=== PATIENT | female | born 1950 | race Caucasian/White ===

== ENCOUNTER 2023-07-15 18:13 | Emergency (ER) | payer MEDICARE ==
[2023-07-15 18:32] VITALS: RESP 18
[2023-07-15] MEDS ORDERED: SODIUM CHLORIDE 0.9% 1,000 ML IV STA (18:49)
--- NOTE | 2023-07-15 18:55 | ED ---
General Adult HPI - General Source: patient, EMS, RN notes reviewed Mode of arrival: EMS Limitations: no limitations <Michael Bergeron - Last Filed: 07/15/23 19:25> <Tye De La Vega - Last Filed: 07/15/23 22:50> - General Chief complaint: Weakness Stated complaint: Weakness, dizziness Time Seen by Provider: 07/15/23 18:40 - History of Present Illness Initial comments: Patient is a pleasant 72-year-old female presenting to the emergency Department with lightheadedness. Onset of symptoms was 2 days ago. Patient feels when she stands up she becomes very lightheaded and is worried she could pass out. Patient has not passed out. No chest pain. Patient has noticed some exertional dyspnea as well. Patient was recently discharged from [facility]. Patient was there to have a port removed. During this procedure they did find some blood clot however they did testing and found no clots in her lungs. Patient was on heparin for 3 days and the decision was made not to further anticoagulate. (Michael Bergeron) - Related Data Home Medications Medication Instructions Recorded Confirmed ALPRAZolam [Xanax] 0.25 mg PO TID PRN 07/15/23 07/15/23 HYDROcodone/APAP 7.5-325MG [[place] 1 tab PO Q6H 07/15/23 07/15/23 7.5-325] Propranolol [Inderal] 20 mg PO BID 07/15/23 07/15/23 Previous Rx's Medication Instructions Recorded Apixaban [Eliquis Starter Pack 5 - 10 mg PO DIRECTED 30 Days 07/15/23 (for VTE)] #1 each Allergies Allergy/AdvReac Type Severity Reaction Status Date / Time Penicillins AdvReac Rash/Hives Verified 07/15/23 20:18 Review of Systems ROS Other: All systems not noted in ROS Statement are negative. Constitutional: Denies: fever Eyes: Denies: eye pain ENT: Denies: ear pain Respiratory: Reports: as per HPI. Denies: cough Cardiovascular: Denies: chest pain Endocrine: Denies: fatigue Gastrointestinal: Denies: abdominal pain Genitourinary: Denies: dysuria Musculoskeletal: Denies: back pain Skin: Denies: rash <Michael Bergeron - Last Filed: 07/15/23 19:25> ROS Other: All systems not noted in ROS Statement are negative. <Tye De La Vega - Last Filed: 07/15/23 22:50> ROS Statement: Those systems with pertinent positive or pertinent negative responses have been documented in the HPI. Past Medical History Past Medical History: Cancer Additional Past Medical History / Comment(s): colon cancer, hx bladder cancer, prolapse mitral valve History of Any Multi-Drug Resistant Organisms: None Reported Past Surgical History: Hysterectomy Additional Past Surgical History / Comment(s): tubal , ostomy, colon resection Past Psychological History: Anxiety Smoking Status: Former smoker Past Alcohol Use History: Rare Past Drug Use History: None Reported <Michael Bergeron - Last Filed: 07/15/23 19:25> General Exam Limitations: no limitations General appearance: alert, in no apparent distress Head exam: Present: normocephalic Eye exam: Present: normal appearance Neck exam: Present: normal inspection Respiratory exam: Present: normal lung sounds bilaterally Cardiovascular Exam: Present: regular rate, normal rhythm GI/Abdominal exam: Present: soft. Absent: tenderness Extremities exam: Present: other (Mild swelling right antecubital fossa and just proximal) Neurological exam: Present: alert, oriented X3, CN II-XII intact. Absent: motor sensory deficit Psychiatric exam: Present: normal affect, normal mood Skin exam: Present: normal color <Michael Bergeron - Last Filed: 07/15/23 19:25> Course Vital Signs 07/15/23 07/15/23 07/15/23 18:16 19:20 20:00 Temperature 99.3 F Pulse Rate 70 65 72 Pulse Rate [ Pulse Oximetery ] Respiratory 18 18 Rate Blood Pressure 124/113 100/65 97/61 Blood Pressure [Left Arm Sitting] Blood Pressure [Left Arm Standing] Blood Pressure [Left Arm Supine] O2 Sat by Pulse 97 97 95 Oximetry 07/15/23 07/15/23 07/15/23 20:30 21:16 22:35 Temperature 99.1 F Pulse Rate 70 62 Pulse Rate [ 68 Pulse Oximetery ] Respiratory 18 Rate Blood Pressure 95/65 116/83 Blood Pressure 101/62 [Left Arm Sitting] Blood Pressure 101/64 [Left Arm Standing] Blood Pressure 107/70 [Left Arm Supine] O2 Sat by Pulse 97 98 Oximetry EKG Findings - EKG Results: EKG: interpreted by ERMAnuradha (QT 460. QTC 479. pvc present.), sinus rhythm, normal axis, normal QRS, normal ST/T <Michael Bergeron - Last Filed: 07/15/23 19:25> Medical Decision Making - Lab Data Result diagrams: 07/15/23 19:18 07/15/23 19:18 <Tye De La Vega - Last Filed: 07/15/23 22:50> - Medical Decision Making Patient was signed out to me pending results of imaging. Briefly, patient has a history of colon cancer recently had a port removed. Has known blood clots but was not discharged home from [facility] on blood thinners as he believed it would pass on its own, presenting with some lightheadedness and weakness. Sensory over concern for possible pulmonary embolism. Patient is also complaining of right upper arm pain. Patient states she feels lightheaded sometimes when sta nding. It is intermittent. Denies any source of bleeding. No longer has a port. Has no other acute complaints at this time. Was not discharged home on home blood thinners. Patient's laboratory studies are remarkable for mild anemia of 7.8. It is microcytic likely chronic. No obvious source of bleeding. Remainder the labs within normal limits. Patient's ultrasound is interpreted by myself reveals a right brachial DVT, as well as a mural thrombus possibly the internal jugular vein which per patient is known that she had clots elsewhere. Patient's CT PE as interpreted by myself reveals no obvious pulmonary embolism. Patient has stenosis of the SVC. I discussed results with the patient. She will go home at this time. She will however be placed on Eliquis outpatient and instructed to follow-up with vascular surgery as well as her PCP. She was in agreement this plan. Strict re turn precautions were discussed. I will provide the patient with a prescription for eliquis. I instructed the patient to follow up with their PCP in the next 1-3 days. I explained that the patient should return to the emergency department if they experience any worsening symptoms. Strict return precautions were discussed with the patient. The patient expressed understanding of these instructions. I answered all questions that the patient had. The patient was discharged home in good condition with their prescriptions and follow up information. Diagnosis/symptom? @ -Right upper extremity DVT Acute, or Chronic, or Acute on Chronic? @ -Acute on chronic Uncomplicated (without systemic symptoms) or Complicated (systemic symptoms)? @ -Complicated Side effects of treatment? @ -none Exacerbation, Progression, or Severe Exacerbation] @ -no Poses a threat to life or bodily function? @ -Unlikely (Tye De La Vega) - Lab Data Lab Results 07/15/23 07/15/23 07/15/23 Range/Units 19:18 19:18 19:18 WBC 10.0 (3.8-10.6) k/uL RBC 3.10 L (3.80-5.40) m/uL Hgb 7.8 L (11.4-16.0) gm/dL Hct 24.6 L (34.0-46.0) % MCV 79.4 L (80.0-100.0) fL MCH 25.2 (25.0-35.0) pg MCHC 31.7 (31.0-37.0) g/dL RDW 18.9 H (11.5-15.5) % Plt Count 383 (150-450) k/uL MPV 7.7 Neutrophils % 77 % Lymphocytes % 11 % Monocytes % 8 % Eosinophils % 2 % Basophils % 0 % Neutrophils # 7.7 (1.3-7.7) k/uL Lymphocytes # 1.1 (1.0-4.8) k/uL Monocytes # 0.8 (0-1.0) k/uL Eosinophils # 0.2 (0-0.7) k/uL Basophils # 0.0 (0-0.2) k/uL Hypochromasia Moderate Anisocytosis Slight Microcytosis Slight PT 9.5 (9.0-12.0) sec INR 0.9 (<1.2) APTT 22.3 (22.0-30.0) sec Sodium 135 L (137-145) mmol/L Potassium 4.5 (3.5-5.1) mmol/L Chloride 103 (98-107) mmol/L Carbon Dioxide 26 (22-30) mmol/L Anion Gap 6 mmol/L BUN 15 (7-17) mg/dL Creatinine 0.89 (0.52-1.04) mg/dL Est GFR (CKD-EPI)AfAm 76 (>60 ml/min/1.73 sqM) Est GFR (CKD-EPI)NonAf 66 (>60 ml/min/1.73 sqM) Glucose 93 (74-99) mg/dL Plasma Lactic Acid Merrill (0.7-2.0) mmol/L Calcium 8.7 (8.4-10.2) mg/dL Magnesium 2.1 (1.6-2.3) mg/dL Total Bilirubin 0.4 (0.2-1.3) mg/dL AST 30 (14-36) U/L ALT 17 (4-34) U/L Alkaline Phosphatase 99 (38-126) U/L Troponin I (0.000-0.034) ng/mL NT-Pro-B Natriuret Pep 535 pg/mL Total Protein 6.6 (6.3-8.2) g/dL Albumin 3.6 (3.5-5.0) g/dL 07/15/23 07/15/23 Range/Units 19:18 19:18 WBC (3.8-10.6) k/uL RBC (3.80-5.40) m/uL Hgb (11.4-16.0) gm/dL Hct (34.0-46.0) % MCV (80.0-100.0) fL MCH (25.0-35.0) pg MCHC (31.0-37.0) g/dL RDW (11.5-15.5) % Plt Count (150-450) k/uL MPV Neutrophils % % Lymphocytes % % Monocytes % % Eosinophils % % Basophils % % Neutrophils # (1.3-7.7) k/uL Lymphocytes # (1.0-4.8) k/uL Monocytes # (0-1.0) k/uL Eosinophils # (0-0.7) k/uL Basophils # (0-0.2) k/uL Hypochromasia Anisocytosis Microcytosis PT (9.0-12.0) sec INR (<1.2) APTT (22.0-30.0) sec Sodium (137-145) mmol/L Potassium (3.5-5.1) mmol/L Chloride (98-107) mmol/L Carbon Dioxide (22-30) mmol/L Anion Gap mmol/L BUN (7-17) mg/dL Creatinine (0.52-1.04) mg/dL Est GFR (CKD-EPI)AfAm (>60 ml/min/1.73 sqM) Est GFR (CKD-EPI)NonAf (>60 ml/min/1.73 sqM) Glucose (74-99) mg/dL Plasma Lactic Acid Merrill 1.3 (0.7-2.0) mmol/L Calcium (8.4-10.2) mg/dL Magnesium (1.6-2.3) mg/dL Total Bilirubin (0.2-1.3) mg/dL AST (14-36) U/L ALT (4-34) U/L Alkaline Phosphatase (38-126) U/L Troponin I <0.012 (0.000-0.034) ng/mL NT-Pro-B Natriuret Pep pg/mL Total Protein (6.3-8.2) g/dL Albumin (3.5-5.0) g/dL Disposition <Michael Bergeron - Last Filed: 07/15/23 19:25> Is patient prescribed a controlled substance at d/c from ED?: No Time of Disposition: 22:09 <Tye De La Vega - Last Filed: 07/15/23 22:50> Clinical Impression: Deep venous thrombosis of arm Disposition: HOME SELF-CARE Condition: Fair Instructions (If sedation given, give patient instructions): Deep Vein Thrombosis (ED) Additional Instructions: follow up with your pcp and vascular surgery for the blood clots. take eliquis until follow up as directed. Prescriptions: Apixaban [Eliquis Starter Pack (for VTE)] 5 - 10 mg PO DIRECTED 30 Days #1 each Referrals: None,Stated [Primary Care Provider] - 1-2 days Dev Partida, [Doctor of Osteopathic Medicine] - 1-2 days
[2023-07-15 19:44] LABS: Anisocytosis Slight; Basophils % (A) 0 %; Eosinophils # (A) 0.2 k/uL (0-0.7); Eosinophils % (A) 2 %; HCT 24.6 % (34.0-46.0); HGB 7.8 gm/dL (11.4-16.0); Hypochromasia Moderate; Lymphocytes # (A) 1.1 k/uL (1.0-4.8); Lymphocytes % (A) 11 %; MCH 25.2 pg (25.0-35.0); MCHC 31.7 g/dL (31.0-37.0); MCV 79.4 fL (80.0-100.0); Mean Platelet Volume 7.7; Microcytosis Slight; Monocytes # (A) 0.8 k/uL (0-1.0); Monocytes % (A) 8 %; Neutrophils # (A) 7.7 k/uL (1.3-7.7); Neutrophils % (A) 77 %; Platelet Count 383 k/uL (150-450); RDW 18.9 % (11.5-15.5)
[2023-07-15 19:55] LABS: ALT 17 U/L (4-34); AST 30 U/L (14-36); African American GFR (CKD) 76 (>60 ml/min/1.73 sqM); Albumin 3.6 g/dL (3.5-5.0); Alkaline Phosphatase 99 U/L (38-126); Anion Gap 6 mmol/L; Blood Urea Nitrogen 15 mg/dL (7-17); Calcium 8.7 mg/dL (8.4-10.2); Carbon Dioxide 26 mmol/L (22-30); Chloride 103 mmol/L (98-107); Glucose 93 mg/dL (74-99); Non-African American GFR(CKD) 66 (>60 ml/min/1.73 sqM); Potassium 4.5 mmol/L (3.5-5.1); Sodium 135 mmol/L (137-145); Total Bilirubin 0.4 mg/dL (0.2-1.3); Total Protein 6.6 g/dL (6.3-8.2)
[2023-07-15 20:01] LABS: INR 0.9 (<1.2); Partial Thromboplastin Time 22.3 sec (22.0-30.0); Prothrombin Time 9.5 sec (9.0-12.0)
[2023-07-15 20:03] LABS: NT-Pro-B-Type Natriuretic Pept 535 pg/mL
[2023-07-15 20:11] LABS: Magnesium 2.1 mg/dL (1.6-2.3)
--- NOTE | 2023-07-15 21:29 | CT ---
EXAMINATION TYPE: CT angio chest CT DLP: 213.7 mGycm, Automated exposure control for dose reduction was used. DATE OF EXAM: 07/15/2023 8:38 PM COMPARISON: None CLINICAL INDICATION:Female, 72 years old with history of Exertional dyspnea; SOB, chest pain TECHNIQUE/CONTRAST: CTA scan of the thorax is performed with IV Contrast, patient injected with 100 mL of Isovue 370, MIP images are created and reviewed these are created on a separate workstation.. FINDINGS: Pulmonary Artery: There is no evidence for a filling defect within the pulmonary vasculature to sugge st acute pulmonary embolism. The pulmonary artery is of normal size. Lungs/Pleura: No evidence of focal consolidation, pleural effusion or pneumothorax. Airway: Large airways are patent. Heart: Heart is within normal limits for size. 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 Mediastinum: No gross evidence of adenopathy. Musculoskeletal: No acute osseous abnormalities Soft Tissues: Unremarkable. Lower neck: No significant findings. Upper Abdomen: No significant findings. IMPRESSION: 1. No evidence of pulmonary embolism. 2. 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
--- NOTE | 2023-07-15 21:46 | US ---
EXAMINATION TYPE: US venous doppler duplex UE RT DATE OF EXAM: 07/15/2023 COMPARISON: NONE CLINICAL INDICATION: Female, 72 years old with history of pain; pain and lumps in right arm above elb ow. Pt had IV last week in right arm. Pt states she had a port in her right subclavian area and when it was taken out there was blood clots found around it. SIDE PERFORMED: Right Right Arm: There are echoes seen in one of the lower brachial veins with no compressibility and littl e flow. IJV is difficult to compress due to rouleaux flow. Left Arm: Echoes seen in left IJV IMPRESSION: 1. Deep vein thrombosis within the brachial veins within the right arm 2. Left internal jugular vein echoes suggestive of mural thrombus. Attempted to contact [facility], No answer, on 07/15/2023 9:[address] Homer Nash.
[2023-07-15] MEDS ORDERED: HYDROcodone/APAP 7.5-325MG 1 EACH TAB PO ONE (22:11)
[2023-07-15] MEDS ORDERED: APIXABAN 5 MG TAB PO STA (22:11)
[2023-07-15 22:37] VITALS: BP 116/83; PULSE 62; TEMP 99.1
== END 2023-07-15 22:53 | disposition home or self-care (01) ==
LOC: EC 18:13
DX: I82.621 Acute embolism and thrombosis of deep veins of right upper extremity (principal); F41.9 Anxiety disorder, unspecified; Z87.891 Personal history of nicotine dependence; Z79.899 Other long term (current) drug therapy; Z88.0 Allergy status to penicillin
CPT/HCPCS: 36415; 93005; 83880; 80053; 83605; 83735; 84484; 85025; 85610; 85730; 93971; 71275; 99285; 96360; 96361 ×2; Q9967

== ENCOUNTER → 2023-08-22 | Outpatient (CLI) | payer MEDICARE ==
[2023-08-22 13:29] LABS: African American GFR (CKD) >90 (>60 ml/min/1.73 sqM); Blood Urea Nitrogen 14 mg/dL (7-17); Non-African American GFR(CKD) 87 (>60 ml/min/1.73 sqM)
--- NOTE | 2023-08-22 14:05 | CT ---
EXAMINATION TYPE: CT chest angio for PE DATE OF EXAM: 08/22/2023 COMPARISON: 07/15/2023 HISTORY: SOB, hx of colon ca CT DLP: 138.5 mGycm CONTRAST: CT chest with contrast and 3D reconstruction with MIP imaging is performed with IV Contrast, patient injected with 80cc mL of Isovue 370. Contrast-enhanced CT of the chest was performed through the course of the pulmonary arteries with rock g and mediastinal window settings submitted. 3D reconstruction with MIP imaging was also performed. PULMONARY ARTERIES: The pulmonary arteries and their major tributaries are patent. I do not see rose dence for sizable filling defect to suggest pulmonary embolic process. LUNGS: The lungs are clear and free of infiltrate. No evidence for atelectasis. No pulmonary nodule or mass is detected. No pleural effusion. MEDIASTINUM: Thoracic aorta is of normal caliber. There is evidence of cardiomegaly. Again noted is suggestion of occlusion or high-grade stenosis of the superior vena cava with collateral venous flow along the azygos system and anterior chest wall. No evidence for mediastinal mass. No mediastinal ly mph nodes greater than 1cm. HILAR STRUCTURES: No evidence for mass. No hilar lymph nodes greater than 1 cm. UPPER ABDOMEN: No significant abnormality is seen. IMPRESSION: 1. No evidence for Pulmonary embolism at this time.
== END | disposition home or self-care (01) ==
LOC: RADCTMAIN 12:17
PROVIDERS: ATTEND Internal Medicine Hematology & Oncology
DX: R06.02 Shortness of breath (principal); Z85.038 Personal history of other malignant neoplasm of large intestine
CPT/HCPCS: 82565; 84520; 71275; 36415; Q9967

== ENCOUNTER → 2024-01-17 | Outpatient (CLI) | payer MEDICARE, OTHER ==
[2024-01-17 10:31] LABS: African American GFR (CKD) >90 (>60 ml/min/1.73 sqM); Blood Urea Nitrogen 8 mg/dL (7-17); Non-African American GFR(CKD) 80 (>60 ml/min/1.73 sqM)
--- NOTE | 2024-01-17 12:21 | CT ---
EXAMINATION TYPE: CT ChestAbdPelvis w con DATE OF EXAM: 01/17/2024 COMPARISON: Chest 08/22/2023 and abdomen pelvis 08/30/2023 HISTORY: 73-year-old female C18.7, f/u colon ca TECHNIQUE: Contiguous axial scanning of the chest, abdomen, pelvis performed with IV Contrast, patien t injected with 100 mL of Isovue 300. Delayed images through the kidneys were obtained. Coronal/sagit josiane reconstructions performed. CT DLP: 457.4 mGycm Automated exposure control for dose reduction was used. FINDINGS: CHEST: Heart is normal size without pericardial effusion. Prominent refluxing contrast into the hepatic vein s. Mildly ectatic ascending aorta 3.6 cm. Both configuration to the aortic arch. No thoracic lymphadenopathy by CT size criteria. Mild biapical pleural-parenchymal scarring scarring. There is some minimal 4 mm nodularity right mid lung. Some of these densities have a tree-in-bud appe arance, similar to prior exam. No new or enlarging nodule is clearly identified. No consolidation or pleural effusion. ABDOMEN: unchanged 8 mm cyst mid hepatic dome. No focal liver lesion or biliary ductal dilatation. Portal mel ous system is patent. Gallbladder, adrenal glands, kidneys and bilateral extra renal pelves, spleen, and mildly atrophic pa ncreas show no gross normality. Staple line relating to prior small bowel surgery anterior mid abdomen. Small bowel loops here remain patulous measuring up to 4.0 cm. Other small bowel loops in the lower a bdomen measure up to 4.5 cm in caliber and are fluid-filled. There is a diverting right lower quadrant ileostomy. A parastomal hernia contains nonobstructed small bowel loops and measures up to 6.2 cm wide, unchanged. The colon shows residual scattered mild stool. No residual moderate stool in the cecum and residual l arge stool in the distal sigmoid and rectum. Staple line from prior resection and reanastomosis of th e distal sigmoid. There is complex crowded soft tissue in the left lower quadrant and upper pelvis. Unable to clearly d elineate small bowel loops here. There is anterior left lower quadrant abdominal wall mass measuring 4.9 x 4.6 cm versus 6.3 x 6.0 cm, previously. There is contiguous mass involving the posterior left d ome of the bladder measuring 4.2 x 4.1 cm versus 3.7 x 2.9 cm, previously. Suspect continuous extensi on to involve the wall of adjacent small bowel loops. Oral contrast has made its way to the right low er quadrant ostomy. Right-sided body wall collateral vessels and secondary arterial venous shunting resulting in arterial enhancement of the right iliac vein and IVC. Pelvis: Bladder partially distended. Mild pelvic ascites. Bones: Large sacral perineural cyst measuring 3.3 cm on the left. No osseous destructive process. IMPRESSION: 1. KNOWN ANTERIOR LEFT LOWER QUADRANT INTRA-ABDOMINAL MASS INVADING INTO THE ANTERIOR ABDOMINAL WALL MUSCULATURE. APPROXIMATELY 4.9 X 4.6 CM CURRENTLY VERSUS 6.3 X 6.0 CM, PREVIOUSLY, SLIGHTLY SMALLER N OW. 2. CONTIGUOUS SOFT TISSUE EXTENSION REDEMONSTRATED TO INVOLVE THE LEFT BLADDER DOME MEASURING 4.2 X 4 .1 CM (VERSUS 3.7 X 2.9 CM, PREVIOUSLY), SLIGHTLY LARGER NOW. 3. CONTIGUOUS INVASION OF ADJACENT SMALL BOWEL LOOPS. GIVEN THE PERSISTENTLY DILATED SMALL BOWEL LOOP S MEASURING UP TO 4.5 CM BUT WITH CONTRAST MAKING ITS WAY TO THE RIGHT LOWER QUADRANT INVERTING ILEOS JOSSELINE, SUSPECT RESIDUAL PARTIAL SMALL BOWEL OBSTRUCTION. 4. Residual moderate to large stool within the cecum and also the distal sigmoid and rectum. 5. Redemonstrated parastomal hernia measuring 6.2 cm wide containing nonobstructed small bowel loops.
== END | disposition home or self-care (01) ==
LOC: RADCTMAIN 09:23
PROVIDERS: ATTEND Internal Medicine Hematology & Oncology
DX: K43.5 Parastomal hernia without obstruction or gangrene (principal); R19.00 Intra-abdominal and pelvic swelling, mass and lump, unspecified site; C18.7 Malignant neoplasm of sigmoid colon; N32.89 Other specified disorders of bladder
CPT/HCPCS: 82565; 84520; 71260; 74177; 36415; Q9967

== ENCOUNTER 2024-02-25 13:42 | Inpatient (IN) | payer MEDICARE, OTHER ==
[2024-02-25] MEDS ORDERED: ONDANSETRON 8 MG in SODIUM CHLORIDE 0.9% 50 ML IVPB ONE (14:03)
[2024-02-25] MEDS: SODIUM CHLORIDE 0.9% 500 ML IV STA (14:26)
[2024-02-25] MEDS: SODIUM CHLORIDE 0.9% 1,000 ML IV STA (14:27)
[2024-02-25] MEDS: MORPHINE SULFATE 4 MG/ML SYRINGE IV STA (14:28)
[2024-02-25] MEDS: ONDANSETRON 4 MG/2 ML VIAL IVP STA (14:28)
[2024-02-25] MEDS: HYDROmorphone 1 MG/ML 1 ML SYRINGE IVP PRN ×2 (14:59→18:22)
--- NOTE | 2024-02-25 15:09 | ED ---
General Adult HPI - General Chief complaint: Recheck/Abnormal Lab/Rx Stated complaint: ABD pain Time Seen by Provider: 02/25/24 13:46 Source: patient, EMS Mode of arrival: EMS Limitations: no limitations - History of Present Illness Initial comments: This 73-year-old female presents with complaint of abdominal pain as well as some nausea and vomiting. She states that the abdominal pain is diffuse in nature. It is fairly severe. It is oftentimes 10 out of 10. It is dull and achy like. She states that it started proxy 1 week ago but has been worse for the last 3 to 4 days. She complains of multiple episodes of nausea and vomiting. It is somewhat worse when she tries to eat. She does have a long history of cancer problems she apparently had colon cancer and has had multiple surgeries as well as ostomy. She apparently initially started treatment and was diagnosed 4 years ago. She was diagnosed with stage IV colon cancer. She has had cancer into her bladder as well but thought that this was cleared up after surgeries. She did apparently just have a CT scan a couple weeks ago. She is on a oral chemotherapy agent currently. She follows up with Dr. Waters from our oncology department. She was seen at [facility] and transferred to our facility for further treatment after discussion with our oncologist. She states that her home pain medications do not seem to help. She denies any frequency, urgency or dysuria. She currently is on Eliquis for blood clots. She apparently did have some hematuria. She denies any fevers or chills. No other complaints or modifying factors. She also has been seen out of [facility] for her cancer problems. - Related Data Home Medications Medication Instructions Recorded Confirmed ALPRAZolam [Xanax] 0.25 mg PO DAILY PRN 07/15/23 02/11/24 HYDROcodone/APAP 7.5-325MG [[place] 1 tab PO Q6H PRN 07/15/23 02/11/24 7.5-325] Apixaban [Eliquis] 5 mg PO BID 08/30/23 02/11/24 Capecitabine (Xeloda) 500mg 1,500 mg PO DIRECTED 08/30/23 02/11/24 Hydrocortisone Cream 1 applic TOPICAL BID PRN 08/30/23 02/11/24 [Hydrocortisone 2.5% Cream] Sennosides [Senokot] 17.2 mg PO BID 08/30/23 02/11/24 Allergies Allergy/AdvReac Type Severity Reaction Status Date / Time Penicillins Allergy Rash/Hives Verified 02/25/24 13:57 Review of Systems ROS Statement: Those systems with pertinent positive or pertinent negative responses have been documented in the HPI. ROS Other: All systems not noted in ROS Statement are negative. Past Medical History Past Medical History: Cancer Additional Past Medical History / Comment(s): colon cancer, hx bladder cancer, prolapse mitral valve, chemo 08/27/2023 History of Any Multi-Drug Resistant Organisms: None Reported Past Surgical History: Hysterectomy Additional Past Surgical History / Comment(s): tubal , ostomy, colon resection Past Psychological History: Anxiety Smoking Status: Former smoker Past Alcohol Use History: None Reported Past Drug Use History: None Reported General Exam - General Exam Comments Initial Comments: GENERAL: The patient is well nourished and well hydrated. VITAL SIGNS: Heart rate, blood pressure, respiratory rate reviewed as recorded in nurse's notes. EYES: Pupils are round and reactive. Extraocular movements are intact. No conjunctival / lid redness or swelling. ENT: No external evidence of injury, swelling, or ecchymosis. Airway is patent. Throat is clear. NECK: Nontender. No swelling or evidence of injury. No subcutaneous emphysema. Trachea is midline. No thyroid mass. HEART: Regular rate and rhythm. Good peripheral pulses. LUNGS/CHEST: Breath sounds clear and equal bilaterally. No rales, rhonchi, or wheezes. No ecchymosis, subcutaneous emphysema, or tenderness. ABDOMEN: Tenderness noted diffusely throughout the abdomen. There is an ostomy present in the mid abdominal region. No palpable masses or organomegaly. No peritoneal signs. No abdominal wall swelling or ecchymosis. EXTREMITIES: No extremity tenderness. Normal muscle tone and function. No thoracolumbar tenderness. NEUROLOGIC: Sensation is grossly intact. Cranial nerve exam reveals face is symmetrical, tongue is midline, speech is clear. SKIN: No abrasions or ecchymosis is noted. No induration or masses noted. PSYCHIATRIC: Alert and oriented. Appropriate behavior and judgment. Limitations: no limitations Course Vital Signs 02/25/24 13:54 Temperature 98 F Pulse Rate 90 Respiratory 18 Rate Blood Pressure 132/78 O2 Sat by Pulse 98 Oximetry Medical Decision Making - Medical Decision Making The patient was seen and examined. All testing was just completed at previous hospital and this is reviewed. Patient had multiple laboratories and this does show hemoglobin of 12.7, white blood cell count of 10.18, platelets of 356. The sodium is slightly low at 134. Potassium is 4.7, chloride is 98, creatinine is 1, glucose is slightly elevated at 180. Alk phos is slightly elevated at 213. Lactic acid is 1.5. Urinalysis does show hematuria as well as elevation white blood cells and 2+ bacteria consistent with likely urinary tract infection. She also had a CT scan of the abdomen and pelvis which does show multiple abnormalities including a large lobular poorly defined neoplasm involving the left anterior lower pelvis and abdominal wall with involvement of the adjacent small intestinal loops and mild small bowel hypodynamic in the left abdomen and pelvis. This is decreased in size as compared to previous study. There also is an abnormal urinary bladder with progressive lobular neoplasm of the posterior superior left aspect of the urinary bladder with extravesicular extension into the deep pelvis with tethering of the adjacent small intestinal loops. There is also evidence of right-sided hydronephrosis due to distal ureteric compression or involvement by retroperitoneal lymph nodes. There is also progression in the retroperitoneal lymph node metastatic disease with large necrotic appearing pericaval periaortic masses. The most pronounced within the left periaortic psoas region with invasion into the psoas muscle and paraspinal soft tissues. There are also some pancreatic atrophy. Please see report for definitive details. IV is established and patient is hydrated. She also receives morphine 4 mg intravenously. This does not help for the pain and she states that her pain is worse. She received Dilaudid 1 mg intravenously with improved relief. Records were reviewed in detail from the sending hospital as summarized above. It is felt as though she would require admission to the hospital with oncology consultation. It is felt as though she does have extensive colon cancer and metastatic disease. She has intractable pain as well as intractable nausea and vomiting. Patient is agreeable with admission. Case is discussed with internal medicine and they are agreeable with admission as well. Was pt. sent in by a medical professional or institution (, PA, REEFER ENGINEER, urgent care, hospital, or [place] health care facility...) When possible be specific @ -Patient was sent from [facility] emergency department. Did you speak to anyone other than the patient for history (EMS, parent, family, police, friend...)? What history was obtained from this source @ -The ER physician from [facility] emergency department discussed case with my partner. Did you review nursing and triage notes (agree or disagree)? Why? @ -[I reviewed and agree with nursing and triage notes] Were old charts reviewed (outside hosp., previous admission, EMS record, old EKG, old radiological studies, urgent care reports/EKG's, [place] health care facility records)? Report findings @ -Old records from sending hospital are reviewed in detail with summarization above. Differential Diagnosis (chest pain, altered mental status, abdominal pain women, abdominal pain men, vaginal bleeding, weakness, fever, dyspnea, syncope, headache, dizziness, GI bleed, back pain, seizure, CVA, palpatations, mental health, musculoskeletal)? @ -Intractable abdominal pain, nausea vomiting, dehydration, stage IV metastatic colon cancer, bladder cancer, hematuria. EKG interpreted by me (3pts min.). @ -Not done X-rays interpreted by me (1pt min.). @ -[None done] CT interpretation @ -CT is interpreted by radiologist from sending facility. U/S interpreted by me (1pt. min.). @ -[None done] What testing was considered but not performed or refused? (CT, X-rays, U/S, labs)? Why? @ -[None] What meds were considered but not given or refused? Why? @ -[None] Did you discuss the management of the patient with other professionals (professionals i.e. , PA, REEFER ENGINEER, lab, RT, psych nurse, social work therapist, neonatal pediatric nurse, teacher, international first officer, case therapist)? Give summary @ -This is discussed with internal medicine who is agreeable with admission. Was smoking cessation discussed for >3mins.? @ -[No] Was critical care preformed (if so, how long)? @ -[No] Were there social determinants of health that impacted care today? How? (Homelessness, low income, unemployed, alcoholism, drug addiction, transportation, low edu. Level, literacy, decrease access to med. care, senior care, rehab)? @ -[No] Was there de-escalation of care discussed even if they declined (Discuss DNR or withdrawal of care, Hospice)? DNR status @ -[No] What co-morbidities impacted this encounter? (DM, HTN, Smoking, COPD, CAD, Cancer, CVA, ARF, Chemo, Hep., AIDS, mental health diagnosis, sleep apnea, morbid obesity)? @ -Stage IV colon cancer, bladder cancer. Was patient admitted / discharged? Hospital course, mention meds given and rou te, prescriptions, significant lab abnormalities, going to OR and other pertinent info. @ -Patient is admitted to the hospital for further treatment. Please see above. Undiagnosed new problem with uncertain prognosis? @ -[No] Drug Therapy requiring intensive monitoring for toxicity (Heparin, Nitro, Insulin, Cardizem)? @ -[No] Were any procedures done? @ -[No] Diagnosis/symptom? @ -Intractable abdominal pain, nausea and vomiting, dehydration, stage IV colon cancer with metastases, bladder cancer, hematuria. Acute, or Chronic, or Acute on Chronic? @ -Acute on chronic. Uncomplicated (without systemic symptoms) or Complicated (systemic symptoms)? @ -[default] Side effects of treatment? @ -[No] Exacerbation, Progression, or Severe Exacerbation? @ -Yes Poses a threat to life or bodily function? How? (Chest pain, [place], [place], pneumonia, PE, COPD, DKA, ARF, appy, cholecystitis, CVA, Diverticulitis, Homicidal, Suicidal, threat to staff... and all critical care pts) @ -Stage IV colon cancer does pose a threat to life. Disposition Clinical Impression: History of colon cancer, stage IV, Intractable abdominal pain, Nausea and vomiting, Bladder cancer, Hematuria, Urinary tract infection, Dehydration Disposition: ADMITTED IP TO THIS HOSP Condition: Fair Is patient prescribed a controlled substance at d/c from ED?: No Time of Disposition: 15:09 Decision Date: 02/25/24 Decision Time: 15:09
[2024-02-25] MEDS ORDERED: NALOXONE 0.4 MG/ML 1 ML VIAL IV PRN (15:10)
[2024-02-25] MEDS ORDERED: PROCHLORPERAZINE SUPPOSITORY 25 MG SUPP RECTAL PRN (15:10)
[2024-02-25] MEDS ORDERED: GABAPENTIN 100 MG CAP PO PRN (16:58)
[2024-02-25] MEDS: TOBRA-DEXAMET 0.3-0.1% OPHTH OINT 3.5 GM TUBE BOTH EYES SCH (21:19)
[2024-02-25] MEDS: APIXABAN 5 MG TAB PO SCH (21:19)
[2024-02-25] MEDS: SENNOSIDES 8.6 MG TAB PO SCH (21:19)
--- NOTE | 2024-02-26 00:30 | P.HPIM ---
History of Present Illness H&P Date: 02/25/24 Chief Complaint: Abdominal pain Patient is a 73-year-old female with past medical history of colon cancer status post and ostomy currently on chemotherapy every 2 weeks and Xeloda, history of bladder cancer, mitral valve prolapse, history of DVT, anxiety and prior history of smoking was initially presented to [facility] due to complaints of nausea, vomiting and abdominal pain and able to tolerate oral diet. Patient has been having symptoms for the past 1 week. Pain is 10 out of 10. Denies any hematemesis. Patient does have history of stage IV colon cancer and is on follow-up with Dr. Salguero as an outpatient. Patient states that she had a CT of the abdomen pelvis done couple weeks ago. Patient was transferred to [facility] after discussion with her oncologist. Patient also follows with heart team at [facility]. Denies any fever or chills. No chest pain or shortness of breath. No leg swelling. No cough or sputum production. Laboratory data from her hospital reviewed. Patient is also having blood in the urine. Review of Systems Constitutional: Patient denies any fever or chills . Patient does have generalized weakness. Loss of appetite.. Abdomen: Patient complains of nausea vomiting and abdominal pain. No diarrhea. Complains of gas in the ostomy bag Cardiovascular: Patient denies any chest pain or short of breath no palpitations. Respiratory: patient denied any cough is from production. No shortness of breath Neurologic: Patient denied any numbness or tingling headache. Musculoskeletal: Patient denies any complaints of joint swelling or deformity. Skin: Negative Psychiatric: Negative Endocrine: No heat or cold intolerance. No recent weight gain. Genitourinary: No dysuria. Positive for intermittent hematuria. All other 14 point ROS negative except the above Past Medical History Past Medical History: Cancer Additional Past Medical History / Comment(s): colon cancer, hx bladder cancer, prolapse mitral valve, chemo 08/27/2023 History of Any Multi-Drug Resistant Organisms: None Reported Past Surgical History: Hysterectomy Additional Past Surgical History / Comment(s): tubal , ostomy, colon resection Past Psychological History: Anxiety Smoking Status: Former smoker Past Alcohol Use History: None Reported Past Drug Use History: None Reported Medications and Allergies Home Medications Medication Instructions Recorded Confirmed Type ALPRAZolam [Xanax] 0.125 - 0.25 mg PO DAILY PRN 07/15/23 02/25/24 History HYDROcodone/APAP 7.5-325MG [[place] 1 tab PO Q6H PRN 07/15/23 02/25/24 History 7.5-325] Apixaban [Eliquis] 5 mg PO BID 08/30/23 02/25/24 History Sennosides [Senokot] 17.2 mg PO BID 08/30/23 02/25/24 History Acetaminophen Tab [Tylenol Tab] 1,000 mg PO Q6HR PRN 02/25/24 02/25/24 History Gabapentin [Neurontin] 100 mg PO TID PRN 02/25/24 02/25/24 History Prochlorperazine Maleate 10 mg PO TID PRN 02/25/24 02/25/24 History Tobra-Dexamet 0.3-0.1% Eye Oin 1 applic BOTH EYES BID 02/25/24 02/25/24 History [Tobradex Ophth Oint] Allergies Allergy/AdvReac Type Severity Reaction Status Date / Time bee venom protein (honey bee) Allergy Swelling Verified 02/25/24 15:02 Penicillins Allergy Rash/Hives Verified 02/25/24 15:02 Physical Exam Vitals: Vital Signs Temp Pulse Pulse Resp BP BP Pulse Ox 02/25/24 16:38 98 F 70 16 145/88 97 02/25/24 16:16 77 16 125/86 97 02/25/24 13:54 98 F 90 18 132/78 98 Intake and Output 02/25/24 02/25/24 02/25/24 06:59 14:59 22:59 Other: Weight 54.431 kg PHYSICAL EXAMINATION: Patient is lying in the bed, mild acute distress due to pain, awake alert and oriented.. HEENT: Normocephalic. Neck is supple. Pupils reactive. Nostrils clear. Oral cavity is moist. Neck reveals no JVD, carotid bruits, or thyromegaly. CHEST EXAMINATION: Trachea is central. Symmetrical expansion. Lung ríos clear to auscultation and percussion. CARDIAC: Normal S1, S2 with no gallops. No murmurs ABDOMEN: Soft. Bowel sounds present. Ostomy bag in place. Parastomal hernia. No abdominal bruits. Extremities: reveal no edema. No clubbing or cyanosis Neurologically awake, alert, oriented x3 with well-coordinated movements. No focal deficits noted Skin: No rash or skin lesions. Psychiatric: Coperative. Nonsuicidal, anxious. Musculoskeletal: No joint swelling or deformity. Normal range of motion. Thrombosis Risk Factor Assmnt - DVT/VTE Prophylaxis DVT/VTE Prophylaxis: Pharmacologic Prophylaxis ordered Assessment and Plan Assessment: Abdominal pain associate with nausea and vomiting clear to malignancy related pain. Status post colon cancer status post surgical surgery and colostomy currently on chemotherapy every 2 weeks. Also on Xeloda Hematuria. Intermittent symptoms. Urology consult for evaluation. History of bladder cancer History of mitral valve prolapse Anxiety Prior history of smoking GI prophylaxis PPI. DVT prophylaxis patient is already on full anticoagulation Plan: Patient will be continued on IV hydration with normal saline. Symptomatic management for nausea and vomiting and advance oral diet as tolerated. Continued pain management. Oncology consult for evaluation. Follow-up CBC and BMP tomorrow. Continue with home medications. Prognosis is guarded. Time with Patient: Greater than 30
[2024-02-26] MEDS: SODIUM CHLORIDE 0.9% 1,000 ML IV SCH (03:34)
[2024-02-26] MEDS: PANTOPRAZOLE 40 MG/10 ML VIAL IV SCH (09:07)
[2024-02-26 11:19] LABS: Basophils # (A) 0.07 X 10*3/uL (0.00-0.10); Eosinophils # (A) 0.07 X 10*3/uL (0.04-0.35); HCT 37.7 % (37.2-46.3); HGB 11.9 g/dL (12.0-15.0); Lymphocytes # (A) 1.27 X 10*3/uL (0.90-5.00); Lymphocytes % (A) 17.8 %; MCH 28.1 pg (27.0-32.0); MCHC 31.6 g/dL (32.0-37.0); MCV 89.1 FL (80.0-97.0); Mean Platelet Volume 9.7 FL (9.5-12.2); Monocytes # (A) 0.91 X 10*3/uL (0.20-1.00); Monocytes % (A) 12.8 %; NRBC Per 100 WBC 0 X 10*3/uL (0.00-0.01); Neutrophils # (A) 4.73 X 10*3/uL (1.80-7.70); Neutrophils % (A) 66.4 %; Platelet Count 356 X 10*3/uL (140-440); RBC 4.23 X 10*6/uL (4.10-5.20); RDW 15.2 % (11.5-14.5); WBC 7.12 X 10*3/uL (4.50-10.00)
[2024-02-26 11:52] LABS: ALT 14 U/L (8-44); AST 20 U/L (13-35); Albumin 3.6 g/dL (3.8-4.9); Albumin/Globulin Ratio 1.38 Ratio (1.60-3.17); Alkaline Phosphatase 161 U/L (41-126); BUN/Creat Ratio 6.78 Ratio (12.00-20.00); Blood Urea Nitrogen 6.1 mg/dL (9.0-27.0); Calcium 9.2 mg/dL (8.7-10.3); Carbon Dioxide 22.5 mmol/L (21.6-31.8); Chloride 104 mmol/L (96-109); Globulin 2.6 g/dL (1.6-3.3); Glucose 96 mg/dL (70-110); Potassium 4.6 mmol/L (3.5-5.5); Sodium 139 mmol/L (135-145); Total Bilirubin 0.3 mg/dL (0.3-1.2); Total Protein 6.2 g/dL (6.2-8.2)
[2024-02-26 13:07] VITALS: BMI 19.3
[2024-02-26] MEDS: IOPAMIDOL CONTRAST (ORAL USE) VIAL PO PRN (14:46)
--- NOTE | 2024-02-26 16:56 | CT ---
EXAMINATION TYPE: CT abdomen pelvis w con CT DLP: 915 mGycm, Automated exposure control for dose reduction was used. DATE OF EXAM: 02/26/2024 4:18 PM COMPARISON: CT abdomen pelvis most recent from 01/17/2024. CLINICAL INDICATION:Female, 73 years old with history of new abd pain, Hx of colon adenocarcinoma; Ne w onset lower abdominal pain, history of colon and bladder ca. TECHNIQUE: Axial CT abdomen pelvis w con;Sagittal and coronal reformats were created on a separate w orkstation. Contrast used:100 mL of Isovue 300 with IV Contrast, (none if empty) Oral contrast used: with Oral Contrast (none if empty) FINDINGS: LOWER CHEST: Unremarkable Multiple collateral vessels with high density contrast extending on the anterior chest wall concernin g for venous occlusions in the upper extremities was injected in. This is confirmed on prior imaging at 01/17/2024 CT. . ABDOMEN LIVER: Hepatic lobe density area in the right hepatic lobe possibly representing cyst near the diaphr agm. GALLBLADDER AND BILE DUCTS: Vicarious excretion of contrast within the liver. PANCREAS: Unremarkable. SPLEEN: Unremarkable. ADRENAL GLANDS: Unremarkable. KIDNEYS AND URETERS: No evidence of hydronephrosis or renal calculus. The ureters are unremarkable. PELVIS BLADDER: Bladder wall mass measuring 42 x 35 mm is redemonstrated previously 42 x 41 mm. Findings may be secondary to measuring T technique. REPRODUCTIVE: Unremarkable. ABDOMEN & PELVIS STOMACH AND BOWEL: No evidence of bowel obstruction. Large amount of stool throughout the colon. PERITONEUM/RETROPERITONEUM: No evidence of pneumoperitoneum or free fluid. VASCULATURE: No evidence of aortic aneurysm. MUSCULOSKELETAL: No acute osseous abnormalities LYMPH NODES: Multiple enlarged lymph nodes are seen throughout the retroperitoneum the largest in the left retroperitoneum near inferior air renal sinus on the left measures at least 46 x 33 x 57 mm pre viously measuring up to 37 mm in maximal dimension. SOFT TISSUE/ABDOMINAL WALL: Redemonstration of right parastomal hernia containing loops of bowel. The re is no bowel wall thickening of these loops measuring up to 6 mm. IMPRESSION: 1. 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 Findings new from 01/17/2024. Surgical consultation recommended. 2. Multiple collateral vessels with high density contrast extending on the anterior chest wall viv rning for venous occlusions in the upper extremities was injected in. This is confirmed on prior imag ing at 01/17/2024. 3. Bladder wall mass with evidence of progression of metastatic throughout the retroperitoneum with multiple enlarging lymph nodes. Findings communicated to Ritu Loomis and associates on 02/26/2024 4:[address] Homer Nash.
[2024-02-26 18:02] LABS: Amorphous Sediment,Urine Rare /hpf; Appearance,Urine Cloudy (Clear); Bacteria,Urine Few /hpf; Bilirubin,Urine Negative (Negative); Blood,Urine Large (Negative); Color,Urine Yellow; Glucose,Urine (UA) Negative (Negative); Ketones,Urine Negative (Negative); Leukocyte Esterase,Urine Moderate (Negative); Mucus,Urine Rare /hpf; Nitrite,Urine Negative (Negative); PH, Urine 5.5 (5.0-8.0); Protein,Urine 2+ (Negative); RBC,Urine >182 /hpf (0-5); Specific Gravity,Urine 1.012 (1.001-1.035); Urobilinogen,Urine <2.0 mg/dL (<2.0); WBC,Urine 37 /hpf (0-5)
--- NOTE | 2024-02-26 18:10 | P.CONS ---
History of Present Illness - Reason for Consult Consult date: 02/26/24 colon adeno, on treatment Requesting physician: Homer Nugent - Chief Complaint Intractable abd pain - History of Present Illness Ms. Guerrero is a female patient of Dr. 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 She presented with cramps and diarrhea. CT showed sigmoid mass, also bladder mass. In November 2019 she had a small bowel obstruction, requiring partial colon resection and creation of colostomy. She was started on adjuvant chemotherapy but decided to discontinue because of poor tolerance. For the bladder mass she underwent TURBT on 01/13/2020 which showed invasive high-grade papillary urothelial carcinoma, invading lamina propria. She was treated with intravesical treatment, she reports she was told her bladder cancer was "cured". Patient was not seen until October 2022, seeking medical attention for abdominal pain. Recurrent bowel obstruction. 12/28/2022 biopsy of the left lower quadrant abdominal mass, positive for metastatic colon adenocarcinoma. Exploratory surgery December 2022 with lysis of adhesions and small bowel bypass. PET scan 04/01/2023 showed left anterior pelvic mass, numerous necrotic FDG avid masses in the pelvis, retroperitoneal, periaortic and left inguinal nodes. After surgical recovery there was a plan to start treatment but there were transportation as well as social issues. She was seen at [facility], PET scan 06/21/2023 revealed the previously mentioned sites. She also had extensive subclavian thrombus and IJ thrombus, old port was removed. Tumor was HERMAN wild-type, EUGENE and HER2 negative. She met with Dr Jay and felt to use PANDA regimen (with xeloda instead on 5FU to avoid port placement s/p subclavian and IJ thrombus) and vectibix. She established care closer to home with Dr. Condon 07/2023. 08/13/2023 she started vectibix IV Q 2 weeks and xeloda 7 days on 7 off. She required dose reduction of xeloda 2/2 moderate/severe PPE. She was hospitalized in Aug 2023 for abd pain, concern for perforation. She was evaluated, symptoms resolved spontaneously, she was t reated for UTI. She continued on treatment and on 01/17/2024 CT showed stable disease. Admitted with c/o N,V x 4 days, diarrhea x 1 day, bandlike abd pain, epigastric area to lower pelvis. Denied fevers, hematemesis, SOB, chest pain, dysuria, hematochezia or melena. Ostomy is functioning, lots of gas. Review of Systems 10 point ROS is neg except as stated in HPI Past Medical History Past Medical History: Cancer Additional Past Medical History / Comment(s): colon cancer, hx bladder cancer, prolapse mitral valve, chemo 08/27/2023 History of Any Multi-Drug Resistant Organisms: None Reported Past Surgical History: Hysterectomy Additional Past Surgical History / Comment(s): tubal , ostomy, colon resection Past Anesthesia/Blood Transfusion Reactions: No Reported Reaction Past Psychological History: Anxiety Smoking Status: Former smoker Past Alcohol Use History: None Reported Past Drug Use History: None Reported Medications and Allergies Home Medications Medication Instructions Recorded Confirmed Type ALPRAZolam [Xanax] 0.125 - 0.25 mg PO DAILY PRN 07/15/23 02/25/24 History HYDROcodone/APAP 7.5-325MG [[place] 1 tab PO Q6H PRN 07/15/23 02/25/24 History 7.5-325] Apixaban [Eliquis] 5 mg PO BID 08/30/23 02/25/24 History Sennosides [Senokot] 17.2 mg PO BID 08/30/23 02/25/24 History Acetaminophen Tab [Tylenol Tab] 1,000 mg PO Q6HR PRN 02/25/24 02/25/24 History Gabapentin [Neurontin] 100 mg PO TID PRN 02/25/24 02/25/24 History Prochlorperazine Maleate 10 mg PO TID PRN 02/25/24 02/25/24 History Tobra-Dexamet 0.3-0.1% Eye Oin 1 applic BOTH EYES BID 02/25/24 02/25/24 History [Tobradex Ophth Oint] Allergies Allergy/AdvReac Type Severity Reaction Status Date / Time bee venom protein (honey bee) Allergy Swelling Verified 02/25/24 15:02 Penicillins Allergy Rash/Hives Verified 02/25/24 15:02 Physical Exam Vitals: Vital Signs Temp Pulse Pulse Resp BP BP Pulse Ox 02/26/24 07:11 98 F 66 16 102/66 98 02/26/24 02:00 98.5 F 80 16 126/80 96 02/25/24 20:00 82 16 02/25/24 19:14 98.9 F 82 16 128/83 93 L 02/25/24 16:38 98 F 70 16 145/88 97 02/25/24 16:16 77 16 125/86 97 02/25/24 13:54 98 F 90 18 132/78 98 Intake and Output 02/25/24 02/26/24 02/26/24 22:59 06:59 14:59 Other: Voiding Method Toilet # Voids 3 Weight 54.431 kg - Constitutional General appearance: average body habitus, cooperative, no acute distress - EENT Eyes: anicteric sclerae, EOMI ENT: hearing grossly normal - Respiratory Respiratory: bilateral: CTA - Cardiovascular Heart sounds: normal: S1, S2 leg Peripheral Edema: bilateral: None - Gastrointestinal rt abd ostomy, lots of gas, stool is semisolid, no visible blood or dark stool General gastrointestinal: hyperactive bowel sounds, soft - Integumentary Integumentary: normal - Neurologic Neurologic: CNII-XII intact - Musculoskeletal Musculoskeletal: strength equal bilaterally - Psychiatric Psychiatric: A&O x's 3, appropriate affect, intact judgment & insight Results CBC & Chem 7: 02/26/24 06:19 02/26/24 06:19 CT scan - abdomen: report reviewed CT scan - pelvis: report reviewed Assessment and Plan (1) Intractable abdominal pain Current Visit: Yes Status: Acute Code(s): R10.9 - UNSPECIFIED ABDOMINAL PAIN SNOMED Code(s): 76332136 (2) History of colon cancer, stage IV Current Visit: Yes Status: Acute Code(s): Z85.038 - PERSONAL HISTORY OF MALIGNANT NEOPLASM OF LARGE INTESTINE SNOMED Code(s): 479931340 Plan: History of stage IV colon cancer. Presenting with intractable abdominal pain -Patient has been on treatment with oral Xeloda, dose reduction, 1 week on 1 we ek off since July 2023 along with IV Vectibix every 2 weeks. Scan in early January showed stable disease -Vectibix was recently held (last cycle was 3 weeks ago) due to eye infection. Patient states she is currently on her week of Xeloda. This will be held. -Patient reports being on Keflex for the eye infection. Not sure if this is causing some of her GI distress. CT of the abdomen and pelvis ordered. Received a [employer] alert from reading radiologist. Concerns for peristomal herniation and ischemic bowel. Patient is still passing stool as well as gas. Surgery has been consulted. -NPO Doctor attests: I performed a history and physical examination of this patient, developed impression and plan of care. Discussed with dictator. I agree with dictators note, documented as a scribe.
--- NOTE | 2024-02-27 05:25 | P.PN ---
Subjective Progress Note Date: 02/26/24 Patient is a 73-year-old female with past medical history of colon cancer status post and ostomy currently on chemotherapy every 2 weeks and Xeloda, history of bladder cancer, mitral valve prolapse, history of DVT, anxiety and prior history of smoking was initially presented to [facility] due to complaints of nausea, vomiting and abdominal pain and able to tolerate oral diet. Patient has been having symptoms for the past 1 week. Pain is 10 out of 10. Denies any hematemesis. Patient does have history of stage IV colon cancer and is on follow-up with Dr. Salguero as an outpatient. Patient states that she had a CT of the abdomen pelvis done couple weeks ago. Patient was transferred to [facility] after discussion with her oncologist. Patient also follows with heart team at [facility]. Denies any fever or chills. No chest pain or shortness of breath. No leg swelling. No cough or sputum production. Laboratory data from her hospital reviewed. Patient is also having blood in the urine. 02/26/2024 Patient is seen and evaluated in follow-up with oncology consulted. Patient reports to having improvements somewhat in the nausea and vomiting although continues to have some abdominal discomfort. Patient has ostomy on the right and gas with liquid stool noted. Patient has significant hernia noted below the ostomy patient reports this has been ongoing for quite some time and being evaluated. Patient is afebrile with no reports of chest pain or shortness of breath. Patient continues on antibiotics for an eye infection. Patient currently receiving treatment with Dr. Condon in the outpatient setting. Patient was given clear liquids and instructed patient to hold on eating for now until after CT scan results. Pelvis ordered for further evaluation oncology. review of systems: Constitutional: No reports of fatigue, fever, or chills Cardiovascular: No reports of chest pain or palpitations Respiratory: No reports of shortness of breath or cough GI: No reports of nausea, vomiting, or diarrhea, reports abdominal pain : No reports of dysuria or retention Neurovascular: No reports of weakness or numbness All medications have been reviewed PHYSICAL EXAMINATION: Patient is lying in the bed, sleeping although easily arousable, alert and oriented.. Thin built, elderly appearing HEENT: Normocephalic. Neck is supple. Pupils reactive. Nostrils clear. Oral cavity is moist. Neck reveals no JVD, carotid bruits, or thyromegaly. CHEST EXAMINATION: Trachea is central. Symmetrical expansion. Lung ríos clear to auscultation and percussion. CARDIAC: Normal S1, S2 with no gallops. No murmurs ABDOMEN: Soft. Bowel sounds present. Ostomy bag in place with gas and liquid stool noted. Significant parastomal hernia. No abdominal bruits. Extremities: reveal no edema. No clubbing or cyanosis Neurologically awake, alert, oriented x3 with well-coordinated movements. No focal deficits noted Skin: No rash or skin lesions. Psychiatric: Cooperative. Non-suicidal, anxious. Musculoskeletal: No joint swelling or deformity. Normal range of motion. Assessment: Abdominal pain associated with nausea and vomiting, possibly secondary to malignancy related pain. Status post colon cancer status post surgical surgery and colostomy currently on chemotherapy every 2 weeks. Also on Xeloda Hematuria. Intermittent symptoms. Concerns for possible urinary tract infection on admission History of bladder cancer History of mitral valve prolapse Anxiety Prior history of smoking GI prophylaxis PPI. DVT prophylaxis patient is already on full anticoagulation Full code Plan: Patient will be continued on IV hydration with normal saline. Continue symptomatic management for nausea and vomiting, patient currently on clear liquids and recommend n.p.o. the abdomen pelvis ordered and pending Continue pain management Patient reported having some pain and burning with urination, will add urine culture Oncology following and has ordered CT abdomen pelvis which is pending. Home medications reviewed and resumed as appropriate Follow-up on repeat labs in the a.m. Due to multiple complex medical issues, prognosis is guarded The impression and plan of care has been dictated by Rebekah Lynn, Nurse Practitioner as directed. Dr. Yuriy MD I have performed a history and examination and MDM of this patient, discussed the same with the dictator, and agree with the dictator's assessment and plan as written ,documented as a scribe. Based on total visit time, I have performed more than 50% of the visit. Objective - Vital Signs Vital signs: Vital Signs Temp 98 F 02/26/24 07:11 Pulse 66 02/26/24 07:11 Resp 16 02/26/24 07:11 BP 102/66 02/26/24 07:11 Pulse Ox 98 02/26/24 07:11 FiO2 Intake & Output 02/25/24 02/26/24 02/26/24 18:59 06:59 18:59 Weight 54.431 kg Other: Voiding Method Toilet # Voids 3 - Labs CBC & Chem 7: 02/26/24 06:19 02/26/24 06:19
[2024-02-27 11:26] LABS: Basophils # (A) 0.06 X 10*3/uL (0.00-0.10); Eosinophils # (A) 0.16 X 10*3/uL (0.04-0.35); Eosinophils % (A) 2.6 %; HCT 36.1 % (37.2-46.3); HGB 11.6 g/dL (12.0-15.0); Lymphocytes # (A) 0.88 X 10*3/uL (0.90-5.00); Lymphocytes % (A) 14.5 %; MCH 28.3 pg (27.0-32.0); MCHC 32.1 g/dL (32.0-37.0); Mean Platelet Volume 9.4 FL (9.5-12.2); Monocytes % (A) 11.6 %; NRBC Per 100 WBC 0 X 10*3/uL (0.00-0.01); Neutrophils # (A) 4.17 X 10*3/uL (1.80-7.70); Neutrophils % (A) 68.8 %; Platelet Count 377 X 10*3/uL (140-440); RDW 14.9 % (11.5-14.5); WBC 6.06 X 10*3/uL (4.50-10.00)
[2024-02-27 11:53] LABS: BUN/Creat Ratio 5.11 Ratio (12.00-20.00); Blood Urea Nitrogen 4.6 mg/dL (9.0-27.0); Calcium 8.5 mg/dL (8.7-10.3); Carbon Dioxide 21.5 mmol/L (21.6-31.8); Chloride 104 mmol/L (96-109); Glucose 86 mg/dL (70-110); Potassium 4.5 mmol/L (3.5-5.5); Sodium 139 mmol/L (135-145)
--- NOTE | 2024-02-27 15:31 | P.PN ---
Subjective Progress Note Date: 02/27/24 Principal diagnosis: Abdominal pain. Colon adenocarcinoma In follow-up today patient is still having abdominal pain, it is relatively unchanged, not progressive at this time. She still has flatus and stool in the ostomy, denies any blood. No documented fevers. Objective - Vital Signs Vital signs: Vital Signs Temp 98.2 F 02/27/24 12:39 Pulse 91 02/27/24 12:39 Resp 16 02/27/24 12:39 BP 109/72 02/27/24 12:39 Pulse Ox 96 02/27/24 12:39 FiO2 Intake & Output 02/26/24 02/27/24 02/27/24 18:59 06:59 18:59 Intake Total 650 590 Balance 650 590 Weight 54.431 kg Intake: Intake, IV Titration 650 Amount Sodium Chloride 0.9% 1, 600 000 ml @ 50 mls/hr IV . Q20H [facility] Rx#:[id number] cefTRIAXone 1 gm In 50 Sodium Chloride 0.9% 50 ml @ 100 mls/hr IVPB DAILY [facility] Rx#:[id number] Oral 590 Other: Voiding Method Toilet Toilet # Voids 3 2 # Bowel Movements 4 - Labs CBC & Chem 7: 02/27/24 07:10 02/27/24 07:10 Labs: Abnormal Lab Results - Last 24 Hours (Table) 02/26/24 02/27/24 02/27/24 Range/Units 12:48 07:10 07:10 Hgb 11.6 L (12.0-15.0) g/dL Hct 36.1 L (37.2-46.3) % RDW 14.9 H (11.5-14.5) % MPV 9.4 L (9.5-12.2) FL Immature Gran # 0.09 H (0.00-0.04) X 10*3/uL Lymphocytes # 0.88 L (0.90-5.00) X 10*3/uL Carbon Dioxide 21.5 L (21.6-31.8) mmol/L Anion Gap 13.50 H (4.00-12.00) mmol/L BUN 4.6 L (9.0-27.0) mg/dL BUN/Creatinine Ratio 5.11 L (12.00-20.00) Ratio Calcium 8.5 L (8.7-10.3) mg/dL Urine Appearance Cloudy H (Clear) Urine Protein 2+ H (Negative) Urine Blood Large H (Negative) Ur Leukocyte Esterase Moderate H (Negative) Urine RBC >182 H (0-5) /hpf Urine WBC 37 H (0-5) /hpf Amorphous Sediment Rare H (None) /hpf Urine Bacteria Few H (None) /hpf Urine Mucus Rare H (None) /hpf Assessment and Plan (1) Intractable abdominal pain Current Visit: Yes Status: Acute Code(s): R10.9 - UNSPECIFIED ABDOMINAL PAIN SNOMED Code(s): 37320120 (2) History of colon cancer, stage IV Current Visit: Yes Status: Acute Code(s): Z85.038 - PERSONAL HISTORY OF MALIGNANT NEOPLASM OF LARGE INTESTINE SNOMED Code(s): 328440425 Plan: History of stage IV colon cancer. Presenting with intractable abdominal pain -Patient has been on treatment with oral Xeloda, dose reduction, 1 week on 1 week off since July 2023 along with IV Vectibix every 2 weeks. Scan in early January showed stable disease. Xeloda has been held -Vectibix was recently held (last cycle was 3 weeks ago) due to eye infection. This will continue to be on hold -CT of the abdomen and pelvis reports concerns for peristomal herniation and ischemic bowel. Reviewed results with the patient. Surgery has been consulted, pending evaluation and recommendations -Maintain NPO -Patient reporting fair pain control on current analgesic regimen Doctor attests: I performed a history and physical examination of this patient, developed impression and plan of care. Discussed with dictator. I agree with dictators note, documented as a scribe.
--- NOTE | 2024-02-27 16:09 | P.GSCN ---
History of Present Illness Consult date: 02/27/24 History of present illness: CHIEF COMPLAINT: Abdominal pain HISTORY OF PRESENT ILLNESS: This is a 73-year-old female who presented with complaints of abdominal pain with nausea and vomiting x 1 week. She reports that the pain is located at the right lower quadrant where she has the parastomal hernia. Her ostomy is functioning. She reports that the abdominal pain became very severe a couple of days ago. So severe that she is having difficulty walking. She reports pain after eating. Her last chemotherapy was about 2 weeks ago. She does have a known history of colon cancer s/p colon resection with ileostomy in December 2022 at [facility]. Patient de veloped parastomal hernia right after surgery. Patient reports that her parastomal hernia has increased in size. She is still having output through her ostomy. Patient is also on Eliquis for blood clots at her prior port site. The last dose of Eliquis was this morning. Patient had a CT scan abdomen and pelvis that reported a right lower quadrant parastomal hernia containing small bowel with wall thickening concerning for some degree of ischemia. Surgical service consulted in regards to parastomal hernia and concerns of bowel ischemia. Patient does report her pain has improved since admission. She is afebrile. White count is normal. Vitals are stable. And lactic acid level 0.9. Patient also has known bladder cancer. PAST MEDICAL HISTORY: See list. PAST SURGICAL HISTORY: See list. MEDICATIONS: See list. ALLERGIES: See list. SOCIAL HISTORY: No illicit drug use. REVIEW OF SYSTEMS: CONSTITUTIONAL: Denies fever or chills. HEENT: Denies blurred vision, vision changes, or eye pain. Denies hemoptysis ENDOCRINE: Denies heat or cold intolerance. CARDIOVASCULAR: Denies chest pain or pressure. RESPIRATORY: No shortness of breath. GASTROINTESTINAL: Please refer to HPI otherwise unremarkable NEURO: Denies history of seizures. PSYCH: No depression or suicidal ideation HEMATOLOGIC: Denies bleeding disorders. LYMPHATIC: The patient denies any lumps and bumps around the neck. GENITOURINARY: Denies any blood in urine or increased urinary frequency. MUSCULOSKELETAL: Denies myalgias. Denies joint swelling. Denies decreased range of motion beyond patients baseline. SKIN: Denies pruitis. Denies rash. PHYSICAL EXAM: VITAL SIGNS: Reviewed GENERAL: Well-developed in no acute distress. HEENT: No sclera icterus. Extraocular movements grossly intact. Moist buccal mucosa. Head is atraumatic, normocephalic. Hears conversational speech. No nasal drainage. NECK: Supple without lymphadenopathy. CHEST: Non-labored respirations and equal bilateral excursions. CARDIOVASCULAR: Palpable 2+ radial pulses. ABDOMEN: Soft. Nondistended. Evidence of a large parastomal hernia located in the right lower quadrant. Mild tenderness with palpation. Stoma beefy red. Ostomy bag with stool present. MUSCULOSKELETAL: No clubbing or cyanosis. NEUROLOGIC: No focal or lateralizing signs. Cranial nerves II through XII grossly intact. PSYCH: Appropriate affect. Alert and oriented to person, place and time. SKIN: Well perfused. Good skin turgor. LABORATORY DATA: WBC 6.06 Hgb 11.6 platelets 377 Sodium is 139 potassium is 4.5 creatinine 0.9 Lactic acid 0.9 Urinalysis positive for UTI IMAGING: CT scan abdomen pelvis right lower quadrant parastomal hernia containing small bowel with wall thickening concerning of some degree of ischemia. Multiple collateral vessels with density contrast extending into anterior chest wall concerning for venous occlusions in the upper extremities. Bladder wall mass with evidence of progression of metastatic throughout the retroperitoneum with multiple enlarging lymph nodes. ASSESSMENT: 1. Right lower quadrant parastomal hernia. No evidence clinically of ischemia. Patient's white count is normal, lactic acid within normal range. She is not tachycardic or hypotensive 2. History of colon cancer PLAN: -Patient scheduled for diagnostic laparoscopy with reduction of parastomal hernia tomorrow with Dr. Gallego -N.p.o. after midnight -Hold [facility] Physician Sales Associate Key Holder note has been reviewed by physician. Signing provider agrees with the documented findings, assessment, and plan of care. Past Medical History Past Medical History: Cancer Additional Past Medical History / Comment(s): colon cancer, hx bladder cancer, prolapse mitral valve, chemo 08/27/2023 History of Any Multi-Drug Resistant Organisms: None Reported Past Surgical History: Hysterectomy Additional Past Surgical History / Comment(s): tubal , ostomy, colon resection Past Anesthesia/Blood Transfusion Reactions: No Reported Reaction Past Psychological History: Anxiety Smoking Status: Former smoker Past Alcohol Use History: None Reported Past Drug Use History: None Reported Medications and Allergies Home Medications Medication Instructions Recorded Confirmed Type ALPRAZolam [Xanax] 0.125 - 0.25 mg PO DAILY PRN 07/15/23 02/25/24 History HYDROcodone/APAP 7.5-325MG [[place] 1 tab PO Q6H PRN 07/15/23 02/25/24 History 7.5-325] Apixaban [Eliquis] 5 mg PO BID 08/30/23 02/25/24 History Sennosides [Senokot] 17.2 mg PO BID 08/30/23 02/25/24 History Acetaminophen Tab [Tylenol Tab] 1,000 mg PO Q6HR PRN 02/25/24 02/25/24 History Gabapentin [Neurontin] 100 mg PO TID PRN 02/25/24 02/25/24 History Prochlorperazine Maleate 10 mg PO TID PRN 02/25/24 02/25/24 History Tobra-Dexamet 0.3-0.1% Eye Oin 1 applic BOTH EYES BID 02/25/24 02/25/24 History [Tobradex Ophth Oint] Allergies Allergy/AdvReac Type Severity Reaction Status Date / Time bee venom protein (honey bee) Allergy Swelling Verified 02/25/24 15:02 Penicillins Allergy Rash/Hives Verified 02/25/24 15:02 Surgical - Exam Vital Signs Temp Pulse Resp BP Pulse Ox 98 F 90 18 132/78 98 02/25/24 13:54 02/25/24 13:54 02/25/24 13:54 02/25/24 13:54 02/25/24 13:54 Results - Labs 02/27/24 07:10 02/27/24 07:10 Abnormal Lab Results - Last 24 Hours (Table) 02/26/24 02/26/24 02/26/24 Range/Units 06:19 06:19 12:48 Hgb 11.9 L (12.0-15.0) g/dL MCHC 31.6 L (32.0-37.0) g/dL RDW 15.2 H (11.5-14.5) % Immature Gran # 0.07 H (0.00-0.04) X 10*3/uL Anion Gap 12.50 H (4.00-12.00) mmol/L BUN 6.1 L (9.0-27.0) mg/dL BUN/Creatinine Ratio 6.78 L (12.00-20.00) Ratio Alkaline Phosphatase 161 H (41-126) U/L Albumin 3.6 L (3.8-4.9) g/dL Albumin/Globulin Ratio 1.38 L (1.60-3.17) Ratio Urine Appearance Cloudy H (Clear) Urine Protein 2+ H (Negative) Urine Blood Large H (Negative) Ur Leukocyte Esterase Moderate H (Negative) Urine RBC >182 H (0-5) /hpf Urine WBC 37 H (0-5) /hpf Amorphous Sediment Rare H (None) /hpf Urine Bacteria Few H (None) /hpf Urine Mucus Rare H (None) /hpf Diabetes panel 02/26/24 Range/Units 06:19 Sodium 139 (135-145) mmol/L Potassium 4.6 (3.5-5.5) mmol/L Chloride 104 (96-109) mmol/L Carbon Dioxide 22.5 (21.6-31.8) mmol/L BUN 6.1 L (9.0-27.0) mg/dL Creatinine 0.9 (0.6-1.5) mg/dL Glucose 96 (70-110) mg/dL Calcium 9.2 (8.7-10.3) mg/dL AST 20 (13-35) U/L ALT 14 (8-44) U/L Alkaline Phosphatase 161 H (41-126) U/L Total Protein 6.2 (6.2-8.2) g/dL Albumin 3.6 L (3.8-4.9) g/dL Calcium panel 02/26/24 Range/Units 06:19 Calcium 9.2 (8.7-10.3) mg/dL Albumin 3.6 L (3.8-4.9) g/dL Pituitary panel 02/26/24 Range/Units 06:19 Sodium 139 (135-145) mmol/L Potassium 4.6 (3.5-5.5) mmol/L Chloride 104 (96-109) mmol/L Carbon Dioxide 22.5 (21.6-31.8) mmol/L BUN 6.1 L (9.0-27.0) mg/dL Creatinine 0.9 (0.6-1.5) mg/dL Glucose 96 (70-110) mg/dL Calcium 9.2 (8.7-10.3) mg/dL Adrenal panel 02/26/24 Range/Units 06:19 Sodium 139 (135-145) mmol/L Potassium 4.6 (3.5-5.5) mmol/L Chloride 104 (96-109) mmol/L Carbon Dioxide 22.5 (21.6-31.8) mmol/L BUN 6.1 L (9.0-27.0) mg/dL Creatinine 0.9 (0.6-1.5) mg/dL Glucose 96 (70-110) mg/dL Calcium 9.2 (8.7-10.3) mg/dL Total Bilirubin 0.3 (0.3-1.2) mg/dL AST 20 (13-35) U/L ALT 14 (8-44) U/L Alkaline Phosphatase 161 H (41-126) U/L Total Protein 6.2 (6.2-8.2) g/dL Albumin 3.6 L (3.8-4.9) g/dL
--- NOTE | 2024-02-28 05:46 | P.PN ---
Subjective Progress Note Date: 02/27/24 Patient is a 73-year-old female with past medical history of colon cancer status post and ostomy currently on chemotherapy every 2 weeks and Xeloda, history of bladder cancer, mitral valve prolapse, history of DVT, anxiety and prior history of smoking was initially presented to [facility] due to complaints of nausea, vomiting and abdominal pain and able to tolerate oral diet. Patient has been having symptoms for the past 1 week. Pain is 10 out of 10. Denies any hematemesis. Patient does have history of stage IV colon cancer and is on follow-up with Dr. Salguero as an outpatient. Patient states that she had a CT of the abdomen pelvis done couple weeks ago. Patient was transferred to after discussion with her oncologist. Patient also follows with heart team at [facility]. Denies any fever or chills. No chest pain or shortness of breath. No leg swelling. No cough or sputum production. Laboratory data from her hospital reviewed. Patient is also having blood in the urine. 02/26/2024 Patient is seen and evaluated in follow-up with oncology consulted. Patient reports to having improvements somewhat in the nausea and vomiting although continues to have some abdominal discomfort. Patient has ostomy on the right and gas with liquid stool noted. Patient has significant hernia noted below the ostomy patient reports this has been ongoing for quite some time and being evaluated. Patient is afebrile with no reports of chest pain or shortness of breath. Patient continues on antibiotics for an eye infection. Patient currently receiving treatment with Dr. Condon in the outpatient setting. Patient was given clear liquids and instructed patient to hold on eating for now until after CT scan results. Pelvis ordered for further evaluation oncology. 02/27/2024 Patient seen and evaluated in follow-up today status post CT which reveals parastomal herniation with concerns of possible ischemic bowel. General surgery has been consulted and pending. Oncology is following patient is currently NPO. Patient reports to feeling hungry is having continued stool output and gas in the ostomy. Abdominal pain persists although manageable. Patient denies any further nausea and vomiting. Patient remains afebrile and labs reviewed within normal limits. Patient has been up and walking to the bathroom with no difficulties. Patient reports is urinating discomfort with urination. Preliminary urine culture showing gram-negative bacilli and awaiting finalized cultures. Will continue ceftriaxone for now. review of systems: Constitutional: No reports of fatigue, fever, or chills Cardiovascular: No reports of chest pain or palpitations Respiratory: No reports of shortness of breath or cough GI: No reports of nausea, vomiting, or diarrhea, reports abdominal pain : No reports of dysuria or retention Neurovascular: No reports of weakness or numbness All medications have been reviewed PHYSICAL EXAMINATION: Patient is currently getting up into the shower, alert and oriented.. Thin built, elderly appearing HEENT: Normocephalic. Neck is supple. Pupils reactive. Nostrils clear. Oral cavity is moist. Neck reveals no JVD, carotid bruits, or thyromegaly. CHEST EXAMINATION: Trachea is central. Symmetrical expansion. Lung ríos clear to auscultation and percussion. CARDIAC: Normal S1, S2 with no gallops. No murmurs ABDOMEN: Soft. Bowel sounds present. Ostomy bag in place with gas and liquid stool noted. Significant parastomal hernia. No abdominal bruits. Extremities: reveal no edema. No clubbing or cyanosis Neurologically awake, alert, oriented x3 with well-coordinated movements. No focal deficits noted Skin: No rash or skin lesions. Psychiatric: Cooperative. Non-suicidal, less anxious. Musculoskeletal: No joint swelling or deformity. Normal range of motion. Assessment: Abdominal pain associated with nausea and vomiting, possibly secondary to malignancy related pain Parastomal herniation and possible area of ischemic bowel noted on CT, general surgery consulted Status post colon cancer status post surgical surgery and colostomy currently on chemotherapy every 2 weeks. Also on Xeloda Hematuria. Intermittent symptoms. Concerns for possible urinary tract infection on admission. Preliminary culture showing gram-negative bacilli patient is reporting burning and pain with urination. History of bladder cancer History of mitral valve prolapse Anxiety Prior history of smoking GI prophylaxis PPI. DVT prophylaxis patient is already on full anticoagulation Full code Plan: Patient will be continued on IV hydration with normal saline. Continue symptomatic management for nausea and vomiting, patient currently n.p.o. awaiting general surgery evaluation. CT abdomen showing parastomal he rniation with concerns for ischemic bowel Continue pain management Patient reported having some pain and burning with urination, urine culture preliminary showing gram-negative bacilli and will await finalized cultures. Continue ceftriaxone for now Oncology following and treatment will be currently on hold and awaiting surgical evaluation and recommendations Home medications reviewed and resumed as appropriate Follow-up on repeat labs in the a.m. Due to multiple complex medical issues, prognosis is guarded The impression and plan of care has been dictated by Rebekah Lynn, Nurse Practitioner as directed. Dr. Yuriy MD I have performed a history and examination and MDM of this patient, discussed the same with the dictator, and agree with the dictator's assessment and plan as written ,documented as a scribe. Based on total visit time, I have performed more than 50% of the visit. Objective - Vital Signs Vital signs: Vital Signs Temp 98.4 F 02/28/24 02:00 Pulse 86 02/28/24 02:00 Resp 16 02/28/24 02:00 BP 115/75 02/28/24 02:00 Pulse Ox 97 02/28/24 02:00 FiO2 Intake & Output 02/27/24 02/27/24 02/28/24 06:59 18:59 06:59 Intake Total 590 Balance 590 Intake: Oral 590 Other: Voiding Method Toilet Toilet Toilet # Voids 2 2 - Labs CBC & Chem 7: 02/27/24 07:10 02/27/24 07:10 Labs: Abnormal Lab Results - Last 24 Hours (Table) 02/27/24 02/27/24 Range/Units 07:10 07:10 Hgb 11.6 L (12.0-15.0) g/dL Hct 36.1 L (37.2-46.3) % RDW 14.9 H (11.5-14.5) % MPV 9.4 L (9.5-12.2) FL Immature Gran # 0.09 H (0.00-0.04) X 10*3/uL Lymphocytes # 0.88 L (0.90-5.00) X 10*3/uL Carbon Dioxide 21.5 L (21.6-31.8) mmol/L Anion Gap 13.50 H (4.00-12.00) mmol/L BUN 4.6 L (9.0-27.0) mg/dL BUN/Creatinine Ratio 5.11 L (12.00-20.00) Ratio Calcium 8.5 L (8.7-10.3) mg/dL Microbiology - Last 24 Hours (Table) 02/26/24 12:48 Urine Culture - Final Urine,Voided
[2024-02-28] MEDS ORDERED: HYDROmorphone 0.5 MG/0.5 ML SYRINGE IVP PRN (13:51)
[2024-02-28] MEDS ORDERED: MIDAZOLAM 2 MG/2 ML VIAL IV PRN (13:51)
[2024-02-28] MEDS: LACTATED RINGERS 1,000 ML IV SCH (14:20)
[2024-02-28] MEDS: DEXAMETHASONE SOD PHOSPHATE 4 MG/ML 1 ML VIAL IVP ONE (14:22)
[2024-02-28] MEDS: ONDANSETRON 4 MG/2 ML VIAL IVP ONE (14:22)
[2024-02-28] MEDS: fentaNYL (PF) 50 MCG/ML 2 ML AMP IVP ONE (16:22)
[2024-02-28] MEDS: MIDAZOLAM 2 MG/2 ML VIAL IVP ONE (16:22)
--- NOTE | 2024-02-28 16:42 | P.ANPRN ---
Procedure Note - Anesthesia - Nerve Block Performed Bilateral Erector Spinae Single Time Out Performed: Yes Date of Procedure: 02/28/24 Procedure Start Time: 16: Procedure Stop Time: 16:29 Location of Patient: PreOp Indication: Acute Post-Operative Pain, Requested by Surgeon Sedation Type: Sedate with meaningful contact maintained Preparation: Sterile Prep Position: Sitting Needle Types: Pajunk Needle Gauge: 21 Ultrasound used to visualize needle placement: Yes Ultrasound used to observe medication spread: Yes Injectate: 0.5% Ropivacaine (see comment for volume) (15 ml + 15 ml NS + 4 mg Dexamethasone per side) Blood Aspirated: No Pain Paresthesia on Injection Noted: No Resistance on Injection: Normal Image Stored and Saved: Yes Events: Uneventful and Well Tolerated
[2024-02-28 17:12] LABS: Glucose,Whole Blood 64 mg/dL (70-110)
[2024-02-28] MEDS: DEXTROSE 50% SYRINGE 50 ML IVP ONE (17:16)
[2024-02-28] MEDS ORDERED: SUCCINYLCHOLINE CHLORIDE 200 MG/10 ML VIAL IV ONE (17:17)
[2024-02-28] MEDS ORDERED: LIDOCAINE 1% INJ 10MG/ML (20 ML MDV) ONE (17:17)
[2024-02-28] MEDS ORDERED: DEXAMETHASONE SOD PHOSPHATE 4 MG/ML 1 ML VIAL ONE (17:17)
[2024-02-28] MEDS ORDERED: fentaNYL (PF) 50 MCG/ML 2 ML AMP ONE (17:17)
[2024-02-28] MEDS ORDERED: PHENYLEPHRINE-0.9% NACL SYG 1,000 MCG/10 ML SYRINGE ONE (17:17)
[2024-02-28] MEDS ORDERED: PROPOFOL 10 MG/ML 20 ML VIAL IV ONE (17:17)
[2024-02-28] MEDS ORDERED: SODIUM CHLORIDE 0.9% (PF) 10 ML VIAL ONE (17:17)
[2024-02-28] MEDS ORDERED: KETOROLAC 15 MG/ML 1 ML VIAL ONE (17:17)
[2024-02-28] MEDS ORDERED: ROPIVACAINE 5 MG/ML 30 ML VIAL ONE (17:17)
[2024-02-28] MEDS: LIDOCAINE 1%-EPI 1:100,000 20 ML VIAL SQ ONE (17:39)
[2024-02-28] MEDS: SODIUM CHLORIDE 0.9% 100 ML with ceFAZolin 2,000 MG IV ONE (17:39)
--- NOTE | 2024-02-28 18:18 | P.OP ---
Date of Procedure: 02/28/24 Description of Procedure: SURGEON: COLUMBA BARKSDALE MD PREOPERATIVE DIAGNOSES: 1. Abnormal abdominal CT scan for small bowel ischemia 2. 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 Colon cancer 4. Chemotherapy status, current 5. Mitral valve prolapse 6. Generalized abdominal pain 7. Intractable nausea and vomiting 8. Chronic anticoagulation 9. Generalized anxiety disorder 10. Neuropathy 11. Ileostomy status POSTOPERATIVE DIAGNOSES: 1. Parastomal hernia with incarceration 2. Intra-abdominal peritoneal adhesions 3. Colon cancer 4. Chemotherapy status, current 5. Mitral valve prolapse 6. Generalized abdominal pain 7. Intractable nausea and vomiting 8. Chronic anticoagulation 9. Generalized anxiety disorder 10. Neuropathy 11. Ileostomy status 12. Right indirect inguinal hernia without obstruction OPERATION: 1. Diagnostic laparoscopy 2. Reduction of parastomal hernia ESTIMATED BLOOD LOSS: 1 mL. SPECIMENS REMOVED: None. COMPLICATIONS: None. OPERATIVE FINDINGS: 1. Right inguinal hernia, indirect without obstruction. 2. Reduced parastomal hernia involving loop ileostomy without obstruction. 3. Small bowel without ischemia. 4. Intra-abdominal peritoneal adhesions INDICATIONS: The patient is a 73-year-old female with colon cancer undergoing chemotherapy who presented to the hospital with generalized abdominal pain, parastomal hernia and abnormal CT scan for intestinal ischemia. Attempted reduction of parastomal hernia at bedside was unsuccessful. Diagnostic laparoscopy with reduction of parastomal hernia was described. Aggressive surgical intervention was avoided as patient wanted to complete her chemotherapy course. Patient was still on her blood thinner. Surgical options including diagnostic laparoscopy and reduction of parastomal hernia was described. Benefits and risks of the procedure including but not limited to bleeding, infection, injury to the small bowel was described. Informed consent was obtained. DESCRIPTION OF PROCEDURE: Patient was brought to the operating room, placed in supine position. After general induction, at bedside, the parastomal hernia was reduced. Due to risk of intestinal ischemia per recent imaging, proceeding with diagnostic laparoscopy was approached. The abdomen had been prepped and draped in standard sterile fashion. A timeout protocol was performed. Preoperative antibiotics including DVT prophylaxis was confirmed. A left upper quadrant transverse incision was made for a 0 degree 5 mm laparoscopic trocar entry. The abdomen was insufflated to 15 mm care pressure she tolerated well. Diagnostic laparoscopy demonstrated no injury to bowel viscera or mesentery. Careful inspection of the stoma demonstrated a loop ileostomy. All small bowel was reduced. No evidence of bowel ischemia was identified. Intra-abdominal adhesions were found. An indirect left inguinal hernia without obstruction 1.5 cm was identified. Small bowel was within normal caliber. This concluded diagnostic laparoscopy. All instruments and pneumoperitoneum was evacuated from the abdomen. The incision was closed using 4-0 Monocryl subcuticular fashion. The patient had tolerated the procedure well. Intraoperative images including findings were discussed and reviewed with the patient after she had completely woken up. Strict avoidance of lifting over 4 pounds were described including overexertion which would put her at risk for recurrence of her parastomal hernia and increase her need for emergency laparotomy. Patient demonstrated understanding of risks. Start of low fiber diet was initiated.
--- NOTE | 2024-02-29 09:42 | P.PN ---
Subjective Progress Note Date: 02/28/24 Patient is a 73-year-old female with past medical history of colon cancer status post and ostomy currently on chemotherapy every 2 weeks and Xeloda, history of bladder cancer, mitral valve prolapse, history of DVT, anxiety and prior history of smoking was initially presented to [facility] due to complaints of nausea, vomiting and abdominal pain and able to tolerate oral diet. Patient has been having symptoms for the past 1 week. Pain is 10 out of 10. Denies any hematemesis. Patient does have history of stage IV colon cancer and is on follow-up with Dr. Salguero as an outpatient. Patient states that she had a CT of the abdomen pelvis done couple weeks ago. Patient was transferred to [facility] after discussion with her oncologist. Patient also follows with heart team at [facility]. Denies any fever or chills. No chest pain or shortness of breath. No leg swelling. No cough or sputum production. Laboratory data from her hospital reviewed. Patient is also having blood in the urine. 02/26/2024 Patient is seen and evaluated in follow-up with oncology consulted. Patient reports to having improvements somewhat in the nausea and vomiting although continues to have some abdominal discomfort. Patient has ostomy on the right and gas with liquid stool noted. Patient has significant hernia noted below the ostomy patient reports this has been ongoing for quite some time and being evaluated. Patient is afebrile with no reports of chest pain or shortness of breath. Patient continues on antibiotics for an eye infection. Patient currently receiving treatment with Dr. Condon in the outpatient setting. Patient was given clear liquids and instructed patient to hold on eating for now until after CT scan results. Pelvis ordered for further evaluation oncology. 02/27/2024 Patient seen and evaluated in follow-up today status post CT which reveals parastomal herniation with concerns of possible ischemic bowel. General surgery has been consulted and pending. Oncology is following patient is currently NPO. Patient reports to feeling hungry is having continued stool output and gas in the ostomy. Abdominal pain persists although manageable. Patient denies any further nausea and vomiting. Patient remains afebrile and labs reviewed within normal limits. Patient has been up and walking to the bathroom with no difficulties. Patient reports is urinating discomfort with urination. Preliminary urine culture showing gram-negative bacilli and awaiting finalized cultures. Will continue ceftriaxone for now. 02/28/2024 Patient is seen in follow-up today currently remains n.p.o. and awaiting to undergo laparoscopic evaluation surgical with Dr. Faye today. Will evaluate for ischemia as noted as a possibility on CT. Patient continues with diffuse abdominal pain although reports to feeling hungry and looking forward to eating. Patient continues to have output in the ostomy as well as gas. Patient is afebrile with no reports of chest pain or shortness of breath. Patient is continued on antibiotics and urine culture finally showing no growth. Will continue ceftriaxone for now and transition to short course of Ceftin on discharge as patient was symptomatic. Oncology following as well and patient will continue outpatient follow-up. review of systems: Constitutional: No reports of fatigue, fever, or chills Cardiovascular: No reports of chest pain or palpitations Respiratory: No reports of shortness of breath or cough GI: No reports of nausea, vomiting, or diarrhea, reports abdominal pain with some improvement. : No reports of dysuria or retention Neurovascular: No reports of weakness or numbness All medications have been reviewed PHYSICAL EXAMINATION: Patient is currently getting up into the shower, alert and oriented.. Thin built, elderly appearing HEENT: Normocephalic. Neck is supple. Pupils reactive. Nostrils clear. Oral cavity is moist. Neck reveals no JVD, carotid bruits, or thyromegaly. CHEST EXAMINATION: Trachea is central. Symmetrical expansion. Lung ríos clear to auscultation and percussion. CARDIAC: Normal S1, S2 with no gallops. No murmurs ABDOMEN: Soft. Bowel sounds present. Ostomy bag in place with gas and liquid stool noted. Significant parastomal hernia. No abdominal bruits. Extremities: reveal no edema. No clubbing or cyanosis Neurologically awake, alert, oriented x3 with well-coordinated movements. No focal deficits noted Skin: No rash or skin lesions. Psychiatric: Cooperative. Non-suicidal, less anxious. Musculoskeletal: No joint swelling or deformity. Normal range of motion. Assessment: Abdominal pain associated with nausea and vomiting, possibly secondary to malignancy related pain Parastomal herniation and possible area of ischemic bowel noted on CT, general surgery following and awaiting to undergo laparoscopic intervention today. 11/06/2024 Status post colon cancer status post surgical surgery and colostomy currently on chemotherapy every 2 weeks. Also on Xeloda Hematuria. Intermittent symptoms of pain and burning with frequency in urination . Concerns for possible urinary tract infection on admission. Finalized cultures are negative History of bladder cancer History of mitral valve prolapse Anxiety Prior history of smoking GI prophylaxis PPI. DVT prophylaxis patient is already on full anticoagulation Full code Plan: Patient will be continued on IV hydration with normal saline. Continue symptomatic management for nausea and vomiting, patient currently n.p.o. awaiting general surgery evaluation. CT abdomen showing parastomal herniation with concerns for ischemic bowel. General surgery following and patient scheduled to undergo laparoscopic intervention today 02/28/2024. Diet to be resumed per surgery recommendations Continue pain management Patient reported having some pain and burning with urination, urine culture finalized as negative. Continue ceftriaxone for now as patient was symptomatic Oncology following and treatment will be currently on hold and awaiting surgical evaluation and recommendations Home medications reviewed and resumed as appropriate Due to multiple complex medical issues, prognosis is guarded Possible discharge planning in the next 24 hours once cleared by surgery and if pain is better managed. Continue short 3-day course of Ceftin on discharge The impression and plan of care has been dictated by Rebekah Lynn, Nurse Practitioner as directed. Dr. Yuriy MD I have performed a history and examination and MDM of this patient, discussed the same with the dictator, and agree with the dictator's assessment and plan as written ,documented as a scribe. Based on total visit time, I have performed more than 50% of the visit. Objective - Vital Signs Vital signs: Vital Signs Temp 98.6 F 02/29/24 07:26 Pulse 90 02/29/24 07:26 Resp 18 02/29/24 07:26 BP 121/81 02/29/24 07:26 Pulse Ox 96 02/29/24 07:26 FiO2 Intake & Output 02/28/24 02/29/24 02/29/24 18:59 06:59 18:59 Intake Total 650 500 Output Total 5 Balance 645 500 Weight 54.431 kg Intake: IV 650 Intake, IV Titration 500 Amount Sodium Chloride 0.9% 1, 500 000 ml @ 50 mls/hr IV . Q20H [facility] Rx#:[id number] Output: Estimated Blood Loss 5 Other: Voiding Method Toilet # Voids 3 1 - Labs CBC & Chem 7: 02/27/24 07:10 02/27/24 07:10 Labs: Abnormal Lab Results - Last 24 Hours (Table) 02/28/24 Range/Units 17:09 POC Glucose (mg/dL) 64 L (70-110) mg/dL
--- NOTE | 2024-02-29 18:11 | P.PN ---
Subjective Patient seen and evaluated at bedside. Patient doing well, no complaints. Objective - Vital Signs Vital signs: Vital Signs Temp 98.4 F 02/29/24 11:46 Pulse 83 02/29/24 11:46 Resp 18 02/29/24 11:46 BP 113/75 02/29/24 11:46 Pulse Ox 99 02/29/24 11:46 FiO2 Intake & Output 02/28/24 02/29/24 02/29/24 18:59 06:59 18:59 Intake Total 650 500 600 Output Total 5 Balance 645 500 600 Weight 54.431 kg Intake: IV 650 Intake, IV Titration 500 600 Amount Sodium Chloride 0.9% 1, 500 600 000 ml @ 50 mls/hr IV . Q20H [facility] Rx#:[id number] Output: Estimated Blood Loss 5 Other: Voiding Method Toilet Toilet # Voids 3 1 - Exam gen: nad cv: rrr pul: non labored breathing abd: soft, non distended, no guarding or rebound tenderness - Labs CBC & Chem 7: 02/27/24 07:10 02/27/24 07:10 Assessment and Plan Assessment: 73 yo female s/p reduction of parastomal hernia -tolerating diet -appropriate output -discharge planning Time with Patient: Greater than 30
[2024-02-29] MEDS: ONDANSETRON 4 MG/2 ML VIAL IVP PRN (19:41)
[2024-02-29] MEDS: METOCLOPRAMIDE 5 MG/ML 2 ML VIAL IVP PRN (21:45)
[2024-03-01 07:56] LABS: African American GFR (CKD) 75 (>60 ml/min/1.73 sqM); Anion Gap 11 mmol/L; Blood Urea Nitrogen 13 mg/dL (7-17); Calcium 8.5 mg/dL (8.4-10.2); Carbon Dioxide 18 mmol/L (22-30); Chloride 109 mmol/L (98-107); Glucose 85 mg/dL (74-99); Magnesium 1.7 mg/dL (1.6-2.3); Non-African American GFR(CKD) 65 (>60 ml/min/1.73 sqM); Potassium 4.2 mmol/L (3.5-5.1); Sodium 138 mmol/L (137-145)
[2024-03-01 10:59] LABS: Basophils % (A) 0 %; Eosinophils % (A) 0 %; HCT 40.4 % (34.0-46.0); HGB 12.6 gm/dL (11.4-16.0); Hypochromasia Slight; Lymphocytes # (A) 0.9 k/uL (1.0-4.8); Lymphocytes % (A) 7 %; MCH 28.1 pg (25.0-35.0); MCHC 31.2 g/dL (31.0-37.0); MCV 89.8 fL (80.0-100.0); Mean Platelet Volume 8.3; Monocytes # (A) 0.9 k/uL (0-1.0); Monocytes % (A) 7 %; Neutrophils # (A) 10.5 k/uL (1.3-7.7); Neutrophils % (A) 85 %; Platelet Count 559 k/uL (150-450); RDW 14.5 % (11.5-15.5); WBC 12.4 k/uL (3.8-10.6)
--- NOTE | 2024-03-01 14:26 | P.PN ---
Subjective Progress Note Date: 03/01/24 Herina recurred after overeating and getting nauseated. "The pain is back." ABDOMEN: Recurrent parastomal hernia PLAN: 1. Sedation with reduction of hernia tomorrow for relief of immediate pain. 2. Possible robotic parastomal hernia repair during this admission 3. Scopolamine patch for nausea 4. Scheduled zofran for nausea 5. Bedside reduction of hernia attempted again, but could not tolerate attempt due to pain. 6. Liquid diet instead Objective - Vital Signs Vital signs: Vital Signs Temp 97.8 F 03/01/24 12:53 Pulse 95 03/01/24 12:53 Resp 18 03/01/24 12:53 BP 132/87 03/01/24 12:53 Pulse Ox 96 03/01/24 12:53 FiO2 Intake & Output 02/29/24 03/01/24 03/01/24 18:59 06:59 18:59 Intake Total 600 Balance 600 Intake: Intake, IV Titration 600 Amount Sodium Chloride 0.9% 1, 600 000 ml @ 50 mls/hr IV . Q20H COUNTS INCLUDE 234 BEDS AT [facility] Rx#:[id number] Other: Voiding Method Toilet Toilet Toilet # Voids 1 - Labs CBC & Chem 7: 03/01/24 10:06 03/01/24 05:47 Labs: Abnormal Lab Results - Last 24 Hours (Table) 03/01/24 03/01/24 Range/Units 05:47 10:06 WBC 12.4 H (3.8-10.6) k/uL Plt Count 559 H (150-450) k/uL Neutrophils # 10.5 H (1.3-7.7) k/uL Lymphocytes # 0.9 L (1.0-4.8) k/uL Chloride 109 H (98-107) mmol/L Carbon Dioxide 18 L (22-30) mmol/L
[2024-03-01] MEDS: SCOPOLAMINE 1 MG/72 HR PATCH TRANSDERM SCH (15:21)
[2024-03-01] MEDS: ONDANSETRON 4 MG/2 ML VIAL IVP SCH (17:27)
[2024-03-01 20:30] VITALS: RESP 16
[2024-03-02] MEDS: MAGNESIUM SULFATE-D5W PMX 1 GM in DEXTROSE/WATER 1 100ML.BAG IVPB ONE (03:35)
[2024-03-02 08:44] LABS: Basophils # (A) 0.06 X 10*3/uL (0.00-0.10); Basophils % (A) 0.6 %; Eosinophils # (A) 0.03 X 10*3/uL (0.04-0.35); Eosinophils % (A) 0.3 %; HCT 37.5 % (37.2-46.3); HGB 12.1 g/dL (12.0-15.0); Lymphocytes # (A) 0.88 X 10*3/uL (0.90-5.00); Lymphocytes % (A) 9.4 %; MCH 28.7 pg (27.0-32.0); MCHC 32.3 g/dL (32.0-37.0); MCV 89.1 FL (80.0-97.0); Mean Platelet Volume 9.6 FL (9.5-12.2); Monocytes # (A) 0.84 X 10*3/uL (0.20-1.00); NRBC Per 100 WBC 0 X 10*3/uL (0.00-0.01); Neutrophils # (A) 7.37 X 10*3/uL (1.80-7.70); Platelet Count 435 X 10*3/uL (140-440); RBC 4.21 X 10*6/uL (4.10-5.20); RDW 14.9 % (11.5-14.5); WBC 9.34 X 10*3/uL (4.50-10.00)
[2024-03-02 08:54] LABS: ALT 7 U/L (8-44); AST 15 U/L (13-35); Albumin 3.3 g/dL (3.8-4.9); Alkaline Phosphatase 108 U/L (41-126); BUN/Creat Ratio 9.29 Ratio (12.00-20.00); Blood Urea Nitrogen 6.5 mg/dL (9.0-27.0); Calcium 8.4 mg/dL (8.7-10.3); Chloride 102 mmol/L (96-109); Globulin 2.2 g/dL (1.6-3.3); Glucose 96 mg/dL (70-110); Potassium 4.3 mmol/L (3.5-5.5); Sodium 137 mmol/L (135-145); Total Bilirubin <0.2 mg/dL (0.3-1.2); Total Protein 5.5 g/dL (6.2-8.2)
--- NOTE | 2024-03-02 09:20 | P.PN ---
Subjective Progress Note Date: 02/29/24 Patient is a 73-year-old female with past medical history of colon cancer status post and ostomy currently on chemotherapy every 2 weeks and Xeloda, history of bladder cancer, mitral valve prolapse, history of DVT, anxiety and prior history of smoking was initially presented to [facility] due to complaints of nausea, vomiting and abdominal pain and able to tolerate oral diet. Patient has been having symptoms for the past 1 week. Pain is 10 out of 10. Denies any hematemesis. Patient does have history of stage IV colon cancer and is on follow-up with Dr. Salguero as an outpatient. Patient states that she had a CT of the abdomen pelvis done couple weeks ago. Patient was transferred to [facility] after discussion with her oncologist. Patient also follows with heart team at [facility]. Denies any fever or chills. No chest pain or shortness of breath. No leg swelling. No cough or sputum production. Laboratory data from her hospital reviewed. Patient is also having blood in the urine. 02/26/2024 Patient is seen and evaluated in follow-up with oncology consulted. Patient reports to having improvements somewhat in the nausea and vomiting although c ontinues to have some abdominal discomfort. Patient has ostomy on the right and gas with liquid stool noted. Patient has significant hernia noted below the ostomy patient reports this has been ongoing for quite some time and being evaluated. Patient is afebrile with no reports of chest pain or shortness of breath. Patient continues on antibiotics for an eye infection. Patient currently receiving treatment with Dr. Condon in the outpatient setting. Patient was given clear liquids and instructed patient to hold on eating for now until after CT scan results. Pelvis ordered for further evaluation oncology. 02/27/2024 Patient seen and evaluated in follow-up today status post CT which reveals parastomal herniation with concerns of possible ischemic bowel. General surgery has been consulted and pending. Oncology is following patient is currently NPO. Patient reports to feeling hungry is having continued stool output and gas in the ostomy. Abdominal pain persists although manageable. Patient denies any further nausea and vomiting. Patient remains afebrile and labs reviewed within normal limits. Patient has been up and walking to the bathroom with no difficulties. Patient reports is urinating discomfort with urination. Preliminary urine culture showing gram-negative bacilli and awaiting finalized cultures. Will continue ceftriaxone for now. 02/28/2024 Patient is seen in follow-up today currently remains n.p.o. and awaiting to undergo laparoscopic evaluation surgical with Dr. Faye today. Will evaluate for ischemia as noted as a possibility on CT. Patient continues with diffuse abdominal pain although reports to feeling hungry and looking forward to eating. Patient continues to have output in the ostomy as well as gas. Patient is afebrile with no reports of chest pain or shortness of breath. Patient is continued on antibiotics and urine culture finally showing no growth. Will continue ceftriaxone for now and transition to short course of Ceftin on discharge as patient was symptomatic. Oncology following as well and patient will continue outpatient follow-up. 02/29/2024 Patient is currently lying in the bed. Awake alert and oriented x 3. States that her pain is much improved now. Did receive 2 doses of IV Dilaudid this morning. Patient is s/p diagnostic laparoscopy and reduction of parastomal hernia. Patient has been afebrile. No nausea or vomiting. Does have output from ostomy bag. Laboratory data reviewed. Patient is being continued on IV hydration and antibiotics in the form of ceftriaxone. Urine culture showed no growth. review of systems: Constitutional: No reports of fatigue, fever, or chills Cardiovascular: No reports of chest pain or palpitations Respiratory: No reports of shortness of breath or cough GI: No reports of nausea, vomiting, or diarrhea, reports abdominal pain with some improvement. : No reports of dysuria or retention Neurovascular: No reports of weakness or numbness All medications have been reviewed PHYSICAL EXAMINATION: Patient is currently getting up into the shower, alert and oriented.. Thin built, elderly appearing HEENT: Normocephalic. Neck is supple. Pupils reactive. Nostrils clear. Oral cavity is moist. Neck reveals no JVD, carotid bruits, or thyromegaly. CHEST EXAMINATION: Trachea is central. Symmetrical expansion. Lung ríos clear to auscultation and percussion. CARDIAC: Normal S1, S2 with no gallops. No murmurs ABDOMEN: Soft. Bowel sounds present. Ostomy bag in place with gas and liquid stool noted. Significant parastomal hernia. No abdominal bruits. Extremities: reveal no edema. No clubbing or cyanosis Neurologically awake, alert, oriented x3 with well-coordinated movements. No focal deficits noted Skin: No rash or skin lesions. Psychiatric: Cooperative. Non-suicidal, less anxious. Musculoskeletal: No joint swelling or deformity. Normal range of motion. Assessment: Abdominal pain associated with nausea and vomiting, possibly secondary to malign devyn related pain Parastomal herniation and possible area of ischemic bowel noted on CT, patient is s/p laparoscopic reduction on 02/28/2024 Colon Cancer status post surgical surgery and colostomy currently on chemotherapy every 2 weeks. Also on Xeloda Hematuria. Intermittent symptoms of pain and burning with frequency in urination . Concerns for possible urinary tract infection on admission. Finalized cultures are negative History of bladder cancer History of mitral valve prolapse Anxiety Prior history of smoking GI prophylaxis PPI. DVT prophylaxis patient is already on full anticoagulation Full code Plan: Patient will be continued on IV hydration with normal saline. Continue symptomatic management for nausea and vomiting CT abdomen showing parastomal herniation with concerns for ischemic bowel. G status post laparoscopic by general surgery on 02/28/2024. Patient was started back on oral diet. Continue pain management Patient reported having some pain and burning with urination, urine culture finalized as negative. Continue ceftriaxone for now as patient was symptomatic Oncology following and treatment will be currently on hold and awaiting surgical evaluation and recommendations Home medications reviewed and resumed as appropriate Due to multiple complex medical issues, prognosis is guarded Objective - Vital Signs Vital signs: Vital Signs Temp 98.4 F 02/29/24 11:46 Pulse 83 02/29/24 11:46 Resp 18 02/29/24 11:46 BP 113/75 02/29/24 11:46 Pulse Ox 99 02/29/24 11:46 FiO2 Intake & Output 02/28/24 02/29/24 02/29/24 18:59 06:59 18:59 Intake Total 650 500 Output Total 5 Balance 645 500 Weight 54.431 kg Intake: IV 650 Intake, IV Titration 500 Amount Sodium Chloride 0.9% 1, 500 000 ml @ 50 mls/hr IV . Q20H [facility] Rx#:[id number] Output: Estimated Blood Loss 5 Other: Voiding Method Toilet Toilet # Voids 3 1 - Labs CBC & Chem 7: 03/02/24 05:56 03/02/24 05:56 Labs: Abnormal Lab Results - Last 24 Hours (Table) 02/28/24 Range/Units 17:09 POC Glucose (mg/dL) 64 L (70-110) mg/dL
--- NOTE | 2024-03-02 09:23 | P.PN ---
Subjective Progress Note Date: 03/01/24 Patient is a 73-year-old female with past medical history of colon cancer status post and ostomy currently on chemotherapy every 2 weeks and Xeloda, history of bladder cancer, mitral valve prolapse, history of DVT, anxiety and prior history of smoking was initially presented to [facility] due to complaints of nausea, vomiting and abdominal pain and able to tolerate oral diet. Patient has been having symptoms for the past 1 week. Pain is 10 out of 10. Denies any hematemesis. Patient does have history of stage IV colon cancer and is on follow-up with Dr. Salguero as an outpatient. Patient states that she had a CT of the abdomen pelvis done couple weeks ago. Patient was transferred to [facility] after discussion with her oncologist. Patient also follows with heart team at [facility]. Denies any fever or chills. No chest pain or shortness of breath. No leg swelling. No cough or sputum production. Laboratory data from her hospital reviewed. Patient is also having blood in the urine. 02/26/2024 Patient is seen and evaluated in follow-up with oncology consulted. Patient reports to having improvements somewhat in the nausea and vomiting although c ontinues to have some abdominal discomfort. Patient has ostomy on the right and gas with liquid stool noted. Patient has significant hernia noted below the ostomy patient reports this has been ongoing for quite some time and being evaluated. Patient is afebrile with no reports of chest pain or shortness of breath. Patient continues on antibiotics for an eye infection. Patient currently receiving treatment with Dr. Condon in the outpatient setting. Patient was given clear liquids and instructed patient to hold on eating for now until after CT scan results. Pelvis ordered for further evaluation oncology. 02/27/2024 Patient seen and evaluated in follow-up today status post CT which reveals parastomal herniation with concerns of possible ischemic bowel. General surgery has been consulted and pending. Oncology is following patient is currently NPO. Patient reports to feeling hungry is having continued stool output and gas in the ostomy. Abdominal pain persists although manageable. Patient denies any further nausea and vomiting. Patient remains afebrile and labs reviewed within normal limits. Patient has been up and walking to the bathroom with no difficulties. Patient reports is urinating discomfort with urination. Preliminary urine culture showing gram-negative bacilli and awaiting finalized cultures. Will continue ceftriaxone for now. 02/28/2024 Patient is seen in follow-up today currently remains n.p.o. and awaiting to undergo laparoscopic evaluation surgical with Dr. Faye today. Will evaluate for ischemia as noted as a possibility on CT. Patient continues with diffuse abdominal pain although reports to feeling hungry and looking forward to eating. Patient continues to have output in the ostomy as well as gas. Patient is afebrile with no reports of chest pain or shortness of breath. Patient is continued on antibiotics and urine culture finally showing no growth. Will continue ceftriaxone for now and transition to short course of Ceftin on discharge as patient was symptomatic. Oncology following as well and patient will continue outpatient follow-up. 02/29/2024 Patient is currently lying in the bed. Awake alert and oriented x 3. States that her pain is much improved now. Did receive 2 doses of IV Dilaudid this morning. Patient is s/p diagnostic laparoscopy and reduction of parastomal hernia. Patient has been afebrile. No nausea or vomiting. Does have output from ostomy bag. Laboratory data reviewed. Patient is being continued on IV hydration and antibiotics in the form of ceftriaxone. Urine culture showed no growth. 03/01/2024 Patient has been having nausea and vomiting since last night again and patient abdominal pain also worsened overnight. No output in the ostomy bag. Was seen by general surgery and again planning for laparoscopic repair/reduction under anesthesia. Patient is afebrile. Blood pressure is controlled. Currently on room air. Laboratory data showed WBC 12.4 hemoglobin 12.6 and platelets 559 Sodium 138 potassium 4.2 chloride 109 bicarb is 18 BUN 13 and creatinine 0.8 and magnesium 1.7. review of systems: Constitutional: No reports of fatigue, fever, or chills Cardiovascular: No reports of chest pain or palpitations Respiratory: No reports of shortness of breath or cough GI: No reports of nausea, vomiting, or diarrhea, reports abdominal pain with some improvement. : No reports of dysuria or retention Neurovascular: No reports of weakness or numbness All medications have been reviewed PHYSICAL EXAMINATION: Patient is currently getting up into the shower, alert and oriented.. Thin built, elderly appearing HEENT: Normocephalic. Neck is supple. Pupils reactive. Nostrils clear. Oral cavity is moist. Neck reveals no JVD, carotid bruits, or thyromegaly. CHEST EXAMINATION: Trachea is central. Symmetrical expansion. Lung ríos clear to auscultation and percussion. CARDIAC: Normal S1, S2 with no gallops. No murmurs ABDOMEN: Soft. Bowel sounds present. Ostomy bag in place with gas and liquid stool noted. Significant parastomal hernia. No abdominal bruits. Extremities: reveal no edema. No clubbing or cyanosis Neurologically awake, alert, oriented x3 with well-coordinated movements. No focal deficits noted Skin: No rash or skin lesions. Psychiatric: Cooperative. Non-suicidal, less anxious. Musculoskeletal: No joint swelling or deformity. Normal range of motion. Assessment: Abdominal pain associated with nausea and vomiting, possibly secondary to malignancy related pain Parastomal herniation and possible area of ischemic bowel noted on CT, patient is s/p laparoscopic reduction on 02/28/2024 Colon Cancer status post surgical surgery and colostomy currently on chemotherapy every 2 weeks. Also on Xeloda Hematuria. Intermittent symptoms of pain and burning with frequency in urination . Concerns for possible urinary tract infection on admission. Fi nalized cultures are negative History of bladder cancer History of mitral valve prolapse Anxiety Prior history of smoking GI prophylaxis PPI. DVT prophylaxis patient is already on full anticoagulation Full code Plan: Patient will be continued on IV hydration with normal saline. Continue symptomatic management for nausea and vomiting. Patient was kept NPO. CT abdomen showing parastomal herniation with concerns for ischemic bowel. Patient is status post laparoscopic by general surgery on 02/28/2024. Patient was oral diet. Started back having abdominal pain again General surgery is planning reduction of parastomal hernia likely tomorrow. Continue pain management Patient reported having some pain and burning with urination, urine culture finalized as negative. Continue ceftriaxone for now as patient was symptomatic Oncology following and treatment will be currently on hold and awaiting surgical evaluation and recommendations Home medications reviewed and resumed as appropriate Due to multiple complex medical issues, prognosis is guarded Objective - Vital Signs Vital signs: Vital Signs Temp 98.6 F 03/01/24 20:00 Pulse 84 03/01/24 20:00 Resp 16 03/01/24 20:00 BP 142/97 03/01/24 20:00 Pulse Ox 93 L 03/01/24 20:00 FiO2 Intake & Output 03/01/24 03/01/24 03/02/24 06:59 18:59 06:59 Intake Total 50 Balance 50 Intake: Intake, IV Titration 50 Amount cefTRIAXone 1 gm In 50 Sodium Chloride 0.9% 50 ml @ 100 mls/hr IVPB DAILY [facility] Rx#:[id number] Other: Voiding Method Toilet Toilet # Voids 1 - Labs CBC & Chem 7: 03/02/24 05:56 03/02/24 05:56 Labs: Abnormal Lab Results - Last 24 Hours (Table) 03/01/24 03/01/24 Range/Units 05:47 10:06 WBC 12.4 H (3.8-10.6) k/uL Plt Count 559 H (150-450) k/uL Neutrophils # 10.5 H (1.3-7.7) k/uL Lymphocytes # 0.9 L (1.0-4.8) k/uL Chloride 109 H (98-107) mmol/L Carbon Dioxide 18 L (22-30) mmol/L
[2024-03-02] MEDS: LACTATED RINGERS 1,000 ML IV ONE (17:55)
[2024-03-02] MEDS ORDERED: PROPOFOL 10 MG/ML 20 ML VIAL IV ONE (17:55)
--- NOTE | 2024-03-02 19:33 | P.PCN ---
Date of Procedure: 03/02/24 Description of Procedure: SURGEON: COLUMBA BARKSDALE MD PREOPERATIVE DIAGNOSES: 1. Recurrent parastomal hernia with obstruction 2. Ileostomy status 3. Colon cancer 4. Chemotherapy status, current 5. Mitral valve prolapse 6. Generalized abdominal pain 7. Intractable nausea and vomiting 8. Chronic anticoagulation 9. Generalized anxiety disorder 10. Neuropathy POSTOPERATIVE DIAGNOSES: 1. Recurrent parastomal hernia with obstruction 2. Ileostomy status 3. Colon cancer 4. Chemotherapy status, current 5. Mitral valve prolapse 6. Generalized abdominal pain 7. Intractable nausea and vomiting 8. Chronic anticoagulation 9. Generalized anxiety disorder 10. Neuropathy OPERATION: 1. Exam under anesthesia with reduction of recurrent incarcerated parastomal hernia ANESTHESIA: MAC ESTIMATED BLOOD LOSS: 0 mL. SPECIMENS REMOVED: None. COMPLICATIONS: None. INDICATIONS: The patient is a 73-year-old female with recent diagnosed laparoscopy reduction of parastomal hernia who developed nausea with following retching and then developed recurrent parastomal hernia after recent reduction. Exam under anesthesia with reduction of parastomal hernia described. DESCRIPTION OF PROCEDURE: Patient was brought into the endoscopy suite. After IV sedation, the abdomen was examined with parastomal hernia. The hernia was reduced without complications. Immediate stool enterostomy was identified. Patient tolerated the procedure well.
[2024-03-02] MEDS: ACETAMINOPHEN TAB 325 MG TAB PO PRN (22:34)
[2024-03-03] MEDS: ALPRAZolam 0.25 MG TAB PO PRN (02:36)
--- NOTE | 2024-03-03 06:13 | P.PN ---
Subjective Progress Note Date: 03/02/24 Patient is a 73-year-old female with past medical history of colon cancer status post and ostomy currently on chemotherapy every 2 weeks and Xeloda, history of bladder cancer, mitral valve prolapse, history of DVT, anxiety and prior history of smoking was initially presented to [facility] due to complaints of nausea, vomiting and abdominal pain and able to tolerate oral diet. Patient has been having symptoms for the past 1 week. Pain is 10 out of 10. Denies any hematemesis. Patient does have history of stage IV colon cancer and is on follow-up with Dr. Salguero as an outpatient. Patient states that she had a CT of the abdomen pelvis done couple weeks ago. Patient was transferred to [facility] after discussion with her oncologist. Patient also follows with heart team at [facility]. Denies any fever or chills. No chest pain or shortness of breath. No leg swelling. No cough or sputum production. Laboratory data from her hospital reviewed. Patient is also having blood in the urine. 02/26/2024 Patient is seen and evaluated in follow-up with oncology consulted. Patient reports to having improvements somewhat in the nausea and vomiting although continues to have some abdominal discomfort. Patient has ostomy on the right and gas with liquid stool noted. Patient has significant hernia noted below the ostomy patient reports this has been ongoing for quite some time and being evaluated. Patient is afebrile with no reports of chest pain or shortness of breath. Patient continues on antibiotics for an eye infection. Patient currently receiving treatment with Dr. Condon in the outpatient setting. Patient was given clear liquids and instructed patient to hold on eating for now until after CT scan results. Pelvis ordered for further evaluation oncology. 02/27/2024 Patient seen and evaluated in follow-up today status post CT which reveals parastomal herniation with concerns of possible ischemic bowel. General surgery has been consulted and pending. Oncology is following patient is currently NPO. Patient reports to feeling hungry is having continued stool output and gas in the ostomy. Abdominal pain persists although manageable. Patient denies any further nausea and vomiting. Patient remains afebrile and labs reviewed within normal limits. Patient has been up and walking to the bathroom with no difficulties. Patient reports is urinating discomfort with urination. Preliminary urine culture showing gram-negative bacilli and awaiting finalized cultures. Will continue ceftriaxone for now. 02/28/2024 Patient is seen in follow-up today currently remains n.p.o. and awaiting to undergo laparoscopic evaluation surgical with Dr. Faye today. Will evaluate for ischemia as noted as a possibility on CT. Patient continues with diffuse abdominal pain although reports to feeling hungry and looking forward to eating. Patient continues to have output in the ostomy as well as gas. Patient is afebrile with no reports of chest pain or shortness of breath. Patient is continued on antibiotics and urine culture finally showing no growth. Will continue ceftriaxone for now and transition to short course of Ceftin on discharge as patient was symptomatic. Oncology following as well and patient will continue outpatient follow-up. 02/29/2024 Patient is currently lying in the bed. Awake alert and oriented x 3. States that her pain is much improved now. Did receive 2 doses of IV Dilaudid this morning. Patient is s/p diagnostic laparoscopy and reduction of parastomal hernia. Patient has been afebrile. No nausea or vomiting. Does have output from ostomy bag. Laboratory data reviewed. Patient is being continued on IV hydration and antibiotics in the form of ceftriaxone. Urine culture showed no growth. 03/01/2024 Patient has been having nausea and vomiting since last night again and patient abdominal pain also worsened overnight. No output in the ostomy bag. Was seen by general surgery and again planning for laparoscopic repair/reduction under anesthesia. Patient is afebrile. Blood pressure is controlled. Currently on room air. Laboratory data showed WBC 12.4 hemoglobin 12.6 and platelets 559 Sodium 138 potassium 4.2 chloride 109 bicarb is 18 BUN 13 and creatinine 0.8 and magnesium 1.7. 03/02/2024 Patient is seen in follow-up currently n.p.o. as patient is scheduled to undergo surgical reevaluation for reduction of hernia with possible surgical clipping or intervention. Will await official report. Patient is n.p.o. and will be resumed once cleared by general surgery. Patient is afebrile with no reported chest pain or shortness of breath. Patient continues to report some abdominal discomfort and is noted with gas and stool in the ostomy. Encouraged to increase activity as tolerated. Oncology following as well and will need clearance from surgery and recovery for when to resume active treatment. review of systems: Constitutional: No reports of fatigue, fever, or chills Cardiovascular: No reports of chest pain or palpitations Respiratory: No reports of shortness of breath or cough GI: No reports of nausea, vomiting, or diarrhea, reports abdominal pain : No reports of dysuria or retention Neurovascular: No reports of weakness or numbness All medications have been reviewed PHYSICAL EXAMINATION: Patient is currently sitting up in bed, alert and oriented.. Thin built, elderly appearing HEENT: Normocephalic. Neck is supple. Pupils reactive. Nostrils clear. Oral cavity is moist. Neck reveals no JVD, carotid bruits, or thyromegaly. CHEST EXAMINATION: Trachea is central. Symmetrical expansion. Lung ríos clear to auscultation and percussion. CARDIAC: Normal S1, S2 with no gallops. No murmurs ABDOMEN: Soft. Bowel sounds present. Ostomy bag in place with gas and liquid stool noted. Significant parastomal hernia. No abdominal bruits. Extremities: reveal no edema. No clubbing or cyanosis Neurologically awake, alert, oriented x3 with well-coordinated movements. No focal deficits noted Skin: No rash or skin lesions. Psychiatric: Cooperative. Non-suicidal, less anxious. Musculoskeletal: No joint swelling or deformity. Normal range of motion. Assessment: Abdominal pain associated with nausea and vomiting, possibly secondary to malignancy related pain Parastomal herniation and possible area of ischemic bowel noted on CT, general surgery following and underwent laparoscopic evaluation with reduction of hernia although has prolapsed again and will be undergoing repeat evaluation laparoscopically, will await report Status post colon cancer status post surgical surgery and colostomy currently on chemotherapy every 2 weeks. Also on Xeloda Hematuria. Intermittent symptoms of pain and burning with frequency in urination . Concerns for possible urinary tract infection on admission. Finalized cultures are negative History of bladder cancer History of mitral valve prolapse Anxiety Prior history of smoking GI prophylaxis PPI. DVT prophylaxis patient is already on full anticoagulation Full code Plan: Patient will be continued on gentle IV hydration with normal saline. Patient is currently n.p.o. awaiting to undergo repeat reduction of the parastomal hernia with Dr. Gallego today 03/02/2024. Continue symptomatic management for nausea and vomiting, patient currently n.p.o. awaiting general surgery evaluation. Continue pain management Patient reported having some pain and burning with urination, urine culture finalized as negative. Continue ceftriaxone for now as patient was symptomatic Oncology following and treatment will be currently on hold and awaiting surgical evaluation and recommendations. Likely after recovery patient will follow-up in the outpatient setting with oncology to resume treatment Home medications reviewed and resumed as appropriate Due to multiple complex medical issues, prognosis is guarded Possible discharge planning in the next 24 hours once cleared by surgery and if pain is better managed. Continue short 3-day course of Ceftin on discharge The impression and plan of care has been dictated by Rebekah Lynn, Nurse Practitioner as directed. Dr. Ovidio MD I have performed a history and examination and MDM of this patient, discussed the same with the dictator, and agree with the dictator's assessment and plan as written ,documented as a scribe. Based on total visit time, I have performed more than 50% of the visit. Objective - Vital Signs Vital signs: Vital Signs Temp 98.5 F 03/02/24 12:11 Pulse 68 03/02/24 12:11 Resp 16 03/02/24 12:11 BP 106/65 03/02/24 12:11 Pulse Ox 93 L 03/02/24 12:11 FiO2 Intake & Output 03/01/24 03/02/24 03/02/24 18:59 06:59 18:59 Intake Total 50 750 Output Total 100 Balance 50 650 Weight 54.431 kg Intake: Intake, IV Titration 50 750 Amount Magnesium Sulfate-D5w Pmx 100 1 gm In Dextrose/Water 1 100ml.bag @ 100 mls/hr IVPB ONCE ONE Rx#: [id number] Sodium Chloride 0.9% 1, 600 000 ml @ 50 mls/hr IV . Q20H [facility] Rx#:[id number] cefTRIAXone 1 gm In 50 50 Sodium Chloride 0.9% 50 ml @ 100 mls/hr IVPB DAILY [facility] Rx#:[id number] Output: Stool 100 Other: Voiding Method Toilet Toilet # Voids 3 - Labs CBC & Chem 7: 03/02/24 05:56 03/02/24 05:56 Labs: Abnormal Lab Results - Last 24 Hours (Table) 03/02/24 03/02/24 Range/Units 05:56 05:56 RDW 14.9 H (11.5-14.5) % Immature Gran # 0.16 H (0.00-0.04) X 10*3/uL Lymphocytes # 0.88 L (0.90-5.00) X 10*3/uL Eosinophils # 0.03 L (0.04-0.35) X 10*3/uL BUN 6.5 L (9.0-27.0) mg/dL BUN/Creatinine Ratio 9.29 L (12.00-20.00) Ratio Calcium 8.4 L (8.7-10.3) mg/dL Total Bilirubin <0.2 L (0.3-1.2) mg/dL ALT 7 L (8-44) U/L Total Protein 5.5 L (6.2-8.2) g/dL Albumin 3.3 L (3.8-4.9) g/dL Albumin/Globulin Ratio 1.50 L (1.60-3.17) Ratio
[2024-03-03] MEDS: HYDROcodone/APAP 5-325MG 1 EACH TAB PO PRN (09:47)
--- NOTE | 2024-03-03 10:46 | P.PN ---
Subjective Progress Note Date: 03/03/24 CHIEF COMPLAINT: Recurrent incarcerated parastomal hernia HISTORY OF PRESENT ILLNESS: Patient is status post reduction of recurrent incarcerated parastomal hernia under anesthesia x 2. Patient reports her hernia continues to be reduced. She reports improvement in her abdominal pain. Ostomy is functioning. She is tolerating diet. Denies any nausea or vomiting. Afebrile. PHYSICAL EXAM: VITAL SIGNS: Reviewed. GENERAL: Well-developed in no acute distress. HEENT: No sclera icterus. Extraocular movements grossly intact. Moist buccal mucosa. Head is atraumatic, normocephalic. ABDOMEN: Soft. Nondistended. Nontender. Ostomy functioning. Parastomal hernia reduced NEUROLOGIC: Alert and oriented. Cranial nerves II through XII grossly intact. ASSESSMENT: 1. Recurrent parastomal hernia with obstruction 2. Ileostomy status 3. Colon cancer 4. Chemotherapy status, current 5. Mitral valve prolapse 6. Generalized abdominal pain 7. Intractable nausea and vomiting 8. Chronic anticoagulation 9. Generalized anxiety disorder 10. Neuropathy PLAN: -Patient can be discharged from surgical standpoint -Recommend follow-up outpatient for further discussion regarding repair of parastomal hernia Physician Secy note has been reviewed by physician. Signing provider agrees with the documented findings, assessment, and plan of care. Objective - Vital Signs Vital signs: Vital Signs Temp 98.8 F 03/03/24 02:00 Pulse 91 03/03/24 02:00 Resp 16 03/03/24 02:00 BP 100/68 03/03/24 02:00 Pulse Ox 98 03/03/24 02:00 FiO2 Intake & Output 03/02/24 03/03/24 03/03/24 18:59 06:59 18:59 Intake Total 100 600 Output Total 300 Balance -200 600 Weight 54.431 kg Intake: IV 100 Intake, IV Titration 600 Amount Sodium Chloride 0.9% 1, 600 000 ml @ 50 mls/hr IV . Q20H [facility] Rx#:[id number] Output: Stool 300 Other: Voiding Method Toilet # Voids 3 - Labs CBC & Chem 7: 03/02/24 05:56 03/02/24 05:56
[2024-03-03 12:33] LABS: BUN/Creat Ratio 8.25 Ratio (12.00-20.00); Blood Urea Nitrogen 6.6 mg/dL (9.0-27.0); Calcium 8.2 mg/dL (8.7-10.3); Carbon Dioxide 24.6 mmol/L (21.6-31.8); Chloride 104 mmol/L (96-109); Glucose 97 mg/dL (70-110); Magnesium 2.2 mg/dL (1.5-2.4); Potassium 4.1 mmol/L (3.5-5.5); Sodium 141 mmol/L (135-145)
[2024-03-03 12:41] LABS: Basophils # (A) 0.05 X 10*3/uL (0.00-0.10); Basophils % (A) 0.6 %; Eosinophils % (A) 1.2 %; HCT 33.9 % (37.2-46.3); HGB 10.9 g/dL (12.0-15.0); Lymphocytes # (A) 1.15 X 10*3/uL (0.90-5.00); Lymphocytes % (A) 13.4 %; MCHC 32.2 g/dL (32.0-37.0); MCV 90.2 FL (80.0-97.0); Mean Platelet Volume 9.4 FL (9.5-12.2); Monocytes # (A) 0.88 X 10*3/uL (0.20-1.00); Monocytes % (A) 10.2 %; NRBC Per 100 WBC 0 X 10*3/uL (0.00-0.01); Neutrophils # (A) 6.31 X 10*3/uL (1.80-7.70); Neutrophils % (A) 73.4 %; Platelet Count 372 X 10*3/uL (140-440); RBC 3.76 X 10*6/uL (4.10-5.20); RDW 14.9 % (11.5-14.5); WBC 8.59 X 10*3/uL (4.50-10.00)
[2024-03-03 13:12] VITALS: BP 120/80; PULSE 83; TEMP 98.5
--- NOTE | 2024-03-03 17:05 | P.PN ---
Subjective Progress Note Date: 03/03/24 Principal diagnosis: Abdominal pain. Colon adenocarcinoma In follow-up today patient reports improvement in abdominal pain, she is passing stool, denies any bloody or black stool. She feels good, is eating low fiber diet, ambulating independently. Objective - Vital Signs Vital signs: Vital Signs Temp 97.6 F 03/03/24 07:30 Pulse 68 03/03/24 07:30 Resp 16 03/03/24 07:30 BP 101/71 03/03/24 07:30 Pulse Ox 97 03/03/24 07:30 FiO2 Intake & Output 03/02/24 03/03/24 03/03/24 18:59 06:59 18:59 Intake Total 100 600 Output Total 300 Balance -200 600 Weight 54.431 kg Intake: IV 100 Intake, IV Titration 600 Amount Sodium Chloride 0.9% 1, 600 000 ml @ 50 mls/hr IV . Q20H [facility] Rx#:[id number] Output: Stool 300 Other: Voiding Method Toilet # Voids 3 - Constitutional General appearance: Present: average body habitus, cooperative, no acute dist ress - EENT Eyes: Present: anicteric sclerae, EOMI ENT: Present: hearing grossly normal - Respiratory Details: even and unlabored respirations - Peripheral edema leg Peripheral Edema: bilateral: None - Gastrointestinal Gastrointestinal Comment(s): large herniation lateral to stoma. Lap incisions, no drainage or bleeding noted - Neurologic Neurologic: Present: CNII-XII intact - Musculoskeletal Musculoskeletal: Present: strength equal bilaterally - Psychiatric Psychiatric: Present: A&O x's 3, appropriate affect, intact judgment & insight - Labs CBC & Chem 7: 03/03/24 07:26 03/03/24 07:26 Assessment and Plan (1) Intractable abdominal pain Status: Acute Code(s): R10.9 - UNSPECIFIED ABDOMINAL PAIN SNOMED Code(s): 08362708 (2) History of colon cancer, stage IV Status: Acute Code(s): Z85.038 - PERSONAL HISTORY OF MALIGNANT NEOPLASM OF LARGE INTESTINE SNOMED Code(s): 238526426 Plan: History of stage IV colon cancer. Presenting with intractable abdominal pain -Patient has been on treatment with oral Xeloda, dose reduced, 1 week on 1 week off since July 2023 along with IV Vectibix every 2 weeks. Tolerating well. Scan in early January showed stable disease. -Xeloda has been held since admit -Vectibix was recently held (last cycle was 3 weeks ago) due to eye infection. This will continue to be on hold -CT AP reported concerns for peristomal herniation and ischemic bowel. -Pt has surgery for incarcerated hernia and doing much better post op. -Pt is to continue to hold treatment post op. Getting f/u with Dr. Condon in 2-3 weeks to reassess Pt verbalized understanding and agrees with plan
[2024-03-03] MEDS ORDERED: APIXABAN 5 MG TAB PO SCH (21:00)
--- NOTE | 2024-03-06 05:07 | P.DS ---
Providers Date of admission: 02/25/24 15:21 Expected date of discharge: 03/03/24 Attending physician: Carlyn Yan Consults: 02/25/24 15:10 Consult Physician Routine Consulting Provider: Vladimir Mcelroy Consult Reason/Comments: Age for colon cancer Do you want consulting provider notified?: Yes 02/26/24 16:55 Consult Physician Routine Consulting Provider: Hyacinth Gallego Consult Reason/Comments: Parastomal hernia with ischemic bowel Do you want consulting provider notified?: Yes Primary care physician: Reece Condon Hospital Course: Final diagnosis Abdominal pain associated with nausea and vomiting, likely secondary to parastomal hernia status post laparoscopic reduction of hernia on 03/02/2024 Status post colon cancer status post surgical surgery and colostomy currently on chemotherapy every 2 weeks. Also on Xeloda Hematuria. Intermittent symptoms of pain and burning with frequency in urination . Concerns for acute urinary tract infection on admission. Finalized cultures are negative History of bladder cancer History of mitral valve prolapse Anxiety Prior history of smoking GI prophylaxis DVT prophylaxis patient is already on full anticoagulation Full code Discharge disposition Patient is being discharged in a stable condition with guarded prognosis to home. Patient will follow-up with Dr. Condon in the outpatient setting upon discharge. Patient is to continue with close outpatient follow-up with her surgeon in the outpatient setting as well as oncology as scheduled. Resources provided on discharge to establish with a primary care provider. Total time taken is greater than 35 minutes. Hospital course This is a 73-year-old female who was recently admitted with abdominal pain with nausea and vomiting being closely monitored. Patient has significant parastomal hernia with ostomy and has been following with oncology undergoing chemotherapy. Patient having worsening abdominal pain and distention being evaluated by general surgery initially underwent laparoscopic intervention with reduction of the hernia and felt better. Later that evening, patient experienced increased abdominal pain and made n.p.o. with general surgery reevaluating as hernia had come out again. Patient is status post reduction of hernia with sutures placed. Patient needs outpatient follow-up with general surgeon and she reports has been at [facility]. Patient follows with oncology for continued chemotherapy and has been instructed to follow-up outpatient once recovering. Patient has been cleared by consultations for discharge home. Please refer to other consultation notes for further HPI. Currently no reports of chest pain, shortness of breath, or palpitations. Patient is afebrile. No reports of nausea or vomiting and patient is tolerating diet. Patient will be discharged home today. Guarded prognosis and high risk for readmissions given patient's significant comorbidities. Physical exam: Gen: This is a 73-year-old female who is awake, alert and oriented x 3, well- developed, well-nourished, elderly appearing HEENT: Head is atraumatic, normocephalic. Pupils equal, round. Sclerae is anicteric. NECK: Supple. No JVD. No lymphadenopathy. No thyromegaly. LUNGS: Clear to auscultation. No wheezes or rhonchi. No intercostal retractions. HEART: Regular rate and rhythm. No murmur. ABDOMEN: Soft. Bowel sounds are present. No masses. No tenderness. Ostomy noted with stool and gas EXTREMITIES: No pedal edema. No calf tenderness. NEUROLOGICAL: Patient is awake, alert and oriented x3. Cranial nerves 2 through 12 are grossly intact. Please refer to medication reconciliation sheet for a list of medications. The impression and plan of care has been dictated by Rebekah Lynn, Nurse Practitioner as directed. Dr. Ovidio MD I have performed a history and examination and MDM of this patient, discussed the same with the dictator, and agree with the dictator's assessment and plan as written ,documented as a scribe. Based on total visit time, I have performed more than 50% of the visit. Patient Condition at Discharge: Fair Plan - Discharge Summary Discharge Rx Participant: No New Discharge Prescriptions: New Cefuroxime [Ceftin] 500 mg PO BID 3 Days #12 tab Continue Apixaban [Eliquis] 5 mg PO BID Acetaminophen Tab [Tylenol] 1,000 mg PO Q6HR PRN PRN Reason: Pain Gabapentin [Neurontin] 100 mg PO TID PRN PRN Reason: Pain Tobra-Dexamet 0.3-0.1% Eye Oin [Tobradex Ophth Oint] 1 applic BOTH EYES BID HYDROcodone/APAP 7.5-325MG [Rowan 7.5-325] 1 tab PO Q6H PRN PRN Reason: Pain ALPRAZolam [Xanax] 0.125 - 0.25 mg PO DAILY PRN PRN Reason: Anxiety Sennosides [Senokot] 17.2 mg PO BID Prochlorperazine Maleate 10 mg PO TID PRN PRN Reason: Nausea Discharge Medication List ALPRAZolam [Xanax] 0.125 - 0.25 mg PO DAILY PRN 07/15/23 [History] HYDROcodone/APAP 7.5-325MG [Rowan 7.5-325] 1 tab PO Q6H PRN 07/15/23 [History] Apixaban [Eliquis] 5 mg PO BID 08/30/23 [History] Sennosides [Senokot] 17.2 mg PO BID 08/30/23 [History] Acetaminophen Tab [Tylenol] 1,000 mg PO Q6HR PRN 02/25/24 [History] Gabapentin [Neurontin] 100 mg PO TID PRN 02/25/24 [History] Prochlorperazine Maleate 10 mg PO TID PRN 02/25/24 [History] Tobra-Dexamet 0.3-0.1% Eye Oin [Tobradex Ophth Oint] 1 applic BOTH EYES BID 02/25/24 [History] Cefuroxime [Ceftin] 500 mg PO BID 3 Days #12 tab 03/03/24 [Rx] Follow up Appointment(s)/Referral(s): Hyacinth Gallego MD [STAFF PHYSICIAN] - 1 Week (The office will call with a follow up appointment. ) Merary Banda MD [STAFF PHYSICIAN] - 1 Week (Please call the office to schedule a follow up appointment. ) Reece Condon MD [Primary Care Provider] - 04/01/24 3:15 pm (This appt is being moved up, office will contact pt with new appt date and time) Dominga Hu MD [STAFF PHYSICIAN] - 1 Week Patient Instructions/Handouts: Ventral Hernia (IP) Activity/Diet/Wound Care/Special Instructions: No lifting over 4 pounds occluding moderate exertional activities May shower. No bathtub soaks for 2 weeks, March 13, 2024 Wear abdominal binder daily HOLD XELODA UNTIL SEEN BY ONCOLOGY IN THE OFFICE Discharge Disposition: HOME SELF-CARE
== END 2024-03-03 14:03 | disposition home or self-care (01) | DRG 357 ==
LOC: EC 13:42 → 5NMEDONC 15:21
PROVIDERS: ADMIT Internal Medicine; ATTEND Internal Medicine
PROC: 0DJD0ZZ Inspection of Lower Intestinal Tract, Open Approach (ICD-10-PCS; principal; 2024-02-28 09:05)
DX: K43.3 Parastomal hernia with obstruction, without gangrene (principal); C77.2 Secondary and unspecified malignant neoplasm of intra-abdominal lymph nodes; N39.0 Urinary tract infection, site not specified; N13.6 Pyonephrosis; K55.8 Other vascular disorders of intestine; G89.3 Neoplasm related pain (acute) (chronic); Z85.038 Personal history of other malignant neoplasm of large intestine; Z93.3 Colostomy status; K40.90 Unilateral inguinal hernia, without obstruction or gangrene, not specified as recurrent; R31.9 Hematuria, unspecified; R35.0 Frequency of micturition; Z88.0 Allergy status to penicillin; Z91.030 Bee allergy status; E86.0 Dehydration; K66.0 Peritoneal adhesions (postprocedural) (postinfection); G62.9 Polyneuropathy, unspecified; Z79.01 Long term (current) use of anticoagulants; I34.1 Nonrheumatic mitral (valve) prolapse; F41.1 Generalized anxiety disorder; Z79.899 Other long term (current) drug therapy; Z85.51 Personal history of malignant neoplasm of bladder; Z90.49 Acquired absence of other specified parts of digestive tract; Z86.718 Personal history of other venous thrombosis and embolism; Z90.710 Acquired absence of both cervix and uterus; Z93.2 Ileostomy status; K86.89 Other specified diseases of pancreas
CPT/HCPCS: 74177; 80048; 80053; 81001; 83605; 83735; 85025; 87086; 96361; 96374; 96375; 99285

== ENCOUNTER 2024-03-19 10:26 | Observation (INO) | payer MEDICARE, OTHER ==
--- NOTE | 2024-03-19 11:38 | ED ---
General Adult HPI - General Chief complaint: Abdominal Pain Stated complaint: ABD pain Time Seen by Provider: 03/19/24 10:30 Source: patient, EMS, RN notes reviewed, old records reviewed Mode of arrival: EMS - History of Present Illness Initial comments: This is a 73-year-old female who presents to the emergency department from [facility]. Patient had in the past had a colectomy and then had a colostomy placed. Patient has had a hernia since then and Dr. Gallego has repaired the hernia but patient states today there was more pain around the ostomy and there was a larger bulge of the hernia and so she went to the hospital. She was told she had a small bowel obstruction and needed to be transferred however the CAT scan report says there is no small bowel obstruc tion. Patient states she still is passing some stool there is a just significantly less stool and significantly more bulging and pain. - Related Data Home Medications Medication Instructions Recorded Confirmed ALPRAZolam [Xanax] 0.125 - 0.25 mg PO DAILY PRN 07/15/23 03/19/24 HYDROcodone/APAP 7.5-325MG [[place] 1 tab PO Q6H PRN 07/15/23 03/19/24 7.5-325] Apixaban [Eliquis] 5 mg PO BID 08/30/23 03/19/24 Sennosides [Senokot] 17.2 mg PO BID 08/30/23 03/19/24 Acetaminophen Tab [Tylenol] 1,000 mg PO Q6HR PRN 02/25/24 03/19/24 Gabapentin [Neurontin] 100 mg PO TID PRN 02/25/24 03/19/24 Prochlorperazine Maleate 10 mg PO TID PRN 02/25/24 03/19/24 Tobra-Dexamet 0.3-0.1% Eye Oin 1 applic BOTH EYES BID 02/25/24 03/19/24 [Tobradex Ophth Oint] Allergies Allergy/AdvReac Type Severity Reaction Status Date / Time bee venom protein (honey bee) Allergy Swelling Verified 03/19/24 11:26 Penicillins Allergy Rash/Hives Verified 03/19/24 11:26 poison mookie extract Allergy Rash/Hives Verified 03/19/24 11:26 Review of Systems ROS Statement: Those systems with pertinent positive or pertinent negative responses have been documented in the HPI. ROS Other: All systems not noted in ROS Statement are negative. Past Medical History Past Medical History: Cancer Additional Past Medical History / Comment(s): colon cancer, hx bladder cancer, prolapse mitral valve, chemo 08/27/2023 History of Any Multi-Drug Resistant Organisms: None Reported Past Surgical History: Hysterectomy Additional Past Surgical History / Comment(s): tubal , ostomy, colon resection Past Anesthesia/Blood Transfusion Reactions: No Reported Reaction Past Psychological History: Anxiety Smoking Status: Former smoker Past Alcohol Use History: None Reported Past Drug Use History: None Reported General Exam - General Exam Comments Initial Comments: GENERAL: Patient is well-developed and well-nourished. Patient is nontoxic and well- hydrated and is in mild distress. ENT: Neck is soft and supple. No significant lymphadenopathy is noted. Oropharynx is clear. Moist mucous membranes. Neck has full range of motion without eliciting any pain. EYES: The sclera were anicteric and conjunctiva were pink and moist. Extraocular movements were intact and pupils were equal round and reactive to light. Eyelids were unremarkable. PULMONARY: Unlabored respirations. Good breath sounds bilaterally. No audible rales rhonchi or wheezing was noted. CARDIOVASCULAR: There is a regular rate and rhythm without any murmurs gallops or rubs. ABDOMEN: Patient has an ostomy and there is a hernia on the right aspect of it that is very tender to palpation. Patient is passing some stool. SKIN: Skin is clear with no lesions or rashes and otherwise unremarkable. NEUROLOGIC: Patient is alert and oriented x3. Cranial nerves II through XII are grossly intact. Motor and sensory are also intact. Normal speech, volume and content. Symmetrical smile. MUSCULOSKELETAL: Normal extremities with adequate strength and full range of motion. LYMPHATICS: No significant lymphadenopathy is noted PSYCHIATRIC: Normal psychiatric evaluation. Course Vital Signs 03/19/24 10:27 Temperature 99.2 F Pulse Rate 71 Respiratory 16 Rate Blood Pressure 111/85 O2 Sat by Pulse 98 Oximetry Medical Decision Making - Medical Decision Making Was pt. sent in by a medical professional or institution (, PA, GR[employer] F[employer], urgent care, hospital, or care home...) When possible be specific @ -[facility] emergency department sent the patient to us Did you speak to anyone other than the patient for history (EMS, parent, family, police, friend...)? What history was obtained from this source @ -I spoke with the ER doc at [facility] Did you review nursing and triage notes (agree or disagree)? Why? @ -I reviewed and agree with nursing and triage notes Were old charts reviewed (outside hosp., previous admission, EMS record, old EKG, old radiological studies, urgent care reports/EKG's, care home records)? Report findings @ -I reviewed all the charts lab work from [facility]. I also reviewed the CAT scan from [facility] that indicated there was a hernia around the ostomy. Differential Diagnosis (chest pain, altered mental status, abdominal pain women, abdominal pain men, vaginal bleeding, weakness, fever, dyspnea, syncope, headache, dizziness, GI bleed, back pain, seizure, CVA, palpatations, mental health, musculoskeletal)? @ -Differential Abdominal Pain Women: Appendicitis, Cholecystitis, diverticulosis, ischemic bowel, pancreatitis, hepatitis, UTI, gastroenteritis, AAA, incarcerated hernia, bowel obstruction, constipation, inflammatory bowel, hepatitis, peptic ulcer disease, splenic infarction, perforated viscus, vulvitis, ovarian torsion, PID, kidney stone, placenta abruption, intra stomal hernia this is not meant to be an all-inclusive list EKG interpreted by me (3pts min.). @ -As above X-rays interpreted by me (1pt min.). @ -None done CT interpreted by me (1pt min.). @ -None done U/S interpreted by me (1pt. min.). @ -None done What testing was considered but not performed or refused? (CT, X-rays, U/S, labs)? Why? @ -None What meds were considered but not given or refused? Why? @ -None Did you discuss the management of the patient with other professionals (professionals i.e. , PA, [employer], lab, RT, psych nurse, social work supervisor, orthotist, teacher, pharmaceutical officer, manager of case)? Give summary @ -I spoke with Dr. Gallego and she agreed to admit the patient Was smoking cessation discussed for >3mins.? @ -No Was critical care preformed (if so, how long)? @ -No Were there social determinants of health that impacted care today? How? (Homelessness, low income, unemployed, alcoholism, drug addiction, transportation, low edu. Level, literacy, decrease access to med. care, long term, rehab)? @ -No Was there de-escalation of care discussed even if they declined (Discuss DNR or withdrawal of care, Hospice)? DNR status @ -No What co-morbidities impacted this encounter? (DM, HTN, Smoking, COPD, CAD, Cancer, CVA, ARF, Chemo, Hep., AIDS, mental health diagnosis, sleep apnea, morbid obesity)? @ -None Was patient admitted / discharged? Hospital course, mention meds given and route, prescriptions, significant lab abnormalities, going to OR and other pertinent info. @ -Patient continued to have some pain around the ostomy where the hernias. Patient is not having any vomiting at this time. I reviewed all lab work and CAT scans that were sent. I spoke with Dr. Gallego she wanted the patient admitted I admitted the patient. Undiagnosed new problem with uncertain prognosis? @ -No Drug Therapy requiring intensive monitoring for toxicity (Heparin, Nitro, Insulin, Cardizem)? @ -No Were any procedures done? @ -No Diagnosis/symptom? @ -Intra stomal hernia Acute, or Chronic, or Acute on Chronic? @ -Acute Uncomplicated (without systemic symptoms) or Complicated (systemic symptoms)? @ -Complicated Side effects of treatment? @ -No Exacerbation, Progression, or Severe Exacerbation? @ -No Poses a threat to life or bodily function? How? (Chest pain, USA, SC, pneumonia, PE, COPD, DKA, ARF, appy, cholecystitis, CVA, Diverticulitis, Homicidal, Suicidal, threat to staff... and all critical care pts) @ -No Disposition Clinical Impression: Herniated colostomy Disposition: ADMITTED IP TO THIS [facility] Referrals: Reece Condon MD [Primary Care Provider] - 1-2 days Time of Disposition: 11:38
[2024-03-19] MEDS: SODIUM CHLORIDE 0.9% 1,000 ML IV ONE (11:50)
--- NOTE | 2024-03-19 14:38 | P.GSHP ---
History of Present Illness H&P Date: 03/19/24 CHIEF COMPLAINT: abdominal pain HISTORY OF PRESENT ILLNESS: This is a 73-year-old female with a known history of colon cancer status post colon resection with colostomy in December 2022 at [facility]. Since surgery she had developed a parastomal hernia. Patient was hospitalized in mid February she had a diagnostic laparoscopy with reduction of parastomal hernia on 02/28/2024 and then on 03/02/2024 patient had reduction of recurrent incarcerated parastomal hernia under anesthesia. Patient reports she had been having abdominal pain since that hospitalization. However, over the last 3 days she had increasing abdominal pain at the area of her parastomal hernia. She reports that the bulge gets hard especially after eating and then softens as she is passing more stool. She was concerned that there may be more going on and initially went to the ER in [place] and was transferred to [facility] for further evaluation. Patient reports her ostomy has been functioning. Output has been slightly decreased. But she is passing air through her ostomy as well as stool. She reports her oral intake is decreased. She has nausea but no vomiting. She was due for chemotherapy last week but did not go because of the abdominal pain. CT scan per ER note reporting no small bowel obstruction. Last dose of Eliquis was 03/18/24. PAST MEDICAL HISTORY: see list. PAST SURGICAL HISTORY: See list. MEDICATIONS: See list. ALLERGIES: See list. SOCIAL HISTORY: No illicit drug use. REVIEW OF SYSTEMS: CONSTITUTIONAL: Denies fever or chills. HEENT: Denies blurred vision, vision changes, or eye pain. Denies hemoptysis ENDOCRINE: Denies heat or cold intolerance. CARDIOVASCULAR: Denies chest pain or pressure. RESPIRATORY: No shortness of breath. GASTROINTESTINAL: Denies abdominal pain. Denies nausea or vomiting. NEURO: Denies history of seizures. PSYCH: No depression or suicidal ideation HEMATOLOGIC: Denies bleeding disorders. LYMPHATIC: The patient denies any lumps and bumps around the neck. GENITOURINARY: Denies any blood in urine or increased urinary frequency. MUSCULOSKELETAL: Denies myalgias. Denies joint swelling. Denies decreased range of motion beyond patients baseline. SKIN: Denies pruitis. Denies rash. PHYSICAL EXAM: VITAL SIGNS: Reviewed GENERAL: Well-developed in no acute distress. HEENT: No sclera icterus. Extraocular movements grossly intact. Moist buccal mucosa. Head is atraumatic, normocephalic. Hears conversational speech. No nasal drai nage. NECK: Supple without lymphadenopathy. CHEST: Non-labored respirations and equal bilateral excursions. CARDIOVASCULAR: Palpable 2+ radial pulses. ABDOMEN: Soft. Nondistended. Right lower quadrant parastomal hernia. Mild tenderness to palpation around the parastomal hernia. area is soft around the hernia. Mild tenderness palpation left lower abdomen. Ostomy with stool and air present MUSCULOSKELETAL: No clubbing or cyanosis. NEUROLOGIC: No focal or lateralizing signs. Cranial nerves II through XII grossly intact. PSYCH: Appropriate affect. Alert and oriented to person, place and time. SKIN: Well perfused. Good skin turgor. LABORATORY DATA: IMAGING: ASSESSMENT: 1. Abdominal pain 2. Recurrent parastomal hernia had required reduction x 2 on previous hospitalization in February 18. History of colon cancer with colectomy and ileostomy in 2022. Patient currently on chemotherapy. PLAN: -Start clear liquids -Hold Eliquis for now -Continue IV fluids -Continue supportive care -Further recommendations forthcoming per surgeon Physician Licensing Registration Examiner note has been reviewed by physician. Signing provider agrees with the documented findings, assessment, and plan of care. Past Medical History Past Medical History: Cancer Additional Past Medical History / Comment(s): colon cancer, hx bladder cancer, prolapse mitral valve, chemo 08/27/2023 History of Any Multi-Drug Resistant Organisms: None Reported Past Surgical History: Hysterectomy Additional Past Surgical History / Comment(s): tubal , ostomy, colon resection Past Anesthesia/Blood Transfusion Reactions: No Reported Reaction Past Psychological History: Anxiety Smoking Status: Former smoker Past Alcohol Use History: None Reported Past Drug Use History: None Reported Medications and Allergies Home Medications Medication Instructions Recorded Confirmed Type ALPRAZolam [Xanax] 0.125 - 0.25 mg PO DAILY PRN 07/15/23 03/19/24 History HYDROcodone/APAP 7.5-325MG [[place] 1 tab PO Q6H PRN 07/15/23 03/19/24 History 7.5-325] Apixaban [Eliquis] 5 mg PO BID 08/30/23 03/19/24 History Sennosides [Senokot] 17.2 mg PO BID 08/30/23 03/19/24 History Acetaminophen Tab [Tylenol] 1,000 mg PO Q6HR PRN 02/25/24 03/19/24 History Gabapentin [Neurontin] 100 mg PO TID PRN 02/25/24 03/19/24 History Prochlorperazine Maleate 10 mg PO TID PRN 02/25/24 03/19/24 History Tobra-Dexamet 0.3-0.1% Eye Oin 1 applic BOTH EYES BID 02/25/24 03/19/24 History [Tobradex Ophth Oint] Allergies Allergy/AdvReac Type Severity Reaction Status Date / Time bee venom protein (honey bee) Allergy Swelling Verified 03/19/24 11:26 Penicillins Allergy Rash/Hives Verified 03/19/24 11:26 poison mookie extract Allergy Rash/Hives Verified 03/19/24 11:26 Surgical - Exam Vital Signs Temp Pulse Resp BP Pulse Ox 99.2 F 71 16 111/85 98 03/19/24 10:27 03/19/24 10:27 03/19/24 10:27 03/19/24 10:27 03/19/24 10:27
[2024-03-19] MEDS: HYDROmorphone 1 MG/ML 1 ML SYRINGE IVP PRN (14:52)
[2024-03-19] MEDS: ONDANSETRON 4 MG/2 ML VIAL IVP PRN (14:53)
[2024-03-19 20:27] VITALS: RESP 16
[2024-03-20 08:41] LABS: HCT 33.2 % (37.2-46.3); HGB 10.7 g/dL (12.0-15.0); MCH 27.7 pg (27.0-32.0); MCHC 32.2 g/dL (32.0-37.0); Mean Platelet Volume 9.9 FL (9.5-12.2); NRBC Per 100 WBC 0 X 10*3/uL (0.00-0.01); Platelet Count 287 X 10*3/uL (140-440); RBC 3.86 X 10*6/uL (4.10-5.20); RDW 14.9 % (11.5-14.5); WBC 10.82 X 10*3/uL (4.50-10.00)
[2024-03-20 08:42] LABS: BUN/Creat Ratio 9.86 Ratio (12.00-20.00); Blood Urea Nitrogen 6.9 mg/dL (9.0-27.0); Calcium 8.3 mg/dL (8.7-10.3); Carbon Dioxide 22.6 mmol/L (21.6-31.8); Chloride 101 mmol/L (96-109); Glucose 115 mg/dL (70-110); Sodium 134 mmol/L (135-145)
[2024-03-20 09:11] LABS: Basophils # (A) 0.04 X 10*3/uL (0.00-0.10); Basophils % (A) 0.4 %; Eosinophils # (A) 0.02 X 10*3/uL (0.04-0.35); Eosinophils % (A) 0.2 %; Lymphocytes # (A) 0.84 X 10*3/uL (0.90-5.00); Lymphocytes % (A) 7.8 %; Monocytes # (A) 1.51 X 10*3/uL (0.20-1.00); Neutrophils # (A) 8.34 X 10*3/uL (1.80-7.70); RBC Morphology Normal (Normal)
[2024-03-20 13:17] VITALS: BMI 18.6
[2024-03-20 14:01] VITALS: BP 118/85; PULSE 94; TEMP 98.4
--- NOTE | 2024-03-20 14:35 | XR ---
EXAMINATION TYPE: XR abdomen 2V DATE OF EXAM: 03/20/2024 COMPARISON: 08/31/2023 HISTORY: Abdominal pain TECHNIQUE: One view abdominal series FINDINGS: The osseous structures are intact. The bowel gas pattern is nonspecific. Dilated bowel loops are see n with air-fluid levels. A measuring up to 4.4 cm. Surgical changes seen in the abdomen. Retained tre ris within the colon correlate for constipation. Lung bases are clear. IMPRESSION: 1. Dilated bowel loops with air-fluid levels correlate for bowel obstruction versus ileus.
--- NOTE | 2024-03-20 16:48 | P.DS ---
Providers Date of admission: 03/19/24 11:42 Expected date of discharge: 03/20/24 Attending physician: Hyacinth Gallego Consults: 03/20/24 11:48 Consult Physician Routine Consulting Provider: Bubba Cheng Consult Reason/Comments: colon cancer, chemo Do you want consulting provider notified?: Yes [facility] Course: Discharge diagnosis 1. Chronic Abdominal pain 2. Recurrent parastomal hernia had required reduction x 2 on previous hospitalization in February 3. History of colon cancer with colectomy and ileostomy in 2022. Patient currently on chemotherapy. 4. Ileus Hospital course This is a 73-year-old female with known history of colon cancer status post colon resection with colostomy in December 2022 at [facility]. Since surgery she had developed a parastomal hernia. Patient was hospitalized in mid February she had a diagnostic laparoscopy with reduction of parastomal hernia on 02/28/2024 and then on 03/02/2024 patient had reduction of recurrent incarcerated parastomal hernia under anesthesia. CT scan per ER note reported no small bowel obstruction. Abdominal x-ray from today had reported dilated bowel loops with air-fluid levels correlate for bowel obstruction versus ileus. Patient is having stool through her ostomy. Her pain is better. She is tolerating liquid diet. Patient has been up and ambulating. She is tolerating diet. Her ostomy is functioning. No surgical intervention planned. Patient educated to follow- up with oncology and a colorectal surgeon outpatient. Patient is stable for discharge. Physician Housing Property Manager note has been reviewed by physician. Signing provider agrees with the documented findings, assessment, and plan of care. Patient Condition at Discharge: Stable Plan - Discharge Summary Discharge Rx Participant: Yes New Discharge Prescriptions: Continue Apixaban [Eliquis] 5 mg PO BID Acetaminophen Tab [Tylenol] 1,000 mg PO Q6HR PRN PRN Reason: Pain Gabapentin [Neurontin] 100 mg PO TID PRN PRN Reason: Pain Tobra-Dexamet 0.3-0.1% Eye Oin [Tobradex Ophth Oint] 1 applic BOTH EYES BID HYDROcodone/APAP 7.5-325MG [[place] 7.5-325] 1 tab PO Q6H PRN PRN Reason: Pain ALPRAZolam [Xanax] 0.125 - 0.25 mg PO DAILY PRN PRN Reason: Anxiety Sennosides [Senokot] 17.2 mg PO BID Prochlorperazine Maleate 10 mg PO TID PRN PRN Reason: Nausea Discharge Medication List ALPRAZolam [Xanax] 0.125 - 0.25 mg PO DAILY PRN 07/15/23 [History] HYDROcodone/APAP 7.5-325MG [[place] 7.5-325] 1 tab PO Q6H PRN 07/15/23 [History] Apixaban [Eliquis] 5 mg PO BID 08/30/23 [History] Sennosides [Senokot] 17.2 mg PO BID 08/30/23 [History] Acetaminophen Tab [Tylenol] 1,000 mg PO Q6HR PRN 02/25/24 [History] Gabapentin [Neurontin] 100 mg PO TID PRN 02/25/24 [History] Prochlorperazine Maleate 10 mg PO TID PRN 02/25/24 [History] Tobra-Dexamet 0.3-0.1% Eye Oin [Tobradex Ophth Oint] 1 applic BOTH EYES BID 02/25/24 [History] Follow up Appointment(s)/Referral(s): Reece Condon MD [Primary Care Provider] - 04/01/24 3:15 pm Activity/Diet/Wound Care/Special Instructions: Recommend to follow-up with colorectal surgeon outpatient Advance diet as tolerated at home over the next few days Discharge/Stand Alone Forms: Who Do I Call?, Community Resources, Personal Watch Repair Technician Discharge Disposition: HOME SELF-CARE
== END 2024-03-20 18:35 | disposition home or self-care (01) ==
LOC: EC 10:26 → 4SSUR 11:42 → 5NMEDONC 14:27
PROVIDERS: ADMIT Surgery Plastic and Reconstructive Surgery; ATTEND Surgery Plastic and Reconstructive Surgery
DX: K43.5 Parastomal hernia without obstruction or gangrene (principal); K56.7 Ileus, unspecified; G89.29 Other chronic pain; Z85.038 Personal history of other malignant neoplasm of large intestine; Z90.49 Acquired absence of other specified parts of digestive tract; Z79.01 Long term (current) use of anticoagulants; Z93.3 Colostomy status; Z90.710 Acquired absence of both cervix and uterus; Z79.899 Other long term (current) drug therapy; Z93.2 Ileostomy status; Z85.51 Personal history of malignant neoplasm of bladder
CPT/HCPCS: 96361 ×2; 96375; 96365; 96366 ×2; 99285; 80048; 82378; 85025; 74019; G0378 ×3; J2405; J1170 ×2

== ENCOUNTER → 2024-07-01 | Outpatient (CLI) | payer MEDICARE, OTHER | END | disposition home or self-care (01) | LOC: LABPRL 15:37 | PROVIDERS: ATTEND Internal Medicine Hematology & Oncology | DX: C18.7 Malignant neoplasm of sigmoid colon (principal); I82.729 Chronic embolism and thrombosis of deep veins of unspecified upper extremity | CPT/HCPCS: 87086 ==

== ENCOUNTER 2024-07-21 13:59 | Emergency (ER) | payer MEDICARE, OTHER ==
--- NOTE | 2024-07-21 14:51 | ED ---
General Adult HPI - General Source: patient, RN notes reviewed Mode of arrival: wheelchair Limitations: no limitations <Ray Severino - Last Filed: 07/21/24 14:50> <Jonh Chávez - Last Filed: 07/21/24 21:22> - General Chief complaint: Recheck/Abnormal Lab/Rx Stated complaint: Hydration needed Time Seen by Provider: 07/21/24 14:18 - History of Present Illness Initial comments: Quick note 73-year-old female presents emergency department complaint left-sided pain. Patient states she has known colon cancer states that she missed chemo today. Patient states she had CT outpatient and was sent here for hydration as she usually gets hydration also. Patient states pain is worse than usual on the left side. Patient denies any fevers or chills. (Ray Severino) Dictation was produced using [employer] dictation software. please excuse any grammatical, word or spelling errors. Chief Complaint: 73-year-old female with request for IV hydration History of Present Illness: Patient 73-year-old female she has history of colon cancer. Patient states for the last 2 or 3 days she has been having abdominal pain. This morning she went to go see her oncologist who ordered a CT of her abdomen. Patient usually gets chemotherapy and IV fluids today however she missed her infusion appointment due to CT imaging. Patient denies any fever. Was concerned that perhaps or some progression with her colon cancer. The ROS documented in this emergency department record has been reviewed and c onfirmed by me. Those systems with pertinent positive or negative responses have been documented in the HPI. All other systems are other negative and/or noncontributory. (John Chávez) - Related Data Home Medications Medication Instructions Recorded Confirmed ALPRAZolam [Xanax] 0.25 mg PO HS 07/15/23 07/21/24 HYDROcodone/APAP 7.5-325MG [[place] 1 tab PO BID@1300,199907/15/23 07/21/24 7.5-325] Apixaban [Eliquis] 5 mg PO BID 08/30/23 07/21/24 Sennosides [Senokot] 17.2 mg PO HS 08/30/23 07/21/24 Gabapentin [Neurontin] 100 mg PO BID 02/25/24 07/21/24 Prochlorperazine Maleate 10 mg PO Q6H PRN 02/25/24 07/21/24 Capecitabine [Xeloda] 300 mg PO DIRECTED 07/21/24 07/21/24 Allergies Allergy/AdvReac Type Severity Reaction Status Date / Time bee venom protein (honey bee) Allergy Swelling Verified 07/21/24 18:32 Penicillins Allergy Rash/Hives Verified 07/21/24 18:32 poison mookie extract Allergy Rash/Hives Verified 07/21/24 18:32 Review of Systems ROS Other: All systems not noted in ROS Statement are negative. <Ray Severino - Last Filed: 07/21/24 14:50> ROS Other: All systems not noted in ROS Statement are negative. <John Chávez - Last Filed: 07/21/24 21:22> ROS Statement: Those systems with pertinent positive or pertinent negative responses have been documented in the HPI. Past Medical History Past Medical History: Cancer Additional Past Medical History / Comment(s): colon cancer, hx bladder cancer, prolapse mitral valve, chemo 08/27/2023 History of Any Multi-Drug Resistant Organisms: None Reported Past Surgical History: Bowel Resection, Hysterectomy Additional Past Surgical History / Comment(s): tubal , Bowel resection with colstomy 2019 and revision of ostomy Dec 2022. Laparoscopy and decompression of hernia February 2024. Past Anesthesia/Blood Transfusion Reactions: No Reported Reaction Past Psychological History: Anxiety Smoking Status: Former smoker Past Alcohol Use History: Rare Past Drug Use History: Marijuana - Past Family History Mother History Unknown: Yes Father Family Medical History: Chest Pain / Angina Additional Family Medical History / Comment(s): Colon cancer <Ray Severino - Last Filed: 07/21/24 14:50> General Exam Limitations: no limitations <Ray Severino - Last Filed: 07/21/24 14:50> <John Chávez - Last Filed: 07/21/24 21:22> - General Exam Comments Initial Comments: Visual Physical Exam Vital signs reviewed General: Well-appearing, nontoxic, no acute distress. Head: Normocephalic, atraumatic Eyes: PERRLA, EOMI ENT: Airway patent Chest: Nonlabored breathing Skin: No visual rash, normal skin tone Neuro: Alert and oriented 3 Musculoskeletal: No gross abnormalities (Ray Severino) PHYSICAL EXAM: General Impression: Alert and oriented x3, not in acute distress HEENT: Normocephalic atraumatic, extra-ocular movements intact, pupils equal and reactive to light bilaterally, mucous membranes moist. Cardiovascular: Heart regular rate and rhythm Chest: Able to complete full sentences, no retractions, no tachypnea Abdomen: abdomen soft, n mild palpatory tenderness, stoma in the right lower quadrant, non-distended, no organomegaly Musculoskeletal: Pulses present and equal in all extremities, no peripheral edema Motor: no focal deficits noted Neurological: CN II-XII grossly intact, no focal motor or sensory deficits noted Skin: Intact with no visualized rashes Psych: Normal affect and mood (John Chávez) Course Vital Signs 07/21/24 07/21/24 07/21/24 14:34 17:44 19:00 Temperature 98.6 F 99.5 F 99.0 F Pulse Rate 63 101 H 104 H Respiratory 20 17 17 Rate Blood Pressure 108/70 112/79 110/72 O2 Sat by Pulse 96 100 98 Oximetry Medical Decision Making <Ray Severino - Last Filed: 07/21/24 14:50> - Lab Data Result diagrams: 07/21/24 16:32 07/21/24 16:32 <John Chávez - Last Filed: 07/21/24 21:22> - Medical Decision Making I completed the quick note portion of this chart signed Ray Severino PA-C (Ray Severino) Was pt. sent in by a medical professional or institution ([facility], SUPERINTENDENT [employer], urgent care, hospital, or senior living...) When possible be specific @ -No Did you speak to anyone other than the patient for history (EMS, parent, family, police, friend...)? What history was obtained from this source @ -No Did you review nursing and triage notes (agree or disagree)? Why? @ -I reviewed and agree with nursing and triage notes Were old charts reviewed (outside hosp., previous admission, EMS record, old EKG, old radiological studies, urgent care reports/EKG's, senior living records)? Report findings @ -CT from earlier today showed stable CT abdomen pelvis findings Differential Diagnosis (chest pain, altered mental status, abdominal pain women, abdominal pain men, vaginal bleeding, musculoskeletal, weakness, fever, dyspnea, syncope, headache, dizziness, GI bleed, back pain, seizure, CVA, palpatations, mental health)? @ -Differential Abdominal Pain Women: Appendicitis, Cholecystitis, diverticulosis, ischemic bowel, pancreatitis, hepatitis, UTI, gastroenteritis, AAA, incarcerated hernia, bowel obstruction, constipation, inflammatory bowel, hepatitis, peptic ulcer disease, splenic infarction, perforated viscus, vulvitis, ovarian torsion, PID, kidney stone, placenta abruption, this is not meant to be an all-inclusive list EKG interpreted by me (3pts min.). @ -None done X-rays interpreted by me (1pt min.). @ -None done CT interpreted by me (1pt min.). @ -None done U/S interpreted by me (1pt. min.). @ -None done What testing was considered but not performed or refused? (CT, X-rays, U/S, labs)? Why? @ -None What meds were considered but not given or refused? Why? @ -None Was smoking cessation discussed for >3mins.? @ -No Were there social determinants of health that impacted care today? How? (Homelessness, low income, unemployed, alcoholism, drug addiction, transportation, low edu. Level, literacy, decrease access to med. care, [facility], rehab)? @ -No Was there de-escalation of care discussed even if they declined (Discuss DNR or withdrawal of care, Hospice)? DNR status @ -No What co-morbidities impacted this encounter? (DM, HTN, Smoking, COPD, CAD, Cancer, CVA, ARF, Chemo, Hep., AIDS, mental health diagnosis, sleep apnea, morbid obesity)? @ -None Was patient admitted / discharged? Hospital course, mention meds given and route, prescriptions, significant lab abnormalities, going to OR and other pertinent info. @ -73-year-old female with acute on chronic abdominal pain secondary to colon cancer presents to the ER for IV fluids pain medications. Vital signs stable. Patient is well-appearing. Mild tenderness with palpation to the abdomen. CT imaging from earlier today was reviewed. According radiology read patient has s table findings. Patient given IV fluids along with IV analgesics. Urinalysis shows some red blood cells and white blood cells. She is not having any urinary symptoms. Pending culture. Patient reevaluated at bedside 9:22 PM found to be stable condition. Patient be discharged advised follow-up with primary care doctor. Did you discuss the management of the patient with other professionals (professionals i.e. , PA, SUPERINTENDENT [employer], lab, RT, psych nurse, manager social work, aircraft lay out worker, teacher, railroad police officer, nurse case manager)? Give summary @ -No Was critical care preformed (if so, how long)? @ -No Undiagnosed new problem with uncertain prognosis? @ -No Drug Therapy requiring intensive monitoring for toxicity (Heparin, Nitro, Insulin, Cardizem)? @ -No Were any procedures done? @ -No Diagnosis/symptom? Acute, or Chronic, or Acute on Chronic? Uncomplicated (without systemic symptoms) or Complicated (systemic symptoms)? @ -Acute on chronic uncomplicated abdominal pain Side effects of treatment? @ -No Exacerbation, Progression, or Severe Exacerbation? @ -No Poses a threat to life or bodily function? How? (Chest pain, [place], [place], pneumonia, PE, COPD, DKA, ARF, appy, cholecystitis, CVA, Diverticulitis, Homicidal, Suicidal, threat to staff... and all critical care pts) @ -No (John Chávez) - Lab Data Lab Results 07/21/24 07/21/24 07/21/24 Range/Units 16:32 16:32 20:00 WBC 10.8 H (3.8-10.6) k/uL RBC 4.30 (3.80-5.40) m/uL Hgb 12.0 (11.4-16.0) gm/dL Hct 37.3 (34.0-46.0) % MCV 86.7 (80.0-100.0) fL MCH 27.8 (25.0-35.0) pg MCHC 32.1 (31.0-37.0) g/dL RDW 18.0 H (11.5-15.5) % Plt Count 403 (150-450) k/uL MPV 7.9 Neutrophils % 81 % Lymphocytes % 8 % Monocytes % 9 % Eosinophils % 1 % Basophils % 0 % Neutrophils # 8.8 H (1.3-7.7) k/uL Lymphocytes # 0.9 L (1.0-4.8) k/uL Monocytes # 0.9 (0-1.0) k/uL Eosinophils # 0.1 (0-0.7) k/uL Basophils # 0.0 (0-0.2) k/uL Manual Slide Review Performed Hypochromasia Moderate Anisocytosis Slight Sodium 129 L (137-145) mmol/L Potassium 4.2 (3.5-5.1) mmol/L Chloride 97 L (98-107) mmol/L Carbon Dioxide 20 L (22-30) mmol/L Anion Gap 12 mmol/L BUN 8 (7-17) mg/dL Creatinine 0.66 (0.52-1.04) mg/dL Est GFR (CKD-EPI)AfAm >90 (>60 ml/min/1.73 sqM) Est GFR (CKD-EPI)NonAf 89 (>60 ml/min/1.73 sqM) Glucose 99 (74-99) mg/dL Calcium 8.7 (8.4-10.2) mg/dL Magnesium 1.9 (1.6-2.3) mg/dL Total Bilirubin 0.6 (0.2-1.3) mg/dL AST 22 (14-36) U/L ALT 12 (4-34) U/L Alkaline Phosphatase 149 H (38-126) U/L Total Protein 6.4 (6.3-8.2) g/dL Albumin 3.6 (3.5-5.0) g/dL Urine Color Light Yellow Urine Appearance Clear (Clear) Urine pH 6.0 (5.0-8.0) Ur Specific [place] >1.050 H (1.001-1.035) Urine Protein 2+ H (Negative) Urine Glucose (UA) Negative (Negative) Urine Ketones Negative (Negative) Urine Blood Moderate H (Negative) Urine Nitrite Negative (Negative) Urine Bilirubin Negative (Negative) Urine Urobilinogen <2.0 (<2.0) mg/dL Ur Leukocyte Esterase Negative (Negative) Urine RBC 105 H (0-5) /hpf Urine WBC 23 H (0-5) /hpf Ur Squamous Epith Cells <1 (0-4) /hpf Calcium Oxalate Crystal Rare H (None) /hpf Urine Mucus Rare H (None) /hpf Disposition <Ray Severino - Last Filed: 07/21/24 14:50> Is patient prescribed a controlled substance at d/c from ED?: No Time of Disposition: 21:22 <John Chávez - Last Filed: 07/21/24 21:22> Clinical Impression: Abdominal pain Disposition: HOME SELF-CARE Condition: Fair Instructions (If sedation given, give patient instructions): Abdominal Pain (ED) Referrals: Reece Condon MD [Primary Care Provider] - 1-2 days
[2024-07-21 17:05] LABS: ALT 12 U/L (4-34); AST 22 U/L (14-36); African American GFR (CKD) >90 (>60 ml/min/1.73 sqM); Albumin 3.6 g/dL (3.5-5.0); Alkaline Phosphatase 149 U/L (38-126); Anion Gap 12 mmol/L; Blood Urea Nitrogen 8 mg/dL (7-17); Calcium 8.7 mg/dL (8.4-10.2); Carbon Dioxide 20 mmol/L (22-30); Chloride 97 mmol/L (98-107); Glucose 99 mg/dL (74-99); Magnesium 1.9 mg/dL (1.6-2.3); Non-African American GFR(CKD) 89 (>60 ml/min/1.73 sqM); Potassium 4.2 mmol/L (3.5-5.1); Sodium 129 mmol/L (137-145); Total Bilirubin 0.6 mg/dL (0.2-1.3); Total Protein 6.4 g/dL (6.3-8.2)
[2024-07-21 17:11] LABS: Anisocytosis Slight; Basophils % (A) 0 %; Eosinophils # (A) 0.1 k/uL (0-0.7); Eosinophils % (A) 1 %; HCT 37.3 % (34.0-46.0); Hypochromasia Moderate; Lymphocytes # (A) 0.9 k/uL (1.0-4.8); Lymphocytes % (A) 8 %; MCH 27.8 pg (25.0-35.0); MCHC 32.1 g/dL (31.0-37.0); MCV 86.7 fL (80.0-100.0); Mean Platelet Volume 7.9; Monocytes # (A) 0.9 k/uL (0-1.0); Monocytes % (A) 9 %; Neutrophils # (A) 8.8 k/uL (1.3-7.7); Neutrophils % (A) 81 %; WBC 10.8 k/uL (3.8-10.6)
[2024-07-21] MEDS: SODIUM CHLORIDE 0.9% 1,000 ML IV ONE (17:31)
[2024-07-21] MEDS: MORPHINE SULFATE 4 MG/ML SYRINGE IVP STA (17:32)
[2024-07-21] MEDS: SODIUM CHLORIDE 0.9% 500 ML 500 ML IV ONE (17:40)
[2024-07-21 17:46] VITALS: RESP 17
[2024-07-21 18:08] LABS: Platelet Count 403 k/uL (150-450)
[2024-07-21 19:31] VITALS: BP 110/72; PULSE 104; TEMP 99
[2024-07-21 20:53] LABS: Appearance,Urine Clear (Clear); Bilirubin,Urine Negative (Negative); Blood,Urine Moderate (Negative); Calcium Oxalate Crystals,Urine Rare /hpf; Color,Urine Light Yellow; Glucose,Urine (UA) Negative (Negative); Ketones,Urine Negative (Negative); Leukocyte Esterase,Urine Negative (Negative); Mucus,Urine Rare /hpf; Nitrite,Urine Negative (Negative); Protein,Urine 2+ (Negative); RBC,Urine 105 /hpf (0-5); Squamous Epithelial Cell,Urine <1 /hpf (0-4); Urobilinogen,Urine <2.0 mg/dL (<2.0); WBC,Urine 23 /hpf (0-5)
[2024-07-21 20:54] LABS: Specific Gravity,Urine >1.050 (1.001-1.035)
[2024-07-21] MEDS: MORPHINE SULFATE 4 MG/ML SYRINGE IV STA (22:00)
== END 2024-07-21 22:01 | disposition home or self-care (01) ==
LOC: EC 13:59
DX: E86.0 Dehydration
CPT/HCPCS: 36415; 80053; 81001; 83735; 85025; 96361; 96374; 99284

== ENCOUNTER → 2024-07-21 | Outpatient (CLI) | payer MEDICARE, OTHER ==
[2024-07-21 13:14] LABS: African American GFR (CKD) >90 (>60 ml/min/1.73 sqM); Blood Urea Nitrogen 9 mg/dL (7-17); Non-African American GFR(CKD) 80 (>60 ml/min/1.73 sqM)
--- NOTE | 2024-07-21 14:46 | CT ---
EXAMINATION TYPE: CT ChestAbdPelvis w con DATE OF EXAM: 07/21/2024 COMPARISON: 02/26/2020 01/17/2024 HISTORY: 73-year-old female C1 7.8, Abdominal pain, hx bladder and colon ca TECHNIQUE: Contiguous axial scanning of the chest, abdomen, and pelvis performed with IV Contrast, pa tient injected with 100 mL of Isovue 300. Delayed images through the kidneys were obtained. Coronal/s agittal reconstructions performed. CT DLP: 946 mGycm Automated exposure control for dose reduction was used. FINDINGS: Chest: The heart is normal size. A trace anterior pericardial effusion measuring 6 mm thick is new. Ectatic ascending aorta 3.6 cm. Conventional arch vessel branching anatomy. No thoracic lymphadenopathy by CT size criteria. There appears to be a prominent collateral vessel coursing along the wall of the thoracic esophagus. Some nodular subpleural atelectasis noted along the posterior lungs. Moderate emphysematous changes. Biapical pleural parenchymal scarring. No consolidation or pleural effusion. ABDOMEN: Prominent anterior abdominal wall collateral vessels particularly on the right redemonstrated with ba ck filling from the right inferior epigastric artery. No dilated small bowel, free fluid, or free air. Redemonstrated right lower quadrant diverting ileostomy. Parastomal hernia continues to measure 8.1 c m wide with nonobstructed ileum and colon. The degree of abnormal wall thickening within the parastom al hernia and inflammation has resolved. There is largely progressive retroperitoneal adenopathy measuring up to 4.3 cm left periaortic region versus 3.8 cm previously. Mid mesenteric adenopathy measuring up to 1.4 cm that now versus 1.1 cm, p reviously. Abnormal anterior left lower quadrant and left pelvic soft tissue measures up to 7.1 cm wide superior ly probably with invasion of the colonic serosa axial image 103 and invasion of the abdominal wall mu sculature, axial image 101 and 102. Relatively similar to prior. Pelvis: This mass continues inferiorly to the left lateral bladder wall estimated to measure 4.5 x 4.2 cm rel atively similar here as well. Bladder partially distended. No abnormal fluid collection in the pelvis. Possible new 1.2 cm right pe rirectal lymph node. 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 No osseous destructive process seen. IMPRESSION: 1. RIGHT LOWER QUADRANT DIVERTING REDEMONSTRATED WITH PARASTOMAL HERNIA MEASURING 8.1 CM WIDE CONTAIN ING NONOBSTRUCTED ILEUM AND COLON. THE PREVIOUS INFLAMMATION SEEN HERE HAS RESOLVED. 2. PROGRESSIVE RETROPERITONEAL ADENOPATHY CURRENTLY MEASURING UP TO 4.3 CM VERSUS 3.8 CM. Mid mesente yolis adenopathy also increased now 1.4 cm versus 1.1 cm, previously. 3. Infiltrative left lower quadrant and left pelvic mass is fairly similar measuring up to 7.1 cm wid e superiorly and 4.2 cm wide inferiorly. Possible new 1.2 cm right perirectal lymph node.
== END | disposition home or self-care (01) ==
LOC: RADCTMAIN 12:16
PROVIDERS: ATTEND Internal Medicine Hematology & Oncology
DX: C18.7 Malignant neoplasm of sigmoid colon
CPT/HCPCS: 36415; 71260; 74177; 82565; 84520

== ENCOUNTER 2024-08-29 12:09 | Inpatient (IN) | payer MEDICARE, OTHER ==
--- NOTE | 2024-08-29 13:02 | ED ---
General Adult HPI - General Chief complaint: Weakness Stated complaint: Dehydration Time Seen by Provider: 08/29/24 12:17 Source: patient, family, RN notes reviewed Mode of arrival: ambulatory Limitations: no limitations - History of Present Illness Initial comments: Patient is a 73-year-old female present to the emergency department with concerns with dehydration. Patient is on chemotherapy for colon cancer. Patient feels weak all over, only able to walk 5 or 10 feet. Patient is having frequent loose watery bowel movements through her ostomy. Decreased appetite and decreased oral intake. - Related Data Home Medications Medication Instructions Recorded Confirmed ALPRAZolam [Xanax] 0.25 mg PO HS 07/15/23 08/24/24 HYDROcodone/APAP 7.5-325MG [[place] 1 tab PO BID@1300,2000 07/15/23 08/24/24 7.5-325] Apixaban [Eliquis] 5 mg PO BID 08/30/23 08/24/24 Sennosides [Senokot] 17.2 mg PO HS 08/30/23 08/24/24 Gabapentin [Neurontin] 100 mg PO BID 02/25/24 08/24/24 Prochlorperazine Maleate 10 mg PO Q6H PRN 02/25/24 08/24/24 Allergies Allergy/AdvReac Type Severity Reaction Status Date / Time bee venom protein (honey bee) Allergy Swelling Verified 08/24/24 12:10 Penicillins Allergy Rash/Hives Verified 08/24/24 12:10 poison mookie extract Allergy Rash/Hives Verified 08/24/24 12:10 Review of Systems ROS Statement: Those systems with pertinent positive or pertinent negative responses have been documented in the HPI. ROS Other: All systems not noted in ROS Statement are negative. Constitutional: Denies: fever Eyes: Denies: eye pain ENT: Denies: ear pain Respiratory: Denies: dyspnea Cardiovascular: Denies: chest pain Endocrine: Denies: fatigue Gastrointestinal: Denies: abdominal pain Past Medical History Past Medical History: Cancer Additional Past Medical History / Comment(s): colon cancer, hx bladder cancer, prolapse mitral valve, chemo 08/27/2023 History of Any Multi-Drug Resistant Organisms: None Reported Past Surgical History: Bowel Resection, Hysterectomy Additional Past Surgical History / Comment(s): tubal , Bowel resection with colstomy 2019 and revision of ostomy Dec 2022. Laparoscopy and decompression of hernia February 2024. Past Anesthesia/Blood Transfusion Reactions: No Reported Reaction Past Psychological History: Anxiety Smoking Status: Former smoker - Past Family History Mother History Unknown: Yes Father Family Medical History: Chest Pain / Angina Additional Family Medical History / Comment(s): Colon cancer General Exam Limitations: no limitations General appearance: alert, in no apparent distress Head exam: Present: normocephalic Eye exam: Present: normal appearance ENT exam: Present: mucous membranes dry Neck exam: Present: normal inspection Respiratory exam: Present: normal lung sounds bilaterally Cardiovascular Exam: Present: regular rate, normal rhythm GI/Abdominal exam: Present: soft. Absent: tenderness Extremities exam: Present: normal inspection Neurological exam: Present: alert Psychiatric exam: Present: normal affect, normal mood Skin exam: Present: normal color Course Vital Signs 08/29/24 08/29/24 08/29/24 12:17 14:00 15:00 Temperature 97.8 F Pulse Rate 104 H 100 98 Respiratory 20 18 16 Rate Blood Pressure 110/76 108/75 115/85 O2 Sat by Pulse 99 97 97 Oximetry EKG Findings - EKG Results: EKG: interpreted by ERMD (Frequent PVCs. Lateral T wave inversion. Inferior T wave inversion), sinus rhythm, normal axis EKG shows: tachycardia Medical Decision Making - Medical Decision Making Was pt. sent in by a medical professional or institution ([facility], FIELD REIMBURSEMENT MANAGER, urgent ca re, hospital, or group home...) When possible be specific @ -No Did you speak to anyone other than the patient for history (EMS, parent, family, police, friend...)? What history was obtained from this source @ -Patient does have a friend present who helps provide history including patient's past medical history Did you review nursing and triage notes (agree or disagree)? Why? @ -I reviewed and agree with nursing and triage notes Were old charts reviewed (outside hosp., previous admission, EMS record, old EKG, old radiological studies, urgent care reports/EKG's, group home records)? Report findings @ -Previous renal function results reviewed Differential Diagnosis (chest pain, altered mental status, abdominal pain women, abdominal pain men, vaginal bleeding, weakness, fever, dyspnea, syncope, headache, dizziness, GI bleed, back pain, seizure, CVA, palpatations, mental health, musculoskeletal)? @ -Differential Weakness: Hypoglycemia, shock, sepsis, hyponatremia, anemia, infection, [place], ETOH, adverse medicine reaction, overdose, stroke, this is not meant to be an all-inclusive list. EKG interpreted by me (3pts min.). @ -As above X-rays interpreted by me (1pt min.). @ -None done CT interpreted by me (1pt min.). @ -None done U/S interpreted by me (1pt. min.). @ -None done What testing was considered but not performed or refused? (CT, X-rays, U/S, labs)? Why? @ -None What meds were considered but not given or refused? Why? @ -None Did you discuss the management of the patient with other professionals (professionals i.e. , PA, FIELD REIMBURSEMENT MANAGER, lab, RT, psych nurse, geriatric social worker, director physical therapy, teacher, chief scientific officer, caseworker)? Give summary @ -Case was discussed with Dr. Feliz who will admit covering hospital call Was smoking cessation discussed for >3mins.? @ -No Was critical care preformed (if so, how long)? @ -33 minutes critical care time Were there social determinants of health that impacted care today? How? (Homelessness, low income, unemployed, alcoholism, drug addiction, transportation, low edu. Level, literacy, decrease access to med. care, skilled nursing, rehab)? @ -No Was there de-escalation of care discussed even if they declined (Discuss DNR or withdrawal of care, Hospice)? DNR status @ -No What co-morbidities impacted this encounter? (DM, HTN, Smoking, COPD, CAD, Cancer, CVA, ARF, Chemo, Hep., AIDS, mental health diagnosis, sleep apnea, morbid obesity)? @ -Patient does have history of underlying colon cancer and chemotherapy Was patient admitted / discharged? Hospital course, mention meds given and route, prescriptions, significant lab abnormalities, going to OR and other pertinent info. @ -Patient presents with concern for dehydration which does reveal acute kidney injury. Patient will also is having UTI and will be covered with antibiotics. There is concern for potential sepsis diagnosed at 1537. Blood culture, lactic acid, and IV antibiotics have all been ordered. Patient will be admitted. [place] orders written. Consult placed. Undiagnosed new problem with uncertain prognosis? @ -No Drug Therapy requiring intensive monitoring for toxicity (Heparin, Nitro, Insulin, Cardizem)? @ -No Were any procedures done? @ -No Diagnosis/symptom? @ -Acute kidney injury, UTI, sepsis Acute, or Chronic, or Acute on Chronic? @ -Acute, acute, acute Uncomplicated (without systemic symptoms) or Complicated (systemic symptoms)? @ -Complicated with UTI and sepsis Side effects of treatment? @ -No Exacerbation, Progression, or Severe Exacerbation? @ -No Poses a threat to life or bodily function? How? (Chest pain, [place], [place], pneumonia, PE, COPD, DKA, ARF, appy, cholecystitis, CVA, Diverticulitis, Homicidal, Suicidal, threat to staff... and all critical care pts) @ -Threat to renal function - Lab Data Result diagrams: 08/29/24 12:38 08/29/24 12:38 Lab Results 08/29/24 08/29/24 08/29/24 Range/Units 12:38 12:38 14:30 WBC 6.7 (3.8-10.6) k/uL RBC 4.98 (3.80-5.40) m/uL Hgb 13.4 (11.4-16.0) gm/dL Hct 40.9 (34.0-46.0) % MCV 82.1 D (80.0-100.0) fL MCH 26.9 (25.0-35.0) pg MCHC 32.8 (31.0-37.0) g/dL RDW 21.8 H (11.5-15.5) % Plt Count 302 (150-450) k/uL MPV 7.0 Neutrophils % 76 % Lymphocytes % 14 % Monocytes % 7 % Eosinophils % 0 % Basophils % 1 % Neutrophils # 5.1 (1.3-7.7) k/uL Lymphocytes # 0.9 L (1.0-4.8) k/uL Monocytes # 0.5 (0-1.0) k/uL Eosinophils # 0.0 (0-0.7) k/uL Basophils # 0.0 (0-0.2) k/uL Anisocytosis Moderate Microcytosis Slight Sodium 132 L (137-145) mmol/L Potassium 3.8 (3.5-5.1) mmol/L Chloride 88 L (98-107) mmol/L Carbon Dioxide 23 (22-30) mmol/L Anion Gap 21 mmol/L BUN 53 H (7-17) mg/dL Creatinine 2.64 H (0.52-1.04) mg/dL Est GFR (CKD-EPI)AfAm 20 (>60 ml/min/1.73 sqM) Est GFR (CKD-EPI)NonAf 17 (>60 ml/min/1.73 sqM) Glucose 125 H (74-99) mg/dL Calcium 9.7 (8.4-10.2) mg/dL Total Bilirubin 1.0 (0.2-1.3) mg/dL AST 33 (14-36) U/L ALT 18 (4-34) U/L Alkaline Phosphatase 120 (38-126) U/L Total Protein 8.8 H (6.3-8.2) g/dL Albumin 5.4 H (3.5-5.0) g/dL Amylase 78 (30-110) U/L Lipase 242 (23-300) U/L Urine Color Yellow Urine Appearance Cloudy H (Clear) Urine pH 6.0 (5.0-8.0) Ur Specific [place] 1.020 (1.001-1.035) Urine Protein 2+ H (Negative) Urine Glucose (UA) Negative (Negative) Urine Ketones Negative (Negative) Urine Blood Large H (Negative) Urine Nitrite Negative (Negative) Urine Bilirubin Negative (Negative) Urine Urobilinogen <2.0 (<2.0) mg/dL Ur Leukocyte Esterase Moderate H (Negative) Urine RBC >182 H (0-5) /hpf Urine WBC 124 H (0-5) /hpf Ur Squamous Epith Cells <1 (0-4) /hpf Urine Bacteria Rare H (None) /hpf Hyaline Casts 108 H (0-2) /lpf Urine Mucus Rare H (None) /hpf Critical Care Time Critical Care Time: Yes Disposition Clinical Impression: Dehydration, Acute kidney failure, UTI (urinary tract infection), Sepsis Disposition: ADMITTED IP TO THIS [facility] Condition: Serious Is patient prescribed a controlled substance at d/c from ED?: No Referrals: Reece Condon MD [Primary Care Provider] - 1-2 days Time of Disposition: 15:38
[2024-08-29] MEDS: DICYCLOMINE 10 MG/ML 2 ML AMP IM STA (13:08)
[2024-08-29] MEDS: FAMOTIDINE 20 MG/2 ML VIAL IV STA (13:08)
[2024-08-29] MEDS: SODIUM CHLORIDE 0.9% 1,000 ML IV STA ×2 (13:08)
[2024-08-29] MEDS: ONDANSETRON 4 MG/2 ML VIAL IVP STA (13:08)
[2024-08-29 13:32] LABS: Anisocytosis Moderate; Basophils % (A) 1 %; Eosinophils % (A) 0 %; HCT 40.9 % (34.0-46.0); HGB 13.4 gm/dL (11.4-16.0); Lymphocytes # (A) 0.9 k/uL (1.0-4.8); Lymphocytes % (A) 14 %; MCH 26.9 pg (25.0-35.0); MCHC 32.8 g/dL (31.0-37.0); Microcytosis Slight; Monocytes # (A) 0.5 k/uL (0-1.0); Monocytes % (A) 7 %; Neutrophils # (A) 5.1 k/uL (1.3-7.7); Neutrophils % (A) 76 %; Platelet Count 302 k/uL (150-450); RBC 4.98 m/uL (3.80-5.40); RDW 21.8 % (11.5-15.5); WBC 6.7 k/uL (3.8-10.6)
[2024-08-29 13:42] LABS: MCV 82.1 fL (80.0-100.0)
[2024-08-29 13:46] LABS: ALT 18 U/L (4-34); AST 33 U/L (14-36); African American GFR (CKD) 20 (>60 ml/min/1.73 sqM); Albumin 5.4 g/dL (3.5-5.0); Alkaline Phosphatase 120 U/L (38-126); Amylase 78 U/L (30-110); Anion Gap 21 mmol/L; Blood Urea Nitrogen 53 mg/dL (7-17); Calcium 9.7 mg/dL (8.4-10.2); Carbon Dioxide 23 mmol/L (22-30); Chloride 88 mmol/L (98-107); Glucose 125 mg/dL (74-99); Lipase 242 U/L (23-300); Non-African American GFR(CKD) 17 (>60 ml/min/1.73 sqM); Potassium 3.8 mmol/L (3.5-5.1); Sodium 132 mmol/L (137-145); Total Protein 8.8 g/dL (6.3-8.2)
[2024-08-29 15:09] LABS: Appearance,Urine Cloudy (Clear); Bacteria,Urine Rare /hpf; Bilirubin,Urine Negative (Negative); Blood,Urine Large (Negative); Color,Urine Yellow; Glucose,Urine (UA) Negative (Negative); Hyaline Casts,Urine 108 /lpf (0-2); Ketones,Urine Negative (Negative); Leukocyte Esterase,Urine Moderate (Negative); Mucus,Urine Rare /hpf; Nitrite,Urine Negative (Negative); Protein,Urine 2+ (Negative); RBC,Urine >182 /hpf (0-5); Squamous Epithelial Cell,Urine <1 /hpf (0-4); Urobilinogen,Urine <2.0 mg/dL (<2.0); WBC,Urine 124 /hpf (0-5)
[2024-08-29] MEDS ORDERED: ACETAMINOPHEN TAB 325 MG TAB PO PRN (15:39)
[2024-08-29] MEDS ORDERED: NALOXONE 0.4 MG/ML 1 ML VIAL IV PRN (15:39)
[2024-08-29] MEDS ORDERED: MORPHINE SULFATE 4 MG/ML SYRINGE IV PRN (15:39)
[2024-08-29] MEDS: ONDANSETRON 4 MG/2 ML VIAL IVP PRN (16:05)
[2024-08-29] MEDS: SODIUM CHLORIDE 0.9% 1,000 ML IV SCH (17:17)
--- NOTE | 2024-08-29 18:24 | P.HPIM ---
History of Present Illness This is a pleasant 73 years old female with past medical history of colon cancer that she follows up with Dr. Condon, she is getting chemotherapy last dose was about 3 weeks prior to admission. Presents with signs symptoms of dehydration and dizziness/presyncope. Patient states that she is having frequent bowel movement that she is keep filling up her colostomy bag with liquid stool over the last 2 weeks. No abdominal pain, no nausea vomiting, however patient has no appetite and poor oral intake for about 4 weeks now She is complaining from mild exertional dyspnea and palpitation after some dizziness However patient has no urinary symptoms like dysuria or urgency although she has abnormal urine analysis. She has no headache. No weakness or tingling She denies smoking alcohol or illicit drugs She is hemodynamically stable and afebrile She has unremarkable CBC, liver enzymes However creatinine bumped up to 0.64 with baseline 0.8-0.9 EKG showing sinus tachycardia at [address]-T changes Patient also started on ceftriaxone in the emergency room Review of Systems Review of systems CONSTITUTIONAL: No fever, no malaise, no fatigue. HEENT: No recent visual problems or hearing problems. Denied any sore throat. CARDIOVASCULAR: No orthopnea, PND, no palpitations, no syncope. PULMONARY: No shortness of breath, no cough, no hemoptysis. -GASTROINTESTINAL: As above NEUROLOGICAL: No headaches, no weakness, no numbness. HEMATOLOGICAL: Denies any bleeding or petechiae. GENITOURINARY: Denies any burning micturition, frequency, or urgency. MUSCULOSKELETAL/RHEUMATOLOGICAL: Denies any joint pain, swelling, or any muscle pain. ENDOCRINE: Denies any polyuria or polydipsia. Past Medical History Past Medical History: Cancer Additional Past Medical History / Comment(s): colon cancer, hx bladder cancer, prolapse mitral valve, chemo 08/27/2023 History of Any Multi-Drug Resistant Organisms: None Reported Past Surgical History: Bowel Resection, Hysterectomy Additional Past Surgical History / Comment(s): tubal , Bowel resection with colstomy 2019 and revision of ostomy Dec 2022. Laparoscopy and decompression of hernia February 2024. Past Anesthesia/Blood Transfusion Reactions: No Reported Reaction Past Psychological History: Anxiety Smoking Status: Former smoker Past Alcohol Use History: Rare Past Drug Use History: Marijuana Additional Drug Use History / Comment(s): occasional marijuana - Past Family History Mother History Unknown: Yes Father Family Medical History: Chest Pain / Angina Additional Family Medical History / Comment(s): Colon cancer Medications and Allergies Home Medications Medication Instructions Recorded Confirmed Type ALPRAZolam [Xanax] 0.25 mg PO HS PRN 07/15/23 08/29/24 History HYDROcodone/APAP 7.5-325MG [[place] 1 tab PO Q6H 07/15/23 08/29/24 History 7.5-325] Apixaban [Eliquis] 5 mg PO BID 08/30/23 08/29/24 History Gabapentin [Neurontin] 100 mg PO BID PRN 02/25/24 08/29/24 History Prochlorperazine Maleate 10 mg PO Q6H PRN 02/25/24 08/29/24 History Fluorouracil Infusion 1 dose IV Q14D 08/29/24 08/29/24 History Leucovorin Infusion 1 dose IV Q14D 08/29/24 08/29/24 History Oxaliplatin [Eloxatin] 1 dose IV Q14D 08/29/24 08/29/24 History Allergies Allergy/AdvReac Type Severity Reaction Status Date / Time bee venom protein (honey bee) Allergy Swelling Verified 08/24/24 12:10 Penicillins Allergy Rash/Hives Verified 08/24/24 12:10 poison mookie extract Allergy Rash/Hives Verified 08/24/24 12:10 Physical Exam Vitals: Vital Signs Temp Pulse Pulse Resp BP BP Pulse Ox 08/29/24 17:05 97.6 F 76 15 108/80 95 08/29/24 16:25 99 16 118/78 97 08/29/24 15:00 98 16 115/85 97 08/29/24 14:00 100 18 108/75 97 08/29/24 12:17 97.8 F 104 H 20 110/76 99 Intake and Output 08/29/24 08/29/24 08/29/24 06:59 14:59 22:59 Intake Total 1080 Balance 1080 Intake: Oral 1080 Other: Weight 49.895 kg 49.895 kg GENERAL: The patient is alert and oriented x3, not in any acute distress. Well developed, well nourished. HEENT: Pupils are round and equally reacting to light. EOMI. No scleral icterus. No conjunctival pallor. Normocephalic, atraumatic. No pharyngeal erythema. No thyromegaly. CARDIOVASCULAR: S1 and S2 present. No murmurs, rubs, or gallops. PULMONARY: Chest is clear to auscultation, no wheezing , no crackles. -ABDOMEN: Soft, nontender, nondistended, normoactive bowel sounds. No palpable organomegaly. Colostomy bag in place with Lik light yellow stool soiling noticed MUSCULOSKELETAL: No joint swelling or deformity. EXTREMITIES: No cyanosis, clubbing, or pedal edema. NEUROLOGICAL: Gross neurological examination did not reveal any focal deficits. SKIN: No rashes. no petechiae. Results CBC & Chem 7: 08/29/24 12:38 08/29/24 12:38 Labs: Abnormal Lab Results - Last 24 Hours (Table) 08/29/24 08/29/24 08/29/24 Range/Units 12:38 12:38 14:30 RDW 21.8 H (11.5-15.5) % Lymphocytes # 0.9 L (1.0-4.8) k/uL Sodium 132 L (137-145) mmol/L Chloride 88 L (98-107) mmol/L BUN 53 H (7-17) mg/dL Creatinine 2.64 H (0.52-1.04) mg/dL Glucose 125 H (74-99) mg/dL Total Protein 8.8 H (6.3-8.2) g/dL Albumin 5.4 H (3.5-5.0) g/dL Urine Appearance Cloudy H (Clear) Urine Protein 2+ H (Negative) Urine Blood Large H (Negative) Ur Leukocyte Esterase Moderate H (Negative) Urine RBC >182 H (0-5) /hpf Urine WBC 124 H (0-5) /hpf Urine Bacteria Rare H (None) /hpf Hyaline Casts 108 H (0-2) /lpf Urine Mucus Rare H (None) /hpf Thrombosis Risk Factor Assmnt - Choose All That Apply Any of the Below Risk Factors Present?: No Assessment and Plan Assessment: Acute gastroenteritis, could be reactive secondary to chemotherapy Poor oral intake could be secondary to above, her colon cancer and chemotherapy Dehydration secondary to above Acute kidney injury with hypovolemia Colon cancer on chemotherapy, status post colostomy Plan: Continue with IV hydration Encourage oral intake Symptomatic treatment and pain management although patient currently not in pain Hematology/oncology consult Check for C. difficile. Check procalcitonin Urine analysis and bladder scan There is no GI service in this facility this week/weekend Labs and medication were reviewed.. Continue same treatment. Continue with symptomatic treatment. Resume home medication. Monitor labs and vitals. DVT and GI prophylaxis. Further recommendations as per clinical course of the patient DVT prophylaxis: Subcutaneous heparin GI Prophylaxis: Pepcid PT/OT: Pending Prognosis is guarded
[2024-08-29 21:17] LABS: Appearance,Urine Cloudy (Clear); Bacteria,Urine Rare /hpf; Bilirubin,Urine Negative (Negative); Blood,Urine Large (Negative); Color,Urine Colorless; Glucose,Urine (UA) Negative (Negative); Hyaline Casts,Urine 118 /lpf (0-2); Ketones,Urine Negative (Negative); Leukocyte Esterase,Urine Large (Negative); Mucus,Urine Rare /hpf; Nitrite,Urine Negative (Negative); Protein,Urine 1+ (Negative); RBC,Urine 65 /hpf (0-5); Specific Gravity,Urine 1.017 (1.001-1.035); Squamous Epithelial Cell,Urine 1 /hpf (0-4); Urobilinogen,Urine <2.0 mg/dL (<2.0); WBC,Urine 89 /hpf (0-5)
[2024-08-30] MEDS: traMADol 50 MG TAB PO PRN (02:03)
[2024-08-30] MEDS: FAMOTIDINE 20 MG TAB PO SCH (09:14)
[2024-08-30 09:51] LABS: HCT 29.3 % (37.2-46.3); HGB 9.7 g/dL (12.0-15.0); MCHC 33.1 g/dL (32.0-37.0); MCV 81.6 FL (80.0-97.0); Mean Platelet Volume 10.2 FL (9.5-12.2); NRBC Per 100 WBC 0 X 10*3/uL (0.00-0.01); Platelet Count 226 X 10*3/uL (140-440); RBC 3.59 X 10*6/uL (4.10-5.20); RDW 22.3 % (11.5-14.5); WBC 5.98 X 10*3/uL (4.50-10.00)
[2024-08-30 10:23] LABS: BUN/Creat Ratio 25.64 Ratio (12.00-20.00); Blood Urea Nitrogen 35.9 mg/dL (9.0-27.0); Carbon Dioxide 19.5 mmol/L (21.6-31.8); Chloride 100 mmol/L (96-109); Glucose 98 mg/dL (70-110); Sodium 134 mmol/L (135-145)
[2024-08-30 10:24] LABS: ALT 13 U/L (8-44); AST 24 U/L (13-35); Albumin 3.8 g/dL (3.8-4.9); Alkaline Phosphatase 118 U/L (41-126); Calcium 8.2 mg/dL (8.7-10.3); Total Bilirubin <0.2 mg/dL (0.3-1.2); Total Protein 5.8 g/dL (6.2-8.2)
[2024-08-30 10:31] LABS: Anisocytosis (M) 2+; Basophils # (A) 0.06 X 10*3/uL (0.00-0.10); Elliptocytes 2+; Eosinophils # (A) 0.03 X 10*3/uL (0.04-0.35); Eosinophils % (A) 0.5 %; Lymphocytes # (A) 1.07 X 10*3/uL (0.90-5.00); Lymphocytes % (A) 17.9 %; Microcytosis (M) 2+; Monocytes # (A) 0.89 X 10*3/uL (0.20-1.00); Monocytes % (A) 14.9 %; Neutrophils % (A) 65.2 %
[2024-08-30] MEDS ORDERED: Potassium Replacement Protocol 1 EACH MISC MISCELLANE PRN (10:45)
[2024-08-30] MEDS: SODIUM CHLORIDE 0.9% 1,000 ML IV SCH (11:04)
[2024-08-30] MEDS: POTASSIUM CHLORIDE ER 20 MEQ TAB.ER PO SCH (11:05)
[2024-08-30] MEDS ORDERED: LOPERAMIDE 2 MG CAP PO PRN (14:01)
--- NOTE | 2024-08-30 15:04 | P.CONS ---
History of Present Illness - Reason for Consult Consult date: 08/30/24 hx colon cancer Requesting physician: Michael Bergeron - Chief Complaint diarrhea, decreased oral intake - History of Present Illness Ms. Howe is a female patient of Dr. 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 She presented with cramps and diarrhea. CT showed sigmoid mass, also bladder mass. In November 2019 she had a small bowel obstruction, requiring partial colon resection and creation of colostomy. She was started on adjuvant chemotherapy but decided to discontinue because of poor tolerance. For the bladder mass she underwent TURBT on 01/13/2020 which showed invasive high-grade papillary urothelial carcinoma, invading lamina propria. Fortunato briggs was treated with intravesical treatment, she reports she was told her bladder cancer was "cured". Patient was not seen until October 2022, seeking medical attention for abdominal pain. Recurrent bowel obstruction. 12/28/2022 biopsy of the left lower quadrant abdominal mass, positive for metastatic colon adenocarcinoma. Exploratory surgery December 2022 with lysis of adhesions and small bowel bypass. PET scan 04/01/2023 showed left anterior pelvic mass, numerous necrotic FDG avid masses in the pelvis, retroperitoneal, periaortic and left inguinal nodes. After surgical recovery there was a plan to start treatment but there were transportation as well as social issues. She was seen at [facility], PET scan 06/21/2023 revealed the previously mentioned sites. She also had extensive subclavian thrombus and IJ thrombus, old port was removed. Tumor was HERMAN wild-type, EUGENE and HER2 negative. She met with Dr Jay and felt to use PANDA regimen (with xeloda instead on 5FU to avoid port placement s/p subclavian and IJ thrombus) and vectibix. She established care closer to home with Dr. Condon 07/2023. 08/13/2023 she started vectibix IV Q 2 weeks and xeloda 7 days on 7 off. She required dose reduction of xeloda 2/2 moderate/severe PPE. She continued on this treatment to recently, but CT CAP on 07/21/24 showed disease progression and regimen was changed to 5 FU and oxal iplatin, lasting receiving treatment on 08/19/24. Admitted with c/o diarrhea, nausea and decreased oral intake. She reports over the last 4 days she had a significant increase in ostomy output. Pt states she was taking zofran with some improvement in nausea but did not take any imodium because was nervous she would constipated. Also reporting gneralized weakness and dizziness. Denies abd pain, fever and chills. Labs on admit showed WBC 6.7, hemoglobin 13.4, platelets 302,000. GABRIEL noted with creatinine 2.64, GFR 17, BUN 53. Patient was given fluid hydration and creatinine improved today to 1.4 and GFR 40. LFTs, bilirubin, amylase and lipase WNL. Patient is being treated for UTI. C. difficile testing negative. Stool cultures and blood culture pending. Pt afebrile. At today's visit patient is reporting significant improvement in symptoms. Review of Systems 10 point ROS is negative except as stated in the HPI Past Medical History Past Medical History: Cancer Additional Past Medical History / Comment(s): colon cancer, hx bladder cancer, prolapse mitral valve, chemo 08/27/2023 History of Any Multi-Drug Resistant Organisms: None Reported Past Surgical History: Bowel Resection, Hysterectomy Additional Past Surgical History / Comment(s): tubal , Bowel resection with colstomy 2019 and revision of ostomy Dec 2022. Laparoscopy and decompression of hernia February 2024. Past Anesthesia/Blood Transfusion Reactions: No Reported Reaction Past Psychological History: Anxiety Smoking Status: Former smoker Past Alcohol Use History: Rare Past Drug Use History: Marijuana Additional Drug Use History / Comment(s): occasional marijuana - Past Family History Mother History Unknown: Yes Father Family Medical History: Chest Pain / Angina Additional Family Medical History / Comment(s): Colon cancer Medications and Allergies Home Medications Medication Instructions Recorded Confirmed Type ALPRAZolam [Xanax] 0.25 mg PO HS PRN 07/15/23 08/29/24 History HYDROcodone/APAP 7.5-325MG [[place] 1 tab PO Q6H 07/15/23 08/29/24 History 7.5-325] Apixaban [Eliquis] 5 mg PO BID 08/30/23 08/29/24 History Gabapentin [Neurontin] 100 mg PO BID PRN 02/25/24 08/29/24 History Prochlorperazine Maleate 10 mg PO Q6H PRN 02/25/24 08/29/24 History Fluorouracil Infusion 1 dose IV Q14D 08/29/24 08/29/24 History Leucovorin Infusion 1 dose IV Q14D 08/29/24 08/29/24 History Oxaliplatin [Eloxatin] 1 dose IV Q14D 08/29/24 08/29/24 History Allergies Allergy/AdvReac Type Severity Reaction Status Date / Time bee venom protein (honey bee) Allergy Swelling Verified 08/24/24 12:10 Penicillins Allergy Rash/Hives Verified 08/24/24 12:10 poison mookie extract Allergy Rash/Hives Verified 08/24/24 12:10 Physical Exam Vitals: Vital Signs Temp Pulse Pulse Resp BP BP BP 08/30/24 07:30 97.8 F 63 17 99/62 08/30/24 02:00 98.7 F 64 16 95/64 08/29/24 20:00 98.5 F 77 16 102/74 08/29/24 17:05 97.6 F 76 15 108/80 08/29/24 16:25 99 16 118/78 08/29/24 15:00 98 16 115/85 08/29/24 14:00 100 18 108/75 08/29/24 12:17 97.8 F 104 H 20 110/76 Pulse Ox 08/30/24 07:30 97 08/30/24 02:00 98 08/29/24 20:00 99 08/29/24 17:05 95 08/29/24 16:25 97 08/29/24 15:00 97 08/29/24 14:00 97 08/29/24 12:17 99 Intake and Output 08/29/24 08/30/24 08/30/24 22:59 06:59 14:59 Intake Total 1080 590 Output Total 28 Balance 1080 562 Intake: Oral 1080 590 Output: Post Void Residual 28 Other: # Voids 3 1 Weight 49.895 kg - Constitutional General appearance: no acute distress - EENT Eyes: anicteric sclerae, EOMI ENT: hearing grossly normal - Respiratory breathing is even and unlabored - Cardiovascular skin warm and dry - Gastrointestinal General gastrointestinal: soft, no tenderness - Integumentary Integumentary: no cyanotic, no jaundiced - Musculoskeletal Musculoskeletal: strength equal bilaterally - Psychiatric Psychiatric: A&O x's 3 Results CBC & Chem 7: 08/30/24 06:16 08/30/24 06:12 Labs: Abnormal Lab Results - Last 24 Hours (Table) 08/29/24 08/29/24 08/29/24 Range/Units 12:38 12:38 14:30 RBC (4.10-5.20) X 10*6/uL Hgb (12.0-15.0) g/dL Hct (37.2-46.3) % RDW 21.8 H (11.5-15.5) % Lymphocytes # 0.9 L (1.0-4.8) k/uL Eosinophils # (0.04-0.35) X 10*3/uL Anisocytosis (manual) Microcytosis (manual) Elliptocytes Sodium 132 L (137-145) mmol/L Potassium (3.5-5.5) mmol/L Chloride 88 L (98-107) mmol/L Carbon Dioxide (21.6-31.8) mmol/L Anion Gap (4.00-12.00) mmol/L BUN 53 H (7-17) mg/dL Creatinine 2.64 H (0.52-1.04) mg/dL Est GFR (CKD-EPI) (>=60) BUN/Creatinine Ratio (12.00-20.00) Ratio Glucose 125 H (74-99) mg/dL Calcium (8.7-10.3) mg/dL Total Bilirubin (0.3-1.2) mg/dL Total Protein 8.8 H (6.3-8.2) g/dL Albumin 5.4 H (3.5-5.0) g/dL Urine Appearance Cloudy H (Clear) Urine Protein 2+ H (Negative) Urine Blood Large H (Negative) Ur Leukocyte Esterase Moderate H (Negative) Urine RBC >182 H (0-5) /hpf Urine WBC 124 H (0-5) /hpf Urine Bacteria Rare H (None) /hpf Hyaline Casts 108 H (0-2) /lpf Urine Mucus Rare H (None) /hpf 08/29/24 08/30/24 08/30/24 Range/Units 20:20 06:12 06:16 RBC 3.59 L (4.10-5.20) X 10*6/uL Hgb 9.7 L (12.0-15.0) g/dL Hct 29.3 L (37.2-46.3) % RDW 22.3 H (11.5-15.5) % Lymphocytes # (1.0-4.8) k/uL Eosinophils # 0.03 L (0.04-0.35) X 10*3/uL Anisocytosis (manual) 2+ A Microcytosis (manual) 2+ A Elliptocytes 2+ A Sodium 134 L (137-145) mmol/L Potassium 3.0 L (3.5-5.5) mmol/L Chloride (98-107) mmol/L Carbon Dioxide 19.5 L (21.6-31.8) mmol/L Anion Gap 14.50 H (4.00-12.00) mmol/L BUN 35.9 H (7-17) mg/dL Creatinine (0.52-1.04) mg/dL Est GFR (CKD-EPI) 40 L (>=60) BUN/Creatinine Ratio 25.64 H (12.00-20.00) Ratio Glucose (74-99) mg/dL Calcium 8.2 L (8.7-10.3) mg/dL Total Bilirubin <0.2 L (0.3-1.2) mg/dL Total Protein 5.8 L (6.3-8.2) g/dL Albumin (3.5-5.0) g/dL Urine Appearance Cloudy H (Clear) Urine Protein 1+ H (Negative) Urine Blood Large H (Negative) Ur Leukocyte Esterase Large H (Negative) Urine RBC 65 H (0-5) /hpf Urine WBC 89 H (0-5) /hpf Urine Bacteria Rare H (None) /hpf Hyaline Casts 118 H (0-2) /lpf Urine Mucus Rare H (None) /hpf Assessment and Plan (1) Acute kidney failure Current Visit: Yes Status: Acute Priority: High Code(s): N17.9 - ACUTE KIDNEY FAILURE, UNSPECIFIED SNOMED Code(s): 82876276 (2) Dehydration Current Visit: Yes Status: Acute Priority: High Code(s): E86.0 - DEHYDRATION SNOMED Code(s): 91916009 (3) UTI (urinary tract infection) Current Visit: Yes Status: Acute Priority: High Code(s): N39.0 - URINARY TRACT INFECTION, SITE NOT SPECIFIED SNOMED Code(s): 24895505 (4) History of colon cancer, stage IV Current Visit: Yes Status: Acute Priority: Medium Code(s): Z85.038 - PERSONAL HISTORY OF MALIGNANT NEOPLASM OF LARGE INTESTINE SNOMED Code(s): 869682921 Plan: UTI, GABRIEL: Presented with with c/o diarrhea, nausea and decreased oral intake. She reports over the last 4 days she had a significant increase in ostomy output. Pt states she was taking zofran with some improvement in nausea but did not take any imodium because was nervous she would constipated. -Labs on admit showed WBC 6.7, hemoglobin 13.4, platelets 302,000. GABRIEL noted with creatinine 2.64, GFR 17, BUN 53. Patient was given fluid hydration and creatinine improved today to 1.4 and GFR 40. LFTs, bilirubin, amylase and lipase WNL. -UA positive for UTI. Rocephin started. C. difficile testing negative. Stool cultures and blood culture pending. -PRN antidiarrheals ordered. Discussed use of antidiarrheals and antinausea medications in detail with patient Colon cancer: -History and plan as dictated in the HPI -On treatment with 5 FU and oxaliplatin, last receiving treatment on 08/19/24 -Treatment currently on hold until adequately recovered. -Clinic f/u scheduled with Dr. Condon on 09/02
[2024-08-30] MEDS: ALPRAZolam 0.25 MG TAB PO PRN (17:47)
--- NOTE | 2024-08-30 17:48 | P.PN ---
Subjective This is a pleasant 73 years old female with past medical history of colon cancer that she follows up with Dr. Condon, she is getting chemotherapy last dose was about 3 weeks prior to admission. Presents with signs symptoms of dehydration and dizziness/presyncope. Patient states that she is having frequent bowel movement that she is keep filling up her colostomy bag with liquid stool over the last 2 weeks. No abdominal pain, no nausea vomiting, however patient has no appetite and poor oral intake for about 4 weeks now She is complaining from mild exertional dyspnea and palpitation after some dizziness However patient has no urinary symptoms like dysuria or urgency although she has abnormal urine analysis. She has no headache. No weakness or tingling She denies smoking alcohol or illicit drugs She is hemodynamically stable and afebrile She has unremarkable CBC, liver enzymes However creatinine bumped up to 0.64 with baseline 0.8-0.9 EKG showing sinus tachycardia at [address]-T changes Patient also started on ceftriaxone in the emergency room 08/30 Patient feels better today She ate better Appetite better No abdominal pain C. difficile negative Will lower the IV fluid to 75 mL/h Creatinine improved down to 1.4 Hemoglobin 9.7 with evidence of hemodilution, check labs in the morning Replace low potassium and magnesium Objective - Vital Signs Vital signs: Vital Signs Temp 97.8 F 08/30/24 07:30 Pulse 63 08/30/24 07:30 Resp 17 08/30/24 07:30 BP 99/62 08/30/24 07:30 Pulse Ox 97 08/30/24 07:30 FiO2 Intake & Output 08/29/24 08/30/24 08/30/24 18:59 06:59 18:59 Intake Total 1080 590 Output Total 28 Balance 1080 562 Weight 49.895 kg Intake: Oral 1080 590 Output: Post Void Residual 28 Other: # Voids 3 1 - Exam Boot is GENERAL: The patient is alert and oriented x3, not in any acute distress. Well developed, well nourished. HEENT: Pupils are round and equally reacting to light. EOMI. No scleral icterus. No conjunctival pallor. Normocephalic, atraumatic. No pharyngeal erythema. No thyromegaly. CARDIOVASCULAR: S1 and S2 present. No murmurs, rubs, or gallops. PULMONARY: Chest is clear to auscultation, no wheezing , no crackles. ABDOMEN: Soft, nontender, nondistended, normoactive bowel sounds. No palpable or ganomegaly. MUSCULOSKELETAL: No joint swelling or deformity. EXTREMITIES: No cyanosis, clubbing, or pedal edema. NEUROLOGICAL: Gross neurological examination did not reveal any focal deficits. SKIN: No rashes. no petechiae. For text - Labs CBC & Chem 7: 08/30/24 06:16 08/30/24 06:12 Labs: Abnormal Lab Results - Last 24 Hours (Table) 08/29/24 08/29/24 08/29/24 Range/Units 12:38 12:38 14:30 RDW 21.8 H (11.5-15.5) % Lymphocytes # 0.9 L (1.0-4.8) k/uL Sodium 132 L (137-145) mmol/L Chloride 88 L (98-107) mmol/L BUN 53 H (7-17) mg/dL Creatinine 2.64 H (0.52-1.04) mg/dL Glucose 125 H (74-99) mg/dL Total Protein 8.8 H (6.3-8.2) g/dL Albumin 5.4 H (3.5-5.0) g/dL Urine Appearance Cloudy H (Clear) Urine Protein 2+ H (Negative) Urine Blood Large H (Negative) Ur Leukocyte Esterase Moderate H (Negative) Urine RBC >182 H (0-5) /hpf Urine WBC 124 H (0-5) /hpf Urine Bacteria Rare H (None) /hpf Hyaline Casts 108 H (0-2) /lpf Urine Mucus Rare H (None) /hpf 08/29/24 Range/Units 20:20 RDW (11.5-15.5) % Lymphocytes # (1.0-4.8) k/uL Sodium (137-145) mmol/L Chloride (98-107) mmol/L BUN (7-17) mg/dL Creatinine (0.52-1.04) mg/dL Glucose (74-99) mg/dL Total Protein (6.3-8.2) g/dL Albumin (3.5-5.0) g/dL Urine Appearance Cloudy H (Clear) Urine Protein 1+ H (Negative) Urine Blood Large H (Negative) Ur Leukocyte Esterase Large H (Negative) Urine RBC 65 H (0-5) /hpf Urine WBC 89 H (0-5) /hpf Urine Bacteria Rare H (None) /hpf Hyaline Casts 118 H (0-2) /lpf Urine Mucus Rare H (None) /hpf Assessment and Plan Assessment: Acute gastroenteritis, could be reactive secondary to chemotherapy Poor oral intake could be secondary to above, her colon cancer and chemotherapy Dehydration secondary to above Acute kidney injury with hypovolemia Colon cancer on chemotherapy, status post colostomy Plan: Continue with IV hydration Encourage oral intake Symptomatic treatment and pain management although patient currently not in pain Hematology/oncology consult Check for C. difficile. Is negative Urine analysis and bladder scan There is no GI service in this facility this week/weekend Labs and medication were reviewed.. Continue same treatment. Continue with symptomatic treatment. Resume home medication. Monitor labs and vitals. DVT and GI prophylaxis. Further recommendations as per clinical course of the patient DVT prophylaxis: Subcutaneous heparin GI Prophylaxis: Pepcid PT/OT: Pending Prognosis is guarded
[2024-08-30] MEDS: ONDANSETRON 4 MG/2 ML VIAL IVP PRN (18:27)
[2024-08-30] MEDS: HYDROcodone/APAP 7.5-325MG 1 EACH TAB PO SCH (21:56)
[2024-08-30] MEDS: APIXABAN 5 MG TAB PO SCH (21:56)
[2024-08-31] MEDS: POTASSIUM CHLORIDE ER 20 MEQ TAB.ER PO SCH (02:11)
[2024-08-31 08:34] LABS: Basophils # (A) 0.05 X 10*3/uL (0.00-0.10); Basophils % (A) 1.1 %; Eosinophils # (A) 0.08 X 10*3/uL (0.04-0.35); Eosinophils % (A) 1.7 %; HCT 27.5 % (37.2-46.3); HGB 8.9 g/dL (12.0-15.0); Lymphocytes # (A) 1.18 X 10*3/uL (0.90-5.00); Lymphocytes % (A) 24.8 %; MCH 27.6 pg (27.0-32.0); MCHC 32.4 g/dL (32.0-37.0); MCV 85.1 FL (80.0-97.0); Mean Platelet Volume 10.8 FL (9.5-12.2); Monocytes # (A) 0.65 X 10*3/uL (0.20-1.00); Monocytes % (A) 13.7 %; NRBC Per 100 WBC 0 X 10*3/uL (0.00-0.01); Neutrophils # (A) 2.76 X 10*3/uL (1.80-7.70); Neutrophils % (A) 58.1 %; Platelet Count 187 X 10*3/uL (140-440); RBC 3.23 X 10*6/uL (4.10-5.20); RDW 22.2 % (11.5-14.5); WBC 4.75 X 10*3/uL (4.50-10.00)
[2024-08-31 08:46] LABS: Blood Urea Nitrogen 22.8 mg/dL (9.0-27.0); Carbon Dioxide 23.1 mmol/L (21.6-31.8); Chloride 103 mmol/L (96-109); Glucose 101 mg/dL (70-110); Magnesium 1.9 mg/dL (1.5-2.4); Potassium 3.8 mmol/L (3.5-5.5); Sodium 135 mmol/L (135-145)
[2024-08-31 13:31] VITALS: BMI 17.7
--- NOTE | 2024-08-31 20:58 | P.PN ---
Subjective This is a pleasant 73 years old female with past medical history of colon cancer that she follows up with Dr. Condon, she is getting chemotherapy last dose was about 3 weeks prior to admission. Presents with signs symptoms of dehydration and dizziness/presyncope. Patient states that she is having frequent bowel movement that she is keep filling up her colostomy bag with liquid stool over the last 2 weeks. No abdominal pain, no nausea vomiting, however patient has no appetite and poor oral intake for about 4 weeks now She is complaining from mild exertional dyspnea and palpitation after some dizziness However patient has no urinary symptoms like dysuria or urgency although she has abnormal urine analysis. She has no headache. No weakness or tingling She denies smoking alcohol or illicit drugs She is hemodynamically stable and afebrile She has unremarkable CBC, liver enzymes However creatinine bumped up to 0.64 with baseline 0.8-0.9 EKG showing sinus tachycardia at [address]-T changes Patient also started on ceftriaxone in the emergency room 08/30 Patient feels better today She ate better Appetite better No abdominal pain C. difficile negative Will lower the IV fluid to 75 mL/h Creatinine improved down to 1.4 Hemoglobin 9.7 with evidence of hemodilution, check labs in the morning Replace low potassium and magnesium 08/31/2024 Patient continues to improve She tolerates diet Vitals are stable Creatinine 1.2 Will discontinue IV fluid this evening Tachycardia improved Check labs in the morning Possible discharge in 24 to 48 hours if she keeps improving Objective - Vital Signs Vital signs: Vital Signs Temp 97.6 F 08/31/24 07:20 Pulse 57 L 08/31/24 07:20 Resp 16 08/31/24 07:20 BP 100/66 08/31/24 07:20 Pulse Ox 97 08/31/24 07:20 FiO2 Intake & Output 08/30/24 08/31/24 08/31/24 18:59 06:59 18:59 Intake Total 540 540 Balance 540 540 Intake: Oral 540 540 Other: # Voids 1 - Exam Boot is GENERAL: The patient is alert and oriented x3, not in any acute distress. Well developed, well nourished. HEENT: Pupils are round and equally reacting to light. EOMI. No scleral icterus. No conjunctival pallor. Normocephalic, atraumatic. No pharyngeal erythema. No thyromegaly. CARDIOVASCULAR: S1 and S2 present. No murmurs, rubs, or gallops. PULMONARY: Chest is clear to auscultation, no wheezing , no crackles. ABDOMEN: Soft, nontender, nondistended, normoactive bowel sounds. No palpable organomegaly. MUSCULOSKELETAL: No joint swelling or deformity. EXTREMITIES: No cyanosis, clubbing, or pedal edema. NEUROLOGICAL: Gross neurological examination did not reveal any focal deficits. SKIN: No rashes. no petechiae. For text - Labs CBC & Chem 7: 08/31/24 04:24 08/31/24 05:45 Labs: Abnormal Lab Results - Last 24 Hours (Table) 08/29/24 08/31/24 08/31/24 Range/Units 20:20 04:24 04:24 RBC 3.23 L (4.10-5.20) X 10*6/uL Hgb 8.9 L (12.0-15.0) g/dL Hct 27.5 L (37.2-46.3) % RDW 22.2 H (11.5-14.5) % Est GFR (CKD-EPI) 48 L (>=60) Calcium 8.0 L (8.7-10.3) mg/dL Stool Lactoferrin Positive A (Negative) Microbiology - Last 24 Hours (Table) 08/29/24 20:20 Stool Culture - Preliminary Stool 08/29/24 15:35 Blood Culture - Preliminary Blood Assessment and Plan Assessment: Acute gastroenteritis, could be reactive secondary to chemotherapy Poor oral intake could be secondary to above, her colon cancer and chemotherapy Dehydration secondary to above Acute kidney injury with hypovolemia Colon cancer on chemotherapy, status post colostomy Plan: IV hydration discontinued Encourage oral intake Symptomatic treatment and pain management although patient currently not in pain Hematology/oncology consult Check for C. difficile. Is negative Urine analysis and bladder scan were unremarkable There is no GI service in this facility this week/weekend Labs and medication were reviewed.. Continue same treatment. Continue with symptomatic treatment. Resume home medication. Monitor labs and vitals. DVT and GI prophylaxis. Further recommendations as per clinical course of the patient DVT prophylaxis: Subcutaneous heparin GI Prophylaxis: Pepcid prognosis guarded Improving possible discharge in 24 to 48 hours
--- NOTE | 2024-08-31 21:02 | P.PN ---
Subjective Progress Note Date: 08/31/24 Principal diagnosis: Intractable diarrhea with resultant dehydration and GABRIEL. Hx metastatic colon adenocarcinoma In f/u today pt has concerns for constipation, is having trouble managing her ostomy appliance because of large hernia. She is tolerating some oral intake, no N, V, fevers. Objective - Vital Signs Vital signs: Vital Signs Temp 97.9 F 08/31/24 12:25 Pulse 66 08/31/24 12:25 Resp 16 08/31/24 12:25 BP 96/63 08/31/24 12:25 Pulse Ox 97 08/31/24 12:25 FiO2 Intake & Output 08/31/24 08/31/24 09/01/24 06:59 18:59 06:59 Intake Total 540 Balance 540 Weight 49.895 kg Intake: Oral 540 Other: # Voids 2 - Constitutional General appearance: Present: average body habitus, cooperative, no acute distress - EENT Eyes: Present: anicteric sclerae, EOMI ENT: Present: hearing grossly normal - Respiratory Details: resp even and unlabored - Cardiovascular Details: skin warm and dry to touch - Peripheral edema leg Peripheral Edema: bilateral: None - Gastrointestinal General gastrointestinal: Present: ventral hernia (5-6 inches in diameter, lateral to ostomy) - Integumentary Integumentary: Present: normal - Neurologic Neurologic: Present: CNII-XII intact - Musculoskeletal Musculoskeletal: Present: strength equal bilaterally - Psychiatric Psychiatric: Present: A&O x's 3, appropriate affect, intact judgment & insight - Labs CBC & Chem 7: 08/31/24 04:24 08/31/24 05:45 Labs: Abnormal Lab Results - Last 24 Hours (Table) 08/31/24 08/31/24 Range/Units 04:24 04:24 RBC 3.23 L (4.10-5.20) X 10*6/uL Hgb 8.9 L (12.0-15.0) g/dL Hct 27.5 L (37.2-46.3) % RDW 22.2 H (11.5-14.5) % Est GFR (CKD-EPI) 48 L (>=60) Calcium 8.0 L (8.7-10.3) mg/dL Microbiology - Last 24 Hours (Table) 08/29/24 20:20 Stool Culture - Preliminary Stool 08/29/24 15:35 Blood Culture - Preliminary Blood Assessment and Plan (1) Diarrhea Current Visit: Yes Status: Acute Priority: High Code(s): R19.7 - DIARRHEA, UNSPECIFIED SNOMED Code(s): 30808387 (2) Acute kidney failure Current Visit: Yes Status: Acute Priority: High Code(s): N17.9 - ACUTE KIDNEY FAILURE, UNSPECIFIED SNOMED Code(s): 70900399 (3) Dehydration Current Visit: Yes Status: Acute Priority: High Code(s): E86.0 - DEHYDRATION SNOMED Code(s): 40470149 (4) History of colon cancer, stage IV Current Visit: Yes Status: Acute Priority: Medium Code(s): Z85.038 - PERSONAL HISTORY OF MALIGNANT NEOPLASM OF LARGE INTESTINE SNOMED Code(s): 150740575 Plan: Diarrhea -Pt reports fear of constipation and vomiting stool if she gets constipated so, that is her reasoning for not taking antidiarrheals. Recommended taking 1/2 a dose at a time to see if she can get diarrhea slowed down because, if she does not, she is going to be just as ill from dehydration. Pt also states that she will not eat for 24 hours when she has to change her ostomy appliance as she does not want stool to cause her a problem during the change. She also has a large hernia that is impairing her ability to change the ostomy collection device. Had a long discussion with Ostomy Nurse about what education pt needs so pt can better manage her ostomy care and expectations. -C. difficile testing negative. Stool cultures and blood cultures pending. -PRN antidiarrheals ordered. Discussed use of antidiarrheals and antinausea medications in detail with patient Dehydration, GABRIEL -2/2 to above -Renal function improving since admit Colon cancer -On treatment with 5 FU and oxaliplatin, last receiving treatment on 08/19/24 -Treatment currently on hold until adequately recovered from her current condition. -Clinic f/u scheduled with Dr. Condon on 09/02
[2024-09-01] MEDS: HYDROcodone/APAP 7.5-325MG 1 EACH TAB PO SCH (05:34)
[2024-09-01 09:28] LABS: Blood Urea Nitrogen 14.8 mg/dL (9.0-27.0); Calcium 7.8 mg/dL (8.7-10.3); Carbon Dioxide 18.2 mmol/L (21.6-31.8); Chloride 108 mmol/L (96-109); Glucose 106 mg/dL (70-110); Magnesium 1.7 mg/dL (1.5-2.4); Sodium 136 mmol/L (135-145)
[2024-09-01 09:34] LABS: Basophils # (A) 0.06 X 10*3/uL (0.00-0.10); Basophils % (A) 1.1 %; Eosinophils # (A) 0.19 X 10*3/uL (0.04-0.35); Eosinophils % (A) 3.5 %; HCT 28.3 % (37.2-46.3); HGB 8.8 g/dL (12.0-15.0); Lymphocytes # (A) 1.02 X 10*3/uL (0.90-5.00); Lymphocytes % (A) 18.7 %; MCH 26.7 pg (27.0-32.0); MCHC 31.1 g/dL (32.0-37.0); MCV 85.8 FL (80.0-97.0); Mean Platelet Volume 10.7 FL (9.5-12.2); Monocytes # (A) 0.68 X 10*3/uL (0.20-1.00); Monocytes % (A) 12.5 %; NRBC Per 100 WBC 0 X 10*3/uL (0.00-0.01); Neutrophils # (A) 3.44 X 10*3/uL (1.80-7.70); Neutrophils % (A) 63.1 %; Platelet Count 187 X 10*3/uL (140-440); RDW 22.5 % (11.5-14.5); WBC 5.45 X 10*3/uL (4.50-10.00)
[2024-09-01 14:05] VITALS: BP 113/76; PULSE 98; RESP 14; TEMP 98
--- NOTE | 2024-09-01 20:44 | P.DS ---
Providers Date of admission: 08/29/24 15:39 Attending physician: Adeel Maldonado MD Consults: 08/29/24 15:39 Consult Physician Routine Consulting Provider: Reece Condon Consult Reason/Comments: Oncological care Do you want consulting provider notified?: Yes 09/01/24 11:22 Consult Physician Routine Consulting Provider: Eliza Spain Consult Reason/Comments: positive stool culture Do you want consulting provider notified?: Yes Primary care physician: Reece Condon Hospital Course: Diagnoses: Acute gastroenteritis, could be reactive secondary to chemotherapy. Less likely viral infection. Completely resolved upon discharge Poor oral intake could be secondary to above, her colon cancer and chemotherapy. Patient regain her appetite upon discharge Dehydration secondary to above. Resolved Acute kidney injury with hypovolemia. Resolved Colon cancer on chemotherapy, status post colostomy Hospital course: This is a pleasant 73 years old female with past medical history of colon cancer that she follows up with Dr. Condon, she is getting chemotherapy last dose was about 3 weeks prior to admission. Presents with signs symptoms of dehydration and dizziness/presyncope. Patient states that she is having frequent bowel movement that she is keep filling up her colostomy bag with liquid stool over the last 2 weeks. No abdominal pain, no nausea vomiting, however patient has no appetite and poor oral intake for about 4 weeks now Patient was admitted to the hospital she was treated with IV fluids and symptomatic treatment. Also patient evaluated by hematology/oncology team. Patient showed interval improvement. Her GI symptoms improved, no abdominal pain upon discharge, she told me her appetite back to normal. Her colostomy bag is in place with low diarrhea as stool become more formed, yellow-brown in color. No evidence of bleeding. Stool cultures growing Cara, thought is colonization as patient is asymptomatic. Patient discussed with ID team who cleared her for discharge with no need for antibiotic Patient was treated with a short course of ceftriaxone, with rapid resolution I do not think patient needs antibiotics upon discharge as there is more benefits. Patient had no fever, no leukocytosis throughout her hospital stay and her symptoms improved back to normal with symptomatic treatment mainly. Procalcitonin also was checked and was normal at 0.184 which goes against bacterial infection as well Patient was adamant to be discharged today as she has pets at home that were not fed for 2 days. She denies any other new symptom Patient was cleared for discharge by hematology/oncology team Problems and management plan were discussed with the patient and he verbalized understanding and acceptance Patient was found stable and can be discharged home in guarded prognosis however he needs follow-up as an outpatient. Patient was instructed to follow up with PCP within one week and patient agrees Patient was instructed to call her health insurance provider to find a nearby PCP and to call make appointment in 1 week and she agrees Her oncologist is Dr. Condon and she has appointment with him tomorrow as she confirms to me she intends to follow-up. Physical exam Gen: patient is a AAOx3, no distress CVS: S1-S2, RRR, no murmur Lungs: B/L CTA, no wheezing -Abdomen: soft, no distention, no tenderness, positive bowel sounds. Lower abdomen colostomy bag in place with yellow stool Extremity: no leg edema or induration Time spent more than 35 minutes Patient Condition at Discharge: Serious Plan - Discharge Summary Discharge Rx Participant: Yes New Discharge Prescriptions: New Famotidine [Pepcid] 20 mg PO DAILY 7 Days #7 tab Ondansetron [Zofran] 4 mg PO Q12HR PRN 5 Days #10 tab PRN Reason: Nausea And Vomiting Continue Apixaban [Eliquis] 5 mg PO BID Gabapentin [Neurontin] 100 mg PO BID PRN PRN Reason: Pain Leucovorin Infusion 1 dose IV Q14D HYDROcodone/APAP 7.5-325MG [[place] 7.5-325] 1 tab PO Q6H ALPRAZolam [Xanax] 0.25 mg PO HS PRN PRN Reason: Anxiety Prochlorperazine Maleate 10 mg PO Q6H PRN PRN Reason: Nausea Oxaliplatin [Eloxatin] 1 dose IV Q14D Fluorouracil Infusion 1 dose IV Q14D Discharge Medication List ALPRAZolam [Xanax] 0.25 mg PO HS PRN 07/15/23 [History] HYDROcodone/APAP 7.5-325MG [[place] 7.5-325] 1 tab PO Q6H 07/15/23 [History] Apixaban [Eliquis] 5 mg PO BID 08/30/23 [History] Gabapentin [Neurontin] 100 mg PO BID PRN 02/25/24 [History] Prochlorperazine Maleate 10 mg PO Q6H PRN 02/25/24 [History] Fluorouracil Infusion 1 dose IV Q14D 08/29/24 [History] Leucovorin Infusion 1 dose IV Q14D 08/29/24 [History] Oxaliplatin [Eloxatin] 1 dose IV Q14D 08/29/24 [History] Famotidine [Pepcid] 20 mg PO DAILY 7 Days #7 tab 09/01/24 [Rx] Ondansetron [Zofran] 4 mg PO Q12HR PRN 5 Days #10 tab 09/01/24 [Rx] Follow up Appointment(s)/Referral(s): [facility], [NON-STAFF] - As Needed Care,[facility] [NON-STAFF] - As Needed Reece Condon MD [Primary Care Provider] - 09/02/24 2:00 pm Patient Instructions/Handouts: Famotidine (By mouth), Ondansetron (By mouth), Dehydration (DC), Acute Kidney Injury (DC) Activity/Diet/Wound Care/Special Instructions: Ostomy: Patient routinely uses [employer] 2 piece appliance; does not have reference numbers. Being sent home with [employer] 2 piece appliances, flange #[id number] and bag #[id number], non-sting skin prep pads, and stoma powder. Suggested use of an ostomy support belt: Timmy Ostomy SupportBelt ([employer]) or similar Discharge/Stand Alone Forms: Who Do I Call?, [facility] Resources Discharge Disposition: HOME SELF-CARE
== END 2024-09-01 17:10 | disposition home or self-care (01) | DRG 394 ==
LOC: EC 12:09 → 4SSUR 15:39 → 5NMEDONC 15:48
PROVIDERS: ADMIT Internal Medicine; ATTEND Internal Medicine
DX: K52.1 Toxic gastroenteritis and colitis (principal); C77.8 Secondary and unspecified malignant neoplasm of lymph nodes of multiple regions; N39.0 Urinary tract infection, site not specified; N17.9 Acute kidney failure, unspecified; Z93.3 Colostomy status; T45.1X5A Adverse effect of antineoplastic and immunosuppressive drugs, initial encounter; E86.0 Dehydration; E86.1 Hypovolemia; K59.00 Constipation, unspecified; F41.9 Anxiety disorder, unspecified; Z79.01 Long term (current) use of anticoagulants; Z17.32 Human epidermal growth factor receptor 2 negative status; R00.0 Tachycardia, unspecified; Z79.899 Other long term (current) drug therapy; Z80.0 Family history of malignant neoplasm of digestive organs; Z85.038 Personal history of other malignant neoplasm of large intestine; Z85.51 Personal history of malignant neoplasm of bladder; Z87.891 Personal history of nicotine dependence; Z90.710 Acquired absence of both cervix and uterus; Z87.19 Personal history of other diseases of the digestive system; Z91.030 Bee allergy status; Z88.0 Allergy status to penicillin; Z98.51 Tubal ligation status
CPT/HCPCS: 36415; 80048; 80053; 81001; 82150; 83605; 83630; 83690; 83735; 84132; 84145; 85025; 87040; 87045; 87046; 87324; 93005; 96361; 96365; 96372; 96375; 96376; 99291

== ENCOUNTER → 2024-11-03 | Outpatient (CLI) | payer MEDICARE ==
[2024-11-03 13:32] LABS: African American GFR (CKD) 76 (>60 ml/min/1.73 sqM); Blood Urea Nitrogen 12 mg/dL (7-17); Non-African American GFR(CKD) 66 (>60 ml/min/1.73 sqM)
--- NOTE | 2024-11-03 16:44 | CT ---
EXAMINATION TYPE: CT ChestAbdPelvis w con CT DLP: 558 mGycm, Automated exposure control for dose reduction was used. DATE OF EXAM: 11/03/2024 3:03 PM COMPARISON: CT chest abdomen and pelvis 07/21/2024, 01/17/2024, CT abdomen and pelvis 02/26/2024, CTA ches t 08/22/2023, 07/15/2023 CLINICAL INDICATION:Female, 74 years old with history of C18.7 COLON CANCER; PHH, Colon Ca Technique: Multiple axial images of the chest, abdomen, and pelvis were obtained following the intrav enous administration of 100 mL Isovue-300. Oral contrast was administered. Two-dimensional coronal an d sagittal reconstructions were obtained. Findings: CHEST: LUNGS/ PLEURA: No pleural effusion, pneumothorax, or focal consolidation. No suspicious pulmonary nod ule or mass. Mild centrilobular emphysematous changes. Minimal biapical pleural-parenchymal scarring. AIRWAY: Patent and unremarkable.. HEART: Size within normal limits.No pericardial effusion. MEDIASTINUM: No evidence of adenopathy. VASCULATURE: No aortic aneurysm. MUSCULOSKELETAL: No acute osseous abnormalities. SOFT TISSUES/LYMPH NODES: Unremarkable. LOWER NECK: No significant findings. Other: Prominent collateral vessels coursing along the wall of the thoracic esophagus again. ABDOMEN: ABDOMEN LIVER: Right hepatic dome 1.1 cm cyst redemonstrated. GALLBLADDER AND BILE DUCTS: Unremarkable. PANCREAS: Unremarkable. SPLEEN: Unremarkable. ADRENAL GLANDS: Unremarkable. KIDNEYS AND URETERS: No evidence of hydronephrosis or renal calculus. The kidneys enhance symmetrical ly. Prominent bilateral extrarenal pelvises. PELVIS BLADDER: Left anterior pelvis soft tissue mass is redemonstrated somewhat similar size measuring 4.4 x 3.5 cm with invasion into the posterior left urinary bladder wall again (series 4, image 113). REPRODUCTIVE: Unremarkable. ABDOMEN & PELVIS STOMACH AND BOWEL: Moderate amount of stool is present within the rectum. Postsurgical changes at the rectosigmoid region with anastomosis. Increase in abnormal soft tissue metastatic disease involving the left lower abdomen measuring 7.3 x 5.0 cm (series 4, image 107). Previously measured 7.1 x 4.4 cm . There is invasion into the adjacent small bowel and abdominal wall with abutment of the left real estate sales agent al iliac artery. With upstream dilatation measuring up to 5.3 cm with contrast passage through this r egion. 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 This again measur es up to 7.4 cm with [place]. Enteric contrast reaches the right lower quadrant ostomy. PERITONEUM: No evidence of pneumoperitoneum or free fluid. VASCULATURE: No evidence of aortic aneurysm. Dilated appearance of the IVC. MUSCULOSKELETAL: No acute osseous abnormalities. Incidental sacral Tarlov cysts. LYMPH NODES: Enlarged retroperitoneal periaortic lymph nodes are redemonstrated with some becoming la rger in size and others decreased in size from prior examination. Example includes including a left p eriaortic lymph node measuring 3.9 cm (series 4, image 82), previously measured up to 4.3 cm. Enlargi ng right common iliac chain lymph node measuring 2.9 cm, previously measured up to 1.6 cm. Enlarging lymph node measuring 2.6 cm at the aortic bifurcation, previously 2.0 cm (series 4, image 95). SOFT TISSUE/ABDOMINAL WALL: The anterior abdominal collateral vessels particularly in the right redem onstrated with back filling from the right inferior epigastric artery. IMPRESSION: 1. Overall slight progression of disease within the abdomen and pelvis. Majority of retroperitoneal a denopathy has mildly increased in size. Infiltrative left lower quadrant and left pelvic masses are m ildly increased in size and demonstrate invasion into the surrounding small bowel, abdominal wall, an d urinary bladder. There is resultant upstream dilatation of the small bowel. Enteric contrast does p ass this region and extends into the diverting ostomy. 2. 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 3. No definitive metastasis within the chest. [facility], , 11/03/2024 4:42 PM
== END | disposition home or self-care (01) ==
LOC: RADCTMAIN 12:22
PROVIDERS: ATTEND Internal Medicine Hematology & Oncology
DX: C18.7 Malignant neoplasm of sigmoid colon (principal); I82.729 Chronic embolism and thrombosis of deep veins of unspecified upper extremity; R59.0 Localized enlarged lymph nodes; R19.00 Intra-abdominal and pelvic swelling, mass and lump, unspecified site; K43.5 Parastomal hernia without obstruction or gangrene
CPT/HCPCS: 82565; 84520; 71260; 74177; 36415; Q9967

== ENCOUNTER 2025-04-26 22:45 | Inpatient (IN) | payer MEDICARE, OTHER ==
[2025-04-26 23:40] LABS: Basophils # (A) 0.08 10*3/uL (0.00-0.10); Basophils % (A) 0.6 %; Eosinophils # (A) 0.04 10*3/uL (0.04-0.35); Eosinophils % (A) 0.3 %; HGB 8.4 g/dL (12.0-15.0); Lymphocytes # (A) 1.05 10*3/uL (0.90-5.00); MCH 26.3 pg (27.0-32.0); MCHC 31.1 g/dL (32.0-37.0); MCV 84.4 fL (80.0-97.0); Mean Platelet Volume 8.8 fL (9.5-12.2); Monocytes # (A) 1.02 10*3/uL (0.20-1.00); Monocytes % (A) 7.8 %; Neutrophils % (A) 81.5 %; Platelet Count 455 10*3/uL (140-440); RDW 19.4 % (11.5-14.5); WBC 13.12 10*3/uL (4.50-10.00)
--- NOTE | 2025-04-26 23:42 | ED ---
General Adult HPI - General Chief complaint: Abdominal Pain Stated complaint: Pain, Dehydrated Time Seen by Provider: 04/26/25 22:54 Source: patient Mode of arrival: wheelchair Limitations: no limitations - History of Present Illness Initial comments: Patient is a pleasant 74-year-old female past medical history of bladder and colon cancer, prior DVT on Eliquis, presenting today for generalized weakness. Patient states that she has been being treated for UTI for about 1 week now with ciprofloxacin. She is taking her antibiotics as prescribed. States that her symptoms were getting better until today when the burning and urethral discomfort started to worsen again. Also notes lower abdominal pain that is chronic but worse than usual. States that throughout the day today she has felt like she has had difficulty waking up and felt very sleepy. Denies fevers or chills, nausea, vomiting, diarrhea, melena, hematochezia, cough, chest pain, shortness of breath. Has noticed worsening lower extremity of the bilateral lower extremities over the last 2 weeks. Also notes right-sided low back pain that has been ongoing for about 1 week without any recent trauma or falls. Denies hematuria or vaginal discharge. Additionally patient is concerned she is dehydrated and that might be the cause of her dizziness. Patient denies headaches, numbness, focal weakness, slurred speech. - Related Data Home Medications Medication Instructions Recorded Confirmed HYDROcodone/APAP 7.5-325MG [[place] 1 tab PO Q4H PRN 07/15/23 04/29/25 7.5-325] Apixaban [Eliquis] 5 mg PO BID 08/30/23 04/29/25 Prochlorperazine Maleate 10 mg PO Q6H PRN 02/25/24 04/29/25 ALPRAZolam [Xanax] 0.5 mg PO DAILY PRN 04/27/25 04/29/25 Sennosides [Senokot] 17.2 mg PO HS 04/27/25 04/29/25 dexAMETHasone [Decadron] 4 mg PO DAILY 04/27/25 04/29/25 Previous Rx's Medication Instructions Recorded Famotidine [Pepcid] 20 mg PO DAILY tab 04/29/25 Phenazopyridine [Pyridium] 100 mg PO Q8H #18 tab 04/29/25 Allergies Allergy/AdvReac Type Severity Reaction Status Date / Time bee venom protein (honey bee) Allergy Swelling Verified 04/29/25 20:41 Penicillins Allergy Rash/Hives Verified 04/29/25 20:41 poison mookie extract Allergy Rash/Hives Verified 04/29/25 20:41 Review of Systems ROS Statement: Those systems with pertinent positive or pertinent negative responses have been documented in the HPI. ROS Other: All systems not noted in ROS Statement are negative. Past Medical History Past Medical History: Cancer Additional Past Medical History / Comment(s): colon cancer, hx bladder cancer, prolapse mitral valve, chemo 08/27/2023 History of Any Multi-Drug Resistant Organisms: None Reported Past Surgical History: Bowel Resection, Hysterectomy Additional Past Surgical History / Comment(s): tubal , Bowel resection with colstomy 2019 and revision of ostomy Dec 2022. Laparoscopy and decompression of hernia February 2024. Past Anesthesia/Blood Transfusion Reactions: No Reported Reaction Past Psychological History: Anxiety Smoking Status: Former smoker - Past Family History Mother History Unknown: Yes Father Family Medical History: Chest Pain / Angina Additional Family Medical History / Comment(s): Colon cancer General Exam - General Exam Comments Initial Comments: PE: CONSTITUTIONAL: No apparent distress, chronically ill appearing, nontoxic SKIN: Warm, dry, no jaundice, hives or petechiae. very faint erythema lateral left ankle without wounds EYES: Pupils are equally round, extraocular movements intact without nystagmus, clear conjunctiva, non-icteric sclera HENT: Normocephalic, atraumatic, dry mucus membranes, oropharynx clear without exudates NECK: , Full range of motion, normal appearance PULMONARY: Clear to auscultation without wheezes, rhonchi, or rales, normal exc ursion, no accessory muscle use and no stridor CARDIOVASCULAR: Regular rate, rhythm, normal S1 and S2. No appreciated murmurs, rubs or gallops. Strong radial pulses with intact distal perfusion. 1+ right lower extremity getting edema, 2-3+ left lower extremity pitting edema up to knee GASTROINTESTINAL: Soft, active bowel sounds throughout, tenderness to palpation and guarding of the left lower quadrant without palpable mass, ostomy in place, nontender nonreducible right sided hernia to the right of ostomy, soft, nonerythematous, non-distended, No hepatosplenomegaly GENITOURINARY: MUSCULOSKELETAL: Extremities have no gross deformity NEUROLOGIC:_a/o x 3, GCS 15, normal mentation and speech. Moves all extremities x 4 without motor or sensory deficit PSYCHIATRIC:_normal mood and affect, thought process is clear and linear Limitations: no limitations Course Vital Signs 04/26/25 04/27/25 04/27/25 22:49 00:03 01:02 Temperature 98.3 F Pulse Rate 89 96 79 Respiratory 18 17 17 Rate Blood Pressure 132/83 124/77 O2 Sat by Pulse 99 100 100 Oximetry 04/27/25 04/27/25 04/27/25 02:50 06:00 08:35 Temperature 98.1 F 98.3 F Pulse Rate 84 85 90 Respiratory 17 17 18 Rate Blood Pressure 137/86 132/96 109/75 O2 Sat by Pulse 93 L 97 100 Oximetry 04/27/25 04/27/25 14:23 16:13 Temperature Pulse Rate 85 91 Respiratory 16 18 Rate Blood Pressure 118/79 127/89 O2 Sat by Pulse 97 97 Oximetry Medical Decision Making - Medical Decision Making Was pt. sent in by a medical professional or institution (, PA, PULP SCREEN OPERATOR, urgent care, hospital, or fci...) When possible be specific @ -No Did you speak to anyone other than the patient for history (EMS, parent, family, police, friend...)? What history was obtained from this source @ -No Did you review nursing and triage notes (agree or disagree)? Why? @ -I reviewed nursing and triage notes Were old charts reviewed (outside hosp., previous admission, EMS record, old EKG, old radiological studies, urgent care reports/EKG's, fci records)? Report findings @ -Medical records reviewed Reviewed patient's most recent imaging which was a CT chest abdomen pelvis on 11/03/2024, was significant for "overall slight progression of disease within the abdomen and pelvis with majority of retroperitoneal adenopathy mildly increased in size, infiltrated left lower quadrant and left pelvic masses mildly increased in size and demonstrate invasion into surrounding small bowel, abdominal wall and urinary bladder resultant upstream dilation of small bowel, enteric contrast does not pass that region and extends in the diverting ostomy Differential Diagnosis (chest pain, altered mental status, abdominal pain women, abdominal pain men, vaginal bleeding, weakness, fever, dyspnea, syncope, headache, dizziness, GI bleed, back pain, seizure, CVA, palpatations, mental health, musculoskeletal)? @Differential Abdominal Pain Women: Appendicitis, Cholecystitis, diverticulosis, ischemic bowel, pancreatitis, hepatitis, UTI, gastroenteritis, AAA, incarcerated hernia, bowel obstruction, constipation, inflammatory bowel, hepatitis, peptic ulcer disease, splenic infarction, perforated viscus, vulvitis, ovarian torsion, PID, kidney stone, placenta abruption, this is not meant to be an all-inclusive list EKG interpreted by me (3pts min.). @ -As above X-rays interpreted by me (1pt min.). @ -None done CT interpreted by me (1pt min.). @Personally reviewed CT abdomen pelvis I see no evidence of obstruction or perforation, agree with radiologist interpretation U/S interpreted by me (1pt. min.). Personally reviewed ultrasound, noted left masslike region in the left groin, positive for DVT agree with radiologist interpretation What testing was considered but not performed or refused? (CT, X-rays, U/S, labs)? Why? @ -None What meds were considered but not given or refused? Why? @ -None Did you discuss the management of the patient with other professionals (professionals i.e. , PA, PULP SCREEN OPERATOR, lab, RT, psych nurse, social worker delinquency prevention, lpn per diem, teacher, hazard mitigation officer, rn case management)? Give summary @ -No Was smoking cessation discussed for >3mins.? @ -No Was critical care preformed (if so, how long)? @Yes 35 minutes Were there social determinants of health that impacted care today? How? (Homelessness, low income, unemployed, alcoholism, drug addiction, transportation, low edu. Level, literacy, decrease access to med. care, retirement, rehab)? @ -No Was there de-escalation of care discussed even if they declined (Discuss DNR or withdrawal of care, Hospice)? @ -No What co-morbidities impacted this encounter? (DM, HTN, Smoking, COPD, CAD, Cancer, CVA, ARF, Chemo, Hep., AIDS, mental health diagnosis, sleep apnea, morbid obesity)? @Bladder, colon cancer Was patient admitted / discharged? Hospital course, mention meds given and route, prescriptions, significant lab abnormalities, going to OR and other pertinent info. @ -Admission- this is a pleasant 74-year-old female presenting today for generalized weakness, persistent UTI symptoms despite outpatient treatment, and feeling dehydrated. Vital signs are stable on arrival. On my assessment p atient is resting comfortably no acute distress. Exam is significant for left lower quadrant tenderness to palpation, bilateral lower extremity edema worse on left than the right, mild erythema of the lateral left lower extremity, not well-circumscribed without visible wounds. exam was performed with KALPANA De La Cruz at bedside, showed no external erythema or discharge. Plan for CT abdomen/pelvis without contrast, urinalysis, IV fluids, comprehensive labs and pain control. Anticipate admission. Cefepime was ordered to cover for UTI and cellulitis. Labs are significant for mild leukocytosis white blood cell count of 13.12, patient's heart rate on arrival was in the 80s however at 5:03 AM was noted to be 96. Given leukocytosis and heart rate above 90 patient does meet SIRS criteria now, blood culture was added, of note patient has already received cefepime. Ultrasound of the lower extremities showed a complex hypoechoic mass in the left inguinal region measuring 6.3 x 6.2 x 6 5 cm as well as findings concerning for an acute DVT involving the left external iliac vein and common femoral vein. Of note patient states overall she has been taking her Eliquis as prescribed. She states she may have missed a dose "here there" due to all the medication she is on but overall has been compliant. Started pt on IV heparin due to failed eliquis. CT of the abdomen pelvis shows overall worsening/increasing masses throughout the abdomen, left lower quadrant of the abdomen, gas in the bladder, correlate for cystitis, bilateral hydroureteronephrosis new since prior, notably on the left side, ureter extends to the area of the left lobular pelvic mass which is "causing ureteral obstruction" additionally new ill-defined liver lesions, largest in the right hepatic lobe likely metastases. Updated patient to findings of DVT and worsening progression of disease. Patient verbalized understanding. Discussed with her admission due to failed outpatient therapy of UTI and failed Eliquis. Patient agreeable plan of care. Notably, patient also appears to have a mild GABRIEL with creatinine 1.35, previously on 11/03/2024 was 0.88, GFR 39, previously was 66 in October 2024. Patient has received 1 L IV fluids. I suspect post obstructive cause for GABRIEL given hydronephrosis noted on CT. Case discussed with MATTIE Lugo, kindly accepted patient for admission. Undiagnosed new problem with uncertain prognosis? @ -No Drug Therapy requiring intensive monitoring for toxicity (Heparin, Nitro, Insulin, Cardizem)? Heparin Were any procedures done? @ -No Diagnosis/symptom? @Sepsis, metastatic cancer, urinary tract infection, DVT Acute, or Chronic, or Acute on Chronic? Acute Uncomplicated (without systemic symptoms) or Complicated (systemic symptoms)? Complicated Side effects of treatment? @ -No Exacerbation, Progression, or Severe Exacerbation? @ -No Poses a threat to life or bodily function? How? (Chest pain, [place], [place], pneumonia, PE, COPD, DKA, ARF, appy, cholecystitis, CVA, Diverticulitis, Homicidal, Suicidal, threat to staff... and all critical care pts) @Yes, if UTI left untreated could lead to septic shock and , if DVT left untreated could lead to PE, cardiac arrest and - Lab Data Result diagrams: 04/29/25 06:07 04/29/25 06:07 Lab Results 04/26/25 04/26/25 04/26/25 Range/Units 23:34 23:34 23:34 WBC 13.12 H (4.50-10.00) 10*3/uL RBC 3.20 L (4.10-5.20) 10*6/uL Hgb 8.4 L (12.0-15.0) g/dL Hct 27.0 L (37.2-46.3) % MCV 84.4 (80.0-97.0) fL MCH 26.3 L (27.0-32.0) pg MCHC 31.1 L (32.0-37.0) g/dL Plt Count 455 H (140-440) 10*3/uL MPV 8.8 L (9.5-12.2) fL Immature Gran % (Auto) 1.8 % Neutrophils % 81.5 % Lymphocytes % 8.0 % Monocytes % 7.8 % Eosinophils % 0.3 % Basophils % 0.6 % Immature Gran # 0.23 H (0.00-0.04) 10*3/uL Neutrophils # 10.70 H (1.80-7.70) 10*3/uL Lymphocytes # 1.05 (0.90-5.00) 10*3/uL Monocytes # 1.02 H (0.20-1.00) 10*3/uL Eosinophils # 0.04 (0.04-0.35) 10*3/uL Basophils # 0.08 (0.00-0.10) 10*3/uL PT 10.7 (10.0-12.5) sec INR 1.0 (<1.2) APTT 21.8 L (22.0-30.0) sec Sodium 135 L (137-145) mmol/L Potassium 3.5 (3.5-5.1) mmol/L Chloride 103 (98-107) mmol/L Carbon Dioxide 22 (22-30) mmol/L Anion Gap 10 mmol/L BUN 15 (7-17) mg/dL Creatinine 1.35 H (0.52-1.04) mg/dL Est GFR (CKD-EPI)AfAm 45 (>60 ml/min/1.73 sqM) Est GFR (CKD-EPI)NonAf 39 (>60 ml/min/1.73 sqM) Glucose 106 H (74-99) mg/dL Lactic Ac Sepsis Rflx Plasma Lactic Acid Merrill (0.7-2.0) mmol/L Calcium 8.4 (8.4-10.2) mg/dL Total Bilirubin 0.2 (0.2-1.3) mg/dL AST 19 (14-36) U/L ALT 9 (4-34) U/L Alkaline Phosphatase 78 (38-126) U/L Total Protein 5.5 L (6.3-8.2) g/dL Albumin 3.1 L (3.5-5.0) g/dL Amylase 42 (30-110) U/L Lipase 124 (23-300) U/L Urine Color Urine Appearance (Clear) Urine pH (5.0-8.0) Ur Specific Randolph (1.001-1.035) Urine Protein (Negative) Urine Glucose (UA) (Negative) Urine Ketones (Negative) Urine Blood (Negative) Urine Nitrite (Negative) Urine Bilirubin (Negative) Urine Urobilinogen (<2.0) mg/dL Ur Leukocyte Esterase (Negative) Urine RBC (0-5) /hpf Urine WBC (0-5) /hpf Urine WBC Clumps (None) /hpf Ur Squamous Epith Cells (0-4) /hpf Urine Bacteria (None) /hpf Urine Mucus (None) /hpf 04/26/25 04/26/25 04/27/25 Range/Units 23:34 23:41 01:11 WBC (4.50-10.00) 10*3/uL RBC (4.10-5.20) 10*6/uL Hgb (12.0-15.0) g/dL Hct (37.2-46.3) % MCV (80.0-97.0) fL MCH (27.0-32.0) pg MCHC (32.0-37.0) g/dL Plt Count (140-440) 10*3/uL MPV (9.5-12.2) fL Immature Gran % (Auto) % Neutrophils % % Lymphocytes % % Monocytes % % Eosinophils % % Basophils % % Immature Gran # (0.00-0.04) 10*3/uL Neutrophils # (1.80-7.70) 10*3/uL Lymphocytes # (0.90-5.00) 10*3/uL Monocytes # (0.20-1.00) 10*3/uL Eosinophils # (0.04-0.35) 10*3/uL Basophils # (0.00-0.10) 10*3/uL PT (10.0-12.5) sec INR (<1.2) APTT (22.0-30.0) sec Sodium (137-145) mmol/L Potassium (3.5-5.1) mmol/L Chloride (98-107) mmol/L Carbon Dioxide (22-30) mmol/L Anion Gap mmol/L BUN (7-17) mg/dL Creatinine (0.52-1.04) mg/dL Est GFR (CKD-EPI)AfAm (>60 ml/min/1.73 sqM) Est GFR (CKD-EPI)NonAf (>60 ml/min/1.73 sqM) Glucose (74-99) mg/dL Lactic Ac Sepsis Rflx Y Plasma Lactic Acid Merrill 2.5 H* (0.7-2.0) mmol/L Calcium (8.4-10.2) mg/dL Total Bilirubin (0.2-1.3) mg/dL AST (14-36) U/L ALT (4-34) U/L Alkaline Phosphatase (38-126) U/L Total Protein (6.3-8.2) g/dL Albumin (3.5-5.0) g/dL Amylase (30-110) U/L Lipase (23-300) U/L Urine Color Colorless Urine Appearance Cloudy H (Clear) Urine pH 6.0 (5.0-8.0) Ur Specific Randolph 1.011 (1.001-1.035) Urine Protein 1+ H (Negative) Urine Glucose (UA) Negative (Negative) Urine Ketones Negative (Negative) Urine Blood Large H (Negative) Urine Nitrite Negative (Negative) Urine Bilirubin Negative (Negative) Urine Urobilinogen <2.0 (<2.0) mg/dL Ur Leukocyte Esterase Large H (Negative) Urine RBC 74 H (0-5) /hpf Urine WBC >182 H (0-5) /hpf Urine WBC Clumps Few H (None) /hpf Ur Squamous Epith Cells 1 (0-4) /hpf Urine Bacteria Occasional H (None) /hpf Urine Mucus Rare H (None) /hpf Disposition Clinical Impression: Sepsis secondary to UTI, Left groin mass, Metastatic cancer, Acute DVT (deep venous thrombosis), GABRIEL (acute kidney injury) Disposition: ADMITTED IP TO THIS HOSP Condition: Stable
[2025-04-26 23:46] LABS: ALT 9 U/L (4-34); AST 19 U/L (14-36); African American GFR (CKD) 45 (>60 ml/min/1.73 sqM); Albumin 3.1 g/dL (3.5-5.0); Alkaline Phosphatase 78 U/L (38-126); Amylase 42 U/L (30-110); Anion Gap 10 mmol/L; Blood Urea Nitrogen 15 mg/dL (7-17); Calcium 8.4 mg/dL (8.4-10.2); Carbon Dioxide 22 mmol/L (22-30); Chloride 103 mmol/L (98-107); Glucose 106 mg/dL (74-99); Lipase 124 U/L (23-300); Non-African American GFR(CKD) 39 (>60 ml/min/1.73 sqM); Potassium 3.5 mmol/L (3.5-5.1); Sodium 135 mmol/L (137-145); Total Bilirubin 0.2 mg/dL (0.2-1.3); Total Protein 5.5 g/dL (6.3-8.2)
[2025-04-26 23:55] LABS: Prothrombin Time 10.7 sec (10.0-12.5)
[2025-04-26] MEDS: SODIUM CHLORIDE 0.9% 1,000 ML IV ONE (23:57)
[2025-04-26] MEDS: HYDROmorphone 1 MG/ML 1 ML SYRINGE IVP STA (23:59)
[2025-04-27] MEDS: CEFEPIME 1 GM in SODIUM CHLORIDE 0.9% 50 ML IVPB STA (00:01)
[2025-04-27 00:07] LABS: Partial Thromboplastin Time 21.8 sec (22.0-30.0)
[2025-04-27 00:27] LABS: Appearance,Urine Cloudy (Clear); Bacteria,Urine Occasional /hpf; Bilirubin,Urine Negative (Negative); Blood,Urine Large (Negative); Color,Urine Colorless; Glucose,Urine (UA) Negative (Negative); Ketones,Urine Negative (Negative); Leukocyte Esterase,Urine Large (Negative); Mucus,Urine Rare /hpf; Nitrite,Urine Negative (Negative); Protein,Urine 1+ (Negative); RBC,Urine 74 /hpf (0-5); Specific Gravity,Urine 1.011 (1.001-1.035); Squamous Epithelial Cell,Urine 1 /hpf (0-4); Urobilinogen,Urine <2.0 mg/dL (<2.0); WBC,Urine >182 /hpf (0-5)
--- NOTE | 2025-04-27 01:56 | CT ---
EXAM: CT Abdomen and Pelvis Without Intravenous Contrast CLINICAL HISTORY: ITS.REASON CT Reason: low ab pain, right back pain, hx CA, UTI TECHNIQUE: Axial computed tomography images of the abdomen and pelvis without intravenous contrast. CTDI is 5 mGy and DLP is 274.9 mGy-cm. This CT exam was performed using one or more of the following dose reduction techniques: automated exposure control, adjustment of the mA and/or kV according to patient size, and/or use of iterative reconstruction technique. COMPARISON: CT Abdomen Pelvis dated 07/21/2024 FINDINGS: Lung bases: Unremarkable. No mass. No consolidation. ABDOMEN: Liver: New ill-defined liver lesions. Largest in the right hepatic lobe 1.7 cm. Gallbladder and bile ducts: Gallbladder not well visualized. No ductal dilation. Pancreas: Unremarkable. No ductal dilation. Spleen: Unremarkable. No splenomegaly. Adrenals: Unremarkable. No mass. Kidneys and ureters: Bilateral hydroureteronephrosis new since the prior. Notably on the left side. Ureter extends to the area of the lobular left pelvic mass which likely causes ureteral obstruction. Distal right ureter difficult to follow. Nonobstructing right renal calculus. Stomach and bowel: As on the prior, right lower quadrant diverting ileostomy, and large parastomal hernia containing multiple small bowel and colonic loops. Large amount of stool within the rectum as on the prior just distal to sutures. Ill-defined 10 cm lobular heterogeneous mass in the left lower quadrant/left pelvis somewhat similar to the prior. Increased in size especially along the left anterolateral abdominal wall, and measures approximately 10 cm. The mass involves adjacent bowel loops and bladder with tethered appearance, similar to the prior. Tethered loops appear dilated, similar to the prior. Difficult to follow bowel loops. PELVIS: Appendix: No findings to suggest acute appendicitis. Bladder: Gas within the partially distended urinary bladder. See above. Reproductive: Unremarkable as visualized. ABDOMEN and PELVIS: Intraperitoneal space: Unremarkable. No free air. No significant fluid collection. Bones/joints: Sacral Tarlov cyst, stable. No acute fracture. No dislocation. Soft tissues: See above. Vasculature: Small cluster of calcifications in the right lower pelvis. May relate to vascular structures rather than the right ureter. Limited evaluation. No abdominal aortic aneurysm. Lymph nodes: Ill-defined retroperitoneal adenopathy /metastatic disease. The large necrotic appearing left periaortic node decreased since the prior. Mesenteric adenopathy similar/mildly increased. IMPRESSION: 1. As on the prior, right lower quadrant diverting ileostomy, and large parastomal hernia containing multiple small bowel and colonic loops. 2. Ill-defined 10 cm lobular heterogeneous mass in the left lower quadrant/left pelvis somewhat similar to the prior. Increased in size especially along the left anterolateral abdominal wall, and measures approximately 10 cm. The mass involves adjacent bowel loops and bladder with tethered appearance, similar to the prior. Tethered loops appear dilated, similar to the prior. Difficult to follow bowel loops. 3. Gas within the partially distended urinary bladder. Correlate for cystitis. 4. Bilateral hydroureteronephrosis new since the prior. Notably on the left side. Ureter extends to the area of the lobular left pelvic mass which likely causes ureteral obstruction. Distal right ureter difficult to follow. 5. New ill-defined liver lesions. Largest in the right hepatic lobe 1.7 cm. Likely metastases. 6. Ill-defined retroperitoneal adenopathy /metastatic disease. The large necrotic appearing left periaortic node decreased since the prior. 7. Mesenteric adenopathy similar/mildly increased.
--- NOTE | 2025-04-27 02:33 | US ---
EXAM: US Duplex Bilateral Lower Extremities Veins CLINICAL HISTORY: ITS.REASON US Reason: LE edema, worse L>right, hx dvt TECHNIQUE: Real-time duplex ultrasound scan of the bilateral lower extremity veins integrating B-mode two-dimensional vascular structure, Doppler spectral analysis, color flow Doppler imaging and compression. COMPARISON: No relevant prior studies available. FINDINGS: Right deep veins: No DVT in the visualized right external iliac, common femoral, femoral, proximal deep femoral or popliteal veins. The veins demonstrate normal color flow, are normally compressible, with normal phasic flow and/or augmentation response. Right superficial veins: No thrombus in the visualized right great saphenous vein. Left deep veins: Incomplete compressibility and diminished/absent spectral waveforms in the visualized external iliac and common femoral veins concerning for acute DVT. No DVT visualized in the femoral vein, visualized proximal deep femoral vein, popliteal vein, or imaged calf veins. Left superficial veins: Superficial thrombophlebitis left great saphenous vein. Soft tissues: Left lower extremity soft tissue edema. Complex hypoechoic mass in the left inguinal region measuring 6.3 x 6.2 x 5.2 cm. IMPRESSION: 1. Findings concerning for acute DVT involving the left external iliac vein and common femoral vein. 2. Complex mass in the left groin measuring 6.3 cm. <MYCVCSECTION> Communications: 04/27/25 02:36 Verify Receipt Verified receipt with Dr. Sampson on 04/27 02:36 (-04:00)
[2025-04-27] MEDS: HYDROmorphone 1 MG/ML 1 ML SYRINGE IVP STA (02:46)
[2025-04-27] MEDS: HEPARIN SODIUM 1,000 UN/ML (10ML VL) IV ONE (02:47)
[2025-04-27] MEDS: HEPARIN SOD,PORK IN 0.45% NACL 25,000 UNIT in 0.45% NACL 1 250ML.BAG IV SCH (02:48)
[2025-04-27] MEDS: SODIUM CHLORIDE 0.9% 500 ML 500 ML IV ONE (02:49)
[2025-04-27] MEDS ORDERED: CALCIUM CARBONATE 500 MG CHEWABLE PO PRN (03:11)
[2025-04-27] MEDS ORDERED: MAG HYDROX/AL HYDROX/SIMETH 30 ML CUP PO PRN (03:11)
[2025-04-27] MEDS ORDERED: NALOXONE 0.4 MG/ML 1 ML VIAL IV PRN (03:11)
[2025-04-27] MEDS ORDERED: ACETAMINOPHEN TAB 325 MG TAB PO PRN (03:11)
[2025-04-27] MEDS: HYDROmorphone 1 MG/ML 1 ML SYRINGE IVP PRN (05:50)
--- NOTE | 2025-04-27 08:07 | P.GSCN ---
History of Present Illness Consult date: 04/27/25 History of present illness: 74 yo female with a history of metastatic colon and bladder cancer presents with weakness. SHe was found to have inflammed urine and left hydronphrosis that appears chronic. there are no stones. She is afebrile She is admitted for further evaluation and treatment. There is no history of hydronephrosis. There is no history of stones. He does have a history of superficial bladder cancer treated with resection and intravesical chemotherapy in [place] in the past. CT scan is reviewed and noted as above. Review of Systems All systems: negative - Constitutional Denies fever, Denies weight loss - EENT Eyes: denies blurred vision Ears, nose, mouth and throat: Denies dysphagia - Cardiovascular Denies chest pain, Denies shortness of breath - Respiratory Denies cough, Denies 7 - Gastrointestinal Reports as per HPI - Genitourinary Genitourinary: Denies dysuria, Denies hematuria - Integumentary Denies rash, Denies unusual bruising - Neurological Denies headaches, Denies syncope - Hematologic/Lymphatic Denies easy bleeding, Denies easy bruising Past Medical History Past Medical History: Cancer Additional Past Medical History / Comment(s): colon cancer, hx bladder cancer, prolapse mitral valve, chemo 08/27/2023 History of Any Multi-Drug Resistant Organisms: None Reported Past Surgical History: Bowel Resection, Hysterectomy Additional Past Surgical History / Comment(s): tubal , Bowel resection with colstomy 2019 and revision of ostomy Dec 2022. Laparoscopy and decompression of hernia February 2024. Past Anesthesia/Blood Transfusion Reactions: No Reported Reaction Past Psychological History: Anxiety Smoking Status: Former smoker - Past Family History Mother History Unknown: Yes Father Family Medical History: Chest Pain / Angina Additional Family Medical History / Comment(s): Colon cancer Medications and Allergies Home Medications Medication Instructions Recorded Confirmed Type ALPRAZolam [Xanax] 0.25 mg PO HS PRN 07/15/23 02/11/25 History HYDROcodone/APAP 7.5-325MG [[place] 1 tab PO Q6H 07/15/23 02/11/25 History 7.5-325] Apixaban [Eliquis] 5 mg PO BID 08/30/23 02/11/25 History Gabapentin [Neurontin] 100 mg PO BID PRN 02/25/24 02/11/25 History Prochlorperazine Maleate 10 mg PO Q6H PRN 02/25/24 02/11/25 History Fluorouracil Infusion 1 dose IV Q14D 08/29/24 02/11/25 History Leucovorin Infusion 1 dose IV Q14D 08/29/24 02/11/25 History Oxaliplatin [Eloxatin] 1 dose IV Q14D 08/29/24 02/11/25 History Famotidine [Pepcid] 20 mg PO DAILY 7 Days #7 tab 09/01/24 02/11/25 Rx Ondansetron [Zofran] 4 mg PO Q12HR PRN 5 Days #10 tab 09/01/24 02/11/25 Rx Allergies Allergy/AdvReac Type Severity Reaction Status Date / Time bee venom protein (honey bee) Allergy Swelling Verified 04/26/25 22:52 Penicillins Allergy Rash/Hives Verified 04/26/25 22:52 poison mookie extract Allergy Rash/Hives Verified 04/26/25 22:52 Surgical - Exam Vital Signs Temp Pulse Resp BP Pulse Ox 98.3 F 89 18 132/83 99 04/26/25 22:49 04/26/25 22:49 04/26/25 22:49 04/26/25 22:49 04/26/25 22:49 - General well developed, well nourished, no distress - Eyes normal ocular movement, no icteric - ENT no hearing loss, no congestion - Neck no masses, trachea midline - Respiratory normal respiratory effort, clear to auscultation - Abdomen Abdomen: soft, non tender, no guarding, no rigid, no rebound - Integumentary no rash, no abnormal pigmentation - Neurologic no disoriented, no combative - Psychiatric oriented to time, oriented to person, oriented to place, speech is normal, memory intact Results - Labs 04/26/25 23:34 04/26/25 23:34 Abnormal Lab Results - Last 24 Hours (Table) 04/26/25 04/26/25 04/26/25 Range/Units 23:34 23:34 23:34 WBC 13.12 H (4.50-10.00) 10*3/uL RBC 3.20 L (4.10-5.20) 10*6/uL Hgb 8.4 L (12.0-15.0) g/dL Hct 27.0 L (37.2-46.3) % MCH 26.3 L (27.0-32.0) pg MCHC 31.1 L (32.0-37.0) g/dL Plt Count 455 H (140-440) 10*3/uL MPV 8.8 L (9.5-12.2) fL Immature Gran # 0.23 H (0.00-0.04) 10*3/uL Neutrophils # 10.70 H (1.80-7.70) 10*3/uL Monocytes # 1.02 H (0.20-1.00) 10*3/uL APTT 21.8 L (22.0-30.0) sec Sodium 135 L (137-145) mmol/L Creatinine 1.35 H (0.52-1.04) mg/dL Glucose 106 H (74-99) mg/dL Plasma Lactic Acid Merrill (0.7-2.0) mmol/L Total Protein 5.5 L (6.3-8.2) g/dL Albumin 3.1 L (3.5-5.0) g/dL Urine Appearance (Clear) Urine Protein (Negative) Urine Blood (Negative) Ur Leukocyte Esterase (Negative) Urine RBC (0-5) /hpf Urine WBC (0-5) /hpf Urine WBC Clumps (None) /hpf Urine Bacteria (None) /hpf Urine Mucus (None) /hpf 04/26/25 04/26/25 Range/Units 23:34 23:41 WBC (4.50-10.00) 10*3/uL RBC (4.10-5.20) 10*6/uL Hgb (12.0-15.0) g/dL Hct (37.2-46.3) % MCH (27.0-32.0) pg MCHC (32.0-37.0) g/dL Plt Count (140-440) 10*3/uL MPV (9.5-12.2) fL Immature Gran # (0.00-0.04) 10*3/uL Neutrophils # (1.80-7.70) 10*3/uL Monocytes # (0.20-1.00) 10*3/uL APTT (22.0-30.0) sec Sodium (137-145) mmol/L Creatinine (0.52-1.04) mg/dL Glucose (74-99) mg/dL Plasma Lactic Acid Merrill 2.5 H* (0.7-2.0) mmol/L Total Protein (6.3-8.2) g/dL Albumin (3.5-5.0) g/dL Urine Appearance Cloudy H (Clear) Urine Protein 1+ H (Negative) Urine Blood Large H (Negative) Ur Leukocyte Esterase Large H (Negative) Urine RBC 74 H (0-5) /hpf Urine WBC >182 H (0-5) /hpf Urine WBC Clumps Few H (None) /hpf Urine Bacteria Occasional H (None) /hpf Urine Mucus Rare H (None) /hpf Diabetes panel 04/26/25 Range/Units 23:34 Sodium 135 L (137-145) mmol/L Potassium 3.5 (3.5-5.1) mmol/L Chloride 103 (98-107) mmol/L Carbon Dioxide 22 (22-30) mmol/L BUN 15 (7-17) mg/dL Creatinine 1.35 H (0.52-1.04) mg/dL Glucose 106 H (74-99) mg/dL Calcium 8.4 (8.4-10.2) mg/dL AST 19 (14-36) U/L ALT 9 (4-34) U/L Alkaline Phosphatase 78 (38-126) U/L Total Protein 5.5 L (6.3-8.2) g/dL Albumin 3.1 L (3.5-5.0) g/dL Calcium panel 04/26/25 Range/Units 23:34 Calcium 8.4 (8.4-10.2) mg/dL Albumin 3.1 L (3.5-5.0) g/dL Pituitary panel 04/26/25 Range/Units 23:34 Sodium 135 L (137-145) mmol/L Potassium 3.5 (3.5-5.1) mmol/L Chloride 103 (98-107) mmol/L Carbon Dioxide 22 (22-30) mmol/L BUN 15 (7-17) mg/dL Creatinine 1.35 H (0.52-1.04) mg/dL Glucose 106 H (74-99) mg/dL Calcium 8.4 (8.4-10.2) mg/dL Adrenal panel 04/26/25 Range/Units 23:34 Sodium 135 L (137-145) mmol/L Potassium 3.5 (3.5-5.1) mmol/L Chloride 103 (98-107) mmol/L Carbon Dioxide 22 (22-30) mmol/L BUN 15 (7-17) mg/dL Creatinine 1.35 H (0.52-1.04) mg/dL Glucose 106 H (74-99) mg/dL Calcium 8.4 (8.4-10.2) mg/dL Total Bilirubin 0.2 (0.2-1.3) mg/dL AST 19 (14-36) U/L ALT 9 (4-34) U/L Alkaline Phosphatase 78 (38-126) U/L Total Protein 5.5 L (6.3-8.2) g/dL Albumin 3.1 L (3.5-5.0) g/dL - Imaging CT scan - abdomen: report reviewed, image reviewed CT scan - pelvis: report reviewed, image reviewed Assessment and Plan Assessment: impression: left hydroureteronephrosis. Metastatic colon cancer. History of bladder ca, superficial treated with resection and intravesical chemotherapy about 5 years ago in [place]. Recommendations: The patient due to the significant amount of hydronephrosis needs a stent. The hydronephrosis was probably due to the metastatic colon cancer. This will be done today or tomorrow. Time with Patient: Greater than 30
[2025-04-27] MEDS: FAMOTIDINE 20 MG TAB PO SCH (08:45)
[2025-04-27] MEDS: HEPARIN SODIUM 1,000 UN/ML (10ML VL) IV PRN (09:20)
[2025-04-27] MEDS: SODIUM CHLORIDE 0.9% 1,000 ML IV SCH (10:23)
[2025-04-27] MEDS ORDERED: RX INFO: IV CONTRAST WAS GIVEN 1 EACH MISC MISCELLANE PRN (11:36)
--- NOTE | 2025-04-27 13:18 | P.NPCON ---
History of Present Illness - Reason for Consult acute renal failure - History of Present Illness Patient is a 74-year-old female with history of metastatic colon cancer and history of bladder cancer. She is admitted to the hospital with complaints of increased weakness and lethargy. Patient was not able to perform her activities of daily living and could barely eat or drink. She is maintained on chemo therapy. Patient did have some burning sensation while passing urine. Abdominal CT showed bilateral hydronephrosis with pelvic mass noted causing compression on the ureter. Patient has been evaluated by urology and is scheduled for stent placement. Serum creatinine was 1.35 mg/dL. Previous creatinine was 0.8 on 11/03/2024 UA is suggestive of UTI Past Medical History Past Medical History: Cancer Additional Past Medical History / Comment(s): colon cancer, hx bladder cancer, prolapse mitral valve, chemo 08/27/2023 History of Any Multi-Drug Resistant Organisms: None Reported Past Surgical History: Bowel Resection, Hysterectomy Additional Past Surgical History / Comment(s): tubal , Bowel resection with colstomy 2019 and revision of ostomy Dec 2022. Laparoscopy and decompression of hernia February 2024. Past Anesthesia/Blood Transfusion Reactions: No Reported Reaction Past Psychological History: Anxiety Smoking Status: Former smoker - Past Family History Mother History Unknown: Yes Father Family Medical History: Chest Pain / Angina Additional Family Medical History / Comment(s): Colon cancer Medications and Allergies Home Medications Medication Instructions Recorded Confirmed Type HYDROcodone/APAP 7.5-325MG [[place] 1 tab PO Q4H PRN 07/15/23 04/27/25 History 7.5-325] Apixaban [Eliquis] 5 mg PO BID 08/30/23 04/27/25 History Prochlorperazine Maleate 10 mg PO Q6H PRN 02/25/24 04/27/25 History ALPRAZolam [Xanax] 0.5 mg PO DAILY PRN 04/27/25 04/27/25 History Ciprofloxacin HCl [Cipro] 500 mg PO Q12HR 04/27/25 04/27/25 History Sennosides [Senokot] 17.2 mg PO HS 04/27/25 04/27/25 History Xeloda 500mg 1,000 - 1,500 mg PO DIRECTED 04/27/25 04/27/25 History dexAMETHasone [Decadron] 4 mg PO DAILY 04/27/25 04/27/25 History Allergies Allergy/AdvReac Type Severity Reaction Status Date / Time bee venom protein (honey bee) Allergy Swelling Verified 04/27/25 08:22 Penicillins Allergy Rash/Hives Verified 04/27/25 08:22 poison mookie extract Allergy Rash/Hives Verified 04/27/25 08:22 Physical Exam Vitals: Vital Signs Temp Pulse Resp BP Pulse Ox 04/27/25 08:35 98.3 F 90 18 109/75 100 04/27/25 06:00 98.1 F 85 17 132/96 97 04/27/25 02:50 84 17 137/86 93 L 04/27/25 01:02 79 17 100 04/27/25 00:03 96 17 124/77 100 04/26/25 22:49 98.3 F 89 18 132/83 99 Intake and Output 04/26/25 04/27/25 04/27/25 22:59 06:59 14:59 Intake Total 65.245 Balance 65.245 Intake: Intake, IV Titration 65.245 Amount Heparin Sod,Pork in 0.45% 65.245 NaCl 25,000 unit In 0.45 % NaCl 1 250ml.bag @ 18 UNITS/KG/HR 9.961 mls/hr IV .Q24H [facility] Rx#: [id number] Other: Weight 55.338 kg Patient is awake, comfortable, no acute distress Examination of the heart S1 and S2 Examination of the lungs bilateral breath sounds are heard Abdomen is soft nontender, colostomy noted Examination of lower extremities shows edema bilaterally, 2+ left leg 1+ right leg [employer] exam grossly intact Results - Lab Results Most recent lab results Calcium 8.4 mg/dL (8.4-10.2) 04/26/25 23:34 04/26/25 23:34 04/26/25 23:34 Assessment and Plan Assessment: 1. Acute kidney injury secondary to obstructive uropathy from pelvic mass causing ureteral obstruction. UA suggestive of UTI. Patient has been seen by urology and is scheduled scheduled for stent placement. 2. UTI maintained on antibiotics, urine culture is pending 3. History of metastatic colon cancer 4. History of bladder cancer status post resection and intravesical chemotherapy 5. Left common femoral vein and external iliac vein acute DVT maintained on IV heparin Plan: Continue with IV fluids and IV antibiotics Repeat labs in a.m. Avoid nephrotoxic agents. Thank you for the consultation. Will continue to follow the patient with you during her hospitalization.
--- NOTE | 2025-04-27 15:23 | P.HPIM ---
History of Present Illness H&P Date: 04/27/25 Patient is a 74-year-old female with history of colon cancer (on Xelota), bladder cancer, anxiety, prior DVT on Eliquis here for generalized weakness. Patient reported that she has been treated for UTI about 1 week now with ciprofloxacin p.o. She has been taking her meds as prescribed. Her symptoms were improving until admission day 04/26 when she was experiencing worsening burning and urethral discomfort. She also reported worsening lower abdominal pain that has been chronic but worse than usual. She also reported feeling lethargic throughout the day and worsening bilateral lower extremity swelling that started 2 weeks ago and back pain that was intermittent but sharp nonradiating improved with massaging or kneading. Denied chest pain, shortness of breath, palpitations, focal weakness, vision changes, speech changes, bleeding or bruising, recent trauma or recent fall. On admission: Vitals: Temp 98.3, CT 89, RR 18, BP 132/83, O2 saturation 99% on room air Labs: WBC 13.1, hemoglobin 8.4, platelet count 4 55,000, sodium 135, potassium 3.5, chloride 103, bicarb 22, BUN 15, creatinine 1.3, glucose 106, lactic acid 2.5, calcium 8.4, amylase 42, lipase 124. Liver enzymes within normal limits. Albumin 3.1. Urinalysis shows +1 protein, cloudy appearance, large blood, negative ketones, negative glucose, negative nitrites, large leukocyte [place], WBC greater than 182, RBC 74, occasional bacteria, rare mucus.. Imaging: CT abdomen pelvis without contrast showed known right lower quadrant diverting ileostomy and large parastomal hernia, ill-defined 10 cm lobular heterogenous mass in the left lower pelvis that is known on prior imaging, gas within partially distended urinary bladder, new bilateral hydroureteronephrosis, new ill-defined liver lesions largest in the right hepatic lobe 1.7 cm, ill- defined retroperitoneal adenopathy, mesenteric adenopathy. Venous Doppler study showed acute DVT involving left external iliac vein and common femoral vein. Complex mass in the left groin measuring 6.3 cm. ED documentation reviewed Review of systems: Pertinent positives and negatives as discussed in HPI, a complete review of systems was performed and all other systems are negative. Physical examination: Vital signs reviewed General: non toxic, no distress, appears at stated age, on room air Derm: no unusual rashes/lesions, warm Head: atraumatic, normocephalic, symmetric Eyes: EOMI, anicteric sclera, pupils equal round reactive to light ENT: Nose and ears atraumatic Neck: No cervical lymphadenopathy, trachea midline, supple Mouth: no lip lesion, mucus membranes moist Cardiovascular: S1S2 reg, no murmur Lungs: CTA bilateral, no rhonchi, no rales, no accessory muscle use Abdominal: soft, nondistended, no guarding, colostomy bag on RLQ noted, tend erness at right lower quadrant Ext: muscle strength 5 out of 5 in all 4 extremities grossly, no gross muscle atrophy, no contractures, positive dorsalis pedis pulse bilateral, bilateral +2 lower extremity edema Neuro: CN II-XI grossly intact, no gross focal neuro deficits Psych: Alert and oriented x 3, appropriate affect and mood Assessment/Plan: The patient is admitted with an anticipated greater than 2 midnight stay for evaluation of GABRIEL with bilateral hydroureteronephrosis Active: #. GABRIEL secondary to UTI #. Bilateral hydroureteronephrosis secondary to above -BUN 15, creatinine 1.3 -New bilateral hydroureteronephrosis -Monitor UO -Avoid nephrotoxic agents -IV Cefepime for empiric coverage -IVF 0.9 normal saline 70 cc/h -Bladder scan -Urine and blood cultures pending -Urology consulted. Planned for stent palcement tomorrow #. Left external iliac vein and common femoral vein DVT, provoked #. Prior DVT Venous Doppler study showed acute DVT involving left external iliac vein and common femoral vein On home Eliquis PO and held. On heparin drip initiated in the ED. Will transition to p.o. Eliquis tomorrow #. History of bladder cancer #. History of colon cancer #. New liver lesions, concerning for metastasis New ill-defined liver lesions largest in the right hepatic lobe 1.7 cm Continue with pain control with PO [place] and IV Dilaudid [place] for cancer-related constipation Oncology consulted for progression of cancer Chronic Conditions: #. Anxiety -Continue home xanax DVT ppx: Heparin drip CODE STATUS: Full Discussed with: Patient Anticipated discharge place: home Rebekah Kingsley MD PGY-1 Internal Medicine Dictation was produced using [employer] software dictation software. please excuse any grammatical, word or spelling errors. Past Medical History Past Medical History: Cancer Additional Past Medical History / Comment(s): colon cancer, hx bladder cancer, prolapse mitral valve, chemo 08/27/2023 History of Any Multi-Drug Resistant Organisms: None Reported Past Surgical History: Bowel Resection, Hysterectomy Additional Past Surgical History / Comment(s): tubal , Bowel resection with colstomy 2019 and revision of ostomy Dec 2022. Laparoscopy and decompression of hernia February 2024. Past Anesthesia/Blood Transfusion Reactions: No Reported Reaction Past Psychological History: Anxiety Smoking Status: Former smoker - Past Family History Mother History Unknown: Yes Father Family Medical History: Chest Pain / Angina Additional Family Medical History / Comment(s): Colon cancer Medications and Allergies Home Medications Medication Instructions Recorded Confirmed Type HYDROcodone/APAP 7.5-325MG [[place] 1 tab PO Q4H PRN 07/15/23 04/27/25 History 7.5-325] Apixaban [Eliquis] 5 mg PO BID 08/30/23 04/27/25 History Prochlorperazine Maleate 10 mg PO Q6H PRN 02/25/24 04/27/25 History ALPRAZolam [Xanax] 0.5 mg PO DAILY PRN 04/27/25 04/27/25 History Ciprofloxacin HCl [Cipro] 500 mg PO Q12HR 04/27/25 04/27/25 History Sennosides [Senokot] 17.2 mg PO HS 04/27/25 04/27/25 History Xeloda 500mg 1,000 - 1,500 mg PO DIRECTED 04/27/25 04/27/25 History dexAMETHasone [Decadron] 4 mg PO DAILY 04/27/25 04/27/25 History Allergies Allergy/AdvReac Type Severity Reaction Status Date / Time bee venom protein (honey bee) Allergy Swelling Verified 04/27/25 08:22 Penicillins Allergy Rash/Hives Verified 04/27/25 08:22 poison mookie extract Allergy Rash/Hives Verified 04/27/25 08:22 Physical Exam Vitals: Vital Signs Temp Pulse Resp BP Pulse Ox 04/27/25 06:00 98.1 F 85 17 132/96 97 04/27/25 02:50 84 17 137/86 93 L 04/27/25 01:02 79 17 100 04/27/25 00:03 96 17 124/77 100 04/26/25 22:49 98.3 F 89 18 132/83 99 Intake and Output 04/26/25 04/27/25 04/27/25 22:59 06:59 14:59 Other: Weight 55.338 kg Results CBC & Chem 7: 04/26/25 23:34 04/26/25 23:34 Labs: Abnormal Lab Results - Last 24 Hours (Table) 04/26/25 04/26/25 04/26/25 Range/Units 23:34 23:34 23:34 WBC 13.12 H (4.50-10.00) 10*3/uL RBC 3.20 L (4.10-5.20) 10*6/uL Hgb 8.4 L (12.0-15.0) g/dL Hct 27.0 L (37.2-46.3) % MCH 26.3 L (27.0-32.0) pg MCHC 31.1 L (32.0-37.0) g/dL Plt Count 455 H (140-440) 10*3/uL MPV 8.8 L (9.5-12.2) fL Immature Gran # 0.23 H (0.00-0.04) 10*3/uL Neutrophils # 10.70 H (1.80-7.70) 10*3/uL Monocytes # 1.02 H (0.20-1.00) 10*3/uL APTT 21.8 L (22.0-30.0) sec Sodium 135 L (137-145) mmol/L Creatinine 1.35 H (0.52-1.04) mg/dL Glucose 106 H (74-99) mg/dL Plasma Lactic Acid [place] (0.7-2.0) mmol/L Total Protein 5.5 L (6.3-8.2) g/dL Albumin 3.1 L (3.5-5.0) g/dL Urine Appearance (Clear) Urine Protein (Negative) Urine Blood (Negative) Ur Leukocyte Esterase (Negative) Urine RBC (0-5) /hpf Urine WBC (0-5) /hpf Urine WBC Clumps (None) /hpf Urine Bacteria (None) /hpf Urine Mucus (None) /hpf 04/26/25 04/26/25 Range/Units 23:34 23:41 WBC (4.50-10.00) 10*3/uL RBC (4.10-5.20) 10*6/uL Hgb (12.0-15.0) g/dL Hct (37.2-46.3) % MCH (27.0-32.0) pg MCHC (32.0-37.0) g/dL Plt Count (140-440) 10*3/uL MPV (9.5-12.2) fL Immature Gran # (0.00-0.04) 10*3/uL Neutrophils # (1.80-7.70) 10*3/uL Monocytes # (0.20-1.00) 10*3/uL APTT (22.0-30.0) sec Sodium (137-145) mmol/L Creatinine (0.52-1.04) mg/dL Glucose (74-99) mg/dL Plasma Lactic Acid [place] 2.5 H* (0.7-2.0) mmol/L Total Protein (6.3-8.2) g/dL Albumin (3.5-5.0) g/dL Urine Appearance Cloudy H (Clear) Urine Protein 1+ H (Negative) Urine Blood Large H (Negative) Ur Leukocyte Esterase Large H (Negative) Urine RBC 74 H (0-5) /hpf Urine WBC >182 H (0-5) /hpf Urine WBC Clumps Few H (None) /hpf Urine Bacteria Occasional H (None) /hpf Urine Mucus Rare H (None) /hpf
--- NOTE | 2025-04-27 15:25 | P.CONS ---
History of Present Illness - Reason for Consult Consult date: 04/27/25 Colon adenocarcinoma Requesting physician: April Sampson - Chief Complaint LLE swelling, weakness - History of Present Illness Mrs. Howe is a pleasant 74-year-old patient of Dr. 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 She presented with cramps and diarrhea. CT showed sigmoid mass, also a bladder mass. In November 2019 she had a bowel obstruction, ended up with partial colon resection and colostomy. She was started on adjuvant chemotherapy but, decided to stop it due to poor tolerance. She moved on to take care of the bladder mass, underwent TURBT 01/13/2020 which showed an invasive, high-grade papillary urothelial carcinoma in vading lamina propria. She had intravesical treatment and states she was told that her bladder cancer was cured. She did not seek medical attention again until October 2022 when she presented with abdominal pain, recurrent bowel obstruction. 12/28/2022 CT-guided biopsy of left lower quadrant abdominal mass, positive for metastatic adenocarcinoma consistent with colon primary. She had another exploratory surgery December 2022 with lysis of adhesions and a small bowel bypass. PET scan 04/01/2023 revealed left anterior pelvic mass, numerous chronic FDG avid masses in the pelvis measuring up to 4.6 cm, retroperitoneal and periaortic nodes and a left inguinal node. Patient had a prolonged period of recovery. She was unable to start any chemotherapy because of transportation issues as well as family issues. All of the above was done in [place], which was closer to her home at that time. She went to [facility] in June 2023, PET scan revealed left anterior pelvic mass, multiple enlarged retroperitoneal and periaortic lymph nodes. She was admitted to [facility] 07/07/2023 for extensive subclavian vein thrombosis, IJ thrombosis and removal of an old port. She met with Dr Jay and recommended treatment with PANDA regimen (with xeloda instead on 5FU to avoid port placement at this time) and vectibix. Her disease is HERMAN wide type, EUGENE and HER2/RAHEEM negative. She was first seen by Dr. Condon 07/19/2023 to establish care closer to home. She started treatment with Vectibix and oral Xeloda 08/13/2023. She did well on treatment and follow-up scans until 07/21/[address] showed evidence of disease progression. She started FL OX regimen 07/28/2024, stopped per patient request 08/18/2024. 11/03/2024 CT CAP showed evidence of disease progression. Patient was referred for port placement however she declined. Patient did not want IV chemotherapy. She wanted to retry Xeloda, this was resumed in December 2024. She was recently seen by Dr. Condon with treatment follow-up scans ordered in the near future. Patient is reporting that she came to the hospital because of lower extremity swelling, left lower quadrant pain that was persistent, she was also having extreme get difficulty staying awake. She is found to have a DVT in the left lower extremity, started on heparin. The left lower quadrant pain is dull, and unbearable at times. She does have pain meds at home and most of the time it does help but, it was no longer doing so. She was also found to have hydronephrosis, she has been assessed by urology, plans for stent tomorrow. She had CT AP performed reporting new ill-defined liver lesions, mesenteric adenopathy similar/mildly increased, ureteral obstruction from pelvic mass, increase in size of mass in the left lower quadrant/left pelvis. Bilateral lower extremity Doppler reporting no DVT in the right lower extremity. Left lower extremity reporting superficial thrombophlebitis left greater saphenous vein, external iliac and common femoral veins showing incomplete compressibility and diminished/absent spectral waveforms suggestive of DVT. Patient's white blood cell count is mildly elevated at 13.1, moderate anemia with a hemoglobin of 8.4, platelet count 455,000. IV iron given in the office about 3 weeks ago. Patient reports concerns for her general decline in health. She does live alone, no significant social support. She states that [facility] lacks Senior resources as well. Review of Systems 10 point review of systems is negative except as stated in HPI Past Medical History Past Medical History: Cancer Additional Past Medical History / Comment(s): colon cancer, hx bladder cancer, prolapse mitral valve, chemo 08/27/2023 History of Any Multi-Drug Resistant Organisms: None Reported Past Surgical History: Bowel Resection, Hysterectomy Additional Past Surgical History / Comment(s): tubal , Bowel resection with colstomy 2019 and revision of ostomy Dec 2022. Laparoscopy and decompression of hernia February 2024. Past Anesthesia/Blood Transfusion Reactions: No Reported Reaction Past Psychological History: Anxiety Smoking Status: Former smoker - Past Family History Mother History Unknown: Yes Father Family Medical History: Chest Pain / Angina Additional Family Medical History / Comment(s): Colon cancer Medications and Allergies Home Medications Medication Instructions Recorded Confirmed Type HYDROcodone/APAP 7.5-325MG [[facility] 1 tab PO Q4H PRN 07/15/23 04/27/25 History 7.5-325] Apixaban [Eliquis] 5 mg PO BID 08/30/23 04/27/25 History Prochlorperazine Maleate 10 mg PO Q6H PRN 02/25/24 04/27/25 History ALPRAZolam [Xanax] 0.5 mg PO DAILY PRN 04/27/25 04/27/25 History Ciprofloxacin HCl [Cipro] 500 mg PO Q12HR 04/27/25 04/27/25 History Sennosides [Senokot] 17.2 mg PO HS 04/27/25 04/27/25 History Xeloda 500mg 1,000 - 1,500 mg PO DIRECTED 04/27/25 04/27/25 History dexAMETHasone [Decadron] 4 mg PO DAILY 04/27/25 04/27/25 History Allergies Allergy/AdvReac Type Severity Reaction Status Date / Time bee venom protein (honey bee) Allergy Swelling Verified 04/27/25 08:22 Penicillins Allergy Rash/Hives Verified 04/27/25 08:22 poison mookie extract Allergy Rash/Hives Verified 04/27/25 08:22 Physical Exam Vitals: Vital Signs Temp Pulse Resp BP Pulse Ox 04/27/25 08:35 98.3 F 90 18 109/75 100 04/27/25 06:00 98.1 F 85 17 132/96 97 04/27/25 02:50 84 17 137/86 93 L 04/27/25 01:02 79 17 100 04/27/25 00:03 96 17 124/77 100 04/26/25 22:49 98.3 F 89 18 132/83 99 Intake and Output 04/26/25 04/27/25 04/27/25 22:59 06:59 14:59 Other: Weight 55.338 kg - Constitutional General appearance: average body habitus, cooperative, no acute distress - EENT Eyes: anicteric sclerae, EOMI ENT: hearing grossly normal, normal oropharynx - Neck Neck: lymphadenopathy - Respiratory Respiratory: bilateral: CTA - Cardiovascular Rhythm: regular Heart sounds: normal: S1, S2 Abnormal Heart Sounds: no systolic murmur, no diastolic murmur, no rub, no S3 Gallop, no S4 Gallop, no click, no other leg Peripheral Edema: right: 1+, left: 3+ - Gastrointestinal ostomy with yellow, semi solid stool, hernia lateral to the left of ostomy LLQ palpable mass General gastrointestinal: soft - Neurologic Neurologic: CNII-XII intact - Musculoskeletal Musculoskeletal: generalized weakness - Psychiatric Psychiatric: A&O x's 3, appropriate affect, intact judgment & insight Results CBC & Chem 7: 04/26/25 23:34 04/26/25 23:34 Labs: Abnormal Lab Results - Last 24 Hours (Table) 04/26/25 04/26/25 04/26/25 Range/Units 23:34 23:34 23:34 WBC 13.12 H (4.50-10.00) 10*3/uL RBC 3.20 L (4.10-5.20) 10*6/uL Hgb 8.4 L (12.0-15.0) g/dL Hct 27.0 L (37.2-46.3) % MCH 26.3 L (27.0-32.0) pg MCHC 31.1 L (32.0-37.0) g/dL Plt Count 455 H (140-440) 10*3/uL MPV 8.8 L (9.5-12.2) fL Immature Gran # 0.23 H (0.00-0.04) 10*3/uL Neutrophils # 10.70 H (1.80-7.70) 10*3/uL Monocytes # 1.02 H (0.20-1.00) 10*3/uL APTT 21.8 L (22.0-30.0) sec Sodium 135 L (137-145) mmol/L Creatinine 1.35 H (0.52-1.04) mg/dL Glucose 106 H (74-99) mg/dL Plasma Lactic Acid Merrill (0.7-2.0) mmol/L Total Protein 5.5 L (6.3-8.2) g/dL Albumin 3.1 L (3.5-5.0) g/dL Urine Appearance (Clear) Urine Protein (Negative) Urine Blood (Negative) Ur Leukocyte Esterase (Negative) Urine RBC (0-5) /hpf Urine WBC (0-5) /hpf Urine WBC Clumps (None) /hpf Urine Bacteria (None) /hpf Urine Mucus (None) /hpf 04/26/25 04/26/25 04/27/25 Range/Units 23:34 23:41 07:57 WBC (4.50-10.00) 10*3/uL RBC (4.10-5.20) 10*6/uL Hgb (12.0-15.0) g/dL Hct (37.2-46.3) % MCH (27.0-32.0) pg MCHC (32.0-37.0) g/dL Plt Count (140-440) 10*3/uL MPV (9.5-12.2) fL Immature Gran # (0.00-0.04) 10*3/uL Neutrophils # (1.80-7.70) 10*3/uL Monocytes # (0.20-1.00) 10*3/uL APTT 39.8 H (22.0-30.0) sec Sodium (137-145) mmol/L Creatinine (0.52-1.04) mg/dL Glucose (74-99) mg/dL Plasma Lactic Acid Merrill 2.5 H* (0.7-2.0) mmol/L Total Protein (6.3-8.2) g/dL Albumin (3.5-5.0) g/dL Urine Appearance Cloudy H (Clear) Urine Protein 1+ H (Negative) Urine Blood Large H (Negative) Ur Leukocyte Esterase Large H (Negative) Urine RBC 74 H (0-5) /hpf Urine WBC >182 H (0-5) /hpf Urine WBC Clumps Few H (None) /hpf Urine Bacteria Occasional H (None) /hpf Urine Mucus Rare H (None) /hpf CT scan - abdomen: report reviewed CT scan - pelvis: report reviewed Venous US: report reviewed Assessment and Plan (1) Weakness Current Visit: Yes Status: Acute Priority: High Code(s): R53.1 - WEAKNESS SNOMED Code(s): 53624764 (2) Pain of metastatic malignancy Current Visit: Yes Status: Acute Priority: High Code(s): G89.3 - NEOPLASM RELATED PAIN (ACUTE) (CHRONIC) SNOMED Code(s): 384741739 (3) History of colon cancer, stage IV Current Visit: Yes Status: Acute Priority: High Code(s): Z85.038 - PERSONAL HISTORY OF MALIGNANT NEOPLASM OF LARGE INTESTINE SNOMED Code(s): 718794225 Plan: Weakness - This is obviously very concerning for patient because she does live alone. She also does not have any significant social support. -Likely 2/2 to progressive malignancy. -For now,cont with hydration and supportive measures LLE DVT -provoked-pt has active malignancy -recommendation would be for indefinite anticoagulation at this time -Pt on heparin drip -Rx eliquis and case [facility] consult for copay verification Metastatic colon adenocarcinoma -Diagnosis and treatment as documented in HPI -Pt has struggled with treatment for some time -She is due for treatment f/u CT scans -CT AP done on admit is reporting new ill-defined liver lesions, mesenteric adenopathy similar/mildly increased, ureteral obstruction from pelvic mass, increase in size of mass in the left lower quadrant/left pelvis. Pt is aware that the scans are showing disease progression. Wants to know treatment options available. Will discuss with Dr. Condon. Will order CT chest to complete restaging. -Follow up with pt in AM Doctor attests: I performed a history and physical examination of this patient, developed impression and plan of care. Discussed with dictator. I agree with dictators note, documented as a scribe.
[2025-04-27] MEDS: CEFEPIME 2 GM in SODIUM CHLORIDE 0.9% 100 ML IVPB SCH (15:47)
[2025-04-27] MEDS: IV FLUID CONTINUATION 900 ML IV ONE (16:26)
[2025-04-27] MEDS: DEXAMETHASONE SOD PHOSPHATE 4 MG/ML 1 ML VIAL IVP STA (16:38)
[2025-04-27] MEDS: ONDANSETRON 4 MG/2 ML VIAL IVP PRN (16:40)
[2025-04-27] MEDS ORDERED: GLYCOPYRROLATE 0.2 MG/ML 2 ML VIAL ONE (16:47)
[2025-04-27] MEDS ORDERED: MIDAZOLAM 2 MG/2 ML VIAL ONE (16:47)
[2025-04-27] MEDS ORDERED: PHENYLEPHRINE 10 MG/ML VIAL ONE (16:47)
[2025-04-27] MEDS ORDERED: PROPOFOL 10 MG/ML 20 ML VIAL IV ONE (16:47)
[2025-04-27] MEDS ORDERED: fentaNYL (PF) 50 MCG/ML 2 ML AMP ONE (16:47)
--- NOTE | 2025-04-27 17:53 | P.OP ---
Date of Procedure: 04/27/25 Preoperative Diagnosis: Metastatic colon cancer, left hydronephrosis. Postoperative Diagnosis: Same, inability to identify left ureteral orifice, large tumor in bladder probably metastatic colon cancer Procedure(s) Performed: Cystoscopy, failed left retrograde pyelogram, transurethral section of tumor in bladder. Anesthesia: SHALAA Surgeon: Ti Anderson Estimated Blood Loss (ml): 50 Pathology: other (Tumor, probable metastatic colon cancer) Condition: stable Disposition: PACU Indications for Procedure: Patient comes to the operating room because of left-sided hydronephrosis. Renal insufficiency. She has the hydronephrosis assumed due to metastatic colon cancer obstructing the ureter on the left side. Description of Procedure: Patient brought to the operating suite. Given a general anesthetic. Cystoscopy Foroblique lens and 22 Burkinan sheath was performed. The bladder is very inflamed. There is a large tumor in the posterior bladder wall probably metastatic colon cancer. Both ureteral orifice ease are unable to be identified after an extensive look. I would like to resect the visible tumor to try to minimize bleeding or discomfort. With Shepard resectoscope Foroblique lens the tumor is resected from left to right from apical to distal. I evacuate the bladder tumor. The bladder tumor base is identified and bleeding is controlled. I am sure there is more tumor present. Elected not to redo any more resection for fear of creating colovesical fistula. An 18 Burkinan Segovia catheter was placed in the bladder area and clear urine is returned. Irrigate freely. The patient awakened returned recovery in good condition. Will be in the hospital postoperatively.
[2025-04-27] MEDS: SENNOSIDES 8.6 MG TAB PO SCH (20:02)
--- NOTE | 2025-04-27 20:36 | FL ---
Fluoroscopy INDICATION: Pain FINDINGS: Fluoroscopy time: 1.2 seconds. Total dose area product (DAP) in uGy*m?, mGy*cm? (or similar): 0.1463 Images obtained: 2. Images document the procedure. IMPRESSION: 1. Documentation of fluoroscopy. [facility], , 04/27/2025 8:33 PM
[2025-04-27] MEDS ORDERED: CEFEPIME 1 GM in SODIUM CHLORIDE 0.9% 50 ML IVPB SCH (21:00)
[2025-04-28 05:48] LABS: Basophils # (A) 0.03 10*3/uL (0.00-0.10); Basophils % (A) 0.2 %; HCT 27.2 % (37.2-46.3); HGB 8.5 g/dL (12.0-15.0); Lymphocytes # (A) 0.72 10*3/uL (0.90-5.00); Lymphocytes % (A) 3.7 %; MCH 26.9 pg (27.0-32.0); MCHC 31.3 g/dL (32.0-37.0); MCV 86.1 fL (80.0-97.0); Mean Platelet Volume 8.7 fL (9.5-12.2); Monocytes # (A) 1.07 10*3/uL (0.20-1.00); Monocytes % (A) 5.5 %; Neutrophils % (A) 89.7 %; Platelet Count 412 10*3/uL (140-440); RBC 3.16 10*6/uL (4.10-5.20); RDW 19.8 % (11.5-14.5); WBC 19.39 10*3/uL (4.50-10.00)
[2025-04-28 06:26] LABS: African American GFR (CKD) 46 (>60 ml/min/1.73 sqM); Anion Gap 8 mmol/L; Blood Urea Nitrogen 11 mg/dL (7-17); Calcium 8.4 mg/dL (8.4-10.2); Carbon Dioxide 21 mmol/L (22-30); Chloride 105 mmol/L (98-107); Glucose 127 mg/dL (74-99); Non-African American GFR(CKD) 40 (>60 ml/min/1.73 sqM); Potassium 4.2 mmol/L (3.5-5.1); Sodium 134 mmol/L (137-145)
[2025-04-28] MEDS: HYDROcodone/APAP 5-325MG 1 EACH TAB PO PRN (08:34)
--- NOTE | 2025-04-28 09:40 | P.PN ---
Subjective Progress Note Date: 04/28/25 The patient is in the hospital with a DVT. She has metastatic colon cancer. We are asked to see for left-sided hydronephrosis and to place a stent. Yesterday when I did endoscopy to place a stent I could not identify the left ureteral orifice however there was a large tumor on the posterior bladder wall probably metastatic colon cancer. It was resected. The patient has done well overnight. The urine is clear. From a urologic standpoint she can be started on heparin for the DVT. Objective - Vital Signs Vital signs: Vital Signs Temp 98.1 F 04/28/25 08:25 Pulse 89 04/28/25 08:25 Resp 18 04/28/25 08:25 BP 120/70 04/28/25 08:25 Pulse Ox 98 04/28/25 08:25 FiO2 Intake & Output 04/27/25 04/28/25 04/28/25 18:59 06:59 18:59 Intake Total 665.245 100 240 Output Total 3 950 Balance 662.245 -850 240 Weight 55.338 kg 55.4 kg Intake: IV 600 100 Intake, IV Titration 65.245 Amount Heparin Sod,Pork in 0.45% 65.245 NaCl 25,000 unit In 0.45 % NaCl 1 250ml.bag @ 18 UNITS/KG/HR 9.961 mls/hr IV .Q24H [facility] Rx#: [id number] Oral 240 Output: Urine 950 Estimated Blood Loss 3 Other: Voiding Method Indwelling Catheter Indwelling Catheter - Labs CBC & Chem 7: 04/28/25 05:10 04/28/25 05:10 Labs: Abnormal Lab Results - Last 24 Hours (Table) 04/27/25 04/28/25 04/28/25 Range/Units 15:20 05:10 05:10 WBC 19.39 H (4.50-10.00) 10*3/uL RBC 3.16 L (4.10-5.20) 10*6/uL Hgb 8.5 L (12.0-15.0) g/dL Hct 27.2 L (37.2-46.3) % MCH 26.9 L (27.0-32.0) pg MCHC 31.3 L (32.0-37.0) g/dL MPV 8.7 L (9.5-12.2) fL Immature Gran # 0.17 H (0.00-0.04) 10*3/uL Neutrophils # 17.40 H (1.80-7.70) 10*3/uL Lymphocytes # 0.72 L (0.90-5.00) 10*3/uL Monocytes # 1.07 H (0.20-1.00) 10*3/uL Eosinophils # 0.00 L (0.04-0.35) 10*3/uL APTT 46.2 H (22.0-30.0) sec Sodium 134 L (137-145) mmol/L Carbon Dioxide 21 L (22-30) mmol/L Creatinine 1.32 H (0.52-1.04) mg/dL Glucose 127 H (74-99) mg/dL Assessment and Plan Assessment: Impression: Metastatic colon cancer into the bladder. DVT. Recommendations: The Segovia catheter should remain in place for 1 week. It is okay to start anticoagulation from my standpoint I have discussed the surgical findings with the patient.
--- NOTE | 2025-04-28 11:12 | CT ---
EXAMINATION TYPE: CT chest w con DATE OF EXAM: 04/28/2025 10:46 AM COMPARISON: 11/03/2024 CLINICAL INDICATION: Female, 74 years old with history of restaging of colon adenocarcinoma, on treat ment; PHH, restaging of colon adenocarcinoma, on treatment TECHNIQUE: Multiple axial images were obtained through the chest. Sagittal and coronal reformats were created for review. MIP was performed on a separate workstation. Contrast used:80 ml mL of Isovue 300 with IV Contrast (None if empty) Oral contrast used: (None if empty) CT DLP: 204 mGycm, Automated exposure control for dose reduction was used. FINDINGS: LUNGS/ PLEURA: No focal consolidation, pneumothorax or pleural effusion. AIRWAY: Patent and unremarkable. HEART: Size within normal limits. No significant coronary artery calcifications. MEDIASTINUM: No gross evidence of adenopathy. VASCULATURE: No aortic aneurysm. 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 MUSCULOSKELETAL: No acute osseous abnormalities SOFT TISSUES/LYMPH NODES: Unremarkable. LOWER NECK: No significant findings. UPPER ABDOMEN: Dilation of the left renal collecting system similar prior. This is partially visualiz ed. Adenopathy visualized in the abdomen. The aorta lymph node measuring 29 x 20 mm IMPRESSION: 1. No evidence for thoracic mass or lymphadenopathy. 2. Upper abdominal retroperitoneal lymphadenopathy as seen on prior CT partially visualized. Attenti on follow-up PET/CTs recommended. 3. Slitlike appearance of the superior vena cava which may be occluded. This would coincide with mul tiple collateral pathways of the injected contrast. Findings similar to prior 11/03/2024. [facility], , 04/28/2025 11:10 AM
[2025-04-28] MEDS: APIXABAN 5 MG TAB PO SCH (11:32)
--- NOTE | 2025-04-28 12:35 | P.PN ---
Subjective Patient is seen for follow-up for acute kidney injury, mostly obstructive uropathy status post cystoscopy today with resection of bladder tumor at the ureteral orifice on 04/27/2025 Serum creatinine remains at 1.3 Maintained on IV fluids Patient has a Segovia catheter with good urine output noted. Objective - Vital Signs Vital signs: Vital Signs Temp 98.1 F 04/28/25 08:25 Pulse 89 04/28/25 08:25 Resp 18 04/28/25 08:25 BP 120/70 04/28/25 08:25 Pulse Ox 98 04/28/25 08:25 FiO2 Intake & Output 04/27/25 04/28/25 04/28/25 18:59 06:59 18:59 Intake Total 665.245 100 240 Output Total 3 950 Balance 662.245 -850 240 Weight 55.338 kg 55.4 kg Intake: IV 600 100 Intake, IV Titration 65.245 Amount Heparin Sod,Pork in 0.45% 65.245 NaCl 25,000 unit In 0.45 % NaCl 1 250ml.bag @ 18 UNITS/KG/HR 9.961 mls/hr IV .Q24H [facility] Rx#: [id number] Oral 240 Output: Urine 950 Estimated Blood Loss 3 Other: Voiding Method Indwelling Catheter Indwelling Catheter - Exam Patient is awake, comfortable, no acute distress Examination of the heart S1 and S2 Examination of the lungs bilateral breath sounds are heard Abdomen is soft nontender, colostomy noted Examination of lower extremities shows edema bilaterally, 2+ left leg 1+ right leg [employer] exam grossly intact - Labs CBC & Chem 7: 04/28/25 05:10 04/28/25 05:10 Labs: Abnormal Lab Results - Last 24 Hours (Table) 04/27/25 04/28/25 04/28/25 Range/Units 15:20 05:10 05:10 WBC 19.39 H (4.50-10.00) 10*3/uL RBC 3.16 L (4.10-5.20) 10*6/uL Hgb 8.5 L (12.0-15.0) g/dL Hct 27.2 L (37.2-46.3) % MCH 26.9 L (27.0-32.0) pg MCHC 31.3 L (32.0-37.0) g/dL MPV 8.7 L (9.5-12.2) fL Immature Gran # 0.17 H (0.00-0.04) 10*3/uL Neutrophils # 17.40 H (1.80-7.70) 10*3/uL Lymphocytes # 0.72 L (0.90-5.00) 10*3/uL Monocytes # 1.07 H (0.20-1.00) 10*3/uL Eosinophils # 0.00 L (0.04-0.35) 10*3/uL APTT 46.2 H (22.0-30.0) sec Sodium 134 L (137-145) mmol/L Carbon Dioxide 21 L (22-30) mmol/L Creatinine 1.32 H (0.52-1.04) mg/dL Glucose 127 H (74-99) mg/dL Microbiology - Last 24 Hours (Table) 04/26/25 23:41 Urine Culture - Final Urine,Voided Assessment and Plan Assessment: 1. Acute kidney injury secondary to obstructive uropathy from pelvic mass causing ureteral obstruction. UA suggestive of UTI. Patient is being followed by urology. Status post resection of tumor at left ureteral orifice on 04/27/2025 2. Pyuria, maintained on antibiotics, urine culture was negative 3. History of metastatic colon cancer 4. History of bladder cancer status post resection and intravesical chemotherapy 5. Left common femoral vein and external iliac vein acute DVT maintained on IV heparin Plan: Continue with IV fluids Maintain follow-up with urology Repeat labs in a.m. Avoid nephrotoxic agents.
[2025-04-28 15:02] VITALS: BMI 19.7
--- NOTE | 2025-04-28 16:03 | P.PN ---
Subjective Progress Note Date: 04/28/25 Patient is a 74-year-old female with history of colon cancer (on Xeloda), bladder cancer, anxiety, prior sublcavian, and IJ DVT from a mediport on [facility] here for generalized weakness. Patient reported that she has been treated for UTI about 1 week now with ciprofloxacin p.o. She has been taking her meds as prescribed. Her symptoms were improving until admission day 04/26 when she was experiencing worsening burning and urethral discomfort. She also reported worsening lower abdominal pain that has been chronic but worse than usual. She also reported feeling lethargic throughout the day and worsening bilateral lower extremity swelling that started 2 weeks ago and back pain that was intermittent but sharp nonradiating improved with massaging or kneading. Denied chest pain, shortness of breath, palpitations, focal weakness, vision changes, speech changes, bleeding or bruising, recent trauma or recent fall. On admission: Vitals: Temp 98.3, GA 89, RR 18, BP 132/83, O2 saturation 99% on room air Labs: WBC 13.1, hemoglobin 8.4, platelet count 4 55,000, sodium 135, potassium 3.5, chloride 103, bicarb 22, BUN 15, creatinine 1.3, glucose 106, lactic acid 2.5, calcium 8.4, amylase 42, lipase 124. Liver enzymes within normal limits. Albumin 3.1. Urinalysis shows +1 protein, cloudy appearance, large blood, negative ketones, negative glucose, negative nitrites, large leukocyte Estrace, WBC greater than 182, RBC 74, occasional bacteria, rare mucus.. Imaging: CT abdomen pelvis without contrast showed known right lower quadrant diverting ileostomy and large parastomal hernia, ill-defined 10 cm lobular heterogenous mass in the left lower pelvis that is known on prior imaging, gas within partially distended urinary bladder, new bilateral hydroureteronephrosis, new ill-defined liver lesions largest in the right hepatic lobe 1.7 cm, ill- defined retroperitoneal adenopathy, mesenteric adenopathy. Venous Doppler study showed acute DVT involving left external iliac vein and common femoral vein. Complex mass in the left groin measuring 6.3 cm. 04/28/2025 patient seen and examined at bedside. Patient had cystoscopy with transurethral resection of the tumor in the bladder found on the posterior bladder wall that is likely metastatic colon cancer. Ureteral orifices were unable to be identified during the procedure. Labs: WBC 19.3, hemoglobin 8.5, platelet count 412,000, sodium 134, potassium 4.2, bicarb 21, BUN 11, creatinine 1.3, glucose 127, calcium 8.4 Review of systems: Pertinent positives and negatives as discussed in HPI, a complete review of systems was performed and all other systems are negative. Physical examination: Vital signs reviewed General: non toxic, no distress, appears at stated age, on room air Derm: no unusual rashes/lesions, warm Head: atraumatic, normocephalic, symmetric Eyes: EOMI, anicteric sclera, pupils equal round reactive to light ENT: Nose and ears atraumatic Neck: No cervical lymphadenopathy, trachea midline, supple Mouth: no lip lesion, mucus membranes moist Cardiovascular: S1S2 reg, no murmur Lungs: CTA bilateral, no rhonchi, no rales, no accessory muscle use Abdominal: soft, nondistended, no guarding, colostomy bag on RLQ noted, tenderness at right lower quadrant Ext: muscle strength 5 out of 5 in all 4 extremities grossly, no gross muscle atrophy, no contractures, positive dorsalis pedis pulse bilateral, bilateral +2 lower extremity edema Neuro: CN II-XI grossly intact, no gross focal neuro deficits Psych: Alert and oriented x 3, appropriate affect and mood Assessment/Plan: The patient is admitted with an anticipated greater than 2 midnight stay for evaluation of GABRIEL with bilateral hydroureteronephrosis Active: #. GABRIEL secondary to UTI and urinary obstruction s/p cystoscopy with transurethral resection of the tumor in the bladder #. Bilateral hydroureteronephrosis secondary to obstruction of metastatic tumor BUN 11, creatinine 1.3 New bilateral hydroureteronephrosis on imaging. Concern for metastatic lesion causing obstruction. Monitor UO Avoid nephrotoxic agents IV Cefepime for empiric coverage IVF 0.9 normal saline 100 cc/h Bladder scan Urine and blood cultures pending Urology consulted. Stent not placed due to large bladder tumor seen #. Left external iliac vein and common femoral vein DVT, provoked #. Prior Subclavian and IJV DVT Venous Doppler study showed acute DVT involving left external iliac vein and common femoral vein Heparin discontinued. Now on home Eliquis PO #. History of bladder cancer #. History of colon cancer #. New liver lesions, concerning for metastasis New ill-defined liver lesions largest in the right hepatic lobe 1.7 cm Continue with pain control with PO [place] and IV Dilaudid Sen[place]ot for cancer-related constipation Oncology consulted for progression of cancer. Planned discussion of treatment options with patient Chronic Conditions: #. Anxiety -Continue home xanax DVT ppx: Eliquis 5 mg p.o. twice daily CODE STATUS: Full Discussed with: Patient Anticipated discharge place: home Rebekah Kingsley MD PGY-1 Internal Medicine Dictation was produced using [employer] dictation software. please excuse any grammatical, word or spelling errors. Attestation: I have seen and examined this patient with my resident, assessment and plan discussed with the resident, agree with assessment and plan as written above. Dr. Stovall Objective - Vital Signs Vital signs: Vital Signs Temp 98.0 F 04/28/25 04:15 Pulse 81 04/28/25 04:15 Resp 18 04/28/25 04:15 BP 108/61 04/28/25 04:15 Pulse Ox 96 04/28/25 04:15 FiO2 Intake & Output 04/27/25 04/28/25 04/28/25 18:59 06:59 18:59 Intake Total 665.245 100 240 Output Total 3 950 Balance 662.245 -850 240 Weight 55.338 kg 55.4 kg Intake: IV 600 100 Intake, IV Titration 65.245 Amount Heparin Sod,Pork in 0.45% 65.245 NaCl 25,000 unit In 0.45 % NaCl 1 250ml.bag @ 18 UNITS/KG/HR 9.961 mls/hr IV .Q24H [facility] Rx#: [id number] Oral 240 Output: Urine 950 Estimated Blood Loss 3 Other: Voiding Method Indwelling Catheter - Labs CBC & Chem 7: 04/28/25 05:10 04/28/25 05:10 Labs: Abnormal Lab Results - Last 24 Hours (Table) 04/27/25 04/28/25 04/28/25 Range/Units 15:20 05:10 05:10 WBC 19.39 H (4.50-10.00) 10*3/uL RBC 3.16 L (4.10-5.20) 10*6/uL Hgb 8.5 L (12.0-15.0) g/dL Hct 27.2 L (37.2-46.3) % MCH 26.9 L (27.0-32.0) pg MCHC 31.3 L (32.0-37.0) g/dL MPV 8.7 L (9.5-12.2) fL Immature Gran # 0.17 H (0.00-0.04) 10*3/uL Neutrophils # 17.40 H (1.80-7.70) 10*3/uL Lymphocytes # 0.72 L (0.90-5.00) 10*3/uL Monocytes # 1.07 H (0.20-1.00) 10*3/uL Eosinophils # 0.00 L (0.04-0.35) 10*3/uL APTT 46.2 H (22.0-30.0) sec Sodium 134 L (137-145) mmol/L Carbon Dioxide 21 L (22-30) mmol/L Creatinine 1.32 H (0.52-1.04) mg/dL Glucose 127 H (74-99) mg/dL
--- NOTE | 2025-04-28 17:00 | P.PN ---
Subjective Progress Note Date: 04/28/25 Principal diagnosis: metastatic colon carcinoma In f/u today pt is sitting up in chair eating lunch. She reports LLQ pain, persistent, pain meds help, she is able to ambulate. Objective - Vital Signs Vital signs: Vital Signs Temp 98.1 F 04/28/25 08:25 Pulse 89 04/28/25 08:25 Resp 18 04/28/25 08:25 BP 120/70 04/28/25 08:25 Pulse Ox 98 04/28/25 08:25 FiO2 Intake & Output 04/27/25 04/28/25 04/28/25 18:59 06:59 18:59 Intake Total 665.245 100 240 Output Total 3 950 Balance 662.245 -850 240 Weight 55.338 kg 55.4 kg Intake: IV 600 100 Intake, IV Titration 65.245 Amount Heparin Sod,Pork in 0.45% 65.245 NaCl 25,000 unit In 0.45 % NaCl 1 250ml.bag @ 18 UNITS/KG/HR 9.961 mls/hr IV .Q24H [facility] Rx#: [id number] Oral 240 Output: Urine 950 Estimated Blood Loss 3 Other: Voiding Method Indwelling Catheter Indwelling Catheter - Constitutional General appearance: Present: average body habitus, cooperative, no acute distre ss - EENT Eyes: Present: anicteric sclerae, EOMI ENT: Present: hearing grossly normal - Respiratory Details: resp unlabored at rest - Cardiovascular Details: skin warm, well perfused - Peripheral edema leg Peripheral Edema: right: Trace, left: 2+ - Neurologic Neurologic: Present: CNII-XII intact - Musculoskeletal Musculoskeletal: Present: generalized weakness, strength equal bilaterally - Psychiatric Psychiatric: Present: A&O x's 3, appropriate affect, intact judgment & insight - Labs CBC & Chem 7: 04/28/25 05:10 04/28/25 05:10 Labs: Abnormal Lab Results - Last 24 Hours (Table) 04/27/25 04/28/25 04/28/25 Range/Units 15:20 05:10 05:10 WBC 19.39 H (4.50-10.00) 10*3/uL RBC 3.16 L (4.10-5.20) 10*6/uL Hgb 8.5 L (12.0-15.0) g/dL Hct 27.2 L (37.2-46.3) % MCH 26.9 L (27.0-32.0) pg MCHC 31.3 L (32.0-37.0) g/dL MPV 8.7 L (9.5-12.2) fL Immature Gran # 0.17 H (0.00-0.04) 10*3/uL Neutrophils # 17.40 H (1.80-7.70) 10*3/uL Lymphocytes # 0.72 L (0.90-5.00) 10*3/uL Monocytes # 1.07 H (0.20-1.00) 10*3/uL Eosinophils # 0.00 L (0.04-0.35) 10*3/uL APTT 46.2 H (22.0-30.0) sec Sodium 134 L (137-145) mmol/L Carbon Dioxide 21 L (22-30) mmol/L Creatinine 1.32 H (0.52-1.04) mg/dL Glucose 127 H (74-99) mg/dL - Imaging and Cardiology CT scan - abdomen: report reviewed CT scan - chest: report reviewed CT scan - pelvis: report reviewed operative notes reviewed Assessment and Plan (1) Weakness Current Visit: Yes Status: Acute Priority: High Code(s): R53.1 - WEAKNESS SNOMED Code(s): 68226546 (2) Acute DVT (deep venous thrombosis) Current Visit: Yes Status: Acute Priority: High Code(s): I82.409 - ACUTE EMBOLISM AND THOMBOS UNSP DEEP VN UNSP LOWER EXTREMITY SNOMED Code(s): 859338560628908 (3) History of colon cancer, stage IV Current Visit: Yes Status: Acute Priority: High Code(s): Z85.038 - PERSONAL HISTORY OF MALIGNANT NEOPLASM OF LARGE INTESTINE SNOMED Code(s): 241784899 (4) Bladder cancer Current Visit: Yes Status: Acute Priority: High Code(s): C67.9 - MALIGNANT NEOPLASM OF BLADDER, UNSPECIFIED SNOMED Code(s): 875609148 Plan: Weakness - This is obviously very concerning for patient because she does live alone. She also does not have any significant social support. -Likely 2/2 to progressive colon malignancy. This has been confirmed by recent imaging reporting disease progression. Also, Urology did cystoscopy with plan for ureteral stent for hydronephrosis and found a significant bladder tumor (pt has Hx of urothelial carcinoma, resected 2019). LLE DVT -provoked-pt has active malignancy -recommendation would be for indefinite anticoagulation at this time -Pt on heparin drip -Rx started pack eliquis and case mr consult for copay verification recommended Metastatic colon adenocarcinoma -Diagnosis and treatment as documented in consult -Pt has struggled with treatment for some time wether it be side effects, transportation, pt perceived lack of resources/community assistance -She was due for treatment f/u CT scans. CT AP done on admit reported new ill- defined liver lesions, mesenteric adenopathy similar/mildly increased, ureteral obstruction from pelvic mass, increase in size of mass in the left lower quadrant/left pelvis. CT chest done to complete restaging, no new finding. ->60 min reviewing metastatic cancer, prognosis, limited treatment options and concerns for treatment to be able to provide pt any palliation of symptoms or prolongation of life. Recommendation is for hospice. Hospice information session ordered -Pt states she would like a 2nd opinion from [facility] Dr. Jay. Spoke with rn case management who stated she can help pt with resources to get a ride to that appt. Will have staff work on this to see if we can accommodate pt wishes Hx urothelilal carcinoma 2019-surgery and intravesicular chemo -New hydronephrosis -Urology assessed pt. Cystoscopy performed for possible stent to relieve hydronephrosis. Large bladder tumor found. Pending biopsy results. If recurrent urothelial carcinoma-will make treatment of metastatic colon adenocarcinoma even more challenging. If the tumor is limited to bladder and surgery is an option, treatment for colon carcinoma would have to be held. If bladder mass is recurrent urothelial carcinoma, it would be challenging to treat 2 malignancies at the same time. Will see what results are. Will make sire Dr. Jay gets imaging and path reports. Time with Patient: Greater than 30 (>60 miin counseling and coordinating care)
[2025-04-28] MEDS: ALPRAZolam 0.25 MG TAB PO PRN (21:39)
[2025-04-29] MEDS: PHENAZOPYRIDINE 100 MG TAB PO SCH (05:09)
[2025-04-29 07:01] LABS: Basophils # (A) 0.04 10*3/uL (0.00-0.10); Basophils % (A) 0.3 %; Eosinophils # (A) 0.08 10*3/uL (0.04-0.35); Eosinophils % (A) 0.5 %; HCT 26.6 % (37.2-46.3); HGB 8.2 g/dL (12.0-15.0); Lymphocytes # (A) 0.88 10*3/uL (0.90-5.00); Lymphocytes % (A) 5.8 %; MCH 26.3 pg (27.0-32.0); MCHC 30.8 g/dL (32.0-37.0); MCV 85.3 fL (80.0-97.0); Mean Platelet Volume 8.6 fL (9.5-12.2); Monocytes # (A) 1.35 10*3/uL (0.20-1.00); Monocytes % (A) 8.8 %; Neutrophils # (A) 12.72 10*3/uL (1.80-7.70); Neutrophils % (A) 83.3 %; Platelet Count 373 10*3/uL (140-440); RBC 3.12 10*6/uL (4.10-5.20); RDW 19.7 % (11.5-14.5); WBC 15.27 10*3/uL (4.50-10.00)
[2025-04-29 07:16] LABS: African American GFR (CKD) 44 (>60 ml/min/1.73 sqM); Anion Gap 10 mmol/L; Blood Urea Nitrogen 12 mg/dL (7-17); Calcium 8.2 mg/dL (8.4-10.2); Carbon Dioxide 19 mmol/L (22-30); Chloride 103 mmol/L (98-107); Glucose 92 mg/dL (74-99); Non-African American GFR(CKD) 38 (>60 ml/min/1.73 sqM); Sodium 132 mmol/L (137-145)
[2025-04-29 10:30] VITALS: RESP 17; TEMP 98.6
[2025-04-29 12:24] VITALS: BP 124/73; PULSE 87
--- NOTE | 2025-04-29 14:25 | P.PN ---
Subjective Patient is seen for follow-up for acute kidney injury, mostly obstructive uropathy status post cystoscopy on 04/27/2025 with resection of bladder tumor at the ureteral orifice Serum creatinine remains at 1.3 Status post IV fluids Patient has a Segovia catheter with good urine output noted. Objective - Vital Signs Vital signs: Vital Signs Temp 98.6 F 04/29/25 08:00 Pulse 87 04/29/25 12:00 Resp 17 04/29/25 12:00 BP 124/73 04/29/25 12:00 Pulse Ox 97 04/29/25 12:00 FiO2 Intake & Output 04/28/25 04/29/25 04/29/25 18:59 06:59 18:59 Intake Total 960 100 Output Total 500 1950 800 Balance 460 -1850 -800 Weight 55.4 kg 56.6 kg Intake: IV 100 Sodium Chloride 0.9% 1, 100 000 ml @ 100 mls/hr IV . Q10H [facility] Rx#:[id number] Oral 960 Output: Urine 300 1950 800 Stool 200 Other: Voiding Method Indwelling Catheter Indwelling Catheter Indwelling Catheter # Voids 1 - Exam Patient is awake, comfortable, no acute distress Examination of the heart S1 and S2 Examination of the lungs bilateral breath sounds are heard Abdomen is soft nontender, colostomy noted Examination of lower extremities shows edema bilaterally, 2+ left leg 1+ right leg [employer] exam grossly intact - Labs CBC & Chem 7: 04/29/25 06:07 04/29/25 06:07 Labs: Abnormal Lab Results - Last 24 Hours (Table) 04/29/25 04/29/25 Range/Units 06:07 06:07 WBC 15.27 H (4.50-10.00) 10*3/uL RBC 3.12 L (4.10-5.20) 10*6/uL Hgb 8.2 L (12.0-15.0) g/dL Hct 26.6 L (37.2-46.3) % MCH 26.3 L (27.0-32.0) pg MCHC 30.8 L (32.0-37.0) g/dL MPV 8.6 L (9.5-12.2) fL Immature Gran # 0.20 H (0.00-0.04) 10*3/uL Neutrophils # 12.72 H (1.80-7.70) 10*3/uL Lymphocytes # 0.88 L (0.90-5.00) 10*3/uL Monocytes # 1.35 H (0.20-1.00) 10*3/uL Sodium 132 L (137-145) mmol/L Carbon Dioxide 19 L (22-30) mmol/L Creatinine 1.38 H (0.52-1.04) mg/dL Calcium 8.2 L (8.4-10.2) mg/dL Microbiology - Last 24 Hours (Table) 04/27/25 01:00 Blood Culture - Preliminary Blood 04/26/25 23:41 Urine Culture - Final Urine,Voided Assessment and Plan Assessment: 1. Acute kidney injury secondary to obstructive uropathy from pelvic mass causing ureteral obstruction. UA suggestive of UTI. Patient is being followed by urology. Status post resection of tumor at left ureteral orifice on 04/27/2025 2. Pyuria, maintained on antibiotics, urine culture was negative 3. History of metastatic colon cancer 4. History of bladder cancer status post resection and intravesical chem otherapy 5. Left common femoral vein and external iliac vein acute DVT maintained on IV heparin Plan: Maintain follow-up with urology and oncology Repeat labs in a.m. Avoid nephrotoxic agents.
--- NOTE | 2025-04-29 15:59 | P.DS ---
Providers Date of admission: 04/27/25 03:11 Attending physician: Julio Mallory MD Consults: 04/27/25 03:11 Consult Physician Urgent Consulting Provider: Reece Condon Consult Reason/Comments: progression of CA Do you want consulting provider notified?: Yes, Notify in am 04/27/25 03:19 Consult Physician Urgent Consulting Provider: Ti Anderson Consult Reason/Comments: possible ureteral obstruction due to mass Do you want consulting provider notified?: Yes, Notify in am 04/27/25 04:22 Consult Physician Urgent Consulting Provider: Rhea Bear Consult Reason/Comments: GABRIEL Do you want consulting provider notified?: Yes, Notify in am Primary care physician: [facility] Course: Hospital Course: Patient is a 74-year-old female with history of colon cancer (on Xelota), bladder cancer, anxiety, prior DVT on Eliquis here for generalized weakness. Patient reported that she has been treated for UTI about 1 week now with ciprofloxacin p.o. She has been taking her meds as prescribed. Her symptoms were improving until admission day 04/26 when she was experiencing worsening burning and urethral discomfort. She also reported worsening lower abdominal pain that has been chronic but worse than usual. She also reported feeling lethargic throughout the day and worsening bilateral lower extremity swelling that started 2 weeks ago and back pain that was intermittent but sharp n onradiating improved with massaging or kneading. Denied chest pain, shortness of breath, palpitations, focal weakness, vision changes, speech changes, bleeding or bruising, recent trauma or recent fall. On admission: Vitals: Temp 98.3, [place] 89, RR 18, BP 132/83, O2 saturation 99% on room air Labs: WBC 13.1, hemoglobin 8.4, platelet count 4 55,000, sodium 135, potassium 3.5, chloride 103, bicarb 22, BUN 15, creatinine 1.3, glucose 106, lactic acid 2.5, calcium 8.4, amylase 42, lipase 124. Liver enzymes within normal limits. Albumin 3.1. Urinalysis shows +1 protein, cloudy appearance, large blood, negative ketones, negative glucose, negative nitrites, large leukocyte Estrace, WBC greater than 182, RBC 74, occasional bacteria, rare mucus. Imaging: CT abdomen pelvis without contrast showed known right lower quadrant diverting ileostomy and large parastomal hernia, ill-defined 10 cm lobular heterogenous mass in the left lower pelvis that is known on prior imaging, gas within partially distended urinary bladder, new bilateral hydroureteronephrosis, new ill-defined liver lesions largest in the right hepatic lobe 1.7 cm, ill- defined retroperitoneal adenopathy, mesenteric adenopathy. Venous Doppler study showed acute DVT involving left external iliac vein and common femoral vein. Complex mass in the left groin measuring 6.3 cm. Patient was admitted for the evaluation of GABRIEL secondary to UTI and bilateral hydroureteronephrosis. Patient was also found to have a new left external iliac vein and common femoral vein DVT. Ordered IV fluids, IV antibiotics, urine culture and blood culture, heparin drip. Urology was consulted and plan for cystoscopy with stent placement. Heme-onc was consulted due to monitor progression of disease as there are multiple sites of metastasis. However at the time of the procedure, a bladder tumor was found on the proximal bladder wall and was excised, which is likely the source of the hydroureteronephrosis. Bladder tumor is suspected to be metastatic from the colon cancer. No complications during procedure occurred. Patient placed on a Segovia cath and urine output was monitored. Urine culture and blood cultures were negative and antibiotics were discontinued. Heparin drip was transitioned to oral Eliquis. After discussion of patient and heme-onc team, hospice and home health care consult was initiated. Patient's symptoms improved throughout hospital stay. Patient is cleared to discharge today and is given phenazopyridine and Pepcid 20 mg p.o. daily. Patient is to follow-up with urology in 1 week for Segovia catheter removal. She is also advised to follow-up with PCP and oncology on outpatient basis. Final Diagnosis: #. GABRIEL secondary to UTI and urinary obstruction s/p cystoscopy with transurethral resection of the tumor in the bladder, improved #. Bilateral hydroureteronephrosis secondary to obstruction of metastatic tumor #. Left external iliac vein and common femoral vein DVT, provoked #. Prior Subclavian and IJV DVT #. History of bladder cancer #. History of colon cancer #. New liver lesions, concerning for metastasis #. Anxiety Physical examination: Vital signs reviewed General: non toxic, no distress, appears at stated age, on room air Derm: no unusual rashes/lesions, warm Head: atraumatic, normocephalic, symmetric Eyes: EOMI, anicteric sclera, pupils equal round reactive to light ENT: Nose and ears atraumatic Neck: No cervical lymphadenopathy, trachea midline, supple Mouth: no lip lesion, mucus membranes moist Cardiovascular: S1S2 reg, no murmur Lungs: CTA bilateral, no rhonchi, no rales, no accessory muscle use Abdominal: soft, nondistended, no guarding, colostomy bag on RLQ noted Ext: muscle strength 5 out of 5 in all 4 extremities grossly, no gross muscle atrophy, no contractures, positive dorsalis pedis pulse bilateral, bilateral +1 lower extremity edema worse on right lower extremity Neuro: CN II-XI grossly intact, no gross focal neuro deficits Psych: Alert and oriented x 3, appropriate affect and mood Attestation: I have seen and examined this patient with my resident, assessment and plan discussed with the resident, agree with assessment and plan as written above. Dr. Stovall Patient Condition at Discharge: Stable Plan - Discharge Summary Discharge Rx Participant: Yes New Discharge Prescriptions: New Famotidine [Pepcid] 20 mg PO DAILY tab Phenazopyridine [Pyridium] 100 mg PO Q8H #18 tab Continue Apixaban [Eliquis] 5 mg PO BID Sennosides [Senokot] 17.2 mg PO HS ALPRAZolam [Xanax] 0.5 mg PO DAILY PRN PRN Reason: Anxiety HYDROcodone/APAP 7.5-325MG [[place] 7.5-325] 1 tab PO Q4H PRN PRN Reason: Pain Prochlorperazine Maleate 10 mg PO Q6H PRN PRN Reason: Nausea dexAMETHasone [Decadron] 4 mg PO DAILY Discontinued Ciprofloxacin HCl [Cipro] 500 mg PO Q12HR Xeloda 500mg 1,000 - 1,500 mg PO DIRECTED Discharge Medication List HYDROcodone/APAP 7.5-325MG [[place] 7.5-325] 1 tab PO Q4H PRN 07/15/23 [History] Apixaban [Eliquis] 5 mg PO BID 08/30/23 [History] Prochlorperazine Maleate 10 mg PO Q6H PRN 02/25/24 [History] ALPRAZolam [Xanax] 0.5 mg PO DAILY PRN 04/27/25 [History] Sennosides [Senokot] 17.2 mg PO HS 04/27/25 [History] dexAMETHasone [Decadron] 4 mg PO DAILY 04/27/25 [History] Famotidine [Pepcid] 20 mg PO DAILY tab 04/29/25 [Rx] Phenazopyridine [Pyridium] 100 mg PO Q8H #18 tab 04/29/25 [Rx] Follow up Appointment(s)/Referral(s): Ti Anderson MD [STAFF PHYSICIAN] - 1 Week (Office has your information and will call you to schedule ) Ti Cheema MD [Primary Care Provider] - 1-2 days (Please call to schedule follow up ) [facility] Visiting Nurse, [NON-STAFF] - (Will call you to schedule follow up appointment) Reece Condon MD [STAFF PHYSICIAN] - 05/10/25 3:30 pm Patient Instructions/Handouts: Segovia Catheter Placement and Care (DC) Activity/Diet/Wound Care/Special Instructions: For assistance with transportation to appointments - call [facility] transportation line at [phone]. They will need a 10 day notice, your name, Medicaid ID number which is:[id number], and the date/time/address of your appointment A&D Waiver program (caregiver assistance in the home); referral was started, they will follow up with you -[phone] Segovia catheter will be kept in for 1 week. Follow up with urology for catheter removal Discharge/Stand Alone Forms: Help In The Home Discharge Disposition: HOME WITH HOME HEALTH SERVICES
== END 2025-04-29 16:06 | disposition home health service (06) | DRG 854 ==
LOC: EC 22:45 → 3SCARD 04-27 03:11
PROVIDERS: ADMIT Internal Medicine; ATTEND Internal Medicine
PROC: BT1F1ZZ Fluoroscopy of Left Kidney, Ureter and Bladder using Low Osmolar Contrast (ICD-10-PCS; 2025-04-27)
PROC: 0TBB8ZZ Excision of Bladder, Via Natural or Artificial Opening Endoscopic (ICD-10-PCS; principal; 2025-04-27 17:15)
DX: A41.9 Sepsis, unspecified organism (principal); C79.11 Secondary malignant neoplasm of bladder; I82.412 Acute embolism and thrombosis of left femoral vein; I82.422 Acute embolism and thrombosis of left iliac vein; D64.9 Anemia, unspecified; N13.6 Pyonephrosis; N17.9 Acute kidney failure, unspecified; K76.89 Other specified diseases of liver; Z93.3 Colostomy status; K66.0 Peritoneal adhesions (postprocedural) (postinfection); E86.0 Dehydration; F41.9 Anxiety disorder, unspecified; G89.3 Neoplasm related pain (acute) (chronic); R59.0 Localized enlarged lymph nodes; K59.09 Other constipation; Z79.01 Long term (current) use of anticoagulants; Z79.899 Other long term (current) drug therapy; Z85.038 Personal history of other malignant neoplasm of large intestine; Z86.718 Personal history of other venous thrombosis and embolism; Z85.51 Personal history of malignant neoplasm of bladder; R53.1 Weakness; Z87.891 Personal history of nicotine dependence; Z90.710 Acquired absence of both cervix and uterus; Z92.21 Personal history of antineoplastic chemotherapy; Z87.19 Personal history of other diseases of the digestive system; Z88.0 Allergy status to penicillin; Z91.030 Bee allergy status
CPT/HCPCS: 36415; 71260; 74176; 80048; 80053; 81001; 82150; 83605; 83690; 85025; 85610; 85730; 87040; 87086; 88307; 88341; 88342; 93970; 96365; 96366; 96368; 96375; 96376; 99291

== ENCOUNTER 2025-04-29 18:02 | Observation (INO) | payer MEDICARE ==
[2025-04-29 19:39] LABS: Basophils # (A) 0.04 10*3/uL (0.00-0.10); Basophils % (A) 0.2 %; Eosinophils # (A) 0.03 10*3/uL (0.04-0.35); Eosinophils % (A) 0.2 %; HCT 28.2 % (37.2-46.3); Lymphocytes # (A) 0.87 10*3/uL (0.90-5.00); Lymphocytes % (A) 5.3 %; MCH 26.5 pg (27.0-32.0); MCHC 31.9 g/dL (32.0-37.0); MCV 82.9 fL (80.0-97.0); Mean Platelet Volume 8.7 fL (9.5-12.2); Monocytes # (A) 1.14 10*3/uL (0.20-1.00); Neutrophils # (A) 14.07 10*3/uL (1.80-7.70); Neutrophils % (A) 86.4 %; Platelet Count 363 10*3/uL (140-440); RDW 19.2 % (11.5-14.5); WBC 16.29 10*3/uL (4.50-10.00)
[2025-04-29] MEDS: HYDROmorphone 1 MG/ML 1 ML SYRINGE IVP STA (19:53)
[2025-04-29 19:54] LABS: ALT 6 U/L (4-34); AST 18 U/L (14-36); African American GFR (CKD) 53 (>60 ml/min/1.73 sqM); Albumin 3.2 g/dL (3.5-5.0); Alkaline Phosphatase 77 U/L (38-126); Anion Gap 8 mmol/L; Blood Urea Nitrogen 10 mg/dL (7-17); Calcium 8.2 mg/dL (8.4-10.2); Carbon Dioxide 21 mmol/L (22-30); Chloride 104 mmol/L (98-107); Glucose 105 mg/dL (74-99); Lipase 116 U/L (23-300); Non-African American GFR(CKD) 46 (>60 ml/min/1.73 sqM); Sodium 133 mmol/L (137-145); Total Bilirubin 0.3 mg/dL (0.2-1.3); Total Protein 5.9 g/dL (6.3-8.2)
[2025-04-29 20:03] LABS: Appearance,Urine Clear (Clear); Bacteria,Urine Rare /hpf; Bilirubin,Urine Negative (Negative); Blood,Urine Large (Negative); Color,Urine Light Brown; Glucose,Urine (UA) Negative (Negative); Ketones,Urine Negative (Negative); Leukocyte Esterase,Urine Large (Negative); Mucus,Urine Rare /hpf; Nitrite,Urine Negative (Negative); PH, Urine 5.5 (5.0-8.0); Protein,Urine Trace (Negative); RBC,Urine 20 /hpf (0-5); Specific Gravity,Urine 1.006 (1.001-1.035); Urobilinogen,Urine <2.0 mg/dL (<2.0); WBC,Urine 26 /hpf (0-5)
--- NOTE | 2025-04-29 20:40 | ED ---
Abdominal Pain HPI - General Chief Complaint: Abdominal Pain Stated Complaint: weakness Time Seen by Provider: 04/29/25 18:12 Source: patient, EMS Mode of arrival: EMS - History of Present Illness Initial Comments: 74-year-old female with past medical history of colon cancer status post colostomy, diffuse metastatic disease who presents to the emergency department after a near fall. Patient was just discharged from the hospital. States that she was at a pharmacy in [place] trying to orange picker her prescriptions. Patient felt extremely weak leaving the hospital and did not feel like she was ready. States that when she got to the pharmacy she was having difficulty ambulating. She got up to the counter where she felt her knees buckle. Patient slowly lowered herself to the ground. Patient denies any injuries from the fall. Reports that she just had surgery on her bladder and found that she has diffuse metastatic cancer. Patient takes Helen at home but states that she was not provided with any other medications for her pain and her pain has been unco ntrolled. Patient does admit that she wants a second opinion. Is considering palliative care but also understands that she may need hospice. She denies any chest pain, shortness of breath, new or different abdominal pain. No other alleviating, precipitating or modifying factors - Related Data Home Medications Medication Instructions Recorded Confirmed HYDROcodone/APAP 7.5-325MG [[place] 1 tab PO Q4H PRN 07/15/23 04/29/25 7.5-325] Apixaban [Eliquis] 5 mg PO BID 08/30/23 04/29/25 Prochlorperazine Maleate 10 mg PO Q6H PRN 02/25/24 04/29/25 ALPRAZolam [Xanax] 0.5 mg PO DAILY PRN 04/27/25 04/29/25 Sennosides [Senokot] 17.2 mg PO HS 04/27/25 04/29/25 dexAMETHasone [Decadron] 4 mg PO DAILY 04/27/25 04/29/25 Previous Rx's Medication Instructions Recorded Famotidine [Pepcid] 20 mg PO DAILY tab 04/29/25 Phenazopyridine [Pyridium] 100 mg PO Q8H #18 tab 04/29/25 Allergies Allergy/AdvReac Type Severity Reaction Status Date / Time bee venom protein (honey bee) Allergy Swelling Verified 04/29/25 20:41 Penicillins Allergy Rash/Hives Verified 04/29/25 20:41 poison mookie extract Allergy Rash/Hives Verified 04/29/25 20:41 Review of Systems ROS Statement: Those systems with pertinent positive or pertinent negative responses have been documented in the HPI. ROS Other: All systems not noted in ROS Statement are negative. Past Medical History Past Medical History: Cancer Additional Past Medical History / Comment(s): colon cancer, hx bladder cancer, prolapse mitral valve, chemo 08/27/2023, possible stomach and liver cancer pending diagnosis (04/2025) History of Any Multi-Drug Resistant Organisms: None Reported Past Surgical History: Bowel Resection, Hysterectomy Additional Past Surgical History / Comment(s): tubal , Bowel resection with colstomy 2019 and revision of ostomy Dec 2022. Laparoscopy and decompression of hernia February 2024. Cystoscopy with stent. Past Anesthesia/Blood Transfusion Reactions: No Reported Reaction Past Psychological History: Anxiety Smoking Status: Former smoker Past Alcohol Use History: None Reported Past Drug Use History: Marijuana - Past Family History Mother History Unknown: Yes Father Family Medical History: Chest Pain / Angina Additional Family Medical History / Comment(s): Colon cancer Course Vital Signs 04/29/25 04/29/25 18:06 19:57 Temperature 98.5 F Pulse Rate 86 91 Respiratory 16 17 Rate Blood Pressure 146/91 122/76 O2 Sat by Pulse 100 100 Oximetry Medical Decision Making - Medical Decision Making Was pt. sent in by a medical professional or institution (, PA, [employer], urgent care, hospital, or shelter...) When possible be specific @ -[No] Did you speak to anyone other than the patient for history (EMS, parent, family, police, friend...)? What history was obtained from this source @ -[No] Did you review nursing and triage notes (agree or disagree)? Why? @ -[I reviewed and agree with nursing and triage notes] Were old charts reviewed (outside hosp., previous admission, EMS record, old EKG, old radiological studies, urgent care reports/EKG's, shelter records)? Report findings @ -[No old charts were reviewed] Differential Diagnosis (chest pain, altered mental status, abdominal pain women, abdominal pain men, vaginal bleeding, weakness, fever, dyspnea, syncope, headache, dizziness, GI bleed, back pain, seizure, CVA, palpatations, mental health, musculoskeletal)? @ -[not applicable] EKG interpreted by me (3pts min.). @ -Yes which demonstrates sinus rhythm with a rate of 84. MI interval 175. QRS 102. QTc of 444. No acute ST segment elevations or depressions X-rays interpreted by me (1pt min.). @ -[None done] CT interpreted by me (1pt min.). @ -[None done] U/S interpreted by me (1pt. min.). @ -[None done] What testing was considered but not performed or refused? (CT, X-rays, U/S, la bs)? Why? @ -[None] What meds were considered but not given or refused? Why? @ -[None] Did you discuss the management of the patient with other professionals (professionals i.e. , PA, [employer], lab, RT, psych nurse, social media marketing manager, top installer, teacher, founder and chief executive officer, keycase assembler)? Give summary @ -[No] Was smoking cessation discussed for >3mins.? @ -[No] Was critical care preformed (if so, how long)? @ -[No] Were there social determinants of health that impacted care today? How? (Homelessness, low income, unemployed, alcoholism, drug addiction, transportation, low edu. Level, literacy, decrease access to med. care, alf, rehab)? @ -[No] Was there de-escalation of care discussed even if they declined (Discuss DNR or withdrawal of care, Hospice)? DNR status @ -[No] What co-morbidities impacted this encounter? (DM, HTN, Smoking, COPD, CAD, Cancer, CVA, ARF, Chemo, Hep., AIDS, mental health diagnosis, sleep apnea, morbid obesity)? @ -[None] Was patient admitted / discharged? Hospital course, mention meds given and route, prescriptions, significant lab abnormalities, going to OR and other pertinent info. @ -[hospital course] Undiagnosed new problem with uncertain prognosis? @ -[No] Drug Therapy requiring intensive monitoring for toxicity (Heparin, Nitro, Insulin, Cardizem)? @ -[No] Were any procedures done? @ -[No] Diagnosis/symptom? @ -[default] Acute, or Chronic, or Acute on Chronic? @ -[default] Uncomplicated (without systemic symptoms) or Complicated (systemic symptoms)? @ -[default] Side effects of treatment? @ -[No] Exacerbation, Progression, or Severe Exacerbation? @ -[No] Poses a threat to life or bodily function? How? (Chest pain, [place], [place], pneumonia, PE, COPD, DKA, ARF, appy, cholecystitis, CVA, Diverticulitis, Homicidal, Suicidal, threat to staff... and all critical care pts) @ -[No] - Lab Data Result diagrams: 04/29/25 19:31 04/29/25 19:31 Lab Results 04/29/25 04/29/25 04/29/25 Range/Units 19:31 19:31 19:31 WBC 16.29 H (4.50-10.00) 10*3/uL RBC 3.40 L (4.10-5.20) 10*6/uL Hgb 9.0 L (12.0-15.0) g/dL Hct 28.2 L (37.2-46.3) % MCV 82.9 (80.0-97.0) fL MCH 26.5 L (27.0-32.0) pg MCHC 31.9 L (32.0-37.0) g/dL Plt Count 363 (140-440) 10*3/uL MPV 8.7 L (9.5-12.2) fL Immature Gran % (Auto) 0.9 % Neutrophils % 86.4 % Lymphocytes % 5.3 % Monocytes % 7.0 % Eosinophils % 0.2 % Basophils % 0.2 % Immature Gran # 0.14 H (0.00-0.04) 10*3/uL Neutrophils # 14.07 H (1.80-7.70) 10*3/uL Lymphocytes # 0.87 L (0.90-5.00) 10*3/uL Monocytes # 1.14 H (0.20-1.00) 10*3/uL Eosinophils # 0.03 L (0.04-0.35) 10*3/uL Basophils # 0.04 (0.00-0.10) 10*3/uL Sodium 133 L (137-145) mmol/L Potassium 4.0 (3.5-5.1) mmol/L Chloride 104 (98-107) mmol/L Carbon Dioxide 21 L (22-30) mmol/L Anion Gap 8 mmol/L BUN 10 (7-17) mg/dL Creatinine 1.18 H (0.52-1.04) mg/dL Est GFR (CKD-EPI)AfAm 53 (>60 ml/min/1.73 sqM) Est GFR (CKD-EPI)NonAf 46 (>60 ml/min/1.73 sqM) Glucose 105 H (74-99) mg/dL Plasma Lactic Acid [place] 1.1 (0.7-2.0) mmol/L Calcium 8.2 L (8.4-10.2) mg/dL Total Bilirubin 0.3 (0.2-1.3) mg/dL AST 18 (14-36) U/L ALT 6 (4-34) U/L Alkaline Phosphatase 77 (38-126) U/L Total Protein 5.9 L (6.3-8.2) g/dL Albumin 3.2 L (3.5-5.0) g/dL Lipase 116 (23-300) U/L Urine Color Urine Appearance (Clear) Urine pH (5.0-8.0) Ur Specific [place] (1.001-1.035) Urine Protein (Negative) Urine Glucose (UA) (Negative) Urine Ketones (Negative) Urine Blood (Negative) Urine Nitrite (Negative) Urine Bilirubin (Negative) Urine Urobilinogen (<2.0) mg/dL Ur Leukocyte Esterase (Negative) Urine RBC (0-5) /hpf Urine WBC (0-5) /hpf Urine Bacteria (None) /hpf Urine Mucus (None) /hpf 04/29/25 Range/Units 19:51 WBC (4.50-10.00) 10*3/uL RBC (4.10-5.20) 10*6/uL Hgb (12.0-15.0) g/dL Hct (37.2-46.3) % MCV (80.0-97.0) fL MCH (27.0-32.0) pg MCHC (32.0-37.0) g/dL Plt Count (140-440) 10*3/uL MPV (9.5-12.2) fL Immature Gran % (Auto) % Neutrophils % % Lymphocytes % % Monocytes % % Eosinophils % % Basophils % % Immature Gran # (0.00-0.04) 10*3/uL Neutrophils # (1.80-7.70) 10*3/uL Lymphocytes # (0.90-5.00) 10*3/uL Monocytes # (0.20-1.00) 10*3/uL Eosinophils # (0.04-0.35) 10*3/uL Basophils # (0.00-0.10) 10*3/uL Sodium (137-145) mmol/L Potassium (3.5-5.1) mmol/L Chloride (98-107) mmol/L Carbon Dioxide (22-30) mmol/L Anion Gap mmol/L BUN (7-17) mg/dL Creatinine (0.52-1.04) mg/dL Est GFR (CKD-EPI)AfAm (>60 ml/min/1.73 sqM) Est GFR (CKD-EPI)NonAf (>60 ml/min/1.73 sqM) Glucose (74-99) mg/dL Plasma Lactic Acid [place]ill (0.7-2.0) mmol/L Calcium (8.4-10.2) mg/dL Total Bilirubin (0.2-1.3) mg/dL AST (14-36) U/L ALT (4-34) U/L Alkaline Phosphatase (38-126) U/L Total Protein (6.3-8.2) g/dL Albumin (3.5-5.0) g/dL Lipase (23-300) U/L Urine Color Light Brown Urine Appearance Clear (Clear) Urine pH 5.5 (5.0-8.0) Ur Specific [place] 1.006 (1.001-1.035) Urine Protein Trace H (Negative) Urine Glucose (UA) Negative (Negative) Urine Ketones Negative (Negative) Urine Blood Large H (Negative) Urine Nitrite Negative (Negative) Urine Bilirubin Negative (Negative) Urine Urobilinogen <2.0 (<2.0) mg/dL Ur Leukocyte Esterase Large H (Negative) Urine RBC 20 H (0-5) /hpf Urine WBC 26 H (0-5) /hpf Urine Bacteria Rare H (None) /hpf Urine Mucus Rare H (None) /hpf Disposition Clinical Impression: Weakness, Fall, Metastatic cancer Disposition: ADMITTED IP TO THIS HOSP Condition: Stable Is patient prescribed a controlled substance at d/c from ED?: No Referrals: Ti Cheema MD [Primary Care Provider] - 1-2 days Time of Disposition: 21:33 Decision to Admit Reason: Admit from EC Decision Date: 04/29/25 Decision Time: 21:33
[2025-04-29] MEDS ORDERED: NALOXONE 0.4 MG/ML 1 ML VIAL IV PRN (21:33)
[2025-04-29] MEDS ORDERED: PROCHLORPERAZINE 10 MG TAB PO PRN (21:38)
[2025-04-29] MEDS ORDERED: ALPRAZolam 0.5 MG TAB PO PRN (21:38)
[2025-04-29] MEDS: PHENAZOPYRIDINE 100 MG TAB PO SCH (22:21)
[2025-04-29] MEDS: APIXABAN 5 MG TAB PO SCH (22:21)
[2025-04-29] MEDS: HYDROcodone/APAP 7.5-325MG 1 EACH TAB PO PRN (22:22)
[2025-04-29] MEDS: SODIUM CHLORIDE 0.9% 1,000 ML IV SCH (22:23)
[2025-04-30 06:13] VITALS: RESP 18
[2025-04-30 06:52] LABS: Basophils # (A) 0.03 10*3/uL (0.00-0.10); Basophils % (A) 0.3 %; Eosinophils % (A) 0.9 %; HCT 26.9 % (37.2-46.3); HGB 8.6 g/dL (12.0-15.0); Lymphocytes # (A) 0.95 10*3/uL (0.90-5.00); Lymphocytes % (A) 8.2 %; MCH 26.6 pg (27.0-32.0); MCV 83.3 fL (80.0-97.0); Monocytes # (A) 1.21 10*3/uL (0.20-1.00); Monocytes % (A) 10.4 %; Neutrophils # (A) 9.19 10*3/uL (1.80-7.70); Neutrophils % (A) 79.3 %; Platelet Count 373 10*3/uL (140-440); RBC 3.23 10*6/uL (4.10-5.20); WBC 11.59 10*3/uL (4.50-10.00)
[2025-04-30 07:15] LABS: African American GFR (CKD) 52 (>60 ml/min/1.73 sqM); Anion Gap 8 mmol/L; Blood Urea Nitrogen 13 mg/dL (7-17); Calcium 8.5 mg/dL (8.4-10.2); Carbon Dioxide 21 mmol/L (22-30); Chloride 106 mmol/L (98-107); Glucose 100 mg/dL (74-99); Non-African American GFR(CKD) 45 (>60 ml/min/1.73 sqM); Potassium 4.2 mmol/L (3.5-5.1); Sodium 135 mmol/L (137-145)
[2025-04-30 08:03] LABS: Glucose,Whole Blood 111 mg/dL (70-110)
[2025-04-30] MEDS: FAMOTIDINE 20 MG TAB PO SCH (09:48)
[2025-04-30] MEDS: dexAMETHasone 4 MG TAB PO SCH (09:48)
[2025-04-30] MEDS: HYDROmorphone 1 MG/ML 1 ML SYRINGE IVP PRN (11:11)
[2025-04-30 12:09] LABS: Glucose,Whole Blood 133 mg/dL (70-110)
[2025-04-30 12:42] VITALS: BP 110/76; PULSE 88; TEMP 98.3
--- NOTE | 2025-04-30 14:06 | P.HPIM ---
History of Present Illness 74-year-old pleasant female with advanced metastic colon cancer, was discharged yesterday after she was treated for IVC thrombosis and DVT, patient was also treated for metastic lesion in the urinary bladder. Patient went to pepper picker her prescriptions felt weak and came back to the hospital patient did not actually fall but got self her down. Patient had any fever chills nausea vomiting patient has a Segovia catheter with clear urine. Patient presently wanted to be discharged as she believes she is ready and family is ready to take care of her and requesting home care. Regarding her cancer patient wanted to discuss her treatment options with her oncologist at [facility] before she leaves can make any additions of hospice or palliative care. REVIEW OF SYSTEMS: All other systems are negative except those mentioned in the HPI PHYSICAL EXAMINATION: GENERAL: The patient is alert and oriented x3, not in any acute distress. Well developed, well nourished. HEENT: Pupils are round and equally reacting to light. EOMI. No scleral icterus. No conjunctival pallor. Normocephalic, atraumatic. No pharyngeal erythema. No thyromegaly. CARDIOVASCULAR: S1 and S2 present. No murmurs, rubs, or gallops. PULMONARY: Chest is clear to auscultation, no wheezing or crackles. ABDOMEN: Soft, nontender, nondistended, normoactive bowel sounds. No palpable organomegaly. MUSCULOSKELETAL: No joint swelling or deformity. EXTREMITIES: No cyanosis, clubbing, or pedal edema. NEUROLOGICAL: Gross neurological examination did not reveal any focal deficits. SKIN: No rashes. Assessment and plan -Generalized weakness and fall secondary to metastatic cancer along with hospitalization patient is feeling better wanted to go home with home care patient will be discharged today - Metastatic colon cancer with mets to urinary bladder follow-up with her oncologist as an outpatient further management and overall goals of care as per her oncologist and patient -Left external iliac vein left common femoral vein DVT for which patient is on anticoagulation which will be continued Patient will be discharged with home care today Past Medical History Past Medical History: Cancer Additional Past Medical History / Comment(s): colon cancer, hx bladder cancer, prolapse mitral valve, chemo 08/27/2023, possible stomach and liver cancer pending diagnosis (04/2025) History of Any Multi-Drug Resistant Organisms: None Reported Past Surgical History: Bowel Resection, Hysterectomy Additional Past Surgical History / Comment(s): tubal , Bowel resection with colstomy 2019 and revision of ostomy Dec 2022. Laparoscopy and decompression of hernia February 2024. Cystoscopy with stent. Past Anesthesia/Blood Transfusion Reactions: No Reported Reaction Past Psychological History: Anxiety Smoking Status: Former smoker Past Alcohol Use History: None Reported Past Drug Use History: Marijuana - Past Family History Mother History Unknown: Yes Father Family Medical History: Chest Pain / Angina Additional Family Medical History / Comment(s): Colon cancer Medications and Allergies Home Medications Medication Instructions Recorded Confirmed Type HYDROcodone/APAP 7.5-325MG [[place] 1 tab PO Q4H PRN 07/15/23 04/29/25 History 7.5-325] Apixaban [Eliquis] 5 mg PO BID 08/30/23 04/29/25 History Prochlorperazine Maleate 10 mg PO Q6H PRN 02/25/24 04/29/25 History ALPRAZolam [Xanax] 0.5 mg PO DAILY PRN 04/27/25 04/29/25 History Sennosides [Senokot] 17.2 mg PO HS 04/27/25 04/29/25 History dexAMETHasone [Decadron] 4 mg PO DAILY 04/27/25 04/29/25 History Famotidine [Pepcid] 20 mg PO DAILY tab 04/29/25 04/29/25 Rx Phenazopyridine [Pyridium] 100 mg PO Q8H #18 tab 04/29/25 04/29/25 Rx Allergies Allergy/AdvReac Type Severity Reaction Status Date / Time bee venom protein (honey bee) Allergy Swelling Verified 04/29/25 20:41 Penicillins Allergy Rash/Hives Verified 04/29/25 20:41 poison mookie extract Allergy Rash/Hives Verified 04/29/25 20:41 Physical Exam Vitals: Vital Signs Temp Pulse Pulse Resp BP BP Pulse Ox 04/30/25 11:54 98.3 F 88 18 110/76 98 04/30/25 07:54 98.6 F 91 18 139/83 95 04/30/25 06:00 98.1 F 101 H 18 135/94 97 04/30/25 04:00 83 19 127/81 98 04/30/25 02:00 84 18 107/80 97 04/29/25 19:57 91 17 122/76 100 04/29/25 18:06 98.5 F 86 16 146/91 100 Intake and Output 04/29/25 04/30/25 04/30/25 22:59 06:59 14:59 Output Total 550 800 Balance -550 -800 Output: Urine 550 800 Other: Weight 55.338 kg Results CBC & Chem 7: 04/30/25 05:59 04/30/25 05:59 Labs: Abnormal Lab Results - Last 24 Hours (Table) 04/29/25 04/29/25 04/29/25 Range/Units 19:31 19:31 19:51 WBC 16.29 H (4.50-10.00) 10*3/uL RBC 3.40 L (4.10-5.20) 10*6/uL Hgb 9.0 L (12.0-15.0) g/dL Hct 28.2 L (37.2-46.3) % MCH 26.5 L (27.0-32.0) pg MCHC 31.9 L (32.0-37.0) g/dL MPV 8.7 L (9.5-12.2) fL Immature Gran # 0.14 H (0.00-0.04) 10*3/uL Neutrophils # 14.07 H (1.80-7.70) 10*3/uL Lymphocytes # 0.87 L (0.90-5.00) 10*3/uL Monocytes # 1.14 H (0.20-1.00) 10*3/uL Eosinophils # 0.03 L (0.04-0.35) 10*3/uL Sodium 133 L (137-145) mmol/L Carbon Dioxide 21 L (22-30) mmol/L Creatinine 1.18 H (0.52-1.04) mg/dL Glucose 105 H (74-99) mg/dL POC Glucose (mg/dL) (70-110) mg/dL Calcium 8.2 L (8.4-10.2) mg/dL Total Protein 5.9 L (6.3-8.2) g/dL Albumin 3.2 L (3.5-5.0) g/dL Urine Protein Trace H (Negative) Urine Blood Large H (Negative) Ur Leukocyte Esterase Large H (Negative) Urine RBC 20 H (0-5) /hpf Urine WBC 26 H (0-5) /hpf Urine Bacteria Rare H (None) /hpf Urine Mucus Rare H (None) /hpf 04/30/25 04/30/25 04/30/25 Range/Units 05:59 05:59 07:57 WBC 11.59 H (4.50-10.00) 10*3/uL RBC 3.23 L (4.10-5.20) 10*6/uL Hgb 8.6 L (12.0-15.0) g/dL Hct 26.9 L (37.2-46.3) % MCH 26.6 L (27.0-32.0) pg MCHC (32.0-37.0) g/dL MPV 9.0 L (9.5-12.2) fL Immature Gran # 0.11 H (0.00-0.04) 10*3/uL Neutrophils # 9.19 H (1.80-7.70) 10*3/uL Lymphocytes # (0.90-5.00) 10*3/uL Monocytes # 1.21 H (0.20-1.00) 10*3/uL Eosinophils # (0.04-0.35) 10*3/uL Sodium 135 L (137-145) mmol/L Carbon Dioxide 21 L (22-30) mmol/L Creatinine 1.21 H (0.52-1.04) mg/dL Glucose 100 H (74-99) mg/dL POC Glucose (mg/dL) 111 H (70-110) mg/dL Calcium (8.4-10.2) mg/dL Total Protein (6.3-8.2) g/dL Albumin (3.5-5.0) g/dL Urine Protein (Negative) Urine Blood (Negative) Ur Leukocyte Esterase (Negative) Urine RBC (0-5) /hpf Urine WBC (0-5) /hpf Urine Bacteria (None) /hpf Urine Mucus (None) /hpf 04/30/25 Range/Units 11:58 WBC (4.50-10.00) 10*3/uL RBC (4.10-5.20) 10*6/uL Hgb (12.0-15.0) g/dL Hct (37.2-46.3) % MCH (27.0-32.0) pg MCHC (32.0-37.0) g/dL MPV (9.5-12.2) fL Immature Gran # (0.00-0.04) 10*3/uL Neutrophils # (1.80-7.70) 10*3/uL Lymphocytes # (0.90-5.00) 10*3/uL Monocytes # (0.20-1.00) 10*3/uL Eosinophils # (0.04-0.35) 10*3/uL Sodium (137-145) mmol/L Carbon Dioxide (22-30) mmol/L Creatinine (0.52-1.04) mg/dL Glucose (74-99) mg/dL POC Glucose (mg/dL) 133 H (70-110) mg/dL Calcium (8.4-10.2) mg/dL Total Protein (6.3-8.2) g/dL Albumin (3.5-5.0) g/dL Urine Protein (Negative) Urine Blood (Negative) Ur Leukocyte Esterase (Negative) Urine RBC (0-5) /hpf Urine WBC (0-5) /hpf Urine Bacteria (None) /hpf Urine Mucus (None) /hpf
--- NOTE | 2025-04-30 14:07 | P.DS ---
Providers Date of admission: 04/29/25 21:35 Attending physician: Gerardo Nolan Primary care physician: [facility] Course: 74-year-old pleasant female with advanced metastic colon cancer, was discharged yesterday after she was treated for IVC thrombosis and DVT, patient was also treated for metastic lesion in the urinary bladder. Patient went to car pick up driver her prescriptions felt weak and came back to the hospital patient did not actually fall but got self her down. Patient had any fever chills nausea vomiting patient has a Segovia catheter with clear urine. Patient presently wanted to be discharged as she believes she is ready and family is ready to take care of her and requesting home care. Regarding her cancer patient wanted to discuss her treatment options with her oncologist at [facility] before she leaves can make any additions of hospice or palliative care. REVIEW OF SYSTEMS: All other systems are negative except those mentioned in the HPI PHYSICAL EXAMINATION: GENERAL: The patient is alert and oriented x3, not in any acute distress. Well developed, well nourished. HEENT: Pupils are round and equally reacting to light. EOMI. No scleral icterus. No conjunctival pallor. Normocephalic, atraumatic. No pharyngeal erythema. No thyromegaly. CARDIOVASCULAR: S1 and S2 present. No murmurs, rubs, or gallops. PULMONARY: Chest is clear to auscultation, no wheezing or crackles. ABDOMEN: Soft, nontender, nondistended, normoactive bowel sounds. No palpable organomegaly. MUSCULOSKELETAL: No joint swelling or deformity. EXTREMITIES: No cyanosis, clubbing, or pedal edema. NEUROLOGICAL: Gross neurological examination did not reveal any focal deficits. SKIN: No rashes. Assessment and plan -Generalized weakness and fall secondary to metastatic cancer along with hospitalization patient is feeling better wanted to go home with home care patient will be discharged today - Metastatic colon cancer with mets to urinary bladder follow-up with her oncologist as an outpatient further management and overall goals of care as per her oncologist and patient -Left external iliac vein left common femoral vein DVT for which patient is on anticoagulation which will be continued Patient will be discharged with home care today Patient Condition at Discharge: Stable Plan - Discharge Summary New Discharge Prescriptions: Continue Apixaban [Eliquis] 5 mg PO BID Sennosides [Senokot] 17.2 mg PO HS ALPRAZolam [Xanax] 0.5 mg PO DAILY PRN PRN Reason: Anxiety Famotidine [Pepcid] 20 mg PO DAILY tab HYDROcodone/APAP 7.5-325MG [[place] 7.5-325] 1 tab PO Q4H PRN PRN Reason: Pain Prochlorperazine Maleate 10 mg PO Q6H PRN PRN Reason: Nausea dexAMETHasone [Decadron] 4 mg PO DAILY Phenazopyridine [Pyridium] 100 mg PO Q8H #18 tab Discharge Medication List HYDROcodone/APAP 7.5-325MG [[place] 7.5-325] 1 tab PO Q4H PRN 07/15/23 [History] Apixaban [Eliquis] 5 mg PO BID 08/30/23 [History] Prochlorperazine Maleate 10 mg PO Q6H PRN 02/25/24 [History] ALPRAZolam [Xanax] 0.5 mg PO DAILY PRN 04/27/25 [History] Sennosides [Senokot] 17.2 mg PO HS 04/27/25 [History] dexAMETHasone [Decadron] 4 mg PO DAILY 04/27/25 [History] Famotidine [Pepcid] 20 mg PO DAILY tab 04/29/25 [Rx] Phenazopyridine [Pyridium] 100 mg PO Q8H #18 tab 04/29/25 [Rx] Follow up Appointment(s)/Referral(s): Ti Cheema MD [Primary Care Provider] - 3 Days Discharge Disposition: HOME WITH HOME HEALTH SERVICES
[2025-04-30] MEDS ORDERED: SENNOSIDES 8.6 MG TAB PO SCH (21:00)
== END 2025-04-30 15:20 | disposition home health service (06) ==
LOC: EC 18:02 → 5NMEDONC 21:35
PROVIDERS: ADMIT Hospitalist; ATTEND Hospitalist
DX: R53.1 Weakness (principal); C79.11 Secondary malignant neoplasm of bladder; C18.9 Malignant neoplasm of colon, unspecified; I82.412 Acute embolism and thrombosis of left femoral vein; I82.422 Acute embolism and thrombosis of left iliac vein; F41.9 Anxiety disorder, unspecified; Z87.891 Personal history of nicotine dependence; Z91.81 History of falling; Z79.01 Long term (current) use of anticoagulants; Z79.899 Other long term (current) drug therapy; Z88.0 Allergy status to penicillin
CPT/HCPCS: 96376; 96374; 99285; 36415; 97161; 80053; 80048; 83605; 83690; 85025 ×2; 81001; G0378 ×2; J8540; J1171 ×2

== ENCOUNTER 2025-05-11 13:28 | Emergency (ER) | payer MEDICARE ==
[2025-05-11] MEDS: SODIUM CHLORIDE 0.9% 1,000 ML IV ONE (14:15)
--- NOTE | 2025-05-11 14:32 | ED ---
General Adult HPI - General Chief complaint: Weakness Stated complaint: Weakness Time Seen by Provider: 05/11/25 13:35 Source: patient, EMS, RN notes reviewed, old records reviewed Mode of arrival: EMS Limitations: no limitations - History of Present Illness Initial comments: 74-year-old female with metastatic colon cancer on chemotherapy presenting with lethargy and weakness. Patient was apparently difficult to arouse. She does state that she took 2 [place] which is abnormal she typically takes 1 [place] for chronic pain. She is awake and alert at the time my evaluation believes this is the cause of her visit to the emergency department today. Paramedics had been called patient was uncertain who called as she states that she felt as though she could not wake up. Patient denies any acute complaints and does not want any specific testing and does not want to be admitted to the hospital. She is agreeable with IV fluids. - Related Data Home Medications Medication Instructions Recorded Confirmed HYDROcodone/APAP 7.5-325MG [[place] 1 tab PO Q4H PRN 07/15/23 04/29/25 7.5-325] Apixaban [Eliquis] 5 mg PO BID 08/30/23 04/29/25 Prochlorperazine Maleate 10 mg PO Q6H PRN 02/25/24 04/29/25 ALPRAZolam [Xanax] 0.5 mg PO DAILY PRN 04/27/25 04/29/25 Sennosides [Senokot] 17.2 mg PO HS 04/27/25 04/29/25 dexAMETHasone [Decadron] 4 mg PO DAILY 04/27/25 04/29/25 Previous Rx's Medication Instructions Recorded Famotidine [Pepcid] 20 mg PO DAILY tab 04/29/25 Phenazopyridine [Pyridium] 100 mg PO Q8H #18 tab 04/29/25 Allergies Allergy/AdvReac Type Severity Reaction Status Date / Time bee venom protein (honey bee) Allergy Swelling Verified 05/11/25 13:31 Penicillins Allergy Rash/Hives Verified 05/11/25 13:31 poison mookie extract Allergy Rash/Hives Verified 05/11/25 13:31 Review of Systems ROS Statement: Those systems with pertinent positive or pertinent negative responses have been documented in the HPI. ROS Other: All systems not noted in ROS Statement are negative. Past Medical History Past Medical History: Cancer Additional Past Medical History / Comment(s): stage 4 colon cancer, hx bladder cancer, prolapse mitral valve, chemo 08/27/2023, possible stomach and liver cancer pending diagnosis (04/2025) History of Any Multi-Drug Resistant Organisms: None Reported Past Surgical History: Bowel Resection, Hysterectomy Additional Past Surgical History / Comment(s): tubal , Bowel resection with colstomy 2019 and revision of ostomy Dec 2022. Laparoscopy and decompression of hernia February 2024. Cystoscopy with stent. Past Anesthesia/Blood Transfusion Reactions: No Reported Reaction Past Psychological History: Anxiety Smoking Status: Former smoker - Past Family History Mother History Unknown: Yes Father Family Medical History: Chest Pain / Angina Additional Family Medical History / Comment(s): Colon cancer General Exam General appearance: alert, in no apparent distress, cachectic Head exam: Present: atraumatic, normocephalic Eye exam: Present: normal appearance, PERRL ENT exam: Present: mucous membranes dry Neck exam: Present: normal inspection. Absent: tenderness, meningismus Respiratory exam: Present: normal lung sounds bilaterally. Absent: respiratory distress, wheezes Cardiovascular Exam: Present: regular rate, normal rhythm GI/Abdominal exam: Present: soft, other (Colostomy). Absent: distended Neurological exam: Present: alert, oriented X3. Absent: motor sensory deficit Psychiatric exam: Present: normal affect, normal mood Skin exam: Present: warm, dry, intact Course Vital Signs 05/11/25 05/11/25 13:31 13:48 Temperature 98.9 F Pulse Rate 104 H 56 L Respiratory 18 18 Rate Blood Pressure 112/73 117/75 O2 Sat by Pulse 99 Oximetry Medical Decision Making - Medical Decision Making Was pt. sent in by a medical professional or institution (, [place], INSULATION CUPOLA CHARGER, urgent c are, hospital, or senior living...) When possible be specific @ -No Did you speak to anyone other than the patient for history (EMS, parent, family, police, friend...)? What history was obtained from this source @ -No Did you review nursing and triage notes (agree or disagree)? Why? @ -I reviewed and agree with nursing and triage notes Were old charts reviewed (outside hosp., previous admission, EMS record, old EKG, old radiological studies, urgent care reports/EKG's, senior living records)? Report findings @ -No old charts were reviewed Differential Altered Mental Status: Hypoglycemia, DKA, hypercapnia, ETOH, overdose, CO poisoning, trauma, myxedema coma, HTN encephalopathy, infection, encephalitis, psychosis, intercranial hemorrhage, hepatic encephalopathy, meningitis, CVA, this is not meant to be an all-inclusive list EKG interpreted by me (3pts min.). @ -As above X-rays interpreted by me (1pt min.). @ -None done CT interpreted by me (1pt min.). @ -None done U/S interpreted by me (1pt. min.). @ -None done What testing was considered but not performed or refused? (CT, X-rays, U/S, labs)? Why? @ -None What meds were considered but not given or refused? Why? @ -None Did you discuss the management of the patient with other professionals (professionals i.e. , PA, INSULATION CUPOLA CHARGER, lab, RT, psych nurse, social media developer, brim stretcher, teacher, law enforcement officer, supportive employment case manager)? Give summary @ -No Was smoking cessation discussed for >3mins.? @ -No Was critical care preformed (if so, how long)? @ -No Were there social determinants of health that impacted care today? How? (Homelessness, low income, unemployed, alcoholism, drug addiction, transportation, low edu. Level, literacy, decrease access to med. care, usp, rehab)? @ -No Was there de-escalation of care discussed even if they declined (Discuss DNR or withdrawal of care, Hospice)? DNR status @ -No What co-morbidities impacted this encounter? (DM, HTN, Smoking, COPD, CAD, Cancer, CVA, ARF, Chemo, Hep., AIDS, mental health diagnosis, sleep apnea, morbid obesity)? @Metastatic colon cancer on chemotherapy Was patient admitted / discharged? Hospital course, mention meds given and route, prescriptions, significant lab abnormalities, going to OR and other pertinent info. @ -74-year-old female presenting with lethargy, weakness, dehydration. Patient states she took 2 [place] and typically only takes 1 [place] she believes this is why she was difficult to respond. She is awake and alert at the time my evaluation and does not want any further testing but is agreeable to IV fluids. Patient administered 1 L of normal saline. Undiagnosed new problem with uncertain prognosis? @ -No Drug Therapy requiring intensive monitoring for toxicity (Heparin, Nitro, Insulin, Cardizem)? @ -No Were any procedures done? @ -No Diagnosis/symptom? @ -Dehydration Acute, or Chronic, or Acute on Chronic? @ -[Acute Uncomplicated (without systemic symptoms) or Complicated (systemic symptoms)? @ -Complicated Side effects of treatment? @ -No Exacerbation, Progression, or Severe Exacerbation? @ -No Poses a threat to life or bodily function? How? (Chest pain, [place], [place], pneumonia, PE, COPD, DKA, ARF, appy, cholecystitis, CVA, Diverticulitis, Homicidal, Suicidal, threat to staff... and all critical care pts) @ -No Disposition Clinical Impression: Dehydration, Colon cancer Disposition: HOME SELF-CARE Condition: Fair Is patient prescribed a controlled substance at d/c from ED?: No Referrals: Nonstaff,Physician [Primary Care Provider] - 1-2 days Time of Disposition: 15:00
[2025-05-11 16:51] VITALS: BP 127/73; PULSE 59; RESP 16; TEMP 97.9
== END 2025-05-11 17:05 | disposition home or self-care (01) ==
LOC: EC 13:28
DX: E86.0 Dehydration (principal); C18.9 Malignant neoplasm of colon, unspecified; Z87.891 Personal history of nicotine dependence; Z88.0 Allergy status to penicillin; Z91.030 Bee allergy status; Z88.8 Allergy status to other drugs, medicaments and biological substances
CPT/HCPCS: 96360; 99284

== ENCOUNTER 2025-05-13 14:18 | Emergency (ER) | payer MEDICARE ==
[2025-05-13 15:17] LABS: Basophils # (A) 0.05 10*3/uL (0.00-0.10); Basophils % (A) 0.2 %; Eosinophils # (A) 0.01 10*3/uL (0.04-0.35); HCT 21.4 % (37.2-46.3); Lymphocytes # (A) 0.44 10*3/uL (0.90-5.00); Lymphocytes % (A) 2.1 %; MCH 25.1 pg (27.0-32.0); MCHC 31.3 g/dL (32.0-37.0); MCV 80.1 fL (80.0-97.0); Mean Platelet Volume 8.6 fL (9.5-12.2); Monocytes # (A) 1.41 10*3/uL (0.20-1.00); Monocytes % (A) 6.8 %; Neutrophils # (A) 18.68 10*3/uL (1.80-7.70); Neutrophils % (A) 90.1 %; Platelet Count 485 10*3/uL (140-440); RBC 2.67 10*6/uL (4.10-5.20); RDW 18.2 % (11.5-14.5); WBC 20.75 10*3/uL (4.50-10.00)
[2025-05-13 15:33] LABS: HGB 6.7 g/dL (12.0-15.0)
[2025-05-13 15:35] LABS: ALT 9 U/L (4-34); AST 17 U/L (14-36); African American GFR (CKD) 42 (>60 ml/min/1.73 sqM); Albumin 3.1 g/dL (3.5-5.0); Alkaline Phosphatase 101 U/L (38-126); Anion Gap 11 mmol/L; Blood Urea Nitrogen 18 mg/dL (7-17); Calcium 8.1 mg/dL (8.4-10.2); Carbon Dioxide 21 mmol/L (22-30); Chloride 99 mmol/L (98-107); Glucose 129 mg/dL (74-99); Non-African American GFR(CKD) 36 (>60 ml/min/1.73 sqM); Potassium 4.2 mmol/L (3.5-5.1); Sodium 131 mmol/L (137-145); Total Bilirubin 0.4 mg/dL (0.2-1.3); Total Protein 5.8 g/dL (6.3-8.2)
--- NOTE | 2025-05-13 17:32 | ED ---
Weakness HPI - General Chief complaint: Weakness Stated complaint: Transfusion..? Weakness Time Seen by Provider: 05/13/25 14:40 Source: patient Mode of arrival: wheelchair Limitations: no limitations - History of Present Illness Initial comments: 74-year-old female presents to the emergency department for blood transfusion. Patient has a history of metastatic colon cancer. Reports that she did do chemotherapy. She received a call stating that her hemoglobin was low and she needed a blood transfusion. Patient admits to fatigue. Denies any chest pain or shortness of breath. No fevers. No bright red blood per rectum. Denies any black stools. No other alleviating, precipitating or modifying factors - Related Data Home Medications Medication Instructions Recorded Confirmed HYDROcodone/APAP 7.5-325MG [[place] 1 tab PO Q4H PRN 07/15/23 04/29/25 7.5-325] Apixaban [Eliquis] 5 mg PO BID 08/30/23 04/29/25 Prochlorperazine Maleate 10 mg PO Q6H PRN 02/25/24 04/29/25 ALPRAZolam [Xanax] 0.5 mg PO DAILY PRN 04/27/25 04/29/25 Sennosides [Senokot] 17.2 mg PO HS 04/27/25 04/29/25 dexAMETHasone [Decadron] 4 mg PO DAILY 04/27/25 04/29/25 Previous Rx's Medication Instructions Recorded Famotidine [Pepcid] 20 mg PO DAILY tab 04/29/25 Phenazopyridine [Pyridium] 100 mg PO Q8H #18 tab 04/29/25 Allergies Allergy/AdvReac Type Severity Reaction Status Date / Time bee venom protein (honey bee) Allergy Swelling Verified 05/13/25 14:36 Penicillins Allergy Rash/Hives Verified 05/13/25 14:36 poison mookie extract Allergy Rash/Hives Verified 05/13/25 14:36 Review of Systems ROS Statement: Those systems with pertinent positive or pertinent negative responses have been documented in the HPI. ROS Other: All systems not noted in ROS Statement are negative. Past Medical History Past Medical History: Cancer Additional Past Medical History / Comment(s): stage 4 colon cancer, hx bladder cancer, prolapse mitral valve, chemo 08/27/2023, possible stomach and liver cancer pending diagnosis (04/2025) History of Any Multi-Drug Resistant Organisms: None Reported Past Surgical History: Bowel Resection, Hysterectomy Additional Past Surgical History / Comment(s): tubal , Bowel resection with colstomy 2019 and revision of ostomy Dec 2022. Laparoscopy and decompression of hernia February 2024. Cystoscopy with stent. Past Anesthesia/Blood Transfusion Reactions: No Reported Reaction Past Psychological History: Anxiety Smoking Status: Former smoker Past Alcohol Use History: None Reported Past Drug Use History: Marijuana - Past Family History Mother History Unknown: Yes Father Family Medical History: Chest Pain / Angina Additional Family Medical History / Comment(s): Colon cancer General Exam Limitations: no limitations General appearance: alert, in no apparent distress Head exam: Present: atraumatic, normocephalic, normal inspection Eye exam: Present: normal appearance, PERRL, EOMI. Absent: scleral icterus, conjunctival injection, periorbital swelling ENT exam: Present: normal exam, mucous membranes moist Neck exam: Present: normal inspection. Absent: tenderness, meningismus, lymphadenopathy Respiratory exam: Present: normal lung sounds bilaterally. Absent: respiratory distress, wheezes, rales, rhonchi, stridor Cardiovascular Exam: Present: normal rhythm, tachycardia, normal heart sounds. Absent: systolic murmur, diastolic murmur, rubs, gallop, clicks GI/Abdominal exam: Present: soft, normal bowel sounds. Absent: distended, tenderness, guarding, rebound, rigid Extremities exam: Present: normal inspection, full ROM, normal capillary refill. Absent: tenderness, pedal edema, joint swelling, calf tenderness Back exam: Present: normal inspection Neurological exam: Present: alert, oriented X3, CN II-XII intact Psychiatric exam: Present: normal affect, normal mood Skin exam: Present: warm, dry, intact, normal color. Absent: rash Course Vital Signs 05/13/25 05/13/25 05/13/25 14:37 14:46 17:55 Temperature 99.4 F 100.2 F H 98.8 F Pulse Rate 111 H 96 Respiratory 18 16 Rate Blood Pressure 99/59 100/64 O2 Sat by Pulse 83 L 95 97 Oximetry 05/13/25 05/13/25 05/13/25 17:58 18:08 18:30 Temperature 98.8 F 98.7 F 98.7 F Pulse Rate 99 95 90 Respiratory 16 16 16 Rate Blood Pressure 98/64 103/65 115/77 O2 Sat by Pulse 97 97 97 Oximetry 05/13/25 20:46 Temperature 97.7 F Pulse Rate 73 Respiratory 17 Rate Blood Pressure 116/80 O2 Sat by Pulse 95 Oximetry Medical Decision Making - Medical Decision Making Was pt. sent in by a medical professional or institution (, [facility], SUPERVISOR CONTACT [employer]ENS, urgent care, hospital, or penitentiary...) When possible be specific @ -Patient sent in from the oncology office Did you speak to anyone other than the patient for history (EMS, parent, family, police, friend...)? What history was obtained from this source @ -No Did you review nursing and triage notes (agree or disagree)? Why? @ -I reviewed and agree with nursing and triage notes Were old charts reviewed (outside hosp., previous admission, EMS record, old EKG, old radiological studies, urgent care reports/EKG's, penitentiary records)? Report findings @ -No old charts were reviewed Differential Diagnosis (chest pain, altered mental status, abdominal pain women, abdominal pain men, vaginal bleeding, weakness, fever, dyspnea, syncope, headache, dizziness, GI bleed, back pain, seizure, CVA, palpatations, mental health, musculoskeletal)? @ -Chemotherapy reaction, iron deficiency, GI bleed EKG interpreted by me (3pts min.). @ -Yes which demonstrates sinus rhythm with rate of 95. SD interval 152. QRS 97. QTc of 431. No acute ST segment elevations or depressions X-rays interpreted by me (1pt min.). @ -None done CT interpreted by me (1pt min.). @ -None done U/S interpreted by me (1pt. min.). @ -None done What testing was considered but not performed or refused? (CT, X-rays, U/S, labs)? Why? @ -None What meds were considered but not given or refused? Why? @ -None Did you discuss the management of the patient with other professionals (professionals i.e. PANCHITO [place], SUPERVISOR CONTACT L[employer], lab, RT, psych nurse, social welfare administrator, chain builder loom control, teacher, morals squad police officer, piano case maker)? Give summary @ -No Was smoking cessation discussed for >3mins.? @ -No Was critical care preformed (if so, how long)? @ -Yes, 35 minutes for transfusion of blood products Were there social determinants of health that impacted care today? How? (Home lessness, low income, unemployed, alcoholism, drug addiction, transportation, low edu. Level, literacy, decrease access to med. care, alf, rehab)? @ -No Was there de-escalation of care discussed even if they declined (Discuss DNR or withdrawal of care, Hospice)? DNR status @ -No What co-morbidities impacted this encounter? (DM, HTN, Smoking, COPD, CAD, Cancer, CVA, ARF, Chemo, Hep., AIDS, mental health diagnosis, sleep apnea, morbid obesity)? @ -Stage IV colon cancer Was patient admitted / discharged? Hospital course, mention meds given and route, prescriptions, significant lab abnormalities, going to OR and other pertinent info. @ -Upon arrival patient seen and evaluated in bed 25. Thorough history and physical exam was performed. Laboratory studies are conducted. Confirm a hemoglobin of 6.7. Patient requires blood at this time. Patient would like a transfusion and to go home. Does not want to be hospitalized. Has follow-up appointment scheduled with Dr. Mcelroy. I did order a unit of blood for the patient. She is transfused. She is then discharged home and instructed that she needs to follow-up with her oncologist for repeat labs. Return for any new or worsening symptoms. Patient agreeable to plan she was discharged in stable condition Undiagnosed new problem with uncertain prognosis? @ -No Drug Therapy requiring intensive monitoring for toxicity (Heparin, Nitro, Insulin, Cardizem)? @ -Blood products Were any procedures done? @ -No Diagnosis/symptom? @ -Acute anemia, stage IV colon cancer on chemotherapy Acute, or Chronic, or Acute on Chronic? @ -Acute Uncomplicated (without systemic symptoms) or Complicated (systemic symptoms)? @ -Complicated Side effects of treatment? @ -No Exacerbation, Progression, or Severe Exacerbation? @ -No Poses a threat to life or bodily function? How? (Chest pain, [place], [place], pneumonia, PE, COPD, DKA, ARF, appy, cholecystitis, CVA, Diverticulitis, Homicidal, Suicidal, threat to staff... and all critical care pts) @ -Yes as patient is severely anemic - Lab Data Result diagrams: 05/13/25 15:10 05/13/25 15:10 Lab Results 05/13/25 05/13/25 05/13/25 Range/Units 15:10 15:10 15:10 WBC 20.75 H (4.50-10.00) 10*3/uL RBC 2.67 L (4.10-5.20) 10*6/uL Hgb 6.7 L* D (12.0-15.0) g/dL Hct 21.4 L (37.2-46.3) % MCV 80.1 (80.0-97.0) fL MCH 25.1 L (27.0-32.0) pg MCHC 31.3 L (32.0-37.0) g/dL Plt Count 485 H (140-440) 10*3/uL MPV 8.6 L (9.5-12.2) fL Immature Gran % (Auto) 0.8 % Neutrophils % 90.1 % Lymphocytes % 2.1 % Monocytes % 6.8 % Eosinophils % 0.0 % Basophils % 0.2 % Immature Gran # 0.16 H (0.00-0.04) 10*3/uL Neutrophils # 18.68 H (1.80-7.70) 10*3/uL Lymphocytes # 0.44 L (0.90-5.00) 10*3/uL Monocytes # 1.41 H (0.20-1.00) 10*3/uL Eosinophils # 0.01 L (0.04-0.35) 10*3/uL Basophils # 0.05 (0.00-0.10) 10*3/uL Sodium 131 L (137-145) mmol/L Potassium 4.2 (3.5-5.1) mmol/L Chloride 99 (98-107) mmol/L Carbon Dioxide 21 L (22-30) mmol/L Anion Gap 11 mmol/L BUN 18 H (7-17) mg/dL Creatinine 1.43 H (0.52-1.04) mg/dL Est GFR (CKD-EPI)AfAm 42 (>60 ml/min/1.73 sqM) Est GFR (CKD-EPI)NonAf 36 (>60 ml/min/1.73 sqM) Glucose 129 H (74-99) mg/dL Calcium 8.1 L (8.4-10.2) mg/dL Total Bilirubin 0.4 (0.2-1.3) mg/dL AST 17 (14-36) U/L ALT 9 (4-34) U/L Alkaline Phosphatase 101 (38-126) U/L Total Protein 5.8 L (6.3-8.2) g/dL Albumin 3.1 L (3.5-5.0) g/dL Blood Type B Positive Blood Type Recheck B Pos Bld Type Recheck Status No Antibody Screen NEGATIVE Crossmatch See Detail Spec Expiration Date 05/16/20252309 Disposition Clinical Impression: History of colon cancer, stage IV, Anemia Disposition: HOME SELF-CARE Condition: Stable Instructions (If sedation given, give patient instructions): Anemia (ED) Additional Instructions: Please follow-up with Dr. Condon for a repeat blood count. Return to the emergency department for any new or worsening symptoms Is patient prescribed a controlled substance at d/c from ED?: No Referrals: Ti Cheema MD [Primary Care Provider] - 1-2 days Reece Condon MD [STAFF PHYSICIAN] - 1-2 days Time of Disposition: 17:32
[2025-05-13 20:47] VITALS: BP 116/80; PULSE 73; RESP 17; TEMP 97.7
== END 2025-05-13 20:55 | disposition home or self-care (01) ==
LOC: EC 14:18
DX: D64.9 Anemia, unspecified (principal); Z85.038 Personal history of other malignant neoplasm of large intestine; Z87.891 Personal history of nicotine dependence; Z88.0 Allergy status to penicillin; Z91.030 Bee allergy status
CPT/HCPCS: 36415; 93005; 86900; 86901; 80053; 85025; 86850; 86920; 99285; 36430; P9016